=== PATIENT | female | born 1985 | race Caucasian/White ===

== ENCOUNTER 2019-10-09 10:09 | Outpatient (CLI) | payer OTHER, SELFPAY ==
--- NOTE | 2019-10-09 11:00 | NEURO_ITS ---
Patient Number: [id number] Impression: # Complains of feet pain; possible tarsal tunnel syndrome. # Normal and symmetrical terminal latencies bilaterally with no underlying neuropathy. # Normal needle/EMG exam. # Clinical correlation recommended. Nerve Conduction Studies Anti Sensory Summary Table Stim Site NR Peak (ms) P-T Amp (?V) Site1 Site2 Delta-P (ms) Dist (cm) Parish (m/s) Left Sup Fibular Anti Sensory (Ant Lat Mall) 14 cm 2.7 8.9 14 cm Ant Lat Mall 2.7 16.0 59 Right Sup Fibular Anti Sensory (Ant Lat Mall) 14 cm 3.3 9.8 14 cm Ant Lat Mall 3.3 16.0 48 Left Sural Anti Sensory (Lat Mall) Calf 3.8 5.1 Calf Lat Mall 3.8 16.0 42 Right Sural Anti Sensory (Lat Mall) Calf 3.4 9.6 Calf Lat Mall 3.4 16.0 47 Motor Summary Table Stim Site NR Onset (ms) O-P Amp (mV) Site1 Site2 Delta-0 (ms) Dist (cm) Parish (m/s) Left Peroneal Motor (Vastus Med) Ankle 3.9 4.1 Popit Ankle 6.6 36.0 55 Popit 10.5 3.8 Right Peroneal Motor (Vastus Med) Ankle 3.9 2.3 Popit Ankle 7.0 37.0 53 Popit 10.9 4.2 Left Tibial Motor (Abd Sanchez Brev) Ankle 3.8 4.7 Knee Ankle 7.9 41.0 52 Knee 11.7 1.8 Right Tibial Motor (Abd Sanchez Brev) Ankle 3.9 5.7 Knee Ankle 10.0 45.0 45 Knee 13.9 4.5 F Wave Studies NR F-Lat (ms) L-R F-Lat (ms) Left Peroneal (Mrkrs) (EDB) 45.83 1.01 Right Peroneal (Mrkrs) (EDB) 46.84 1.01 Left Tibial (Mrkrs) (Abd Hallucis) 48.84 0.99 Right Tibial (Mrkrs) (Abd Hallucis) 47.85 0.99 EMG Side Muscle Nerve Root Ins Act Fibs Amp Dur Recrt Comment Right AntTibialis Dp Br Fibular L4-5 Nml Nml Nml Nml Nml Right Gastroc Tibial S1-2 Nml Nml Nml Nml Nml Right Fibularis Long Sup Br Fibular L5-S1 Nml Nml Nml Nml Nml Right Flex Dig Long Tibial L5-S2 Nml Nml Nml Nml Nml Right Ext Dig Brev Dp Br Fibular L5, S1 Nml Nml Nml Nml Nml Left AntTibialis Dp Br Fibular L4-5 Nml Nml Nml Nml Nml Left Gastroc Tibial S1-2 Nml Nml Nml Nml Nml Left Fibularis Long Sup Br Fibular L5-S1 Nml Nml Nml Nml Nml Left Flex Dig Long Tibial L5-S2 Nml Nml Nml Nml Nml Left Ext Dig Brev Dp Br Fibular L5, S1 Nml Nml Nml Nml Nml MTDD
== END 2019-10-09 10:10 | disposition home or self-care (01) ==
LOC: ANHNEURO 10:13
PROVIDERS: PCP Nurse Practitioner Family; Visit Provider Podiatrist Foot & Ankle Surgery
DX: G57.52 Tarsal tunnel syndrome, left lower limb (principal)
CPT/HCPCS: 95886; 95910

== ENCOUNTER 2020-11-05 10:00 | Emergency (ER) | payer OTHER, SELFPAY ==
[2020-11-05 10:09] VITALS: BP 141/81; PULSE 85; RESP 16; TEMP 36.6; O2SAT 99
--- NOTE | 2020-11-05 10:58 | ED.SKABFB ---
HPI - Skin/Abscess/Foreign Bdy General Chief complaint: Skin/Abscess/Foreign Body Stated complaint: rash Time Seen by Provider: 11/05/20 10:58 Source: patient Mode of arrival: ambulatory Limitations: no limitations History of Present Illness HPI narrative: Linda Del Rosario is a 35 yo female with a PMH of atypical neuropathy and seizures who [facility] with a rash on her left buttock and upper thigh that started 4 to 5 days ago. the rash is painful 10 out of 10, and tender, only on the L side Related Data Home Medications Medication Instructions Recorded Confirmed budesonide-formoterol [Symbicort] INHALATION 11/05/20 divalproex PO 11/05/20 fluticasone propionate INTRANASAL 11/05/20 gabapentin 11/05/20 gabapentin 11/05/20 ipratropium-albuterol ml INHALATION 11/05/20 omeprazole 11/05/20 ondansetron 11/05/20 umeclidinium [Incruse Ellipta] INHALATION 11/05/20 Allergies Allergy/AdvReac Type Severity Reaction Status Date / Time amoxicillin Allergy Unknown Stopped Verified 09/08/15 11:19 Breathing ciprofloxacin Allergy Unknown rash Verified 09/08/15 11:19 clarithromycin Allergy Unknown jittery Verified 09/08/15 11:19 naproxen Allergy Unknown rash Verified 09/08/15 11:19 oxycodone Allergy Unknown Verified 05/02/18 15:33 Review of Systems Review of Systems: Narrative: CONSTITUTIONAL: Denies fever, chills, sweats. EYES: Denies visual changes, redness, discharge. ENT: Denies rhinorrhea, congestion, sore throat, otalgia. CARDIOVASCULAR: Denies chest pain, palpitations, edema. RESPIRATORY: Denies dyspnea, wheezing, cough GASTROINTESTINAL: Denies abdominal pain, nausea, vomiting, diarrhea. GENITOURINARY: Denies dysuria, hematuria, abnormal discharge SKIN: Rash on left buttock and left thigh that is painful and tender NEUROLOGIC: Denies numbness, or focal weakness. PSYCHIATRIC: Denies anxiety or depression. [facility] Past Medical History Medical History Neuropathy Seizure disorder Family History Family History Mother Depression Sibling Family history of heart disease in male family member before age 55 Family history of diabetes mellitus in first degree relative Father Family history of heart disease in male family member before age 55 Other Diabetes mellitus Social History Social History (Updated 11/05/20 @ 11:12 by Brittni Ayala CNP) Smoking packs per day: 0.5 Smoking cigarettes per day: 10.0 Smoking status: Current some day smoker Smoking end date: 07/09/14 Additional smoking assessment comments: Has cut down from 2 packs a day to half pack Comments At time of signature, I agree with nursing past medical, surgical, social and family history. There is no relevant family history pertinent to the presenting complaint. Exam Narrative: Exam Narrative: GENERAL: This is a well-nourished, well-developed patient, in mild distress. HEAD: normocephalic, atraumatic. EYES: Sclera clear/white. Vision is grossly intact. EARS: External ears normal, auditory canals clear and without drainage, TMs normal without perforation. Hearing grossly intact. NOSE: External nose normal without nasal discharge, nares without redness, no rhinorrhea. THROAT: Mucous membranes moist, posterior pharynx NECK: Neck supple, non-tender CARDIOVASCULAR: Regular rate and rhythm without murmurs, gallops, or rubs. RESPIRATORY: Clear to auscultation. Breath sounds equal bilaterally. No wheezes, rales, or rhonchi. GASTROINTESTINAL: Abdomen soft, non-tender, SKIN: warm, intact with rash on the left buttock and left upper thigh that is red tender and states the pain is 10 out of 10, is not vesicular or weeping NEURO: awake, alert, and oriented to person, place and time. There were no obvious focal neurologic abnormalities. Steady gait EXTREMITIES: Normal range of motion. BACK: Nontender without defor
== END 2020-11-05 11:30 | disposition home or self-care (01) ==
PROVIDERS: Emergency Provider Nurse Practitioner
DX: B02.9 Zoster without complications (principal); F17.200 Nicotine dependence, unspecified, uncomplicated; G40.909 Epilepsy, unspecified, not intractable, without status epilepticus; G62.9 Polyneuropathy, unspecified
CPT/HCPCS: 99213; G0463

== ENCOUNTER 2021-09-16 16:11 | Emergency (ER) | payer OTHER, SELFPAY ==
--- NOTE | ~2021-09-16 | XR_ITS ---
EXAMINATION: XR knee LT min 4V DATE: 09/16/2021 16:46 INDICATION: Left knee pain TECHNIQUE: Four views of the left knee were obtained. COMPARISON: None. FINDINGS: Alignment is normal. No fracture or osteochondral lesion. Joint spaces are normal with no e rosions. There is a small knee joint effusion. Soft tissues are unremarkable. IMPRESSION: 1. Small knee joint effusion without acute osseous abnormality. Reviewed, dictated and finalized at location B. ENTRY MANAGER
[2021-09-16 16:24] VITALS: BP 121/74; PULSE 94; RESP 18; TEMP 37.2; O2SAT 98
--- NOTE | 2021-09-16 16:36 | ED.LOWEXIN ---
HPI - Extremity Injury (Lower) General Chief Complaint: Extremity Injury, Lower Stated Complaint: Left Knee Pain Time Seen by Provider: 09/16/21 16:36 Source: patient Mode of arrival: ambulatory Limitations: no limitations History of Present Illness HPI Narrative: Linda Del Rosario is a 36 yo female with PMH of seizure disorder, COPD, seasonal allergies, mouth 3 days ago while in a house where she tripped over some boots and her left leg bent underneath her as she fell back against a dresser. She has a bruise on her right flank and pain on the medial side of her left knee Related Data Home Medications Medication Instructions Recorded Confirmed budesonide-formoterol [Symbicort] 160 inh INHALATION DIRECTED 11/05/20 09/16/21 divalproex 500 mg PO DIRECTED 11/05/20 09/16/21 fluticasone propionate 50 mcg INTRANASAL DIRECTED 11/05/20 09/16/21 ipratropium-albuterol 3 ml INHALATION DIRECTED 11/05/20 09/16/21 omeprazole 40 mg DIRECTED 11/05/20 09/16/21 ondansetron 8 mg DIRECTED 11/05/20 09/16/21 umeclidinium [Incruse Ellipta] 62.5 mcg INHALATION DIRECTED 11/05/20 09/16/21 montelukast 10 mg DIRECTED 09/16/21 09/16/21 Allergies Allergy/AdvReac Type Severity Reaction Status Date / Time amoxicillin Allergy Unknown Stopped Verified 09/08/15 11:19 Breathing ciprofloxacin Allergy Unknown rash Verified 09/08/15 11:19 clarithromycin Allergy Unknown jittery Verified 09/08/15 11:19 naproxen Allergy Unknown rash Verified 09/08/15 11:19 oxycodone Allergy Unknown Verified 05/02/18 15:33 Review of Systems Review of Systems: CONSTITUTIONAL: Denies fever, chills, sweats. EYES: Denies visual changes, redness, discharge. ENT: Denies rhinorrhea, congestion, sore throat, otalgia. CARDIOVASCULAR: Denies chest pain, palpitations, edema. RESPIRATORY: Denies dyspnea, wheezing, cough GASTROINTESTINAL: Denies abdominal pain, nausea, vomiting, diarrhea. GENITOURINARY: Denies dysuria, hematuria, abnormal discharge SKIN: Denies rash or itching. NEUROLOGIC: Denies numbness, or focal weakness. PSYCHIATRIC: Denies anxiety or depression. Left knee pain PMFSH Past Medical History Medical History Allergies GERD (gastroesophageal reflux disease) Neuropathy Seasonal allergies Seizure disorder Family History Family History Mother Depression Sibling Family history of heart disease in male family member before age 55 Family history of diabetes mellitus in first degree relative Father Family history of heart disease in male family member before age 55 Other Diabetes mellitus Social History Social History Smoking packs per day: 0.5 Smoking cigarettes per day: 10.0 Smoking status: Current some day smoker Smoking end date: 07/09/14 Additional smoking assessment comments: Has cut down from 2 packs a day to half pack Comments At time of signature, I agree with nursing past medical, surgical, social and family history. There is no relevant family history pertinent to the presenting complaint. Exam Narrative: GENERAL: This is a well-nourished, well-developed patient, in mild distress. HEAD: normocephalic, atraumatic. EYES: PERRL. Sclera clear/white. Vision is grossly intact. EARS: External ears normal, auditory canals clear and without drainage, TMs normal without perforation. Hearing grossly intact. NOSE: External nose normal without nasal discharge, nares without redness, no rhinorrhea. THROAT: Mucous membranes moist, posterior pharynx NECK: Neck supple, non-tender CARDIOVASCULAR: Regular rate and rhythm without murmurs, gallops, or rubs. RESPIRATORY: Clear to auscultation. Breath sounds equal bilaterally. No wheezes, rales, or rhonchi. GASTROINTESTINAL: Abdomen soft, non-tender, SKIN: warm, intact with no suspicious lesions or rash, good texture and
== END 2021-09-16 17:09 | disposition home or self-care (01) ==
PROVIDERS: Emergency Provider Nurse Practitioner; PCP Nurse Practitioner Family
DX: M25.562 Pain in left knee (principal); F17.210 Nicotine dependence, cigarettes, uncomplicated; K21.9 Gastro-esophageal reflux disease without esophagitis; G62.9 Polyneuropathy, unspecified
CPT/HCPCS: 73564; 99213; G0463; L1830

== ENCOUNTER 2023-05-13 15:35 | Emergency (ER) | payer OTHER, SELFPAY ==
[2023-05-13 15:45] VITALS: BP 127/90; PULSE 83; RESP 14; TEMP 37.2; O2SAT 98
--- NOTE | 2023-05-13 15:55 | ED.EAR ---
HPI - Ear Problem General Chief complaint: Ear Stated complaint: both ears ringing,buzzing Time Seen by Provider: 05/13/23 15:50 Source: patient Mode of arrival: ambulatory Limitations: no limitations History of Present Illness HPI Narrative: Linda is a 38-year-old female patient presenting to the clinic today with complaints of ringing in both of her ears. She reports this been going on for 1 week. Does report a lot of pressure behind her ears and some discomfort over the bilateral eustachian tubes. Denies any fever or chills. No dizziness, nausea or vomiting Related Data Home Medications Medication Instructions Recorded Confirmed budesonide-formoterol HFA 160 160 inh inhalation DIRECTED 11/05/20 05/13/23 mcg-4.5 mcg/actuation aerosol inhaler (Symbicort) divalproex 500 mg tablet,extended 500 mg PO DIRECTED 11/05/20 05/13/23 release 24 hr fluticasone propionate 50 50 mcg intranasal DIRECTED 11/05/20 05/13/23 mcg/actuation nasal spray,suspension ipratropium 0.5 mg-albuterol 3 mg 3 ml inhalation DIRECTED 11/05/20 05/13/23 (2.5 mg base)/3 mL nebulization soln omeprazole 40 mg capsule,delayed 40 mg DIRECTED 11/05/20 05/13/23 release ondansetron 8 mg disintegrating 8 mg DIRECTED 11/05/20 05/13/23 tablet umeclidinium 62.5 mcg/actuation 62.5 mcg inhalation DIRECTED 11/05/20 05/13/23 blister powder for inhalation (Incruse Ellipta) montelukast 10 mg tablet 10 mg DIRECTED 09/16/21 05/13/23 Allergies Allergy/AdvReac Type Severity Reaction Status Date / Time amoxicillin Allergy Unknown Stopped Verified 05/13/23 15:56 Breathing ciprofloxacin Allergy Unknown rash Verified 05/13/23 15:56 clarithromycin Allergy Unknown jittery Verified 05/13/23 15:56 naproxen Allergy Unknown rash Verified 05/13/23 15:56 oxycodone Allergy Unknown Unknown Verified 05/13/23 15:56 [facility] Past Medical History Medical History Allergies GERD (gastroesophageal reflux disease) Neuropathy Seasonal allergies Seizure disorder Family History Family History Mother Depression Sibling Family history of heart disease in male family member before age 55 Family history of diabetes mellitus in first degree relative Father Family history of heart disease in male family member before age 55 Other Diabetes mellitus Social History Social History Smoking packs per day: 0.5 Smoking cigarettes per day: 10.0 Smoking status: Current some day smoker Smoking end date: 07/09/14 Additional smoking assessment comments: Has cut down from 2 packs a day to half pack Comments At the time of my signature, I reviewed and agree with the nursing past medical, surgical, social, and family history. There is no relevant family history pertinent to the patient complaint. Exam Narrative: General: Well-developed, well nourished, in no apparent distress Head: Normocephalic, atraumatic Eyes: Pupils equally round and reactive to light bilaterally, EOM intact, sclera and conjunctive clear, no discharge, lids normal Ears: TMs intact and congested, with mild bulging bilaterally, fluid noted behind the TMs, ear canals clear, no drainage, grossly hearing normal. Nose: Nares patent, no discharge, no inflammation, no sinus tenderness. Mouth: Oropharynx without lesions or masses, good dentition, MMM. Neck: Supple, trachea midline, no enlargement of anterior or posterior cervical nodes, no thyroid masses or goiter palpable. Cardio: Regular rate and rhythm, s1 and s2 normal, no murmur appreciated. Resp: Clear to auscultation bilaterally anteriorly and posteriorly, no rhonchi, rales, wheezing or rubs Course Course Emergency Course: Portions of this record may have been created with voice recognition software. Level of Care: Expre
== END 2023-05-13 16:02 | disposition home or self-care (01) ==
PROVIDERS: Emergency Provider Nurse Practitioner Family; PCP Physician Assistant
DX: H69.93 Unspecified Eustachian tube disorder, bilateral (principal); H65.03 Acute serous otitis media, bilateral; K21.9 Gastro-esophageal reflux disease without esophagitis; G40.909 Epilepsy, unspecified, not intractable, without status epilepticus
CPT/HCPCS: 99213; G0463

== ENCOUNTER 2023-07-03 11:37 | Emergency (ER) | payer OTHER, SELFPAY ==
[2023-07-03 11:58] VITALS: BP 126/78; PULSE 73; RESP 16; TEMP 36.6; O2SAT 99
--- NOTE | 2023-07-03 12:26 | ED.EAR ---
HPI - Ear Problem General Chief complaint: Ear Stated complaint: both ears painful Time Seen by Provider: 07/03/23 12:26 Source: patient Mode of arrival: ambulatory Limitations: no limitations History of Present Illness HPI Narrative: 38-year-old female presents with complaint of bilateral ear pain for 3 days. Afebrile. No other symptoms. Reports history of similar and was told to take Claritin D which helped. Patient has been taking Flonase but currently does not have Claritin D. Wanted to make sure she did not need antibiotic. all systems reviewed and negative except as noted above. Related Data Home Medications Medication Instructions Recorded Confirmed budesonide-formoterol HFA 160 160 inh inhalation DIRECTED 11/05/20 07/03/23 mcg-4.5 mcg/actuation aerosol inhaler (Symbicort) divalproex 500 mg tablet,extended 500 mg PO DIRECTED 11/05/20 05/13/23 release 24 hr fluticasone propionate 50 50 mcg intranasal DIRECTED 11/05/20 05/13/23 mcg/actuation nasal spray,suspension ipratropium 0.5 mg-albuterol 3 mg 3 ml inhalation DIRECTED 11/05/20 05/13/23 (2.5 mg base)/3 mL nebulization soln omeprazole 40 mg capsule,delayed 40 mg DIRECTED 11/05/20 05/13/23 release ondansetron 8 mg disintegrating 8 mg DIRECTED 11/05/20 05/13/23 tablet umeclidinium 62.5 mcg/actuation 62.5 mcg inhalation DIRECTED 11/05/20 05/13/23 blister powder for inhalation (Incruse Ellipta) montelukast 10 mg tablet 10 mg DIRECTED 09/16/21 05/13/23 Allergies Allergy/AdvReac Type Severity Reaction Status Date / Time amoxicillin Allergy Unknown Stopped Verified 07/03/23 12:25 Breathing ciprofloxacin Allergy Unknown rash Verified 07/03/23 12:25 clarithromycin Allergy Unknown jittery Verified 07/03/23 12:25 naproxen Allergy Unknown rash Verified 07/03/23 12:25 oxycodone Allergy Unknown Unknown Verified 07/03/23 12:25 Penicillins AdvReac Anaphylaxis Verified 07/03/23 12:26 Review of Systems Review of Systems: CONSTITUTIONAL: Denies fever, chills, or sweats. EYES: Denies visual changes, redness, or discharge. ENT: Denies rhinorrhea, congestion, sore throat . Reports bilateral ear pain. CARDIOVASCULAR: Denies chest pain, palpitations, or edema. RESPIRATORY: Denies cough or dyspnea. GASTROINTESTINAL: Denies abdominal pain, nausea, vomiting, or diarrhea. GENITOURINARY: Denies dysuria or hematuria. SKIN: Denies rash or itching. MUSCULOSKELETAL: Denies back pain, joint pain, or myalgia. NEUROLOGIC: Denies headache, numbness, or weakness. PSYCHIATRIC: Denies anxiety or depression. All other systems reviewed are negative, except as documented in HPI. [facility] Past Medical History Medical History Allergies GERD (gastroesophageal reflux disease) Neuropathy Seasonal allergies Seizure disorder Family History Family History Mother Depression Sibling Family history of heart disease in male family member before age 55 Family history of diabetes mellitus in first degree relative Father Family history of heart disease in male family member before age 55 Other Diabetes mellitus Social History Social History Smoking packs per day: 0.5 Smoking cigarettes per day: 10.0 Smoking status: Current some day smoker Smoking end date: 07/09/14 Additional smoking assessment comments: Has cut down from 2 packs a day to half pack Comments At time of signature, agree with nursing past medical, surgical, social and family history. There is no relevant family history pertinent to the presenting complaint. Exam Narrative: GENERAL: This is a well-nourished, well-developed patient, in no apparent distress. HEAD: normocephalic, atraumatic. EYES: PERRL. Sclera clear/white. Vision is grossly intact. EARS: External ears normal
== END 2023-07-03 12:38 | disposition home or self-care (01) ==
PROVIDERS: Emergency Provider Nurse Practitioner Family; PCP Physician Assistant
DX: H65.03 Acute serous otitis media, bilateral (principal); G40.909 Epilepsy, unspecified, not intractable, without status epilepticus; F17.210 Nicotine dependence, cigarettes, uncomplicated
CPT/HCPCS: 99211; G0463

== ENCOUNTER 2023-11-04 12:33 | Emergency (ER) | payer OTHER, SELFPAY ==
[2023-11-04 12:56] VITALS: BP 130/89; PULSE 75; RESP 18; TEMP 36.6; O2SAT 100
--- NOTE | 2023-11-04 13:19 | ED.SKABFB ---
HPI - Skin/Abscess/Foreign Bdy General Chief complaint: Skin/Abscess/Foreign Body Stated complaint: Right Hand Middle Finger Pain Source: patient Mode of arrival: ambulatory Limitations: no limitations History of Present Illness HPI narrative: 38 y/o female presented for c/o right middle finger pain and swelling. Onset 5 days. 2 days after onset she was seen in the ER , given IV abx, and Rx cefadroxil but reports no improvement. Unable to bend the finger due to the swelling and pain. Ibuprofen not helping. Related Data Home Medications Medication Instructions Recorded Confirmed budesonide-formoterol HFA 160 160 inh inhalation DIRECTED 11/05/20 07/03/23 mcg-4.5 mcg/actuation aerosol inhaler (Symbicort) divalproex 500 mg tablet,extended 500 mg PO DIRECTED 11/05/20 05/13/23 release 24 hr fluticasone propionate 50 50 mcg intranasal DIRECTED 11/05/20 05/13/23 mcg/actuation nasal spray,suspension ipratropium 0.5 mg-albuterol 3 mg 3 ml inhalation DIRECTED 11/05/20 05/13/23 (2.5 mg base)/3 mL nebulization soln omeprazole 40 mg capsule,delayed 40 mg DIRECTED 11/05/20 05/13/23 release ondansetron 8 mg disintegrating 8 mg DIRECTED 11/05/20 05/13/23 tablet umeclidinium 62.5 mcg/actuation 62.5 mcg inhalation DIRECTED 11/05/20 05/13/23 blister powder for inhalation (Incruse Ellipta) montelukast 10 mg tablet 10 mg DIRECTED 09/16/21 05/13/23 albuterol sulfate 2.5 mg/3 mL mg 11/04/23 (0.083 %) solution for nebulization cefadroxil 500 mg capsule mg 11/04/23 famotidine 40 mg tablet mg 11/04/23 fluticasone fur. 200 mcg-umeclid inhalation 11/04/23 62.5 mcg-vilant 25 mcg inhalat.powder (Trelegy Ellipta) ipratropium 0.5 mg-albuterol 3 mg ml inhalation 11/04/23 (2.5 mg base)/3 mL nebulization soln mepolizumab 100 mg/mL subcutaneous mg subcut 11/04/23 auto-injector (Nucala) metoclopramide HCl 10 mg tablet mg 11/04/23 ropinirole 0.5 mg tablet mg 11/04/23 Allergies Allergy/AdvReac Type Severity Reaction Status Date / Time amoxicillin Allergy Unknown Stopped Verified 07/03/23 12:25 Breathing ciprofloxacin Allergy Unknown rash Verified 07/03/23 12:25 clarithromycin Allergy Unknown jittery Verified 07/03/23 12:25 naproxen Allergy Unknown rash Verified 07/03/23 12:25 oxycodone Allergy Unknown Unknown Verified 07/03/23 12:25 Penicillins AdvReac Anaphylaxis Verified 07/03/23 12:26 Review of Systems Review of Systems: CONSTITUTIONAL: Denies body aches, fever, chills EYES: Denies visual changes ENT: Denies rhinorrhea, congestion CARDIOVASCULAR: Denies chest pain, palpitations, or edema. RESPIRATORY: Denies cough or dyspnea. SKIN: reports right middle finger pain, swelling MUSCULOSKELETAL: Denies back pain, joint pain, or myalgia. NEUROLOGIC: Denies headache, numbness, tingling, or weakness. All systems reviewed & are unremarkable except as noted in HPI and below PMFSH Past Medical History Medical History Allergies GERD (gastroesophageal reflux disease) Neuropathy Seasonal allergies Seizure disorder Family History Family History Mother Depression Sibling Family history of heart disease in male family member before age 55 Family history of diabetes mellitus in first degree relative Father Family history of heart disease in male family member before age 55 Other Diabetes mellitus Social History Social History Smoking packs per day: 0.5 Smoking cigarettes per day: 10.0 Smoking status: Current some day smoker Smoking end date: 07/09/14 Additional smoking assessment comments: Has cut down from 2 packs a day to half pack Comments At time of signature, I have reviewed and agree with nursing past medical, surgical, social and family history unless otherwise noted. Please
[2023-11-04] MEDS: LIDOCAINE HCL 1% LOCAL INJ 2 ML AMPUL 4 ML INFILTRATE (13:33)
== END 2023-11-04 14:05 | disposition home or self-care (01) ==
PROVIDERS: Emergency Provider Nurse Practitioner Family; PCP Family Medicine
DX: L02.511 Cutaneous abscess of right hand (principal); Z87.891 Personal history of nicotine dependence; K21.9 Gastro-esophageal reflux disease without esophagitis; G62.9 Polyneuropathy, unspecified
CPT/HCPCS: 26010; 87070; 87075; 87205; 99213; G0463

== ENCOUNTER 2023-11-05 16:08 | Emergency (ER) | payer OTHER, SELFPAY ==
--- NOTE | ~2023-11-05 | XR_ITS ---
EXAM: XR finger 3rd RT min 2V DATE: 11/05/2023 17:25 HISTORY: swelling, redness, abscess X1 WEEK . COMPARISON: None available. FINDINGS: Normal mineralization. No fracture or dislocation. No lytic or blastic lesion. Joint space s are maintained. No erosion or periosteal change. Soft tissue swelling of the third digit. No radiop aque foreign body. No subcutaneous gas. IMPRESSION: No acute osseous finding in the right third digit. Reviewed, dictated and finalized at location K.
[2023-11-05 16:12] VITALS: BP 145/87; PULSE 85; RESP 20; TEMP 36.3; O2SAT 97
--- NOTE | 2023-11-05 17:11 | ED.EXTPRO ---
HPI - Extremity Problem General Chief complaint: Extremity Problem,Nontraumatic <REECE Matute Last Filed: 11/05/23 17:20> Stated complaint: swelling to right middle finger <REECE Matute Last Filed: 11/05/23 17:20> Time Seen by Provider: 11/05/23 17:11 <REECE Matute Last Filed: 11/05/23 17:20> Focused HPI: Patient is a 38 y/o female who presents to the ED with c/o finger infection. Patient reports she woke up 6 days ago with swelling and pain in her R 3rd digit from her PIP joint distally. She has since developed worsening pain, swelling, erythema, and an abscessed region over her DIP joint. States she has difficulty moving or bending finger. Denies fevers. Denies hx of DM. States she went to [facility] and was Rx'd cefadroxil. Denied improvement. GENERAL: Well-appearing, well-nourished, and in no acute distress. HEAD: Normocephalic, atraumatic. CHEST: Clear to auscultation. ?No respiratory distress. HEART: Regular rate and rhythm.?Radial pulses 2+ MSK: R 3rd digit diffusely swollen, erythematous, warmth. Significant TTP along flexor surface of digit. Area of fluctuance/abscess formation over DIP joint line on flexor surface. Sensation intact. Brisk capillary refill. NEURO: ?Alert and oriented x3. Patient screened in triage and initial orders placed.? ?Additional care and disposition to be based upon?diagnostic testing and treatment. <REECE Matute Last Filed: 11/05/23 17:20> Source: patient <REECE Matute Last Filed: 11/05/23 17:20> Mode of arrival: ambulatory <REECE Matute Last Filed: 11/05/23 17:20> Limitations: no limitations <REECE Matute Last Filed: 11/05/23 17:20> Related Data Home medications: Home Medications Medication Instructions Recorded Confirmed budesonide-formoterol HFA 160 160 inh inhalation DIRECTED 11/05/20 07/03/23 mcg-4.5 mcg/actuation aerosol inhaler (Symbicort) divalproex 500 mg tablet,extended 500 mg PO DIRECTED 11/05/20 05/13/23 release 24 hr fluticasone propionate 50 50 mcg intranasal DIRECTED 11/05/20 05/13/23 mcg/actuation nasal spray,suspension ipratropium 0.5 mg-albuterol 3 mg 3 ml inhalation DIRECTED 11/05/20 05/13/23 (2.5 mg base)/3 mL nebulization soln omeprazole 40 mg capsule,delayed 40 mg DIRECTED 11/05/20 05/13/23 release ondansetron 8 mg disintegrating 8 mg DIRECTED 11/05/20 05/13/23 tablet umeclidinium 62.5 mcg/actuation 62.5 mcg inhalation DIRECTED 11/05/20 05/13/23 blister powder for inhalation (Incruse Ellipta) montelukast 10 mg tablet 10 mg DIRECTED 09/16/21 05/13/23 albuterol sulfate 2.5 mg/3 mL mg 11/04/23 (0.083 %) solution for nebulization cefadroxil 500 mg capsule mg 11/04/23 famotidine 40 mg tablet mg 11/04/23 fluticasone fur. 200 mcg-umeclid inhalation 11/04/23 62.5 mcg-vilant 25 mcg inhalat.powder (Trelegy Ellipta) ipratropium 0.5 mg-albuterol 3 mg ml inhalation 11/04/23 (2.5 mg base)/3 mL nebulization soln mepolizumab 100 mg/mL subcutaneous mg subcut 11/04/23 auto-injector (Nucala) metoclopramide HCl 10 mg tablet mg 11/04/23 ropinirole 0.5 mg tablet mg 11/04/23 <Adeola Hallman PA-C - Last Filed: 11/05/23 17:20> Allergies/Adverse reactions: Allergies Allergy/AdvReac Type Severity Reaction Status Date / Time amoxicillin Allergy Unknown Stopped Verified 11/05/23 18:25 Breathing ciprofloxacin Allergy Unknown rash Verified 11/05/23 18:25 clarithromycin Allergy Unknown jittery Verified 11/05/23 18:25 naproxen Allergy Unknown rash Verified 11/05/23 18:25 oxycodone Allergy Unknown Unknown Verified 11/05/23 18:25 Penicillins AdvReac Anaphylaxis Verified 11/05/23 18:25 <Adeola Hallman PA-C - Last Filed: 11/05/23 17:20> Review of Systems Review of Systems: CONSTITUTIONAL: Denies fever
[2023-11-05 17:27] LABS: Basophils Percent Auto 0.4 % (0.2-1.2); Eosinophils Absolute Auto 0.1 K/mm3 (0-0.3); Eosinophils Percent Auto 1.3 % (0-4.4); Hematocrit 41.9 % (37.0-47.0); Immature Granulocyte Absolute 0.03 K/mm3 (0.00-0.031); Immature Granulocyte Percent A 0.3 % (0-0.5); Lymphocytes Absolute Auto 3.55 K/mm3 (0.9-3.2); Lymphocytes Percent Auto 37.9 % (18.3-44.2); Mean Corpuscular HGB Conc 33.4 g/dl (32-36); Mean Corpuscular Hemoglobin 32.1 pg (26-34); Mean Corpuscular Volume 96.1 fl (80-100); Monocytes Absolute Auto 0.7 K/mm3 (0.1-0.6); Neutrophils Percent Auto 53.1 % (45.5-73.1); Platelet Count Result 282 k/mm3 (150-375); Red Blood Count 4.36 M/mm3 (4.2-5.4); Red Cell Distribution Width 12.5 % (11.5-14.5); White Blood Count 9.4 K/mm3 (4.5-10.0)
[2023-11-05 17:40] LABS: Alanine Aminotransferase 16 U/L (6-35); Albumin Level 4.4 g/dL (3.5-5.1); Alkaline Phosphatase 79 U/L (38-126); Anion Gap 7 mmol/L (4-12); Aspartate Amino Transferase 20 U/L (14-36); Bilirubin,Total 0.4 mg/dL (0.2-1.3); Blood Urea Nitrogen 7 mg/dL (7-17); Calcium 9.2 mg/dL (8.4-10.2); Carbon Dioxide 21 mmol/L (22-30); Chloride 111 mmol/L (98-107); Estimated CRCL calculation 134 ml/min; Estimated Glomerular Filt Rate > 60; Glucose 97 mg/dL (65-110); Lactic Acid Reflex 0.9 mmol/L (0.7-2.0); Potassium 3.6 mmol/L (3.4-5.0); Sodium 139 mmol/L (137-145)
[2023-11-05 18:29] VITALS: BP 112/73; PULSE 71; RESP 14; O2SAT 94
[2023-11-05 18:41] LABS: Erythrocyte Sedimentation Rate 26 mm/hr (0-20)
[2023-11-05] MEDS: ACETAMINOPHEN 500 MG TABLET 1000 MG PO (18:58)
--- NOTE | 2023-11-05 19:12 | PC.NURSE ---
Report given to Jackelyn TOMAS, all questions answered
[2023-11-05] MEDS: DOXYCYCLINE HYCLATE 100 MG TABLET PO (19:42)
== END 2023-11-05 19:45 | disposition home or self-care (01) ==
PROVIDERS: Physician Assistant; Emergency Provider Physician Assistant; PCP Family Medicine
DX: L02.511 Cutaneous abscess of right hand (principal); G40.909 Epilepsy, unspecified, not intractable, without status epilepticus; G62.9 Polyneuropathy, unspecified; K21.9 Gastro-esophageal reflux disease without esophagitis; Z87.891 Personal history of nicotine dependence
CPT/HCPCS: 36415; 73140; 80053; 83605; 85025; 85652; 86140; 87070; 87205; 99283; A9270

== ENCOUNTER 2024-09-13 19:31 | Emergency (ER) | payer OTHER, SELFPAY ==
[2024-09-13] VITALS (8 sets, daily range): BP systolic 139–150; BP diastolic 82–91; PULSE 76–99; RESP 16–18; TEMP 36.4; O2SAT 94–99
--- NOTE | ~2024-09-13 | XR_ITS ---
XR chest 2V Ordering provider: Pk Alarcon MD History: 39 years Female with . chest pain . Comparison: None. FINDINGS: MEDIASTINUM: The cardiac silhouette is not enlarged. LUNGS: No infiltrates, effusions or pneumothorax. OTHER: No free air under the diaphragm. IMPRESSION: No acute cardiopulmonary pathology. Reviewed, dictated and finalized at location A. ST RESOURCES PROFESSOR
--- NOTE | ~2024-09-13 | CT_ITS ---
CTA chest PE protocol Ordering provider: Pk Alarcon MD History: 39 years Female with . Chest pain and shortness of breath . Comparison: None. Technique: CT angiogram chest was performed following timed intravenous injection of contrast. Thin s lice axial images and reformatted coronal images were obtained. Three dimensional reformatted images of the chest were also obtained using a [employer] workstation. . Automated exposure control and iterati ve reconstruction technique were employed. The dose-length product was 771.06 mGy-cm. 100 mL Omnipaqu e 350 was given IV. Findings: PULMONARY ARTERIES: Filling defects in the left lower lobe arteries is noted which may be pulmonary e mbolism. Suboptimal opacification of the pulmonary arteries is noted. VISUALIZED THORACIC INLET: Normal. MEDIASTINUM: Aorta/coronary arteries: Mild atheromatous disease. Heart/other: The heart is not enlarged. Lymph nodes: Right hilar adenopathy measuring 2 cm. LUNGS: 6 mm Nodule is seen in the right costophrenic angle No pulmonary masses. No effusions. No pneumothora x. Tree-in-bud appearance is seen in both upper and lower lobes suggestive of post infection changes. Focal pneumonia or atelectasis in the middle lobe. Focal groundglass appearing areas seen in the lef t lung base laterally measuring 1 cm. Nodule in the right apical area measuring 7 mm. 6 months follow -up advised. VISUALIZED UPPER ABDOMEN: Fat infiltration. Otherwise, the visualized upper abdomen is normal. MUSCULOSKELETAL: Soft tissues: The superficial soft tissues are normal. Bones: Age appropriate degenerative changes of the spine. IMPRESSION: 1. Possible subsegmental pulmonary embolism in the left lung base. pulmonary arteries opacification is suboptimal. 2. Multiple nodules bilaterally. 6 months follow-up advised. 3. Bilateral tree-in-bud appearance is more prominent in the lower lobes suggestive of pneumonitis. Clinical correlation advised. 4. Right hilar lymphadenopathy. Reviewed, dictated and finalized at location A. ROOM SUPERVISOR IMPRESSION: 1. Possible subsegmental pulmonary embolism in the left lung base. pulmonary a rteries opacification is suboptimal. 2. Multiple nodules bilaterally. 6 months follow-up advised. 3. Bilateral tree-in-bud appearance is more prominent in the lower lobes sugge stive of pneumonitis. Clinical correlation advised. 4. Right hilar lymphadenopathy.
--- NOTE | 2024-09-13 19:32 | ECG_ITS ---
Test Date: 2024-09-13 19:40:00 Measurements Intervals [place] Rate: 95 P: 61 ID: [id number] QRS: 74 QRSD: 101 T: -59 QT: 359 QTc: 452 Interpretive Statements SINUS RHYTHM NONSPECIFIC ST AND T-WAVE ABNORMALITY ABNORMAL ECG No previous ECG available for comparison Electronically Signed On 09-14-2024 07:56:14 CDT by Charli Hester M.D.
--- OUTSIDE RECORDS SUMMARY | 2024-09-13 19:33 | XMS_ITS | Encounter Summary ---
Author Organization [facility] Address [facility] [place] [address] Care Team Providers Care Can Sorter Name Role Phone Duane Tamez MD Unavailable [phone] Chapin Talavera DO Unavailable [phone] None, Provider Primary Care Provider Unavaila ble Cherelle Lacey MD Primary Care Provider [phone] None, Provider Primary Care Provider Unavaila ble Encounter Details Date Type Department Care Team (Late st Contact Info) Description 12/06/2022 Jobyal Message Enc [facility] Medical Group [address] [address] [facility] Provider appointment needed Social History Tobacco Use Types Packs/Day Years Used Date Smoking Tobacco: Former Cigarettes 0.3 25 1 - 2019 Smokeless Tobacco: Never Comments:provider address Alcohol Use Standard Drinks/Week Comments Yes 0 (1 standard drink = 0.6 oz pur e alcohol) rarely AUDIT-C Answer Date Recorded Frequency of Alcohol Consumption Never 09/13/2018 Average Number of Drinks Not on file 019 Frequency of Binge Drinking Not on file 02/2019 PHQ-2 Answer Date Recorded PHQ-2 Score - If the patient scores above 3, please move on to questions 3-9 2 12/06/2021 Comments No Sex and Gender Information Value Date Recorded Sex Assigned at Female 09/12/2024 6:33 AM CERTIFIED OPHTHALMIC TECHNICIAN Legal Sex Female 7:52 AM CERTIFIED OPHTHALMIC TECHNICIAN Gender Identity Not on file Sexual Orientation Not on file documented as of this encounter Plan of Treatment Upcoming Encounters Date Type Department Care Team (Late st Contact Info) Description 03/13/2025 9:00 AM CDT Office Visit [facility] Medical Group Multispecialty Care - [facility] [address] [place] [address] Armani Duarte MD [address] [place] [address] documented as of this encounter Visit Diagnoses Not on filedocumented in this encounter Care Teams Can Sorter Relationship Specialty Start Date End Date None, Provider, PCP - General UNKNOWN PHYSICIAN SPECIALTY 10/05/22 10/24/23 Cherelle Lacey MD [address] [place] [address] [place] [address] PCP - General FAMILY PRACTICE 10/25/23 09/11/24 None, Provider, PCP - General UNKNOWN PHYSICIAN SPECIALTY 09/12/24 Duane Tamez MD [facility] [address] [place] [address] NEUROLOGY 10/08/18 Chapin Talavera DO [facility] [address] [place] [address] [place] Member Services Representative CARDIOVASCULAR DISEASE 03/01/22 documented as of this encounter
--- OUTSIDE RECORDS SUMMARY | 2024-09-13 19:33 | XMS_ITS | Encounter Summary ---
Author Organization [facility] Address [address] [place] [address] Care Team Providers Care Loan Assistant Name Role Phone Jenn Menezes [facility] Primary Care Provider Duane Barker MD Unavailable [phone] Chapin Talavera DO Unavailable [phone] None, Provider Primary Care Provider Unavaila ble None, Provider Primary Care Provider Unavaila ble Cherelle Lacey MD Primary Care Provider [phone] None, Provider Primary Care Provider Unavaila ble Encounter Details Date Type Department Care Team (Late st Contact Info) Description 08/02/2021 MyChart Message Enc [facility] Medical Group Family Medicine [address] [address] Jenn Menezes [facility] incruse Social History Tobacco Use Types Packs/Day Years Used Date Smoking Tobacco: Every Day Cigarettes 0.3 25 Smokeless Tobacco: Never Alcohol Use Standard Drinks/Week Comments Yes 0 (1 standard drink = 0.6 oz pur e alcohol) rarely AUDIT-C Answer Date Recorded Frequency of Alcohol Consumption Never 09/13/2018 Average Number of Drinks Not on file 019 Frequency of Binge Drinking Not on file 02/2019 Comments No Sex and Gender Information Value Date Recorded Sex Assigned at Female 09/12/2024 6:33 AM MUSEUM SECURITY CHIEF Legal Sex Female 7:52 AM MUSEUM SECURITY CHIEF Gender Identity Not on file Sexual Orientation Not on file COVID-19 Exposure Response Date Recorded In the last month, have you been in contact with someone who was confirmed or suspected to have Coronavirus / COVID-19? No / Unsure 07/20/2021 7:40 AM MUSEUM SECURITY CHIEF documented as of this encounter Plan of Treatment Upcoming Encounters Date Type Department Care Team (Late st Contact Info) Description 03/13/2025 9:00 AM CDT Office Visit [facility] Medical Group Multispecialty Care - [facility] [address] [place] [address] Armani Duarte MD [address] [place] [address] documented as of this encounter Visit Diagnoses Not on filedocumented in this encounter Care Teams Loan Assistant Relationship Specialty Start Date End Date Jenn Menezes [facility] PCP - General NURSE PRACTITIONER 06/07/18 03/08/22 None, Provider, PCP - General UNKNOWN PHYSICIAN SPECIALTY 05/04/22 09/19/22 None, Provider, PCP - General UNKNOWN PHYSICIAN SPECIALTY 10/05/22 10/24/23 Chreelle Lacey MD [address] [place] [address] [place] [address] PCP - General FAMILY PRACTICE 10/25/23 09/11/24 None, ProviderMD PCP - General UNKNOWN PHYSICIAN SPECIALTY 09/12/24 Duane Tamez MD [address] [place] [address] NEUROLOGY 10/08/18 Chapin Talavera DO [address] [place] [address] [place] Asset Protection Lead CARDIOVASCULAR DISEASE 03/01/22 documented as of this encounter
--- OUTSIDE RECORDS SUMMARY | 2024-09-13 19:33 | XMS_ITS | Encounter Summary ---
Author Organization [facility] Address [address] [place] [address] Care Team Providers Care Gas Processing Plant Operator Name Role Phone Carilta Landa MD Primary Care Provider Unavailab Ti Levine MD Primary Care Provider + Jenn Menezes [facility] Primary Care Provider Unav Duane Finch MD Unavailable [phone] Chapin Talavera DO Unavailable [phone] None, Provider Primary Care Provider Unavaila ble None, Provider Primary Care Provider Unavaila ble Cherelle Lacey MD Primary Care Provider [phone] None, Provider Primary Care Provider Unavaila ble Encounter Details Date Type Department Care Team (Late st Contact Info) Description 03/11/[address] [facility] Conversion , Generic Conversion, Social History Tobacco Use Types Packs/Day Years Used Date Smoking Tobacco: Never Assessed Comments Unknown Sex and Gender Information Value Date Recorded Sex Assigned at Female 09/12/2024 6:33 AM IT ADMIN Legal Sex Female 7:52 AM IT ADMIN Gender Identity Not on file Sexual Orientation Not on file documented as of this encounter Plan of Treatment Upcoming Encounters Date Type Department Care Team (Late st Contact Info) Description 03/13/2025 9:00 AM CDT Office Visit [facility] Medical Group Multispecialty Care - [address] [place] [address] Armani Duarte MD [address] [place] [address] [address] [place] [address] documented as of this encounter Visit Diagnoses Not on filedocumented in this encounter Care Teams Gas Processing Plant Operator Relationship Specialty Start Date End Date Carlita Landa MD PCP - General INTERNAL MEDICINE 08/09/16 06/06/18 Ti Carrillo MD [address] [facility] [address] [place] [address] PCP - General 09/24/13 08/08/16 Jenn [facility] [address] [facility] [address] [place] [address] PCP - General NURSE PRACTITIONER 06/07/18 03/08/22 None, Provider, PCP - General UNKNOWN PHYSICIAN SPECIALTY 05/04/22 09/19/22 None, Provider, PCP - General UNKNOWN PHYSICIAN SPECIALTY 10/05/22 10/24/23 Cherelle Lacey MD [address] [place] [address] [place] [address] PCP - General FAMILY PRACTICE 10/25/23 09/11/24 None, ProviderMD PCP - General UNKNOWN PHYSICIAN SPECIALTY 09/12/24 Duane Tamez MD [facility] [employer] [address] [address] NEUROLOGY 10/08/18 Chapin Talavera DO [address] [place], [place] [address] [address] [address] [place] Flatware Maker CARDIOVASCULAR DISEASE 03/01/22 documented as of this encounter
--- OUTSIDE RECORDS SUMMARY | 2024-09-13 19:33 | XMS_ITS | Encounter Summary ---
Author Organization [facility] Address [facility] [place] [address] Care Team Providers Care Group President Name Role Phone Jenn Menezes [facility] Primary Care Provider Duane Barker MD Unavailable [phone] Chapin Talavera DO Unavailable [phone] None, Provider Primary Care Provider Unavaila ble None, Provider Primary Care Provider Unavaila ble Cherelle Lacey MD Primary Care Provider [phone] None, Provider Primary Care Provider Unavaila ble Encounter Details Date Type Department Care Team (Late Contact Info) Description 08/20/2021 MyChart Message Enc [facility] Medical Group Family Medicine [address] [address] [facility] Lung function test Social History Tobacco Use Types Packs/Day Years [...] Sex Assigned at Female 09/12/2024 6:33 AM TISSUE SPECIALIST Legal Sex Female 7:52 AM TISSUE SPECIALIST Gender Identity Not on file Sexual Orientation Not on file documented as of this encounter Plan of Treatment Upcoming Encounters Date Type Department Care Team (Late Contact Info) Description 03/13/2025 9:00 AM CDT Office Visit [facility] Medical Group Multispecialty Care - [facility] [address] [place] [address] Armani Duarte MD [address] [place] [address] documented as of this encounter Visit Diagnoses Not on filedocumented in this encounter Care Teams Group President Relationship Specialty Start Date End Date Jenn Menezes, [facility] PCP - General NURSE PRACTITIONER 06/07/18 03/08/22 None, Provider, PCP - General UNKNOWN PHYSICIAN SPECIALTY 05/04/22 09/19/22 None, Provider, PCP - General UNKNOWN PHYSICIAN SPECIALTY 10/05/22 10/24/23 Cherelle Lacey MD [address] [place] [address] [place] [address] PCP - General FAMILY PRACTICE 10/25/23 09/11/24 None, ProviderMD PCP - General UNKNOWN PHYSICIAN SPECIALTY 09/12/24 Duane aTmez MD [facility] [address] [address] NEUROLOGY 10/08/18 Chapin Talavera DO [facility] [address] [address] [place] Transformer Inspector CARDIOVASCULAR DISEASE 03/01/22 documented as of this encounter
--- OUTSIDE RECORDS SUMMARY | 2024-09-13 19:33 | XMS_ITS | Data Portability ---
Author Organization [place] [facility] [employer], Main Office Address [address] [place] [address] Assessment Encounter Date Assessment Date Assessment LastModified by Organization Details LastModified Time 04/06/2023 04/06/2023 CT and ultrasound performed-hia tyrone hernia [email or web address] Not available 04/06/2023 13:00:07 Plan of Treatment Reminders Order Date Submit Date Provider Last Modified By Organization Details Last Modified Time Details Appointments None recorded. Lab magnesium, serum or plasma [address] (Lab), [address] [place], [address], 4 10:17:32 vitamin B12, serum [address] (Lab), [address] [place], [address], 4 10:17:45 folate, serum [address] (Lab), [address] [place], [address], 4 10:17:59 ferritin, serum or plasma [address] (Lab), [address] [place], [address], 4 10:18:11 iron + total iron-bindin g capacity (TIBC), serum [address] (Lab), [address] [place], [address], 4 10:18:26 CBC w/ auto diff [address] (Lab), [address] [place], [address], 4 10:18:37 TSH, serum or plasma [address] (Lab), [address] [place], [address], 4 10:18:49 lipid panel, serum [email or web address] [place] [address] (Lab), [address] [place], [address], 3 09:18:20 CMP, serum or plasma [email or web address] (Lab), [address] [place], [address], 3 09:17:58 HbA1c (hemoglobin A1c), blood [email or web address] (Lab), [address] [place], [address], 3 09:18:09 Referral gastroenter ologist referral 2022 023 [email or web address] [place], [address] [address], [address], [place], [address], 4 09:55:55 gastroenter ologist referral 2022 023 [email or web address] 3 [place], [address] [address], [address], [place], [address], 3 07:33:57 neurologist referral 2022 023 [place] [address] Marcin Donaldson, [address] [place], [address], 3 18:53:44 Procedures None recorded. Surgeries None recorded. Imaging None recorded. Medication Orders ropinirole 0.[address] [id number], [address], [place], [address], 4 10:07:36 prednisone 20 mg tablet [address] [id number], [address], [place], [address], 4 10:07:36 Claritin 10 mg tablet [address] [id number], [address], [place], [address], 3 08:46:25 Reglan 10 mg tablet [address] [id number], [address], [place], [address], 3 15:17:44 famotidine 40 mg tablet [address] [id number], [address], [place], [address], 3 15:17:44 ondansetron 8 mg disintegrat ing tablet [address] [id number], [address], [place], [address], 3 08:42:59 gabapentin 600 mg tablet [address] [id number], [address], [place], [address], 3 09:01:10 Valtrex 1 gram tablet 2022 023 [email or web address] 1 [facility] #[id number], [address], [place], [address], 3 09:44:34 omeprazole 40 mg capsule,del ayed release [address] [id number], [address], [place], [address], 3 09:01:09 ondansetron 8 mg disintegrat ing tablet [address] [id number], [address], [place], [address], 3 09:01:09 divalproex ER 500 mg tablet,exte nded release [address] [id number], [address], [place], [address], 3 09:01:11 Patient TargetsNo targets recorded. Patient InstructionsNo instructions recorded. Reason for Referral Neurologist Referral for Epi lepsy Referring Physician: [facility], Encounter Date: 11/22/2022 Pediatric Psychiatrist Referral for Hiatal hernia Referring Physician: [facility], Encounter Date: 04/06/2023 Pediatric Psychiatrist Referral for Hiatal hernia Referring Physician: [facility], Encounter Date: 05/24/2023 Results Created Date Observation Date Name Description Value Unit Range Abnormal Flag Note LastModifiedBy Organization Detail LastModifiedTime 09/19/19 24 09/19/2023 CBC/C OMPLE TE BLD COUNT W/DIF F white blood cells 8.3 x10'3 /uL 4.2-10 .8 Not Available [facility] (Lab) [address] [facility] [place], [address], 09/19/2023 19:10:21 09/19/19 24 09/19/2023 CBC/C OMPLE TE BLD COUNT W/DIF F red blood cells 4.55 x10'6 /uL 3.80-5 .20 Not Available [facility] (Lab) [address] [place], [address], 09/19/2023 19:10:21 09/19/19 24 09/19/2023 CBC/C OMPLE TE BLD COUNT W/DIF F hemoglobin 14.9 g/dL 12.0-1 5.6 Not Available [facility] (Lab) [address] [place], [address], 09/19/2023 19:10:21 09/19/19 24 09/19/2023 CBC/C OMPLE TE BLD COUNT W/DIF F hematocrit 43.2 % 35.7-4 5.7 Not Available [facility] (Lab) [address] [place], [address], 09/19/2023 19:10:21 09/19/19 24 09/19/2023 CBC/C OMPLE TE BLD COUNT W/DIF F mean red cell volume 94.9 fL 82.0-9 9.0 Not Available [facility] (Lab) [address] [place], [address], 09/19/2023 19:10:21 09/19/19 24 09/19/2023 CBC/C OMPLE TE BLD COUNT W/DIF F mean red cell hemoglobin 32.7 pg 27.0-3 3.0 Not Available [facility] (Lab) [address] [place], [address], 09/19/2023 19:10:21 09/19/19 24 09/19/2023 CBC/C OMPLE TE BLD COUNT W/DIF F mean RBC HGB concentratio n 34.5 g/dL 31.0-3 6.0 Not Available [facility] (Lab) [address] [place], [address], 09/19/2023 19:10:21 09/19/19 24 09/19/2023 CBC/C OMPLE TE BLD COUNT W/DIF F red cell distribution width 12.1 % 11.8-1 5.5 Not Available [facility] (Lab) [address] [place], [address], 09/19/2023 19:10:21 09/19/19 24 09/19/2023 CBC/C OMPLE TE BLD COUNT W/DIF F platelets 296 x10'3 /uL 150-40 0 Not Available [facility] (Lab) [address] [place], [address], 09/19/2023 19:10:21 09/19/19 24 09/19/2023 CBC/C OMPLE TE BLD COUNT W/DIF F mean platelet volume 10.3 fL 9.0-12 .4 Not Available [facility] (Lab) [address] [place], [address], 09/19/2023 19:10:21 09/19/19 24 09/19/2023 CBC/C OMPLE TE BLD COUNT W/DIF F neutrophils 58.8 % 39.0-7 2.0 Not Available [facility] (Lab) [address] [place], [address], 09/19/2023 19:10:21 09/19/1909/19/2023 CBC/C OMPLE TE BLD COUNT W/DIF F lymphocytes 32.1 % 16.0-4 7.0 Not Available [facility] (Lab) [address] [place], [address], 09/19/2023 19:10:21 09/19/19 24 09/19/2023 CBC/C OMPLE TE BLD COUNT W/DIF F monocytes 7.1 % 5.0-12 .0 Not Available [facility] (Lab) [address] [place], [address], 09/19/2023 19:10:21 09/19/19 24 09/19/2023 CBC/C OMPLE TE BLD COUNT W/DIF F eosinophils 1.2 % 1.0-7. 0 Not Available [facility] (Lab) [address] [place], [address], 09/19/2023 19:10:21 09/19/1909/19/2023 CBC/C OMPLE TE BLD COUNT W/DIF F basophils 0.6 % 0.0-2. 0 Not Available [facility] (Lab) [address] [place], [address], 09/19/2023 19:10:21 09/19/1909/19/2023 CBC/C OMPLE TE BLD COUNT W/DIF F immature granulocytes 0.2 % 0.00-0 .50 Not Available [facility] (Lab) [address] [place], [address], 09/19/2023 19:10:21 09/19/19 24 09/19/2023 CBC/C OMPLE TE BLD COUNT W/DIF F neutrophils, absolute count 4.89 x10'3 /uL 1.5-8. 0 Not Available [facility] (Lab) [address] [place], [address], 09/19/2023 19:10:21 09/19/19 24 09/19/2023 CBC/C OMPLE TE BLD COUNT W/DIF F lymphocytes, absolute count 2.67 x10'3 /uL 1.07-3 .43 Not Available [facility] (Lab) [address] [place], [address], 09/19/2023 19:10:21 09/19/19 24 09/19/2023 CBC/C OMPLE TE BLD COUNT W/DIF F monocytes, absolute count 0.59 x10'3 /uL 0.29-0 .99 Not Available [facility] (Lab) [address] [place], [address], 09/19/2023 19:10:21 09/19/19 24 09/19/2023 CBC/C OMPLE TE BLD COUNT W/DIF F eosinophils, absolute count 0.10 x10'3 /uL 0.02-0 .53 Not Available [facility] (Lab) [address] [place], [address], 09/19/2023 19:10:21 09/19/19 24 09/19/2023 CBC/C OMPLE TE BLD COUNT W/DIF F basophils, absolute count 0.05 x10'3 /uL 0.01-0 .08 Not Available [facility] (Lab) [address] [place], [address], 09/19/2023 19:10:21 09/19/19 24 09/19/2023 CBC/C OMPLE TE BLD COUNT W/DIF F immature granulocytes ,absolute 0.02 x10'3 /uL 0.00-0 .05 Not Available [facility] (Lab) [address] [place], [address], 09/19/2023 19:10:21 09/19/19 24 09/19/2023 CBC/C OMPLE TE BLD COUNT W/DIF F nucleated red blood cells 0.0 % -0 Not Available [facility] (Lab) [address] [place], [address], 09/19/2023 19:10:21 09/19/19 24 09/19/2023 CBC/C OMPLE TE BLD COUNT W/DIF F NRBC# 0.00 x10'3 /uL Not Available [facility] (Lab) [address] [place], [address], 09/19/2023 19:10:21 09/19/19 24 09/19/2023 IRON/ TIBC PANEL total iron binding capacity 332 mcg/d L 265-47 5 Not Available [facility] (Lab) [address] [place], [address], 09/19/2023 19:34:46 09/19/19 24 09/19/2023 IRON/ TIBC PANEL % transferrin saturation 26 % 20-55 Not Available [facility] (Lab) [address] [place], [address], 09/19/2023 19:34:46 09/19/19 24 09/19/2023 IRON/ TIBC PANEL unsaturated iron bind capacity 247 mcg/d L 126-38 2 Not Available [facility] (Lab) [address] [place], [address], 09/19/2023 19:34:46 09/19/19 24 09/19/2023 IRON/ TIBC PANEL iron 85 mcg/d L 42-175 Not Available [facility] (Lab) [address] [place], [address], 09/19/2023 19:34:46 09/19/19 24 09/19/2023 MAGNE SIUM magnesium 1.7 mg/dL 1.6-2. 3 Not Available [facility] (Lab) [address] [place], [address], 09/19/2023 19:34:14 09/19/19 24 09/19/2023 TSH thyroid-stim ulating hormone 2.360 uIU/m L 0.465- 4.680 Not Available [facility] (Lab) [address] [place], [address], 09/19/2023 19:57:17 09/19/19 24 09/19/2023 ROSALIO TIN ferritin 11 NG/mL 6.24-1 37 Not Available [facility] (Lab) [address] [place], [address], 09/19/2023 19:58:37 09/19/19 24 09/19/2023 VITAM IN B12 (ANDRZEJ JENNIFER ) vb12 347 pg/mL 239-93 1 Not Available [facility] (Lab) [address] [place], [address], 09/19/2023 20:23:46 09/19/19 24 09/19/2023 FOLAT E, SERUM /PLAS MA folate 4.80 NG/mL 2.76-2 0.0 Not Available [facility] (Lab) [address] [place], [address], 09/19/2023 20:23:51 11/05/19 24 11/05/2023 XR, finge r(s) No observ ation record ed. [address], [place], [address], 11/24/2023 11:51:05 Result Notes None recorded. Problems Name Problem SNOMED Code Status Onset Date Resolution Date Notes Provider Name and Address Organization Details Recorded Time Chronic obstructiv e pulmonary disease 25194823 Active Not Available [facility] 3 16:30:22 Amenorrhea 61456976 Active Not Available [employer] 3 16:30:22 History of alcoholism 400229457 Active 2018 Not Available [facility] 3 16:30:22 Morbid obesity 658949714 Active Not Available [facility] 3 16:30:22 Hirsutism 544020228 Active Not Available [facility] 3 16:30:22 Intolerant of heat 29860984 Active Not Available [facility] 3 16:30:22 Irregular periods 59010880 Active Not Available [facility] 3 16:30:22 Palpitatio ns 68103990 Active Not Available [facility] 3 16:30:22 Epilepsy 09702266 Active Not Available [facility] 3 16:30:22 Tobacco dependence syndrome 77823425 Active Not Available [facility] 3 16:30:22 Gastroesop hageal reflux disease 594977241 Active 2022 THANH Mackenzie [address], [address], [place], [address] , [employer] 3 08:53:12 Chronic low back pain 061632883 Active 2022 THANH Mackenzie [address], [address], [place], [address] , [employer] 3 08:56:27 Herpes zoster 9908098 Active 2022 THANH Mackenzie [address], [address], [place], [address] , [employer] 3 09:23:11 Asthma 812777510 Active 2022 THANH Mackenzie [address], [address], [place], [address] , [employer] 3 09:46:08 Seasonal allergy 711646552 Active 2022 THANH Mackenzie [address], [address], [place], [address] , [employer] 3 09:59:25 Insomnia 124413968 Active 2022 THANH Mackenzie [address], [address], [place], [address] , [employer] 3 08:36:57 Impacted cerumen in left ear 6659728886739 101 Active 2022 THANH Mackenzie [address], [address], [place], [address] , [employer] 3 08:50:13 Hiatal hernia 43712232 Active 2022 RANJITH Tadeo [address], [address], [place], [address] , [employer] 3 12:39:26 Lateral epicondyli tis of left humerus 3010279027753 00 Active 2023 Cherelle Lacey MD [address] [facility] [place] [address], [place], [address] , [facility] [employer] [facility] 4 10:03:57 Restless legs 72181477 Active 2023 Cherelle Lacey MD [address], [place] [address], [place], [address] , [facility] [employer] 4 10:04:28 Problem Notes None recorded. Procedures Surgical History Date Name Laterality Status Provider Name and Address Organization Details Recorded Time 01/18/20 Ear Irrigation completed THANH Mackenzie [address], [place] [address], [place], [address], [facility] 01/17/2023 08:51:34 repair of tendon completed Nathalia Rodriguez RN [facility] [employer] 11/22/2022 08:36:29 Tubal Ligation completed Nathalia Rodriguez RN [facility] 11/22/2022 08:36:38 Cholecystectomy completed Nathalia Rodriguez RN [facility] Cream[employer] 11/22/2022 08:36:46 tonsilectomy/adenoi ds completed Nathalia Rodriguez RN [facility] [employer] 11/22/2022 08:36:54 Imaging Results Imaging Date Name Status LastModified by Organiz ation Details LastModified Time 11/05/2023 XR, finger(s) completed [address] [place] [address] [address], [place], [address], 11/24/2023 11:51:05 Procedure Notes None recorded. Medical Equipment None Reported. Allergies Allergen ID Allergen Name Allergen Category Reaction Reaction Severity Criticality Documentation Date Start Date Code Code System Note Provider Name and Address Organization Details Recorded Time 18748 Product containin g penicilli n (product) medicatio n anaphylax is severe Not available 09/06/2022 25451 8001 SNOMED Not Available [employer] 16:31:41 26630 naproxen medicatio n other Not available Not available 09/06/2022 7258 RxNorm Not Available [facility] 3 16:31:41 01941 Cipro medicatio n hives moderate Not available 09/06/202235262 3 RxNorm Not Available [facility] 3 16:31:41 30796 Biaxin medicatio n nausea moderate Not available 09/06/202214649 9 RxNorm Not Available [facility] 3 16:31:41 Medications Name Sig Start Date Stop Date Status Note LastModified by Organization Details LastModified Time buspirone 5 mg tablet TK 1 T PO BID active Not Available Not Available No t Available promethazin e-DM 6.25 mg-15 mg/5 mL oral syrup TAKE ONE TEASPOONF UL (5 ML) BY MOUTH EVERY FOUR HOURS NEEDED FOR COUGH 11/22 completed Not Available Not Available Not Available nystatin 100,000 unit/mL oral suspension TAKE 5 MLS (500,000 UNITS TOTAL) BY MOUTH 4 (FOUR) TIMES DAILY FOR 7 DAYS. 11/22 completed Not Available Not Available Not Available gabapentin 600 mg tablet TAKE 1 TABLET BY MOUTH TWICE A DAY active Not Available Not Available No t Available doxycycline hyclate 100 mg capsule TAKE 1 CAPSULE BY MOUTH TWICE A DAY FOR 10 DAYS 11/22 completed Not Available Not Available Not Available ipratropium 0.5 mg-albutero l 3 mg (2.5 mg base)/3 mL nebulizatio n soln INHALE THE CONTENTS OF 1 VIAL EVERY 6 HOURS NEEDED active Not Available Not Available No t Available albuterol sulfate 2.5 mg/3 mL (0.083 %) solution for nebulizatio n INHALE 3 MLS BY NEBULIZAT ION EVERY 6 (SIX) HOURS NEEDED FOR WHEEZING active Not Available Not Available No t Available azithromyci n 250 mg tablet TK 2 TS PO AT ONCE TODAY THEN TK 1 T PO ONCE D FOR 4 DAYS active Not Available Not Available No t Available valacyclovi r 1 gram tablet TAKE 1 TABLET BY MOUTH EVERY 8 HOURS FOR 7 DAYS active Not Available Not Available No t Available ranitidine 300 mg tablet TK 1 T PO QD active Not Available Not Available No t Available hydrocodone 5 mg-acetamin ophen 325 mg tablet TAKE 1 TABLET BY MOUTH EVERY 8 HOURS NEEDED FOR PAIN active Not Available Not Available No t Available ondansetron HCl 8 mg tablet Take 1 tablet every 8 hours by oral route for 2 days. 11/22 completed Not Available Not Available Not Available sucralfate 1 gram tablet active Not Available Not Available Not Available ondansetron HCl 4 mg tablet 11/22 completed Not Available Not Available Not Available famotidine 40 mg tablet TAKE 1 TABLET BY MOUTH TWICE A DAY NEEDED active Not Available Not Available No t Available prednisone 20 mg tablet TAKE 1 TABLET (20 MG TOTAL) BY MOUTH DAILY FOR 5 DAYS. active Not Available Not Available No t Available clindamycin HCl 150 mg capsule TK ONE C PO Q 6 H TAT active Not Available Not Available No t Available metronidazo le 500 mg tablet Take 4 tablet(s) Once by oral route. 11/22 completed Not Available Not Available Not Available sulfamethox azole 800 mg-trimetho prim 160 mg tablet TAKE 1 TABLET BY MOUTH EVERY 12 HOURS active Not Available Not Available No t Available hydrocodone 10 mg-acetamin ophen 325 mg tablet 11/22 completed Not Available Not Available Not Available omeprazole 40 mg capsule,del ayed release Take 1 capsule every day by oral route. active Not Available Not Available No t Available ondansetron 8 mg disintegrat ing tablet DISSOLVE 1 TABLET ON TOP OF TONGUE TWICE A DAY NEEDED 2024 active Not Available Not Available Not Avai lable pramipexole 0.5 mg tablet TAKE ONE T PO EVERY DAY AT BEDTIME active Not Available Not Available No t Available cefadroxil 500 mg capsule TAKE 2 CAPSULES ORAL ROUTE EVERY 12 HOURS FOR 10 DAYS active Not Available Not Available No t Available meclizine 25 mg tablet TAKE 1 TABLET BY MOUTH THREE TIMES A DAY NEEDED FOR VERTIGO active Not Available Not Available No t Available doxycycline monohydrate 100 mg capsule 11/22 completed Not Available Not Available Not Available hydrocodone 7.5 mg-acetamin ophen 325 mg tablet TK 1 T PO QID 11/22 completed Not Available Not Available Not Available ropinirole 0.5 mg tablet active Not Available Not Available Not Available divalproex ER 500 mg tablet,exte nded release 24 hr TAKE 1 TABLET BY MOUTH TWICE A DAY active Not Available Not Available No t Available promethazin e 25 mg tablet TK 1 T PO Q 4 H PRN FOR NAUSEA 11/22 completed Not Available Not Available Not Available diclofenac potassium 50 mg tablet active Not Available Not Available Not Available gabapentin 300 mg capsule PLEASE SEE ATTACHED DIRECTION S 11/22 completed Not Available Not Available Not Available montelukast 10 mg tablet TAKE 1 TABLET BY MOUTH EVERY DAY active Not Available Not Available No t Available mupirocin 2 % topical ointment active Not Available Not Available Not Available lorazepam 1 mg tablet active Not Available Not Available No t Available methylpredn isolone 4 mg tablets in a dose pack TAKE 6 TABLETS ON DAY 1 DIRECTED ON PACKAGE AND DECREASE BY 1 TAB EACH DAY FOR A TOTAL OF 6 DAYS 11/22 completed Not Available Not Available Not Available fluticasone propionate 50 mcg/actuati on nasal spray,suspe nsion INSTILL 1 SPRAY INTO THE NOSTRILS ONCE DAILY active Not Available Not Available No t Available doxycycline hyclate 100 mg tablet TAKE 1 TABLET BY MOUTH TWICE A DAY FOR 7 DAYS active Not Available Not Available No t Available loratadine 10 mg tablet TAKE 1 TABLET BY MOUTH EVERY DAY (PRESCRIB ER NOT ENROLLED) active Not Available Not Available No t Available diazepam 5 mg tablet TK 1 T PO BID PRN UTD active Not Available Not Available No t Available metoclopram helga 10 mg tablet TAKE 1 TABLET BY MOUTH THREE TIMES A DAY NEEDED active Not Available Not Available No t Available cholestyram ine (with sugar) 4 gram oral powder active Not Available Not Available Not Available Allergy Relief D12 5 mg-120 mg tablet,exte nded release TAKE 1 TABLET BY MOUTH EVERY 12 HOURS FOR 30 DAYS.NOT COVERED active Not Available Not Available No t Available meclizine 11/22 completed Not Available Not Available Not Available gabapentin 11/22 completed Not Available Not Available Not Available ProAir HFA 90 mcg/actuati on aerosol inhaler INHALE 2 PUFFS PO Q 4 H NEEDED active Not Available Not Available No t Available Symbicort 160 mcg-4.5 mcg/actuati on HFA aerosol inhaler INHALE 2 PUFFS INTO THE LUNGS TWICE A DAY 11/22 completed Not Available Not Available Not Available Symbicort 11/22 completed Not Available Not Available Not Available GaviLyte-N 420 gram oral solution active Not Available Not Available Not Available Lo Loestrin Fe 1 mg-10 mcg (24)/10 mcg (2) tablet Take 1 tablet every day by oral route. 11/22 completed Not Available Not Available Not Available Incruse Ellipta 62.5 mcg/actuati on powder for inhalation INHALE 1 PUFF BY MOUTH EVERY DAY active Not Available Not Available No t Available Nucala 100 mg/mL subcutaneou s auto-inject or active Not Available Not Available Not Available Breztri Aerosphere 160 mcg-9mcg-4. 8mcg/actuat ion HFA aerosol inhaler INHALE 2 PUFFS BY MOUTH TWICE A DAY RINSE MOUTH AND SPIT OUT AFTER USE active Not Available Not Available No t Available Trelegy Ellipta 200 mcg-62.5 mcg-25 mcg powder for inhalation INHALE 1 PUFF BY MOUTH ONCE DAILY *MD NOT ENROLLED IN [facility] PROGRAM* active Not Available Not Available No t Available Vitals Date Recorded Body weight Body temperature Oxygen saturation Oxygen saturation in Arterial blood by Pulse oximetry Heart rate Body mass index (BMI) Body height Systolic blood pressure Diastolic blood pressure Provider Name and Address Organization Details Last Updated DateTime 3 283523. 54 g 98.9 [degF] 95 % 95 % 83 /min 37.1 kg/m2 172.72 cm 128 mm[Hg] 74 mm[Hg] Nathalia Rodriguez RN [facility] [employer] 3 08:30:44 Date Recorded Body height Body mass index (BMI) Body weight Body temperature Oxygen saturation Oxygen saturation in Arterial blood by Pulse oximetry Heart rate Systolic blood pressure Diastolic blood pressure Provider Name and Address Organization Details Last Updated DateTime 3 172.72 cm 36 kg/m2 635644. 39 g 97.2 [degF] 98 % 98 % 96 /min 136 mm[Hg] 70 mm[Hg] Joanna Romano CMA [place] [employer] 3 08:31:52 Date Recorded Body height Body mass index (BMI) Body weight Body temperature Heart rate Oxygen saturation Oxygen saturation in Arterial blood by Pulse oximetry Systolic blood pressure Diastolic blood pressure Provider Name and Address Organization Details Last Updated DateTime 3 172.72 cm 35.3 kg/m2 286410. 43 g 99.2 [degF] 74 /min 98 % 98 % 142 mm[Hg] 82 mm[Hg] Shanique Arana RN [facility] [employer] [facility] 3 12:31:17 Date Recorded Body height Body mass index (BMI) Body weight Body temperature Heart rate Oxygen saturation Oxygen saturation in Arterial blood by Pulse oximetry Systolic blood pressure Diastolic blood pressure Provider Name and Address Organization Details Last Updated DateTime 3 172.72 cm 35.3 kg/m2 110682. 43 g 98 [degF] 87 /min 98 % 98 % 126 mm[Hg] 78 mm[Hg] Radha Mcmillan CNA [facility] [employer] [facility] 3 08:29:31 Date Recorded Body height Body mass index (BMI) Body weight Body temperature Heart rate Oxygen saturation Oxygen saturation in Arterial blood by Pulse oximetry Systolic blood pressure Diastolic blood pressure Provider Name and Address Organization Details Last Updated DateTime 4 172.72 cm 35.3 kg/m2 850096. 43 g 98.2 [degF] 82 /min 96 % 96 % 130 mm[Hg] 82 mm[Hg] Leonides Cruz RN [facility] [employer] [facility] 4 09:51:24 Social History Question Answer Notes LastModified by Organizat ion Details LastModified Time Tobacco Smoking Status Current Every Day Smoker Nathalia Rodriguez RN [facility], [facility] [employer] [facility] 11/22/2022 08:35:52 What Is Your Level Of Alcohol Consumption? Occasional Information not available 11/22/2022 What Is Your Level Of Caffeine Consumption? Heavy Information not available 11/22/2022 Which Illicit Or Recreational Drugs Have You Used? Marijuana Information not available 11/22/2022 How Much Tobacco Do You Smoke? 0.5 PPD Information not available 11/22/2022 Do You Feel Stressed (tense, Restless, Nervous, Or Anxious, Or Unable To Sleep At Night)? [id number] Information not available 11/22/2022 Do You Use Any Illicit Or Recreational Drugs? Yes Information not available 11/22/2022 Sex: Unknown Functional Status None recorded. Mental Status None recorded. Family History Relationship Description Onset Age of this Age Resolved Age Notes LastModified by Organization Details LastModified Time Sister Diabetes mellitus arlene Not available 11/06 08:34:42 Mother Diabetes mellitus [email or web address] Not available 11/06 08:34:56 Father Congestive heart failure [email or web address] Not available 11/06 08:35:17 Medical History No medical history recorded. Gynecological History Statement/Question Response Menses Monthly N Duration of Flow (days) 5 Date of LMP 11/13/2022 Breast Problems no Discharge no Obstetrics History GPAL:G 3 P 3 0 0 3 Type Value Full Term 3 Living 3 Total 3 Past Encounters Encounter ID Performer Location Encounter Start Date Encounter Closed Date Diagnosis/Indication Diagnosis SNOMED-CT Code Diagnosis ICD10 Code Diagnosis Note [id number] THANH Mackenzie [facility] Primary Care [address] [place] [address] 11/22/2022 08:23:21 11/22/2022 09:10:56 Gastroesophageal reflux disease 253469879 K21.9 Endoscopy/ Colonoscop y done approx. 1-2 years ago, states all normal.Dis cussed diet, specifical ly cutting back on excessive amount of soda that is most likely contributi ng to symptoms. Will continue PPI. Epilepsy 52161183 G40.90 9 States she gets epileptic seizures. Has been ongoing problem for years.Will get her establishe d with new neurologis t. 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 Herpes zoster 1301533 B0 2.9 Previous outbreak of shingles, spots are popping up in same area.Will start course of valtrex. Asthma 292913241 J45.90 9 Followed by pulmonolog y. [id number] THANH Mackenzie [facility] Primary Care [facility] [address] [place] [address] 01/17/2023 08:27:34 01/17/2023 11:22:04 Adult health examination 780990013 Z00.00 Will get routine labs today. Covid vaccines- declinesFl u vaccine- declinesTe tanus vaccine- 2021 Pap- 16-17 years ago; recommende d, declines todayColon oscopy- recommende d age 43Mammogra m- recommende d age 38 Recommende d routine eye exams and dental cleanings (no teeth). Insomnia 450184528 G47.0 9 Discussed good sleep hygiene. She has not tried any otc medication s for sleep. Advised she try natural remedies, work on establishi ng better sleep routine. If no improvemen t, then will consider pharmacolo gic alternativ es. Gastroesop hageal reflux disease 898377443 K21.9 Stable. Continue current medication s. 11/22/22: Endoscopy/ Colonoscop y done approx. 1-2 years ago, states all normal.Dis cussed diet, specifical ly cutting back on excessive amount of soda that is most likely contributi ng to symptoms. Will continue PPI. Diabetes m ellitus screening 873921713 Z13.1 Hyperlipid emia screening 617407450 Z13.220 Impacted c erumen in left ear 9047522564 262431 H61.22 Irrigation completed in office, pt. tolerated well. [id number] RANJITH Tadeo [facility] Primary Care [facility] [address] [place] [address] 04/06/2023 12:19:35 04/06/2023 15:43:18 Hiatal hernia 19063032 K44.9 diagnosed with severe GERD in the past(appro x 5 years ago)- was prescribed omeprazole Has noted vomiting spells starting 3 weeks ago-last for multiple hourssecon d episode woke her up out of her sleep-last ed again for multiple hoursF/u with [facility]-CT and ultrasound performed- hiatal herniaNote s taking zofran for the last year 1-2 times/dayt elijah has had 4 crackers, half a sandwich-a lready notes feeling full/nause ousencoura ged soup/full liquid diet for the next couple dayswill trial reglan and famotidine for symptoms, discourage d from using zofranWill give referral to gastro [id number] RANJITH Tadeo [facility] Primary Care [facility] [address] [place] [address] 05/24/2023 08:17:06 05/24/2023 11:14:16 Impacted cerumen in left ear 4230067101 877230 H61.22 -Pt recently went to the and-dx with cerumen impaction and Otitis-she was given claritin-D and prednisone , meds completed- pt notes full resolution of her symptoms-s cript for claritin given-disc ussed safe use of decongesta nts in the future Hiatal hernia 50595276 K 44.9 -Pt did not get call from referral-r eferral updated, informatio n provided [id number] Cherelle Lacey MD [facility] [place] [facility] [address] [place] [address] 09/19/2023 09:45:30 09/19/2023 11:50:36 Lateral epicondylitis of left humerus 3280885791 00939 M77.12 heat, gentle stretching prednisone 40 mg daily x 5 days with food, avoid other nsaidsorth o referral if no improvemen t in 1 week or sooner if needed Restless legs 32336430 G 25.81 has failed gabapentin trial of ropinirole 0.5 mg po qhscheck labswill make appt with neurology for f/uf/u in 6 weeks or sooner if needed Health Concerns Section Related Observation LastModified by Organization Detai ls LastModified Time None Recorded Concern Status LastModified by Organization Details LastModified Time None Recorded Advance Directives Directive None Recorded Payers Encounter Date Sequence Insurance Name Policy Number Policy Diaz Covered Member ID Diaz Member ID Guarantor Name 11/22/2022 1 [facility] (MEDICAID HMO) [id number] Linda Del Rosario [id number] Linda Del Rosario 01/17/2023 1 [facility] (MEDICAID HMO) [id number] Linda Del Rosario [id number] Linda Del Rosario 04/06/2023 1 [facility] (MEDICAID HMO) [id number] Linda Del Rosario [id number] Linda Del Rosario 05/24/2023 1 [facility] (MEDICAID HMO) [id number] Linda Del Rosario [id number] Linda Del Rosario 09/19/2023 1 [facility] (MEDICAID HMO) [id number] 0003 Linda Del Rosario [id number] Linda Del Rosario Notes Date Note Type Note Provider Name and Address Organization Details Recorded Time 11/22/2022 text/html Pt. here to establish care. Previously seeing Dr. Jenn Menezes.-She gets abdominal pain along the center of her stomach. She states her whole life she had bowel issues. She has been to GI and states they have done scopes (about 1-2 years ago) and have not been able to tell her what is wrong. She takes fiber pills daily so bowel movements have been overall normal. She has been diagnosed with GERD, so she takes omeprazole 20mg daily and uses zofran (8mg) when needed.-She states she had a PFT test and states she has been diagnosed with asthma. She is seeing motorman/woman (Dr. Armani Duarte). She is on Trelegy, albuterol/Duonebs, Singulair and flonase.-She struggles with drinking Pepsi, drinks about a 12 pack a day, states it has been a problem for years. Working on cutting back. THANH Mackenzie [address] [employer], [place], [address], [employer] 11/22/2022 09:47:17 01/17/2023 text/html Pt. here for annual physical.She states she has has trouble with sleeping. States she has trouble falling and staying asleep. Denies any changes in environment or stress. THANH Mackenzie [address] [employer], [place], [address], [employer] 01/17/2023 09:22:01 04/06/2023 text/html Pt was recently in the ERx2 for nausea/vomiting RANJITH Tadeo [address] [employer], [place], [address], [employer] 04/06/2023 15:18:35 05/24/2023 text/html Pt is here to f/ u for left ear cerumen impaction RANJITH Tadeo [address], [place], [address], [facility] [employer] [facility] 05/24/2023 08:47:12 09/19/2023 text/html here c/o numbnes s in her arms x 3-4 weeks b/l. She is having pain in the elbow and forearm on the left side when she tries extend her arm on left side. She also has excruciating pain left arm when she lets it hang down or tries to squeeze anything with her fist. Strength ok right side, but decreased left side. She is physically active at wor, but no injury. Over the past few weeks she has had 2 episodes of both legs jerking/moving when laying down at night, lasts for a few hours. Gabapentin has not helped. She has h/o seizures and has neurology in [place]. Cherelle Lacey MD [address] [facility] [facility] [address], [place], [address], [facility] [employer] [facility] [employer] [facility] 10/07/2023 07:32:34 OBGyn Episode No OBEpisode recorded.
--- OUTSIDE RECORDS SUMMARY | 2024-09-13 19:33 | XMS_ITS | Encounter Summary ---
Author Organization [facility] Address [address] [place] [address] Care Team Providers Care Shipping & Receiving Lead Name Role Phone MaknannetteJenn [facility] Primary Care Provider Duane Barker MD Unavailable [phone] Chapin Talavera DO Unavailable [phone] None, Provider Primary Care Provider Unavaila ble None, Provider Primary Care Provider Unavaila ble Cherelle Lacey MD Primary Care Provider [phone] None, Provider Primary Care Provider Unavaila ble Encounter Details Date Type Department Care Team (Late st Contact Info) Description 02/25/2021 MyChart Message Enc [facility] Medical [facility] Family Medicine [address] [address] Mychart, [facility] Provider NEED APPOINTMENT AND LABS Social History Tobacco Use Types Packs/Day Years Used Date Smoking Tobacco: Every Day Cigarettes Smokeless Tobacco: Never Alcohol Use Standard Drinks/Week Comments No 0 (1 standard drink = 0.6 oz pur e alcohol) AUDIT-C Answer Date Recorded Frequency of Alcohol Consumption Never 09/13/2018 Average Number of Drinks Not on file 019 Frequency of Binge Drinking Not on file 02/2019 Comments No Sex and Gender Information Value Date Recorded Sex Assigned at Female 09/12/2024 6:33 AM JOB DEVELOPMENT SPECIALIST Legal Sex Female 7:52 AM JOB DEVELOPMENT SPECIALIST Gender Identity Not on file Sexual Orientation Not on file documented as of this encounter Plan of Treatment Upcoming Encounters Date Type Department Care Team (Late st Contact Info) Description 03/13/2025 9:00 AM CDT Office Visit [facility] Medical Group Multispecialty Care - [facility] [address] [place] [address] Armani Duarte MD [address] [place] [address] documented as of this encounter Visit Diagnoses Not on filedocumented in this encounter Care Teams Shipping & Receiving Lead Relationship Specialty Start Date End Date Jenn Menezes [facility] PCP - General NURSE PRACTITIONER 06/07/18 03/08/22 None, Provider, PCP - General UNKNOWN PHYSICIAN SPECIALTY 05/04/22 09/19/22 None, Provider, PCP - General UNKNOWN PHYSICIAN SPECIALTY 10/05/22 10/24/23 Cherelle Lacey MD [address] [place] [address] [place] [address] PCP - General FAMILY PRACTICE 10/25/23 09/11/24 None, ProviderMD PCP - General UNKNOWN PHYSICIAN SPECIALTY 09/12/24 Duane Tamez MD [address] [place] [address] NEUROLOGY 10/08/18 Chapin Talavera DO [address] [place] [address] [place] Rattling Machine Tender CARDIOVASCULAR DISEASE 03/01/22 documented as of this encounter
--- OUTSIDE RECORDS SUMMARY | 2024-09-13 19:33 | XMS_ITS | Encounter Summary ---
Author Organization [facility] Address [facility] [place] [address] Care Team Providers Care Biometrics Instructor Name Role Phone Maknannette Jenn [facility] Primary Care Provider Duane Barker MD Unavailable [phone] Chapin Talavera DO Unavailable [phone] None, Provider Primary Care Provider Unavaila ble None, Provider Primary Care Provider Unavaila ble Cherelle Lacey MD Primary Care Provider [phone] None, Provider Primary Care Provider Unavaila ble Encounter Details Date Type Department Care Team (Late st Contact Info) Description 09/22/2021 ActiveTrak Message Enc [facility] Medical Group Family Medicine [address] [address] [employer], [facility] Provider Medication sent Social History Tobacco Use Types Packs/Day Years Used Date Smoking Tobacco: Every Day Cigarettes 0.3 25 Smokeless Tobacco: Never Comments:provider address Alcohol Use [...] Sex Assigned at Female 09/12/2024 6:33 AM HEALTHCARE ECONOMICS MANAGER Legal Sex Female 7:52 AM HEALTHCARE ECONOMICS MANAGER Gender Identity Not on file Sexual Orientation Not on file COVID-19 Exposure Response Date Recorded In the last 10 days, have yo u been in contact with someone who was confirmed or suspected to have Coronavirus/COVID-19? No / Unsure 09/07/2021 7:47 AM HEALTHCARE ECONOMICS MANAGER documented as of this encounter Plan of Treatment Upcoming Encounters Date Type Department Care Team (Late st Contact Info) Description 03/13/2025 9:00 AM CDT Office Visit [facility] Medical Group Multispecialty Care - [facility] [address] [place] [address] Armani Duarte MD [address] [place] [address] documented as of this encounter Visit Diagnoses Not on filedocumented in this encounter Care Teams Biometrics Instructor Relationship Specialty Start Date End Date Jenn Menezes [facility] PCP - General NURSE PRACTITIONER 06/07/18 03/08/22 None, Provider, PCP - General UNKNOWN PHYSICIAN SPECIALTY 05/04/22 09/19/22 None, Provider, PCP - General UNKNOWN PHYSICIAN SPECIALTY 10/05/22 10/24/23 Cherelle Lacey MD [address] [place] [address] [place] [address] PCP - General FAMILY PRACTICE 10/25/23 09/11/24 None, ProviderMD PCP - General UNKNOWN PHYSICIAN SPECIALTY 09/12/24 Duane Tamez MD [address] [place] [address] NEUROLOGY 10/08/18 Chapin Talavera DO [address] [place] [address] [place] Manager Of Quality CARDIOVASCULAR DISEASE 03/01/22 documented as of this encounter
--- OUTSIDE RECORDS SUMMARY | 2024-09-13 19:33 | XMS_ITS | CONTINUITY OF CARE DOCUMENT ---
Author Name carolmartyvivienne dumont Address Unknown Organization [facility] Address [address] [place] [address] Phone [phone] Care Team Providers Care Silk Printer Name Role Phone Omar JIMENEZ, Luis Unavailable THOMAS JIMENEZ, BRANNON Unavailable Unavailable INSURANCE PROVIDERS Payer name Policy type / Coverage type [place] red [place] MED[place] Medicaid [id number]
--- OUTSIDE RECORDS SUMMARY | 2024-09-13 19:33 | XMS_ITS | Encounter Summary ---
Author Organization [facility] Address [address] [place] [address] Care Team Providers Care Hall Director Name Role Phone Jenn Menezes [facility] Primary Care Provider Duane Barker MD Unavailable [phone] Chapin Talavera DO Unavailable [phone] None, Provider Primary Care Provider Unavaila ble None, Provider Primary Care Provider Unavaila ble Cherelle Lacey MD Primary Care Provider [phone] None, Provider Primary Care Provider Unavaila ble Encounter Details Date Type Department Care Team (Late st Contact Info) Description 09/16/2021 MyChart Message Enc [facility] Medical Group Family Medicine [address] [address] Jenn Menezes OPTICAL GOODS WORKER-BC Hurt knee falling Social History Tobacco Use Types Packs/Day Years [...] Sex Assigned at Female 09/12/2024 6:33 AM PHOTO LAB MANAGER Legal Sex Female 7:52 AM PHOTO LAB MANAGER Gender Identity Not on file Sexual Orientation Not on file COVID-19 Exposure Response Date Recorded In the last 10 days, have yo u been in contact with someone who was confirmed or suspected to have Coronavirus/COVID-19? No / Unsure 09/07/2021 7:47 AM PHOTO LAB MANAGER documented as of this encounter Plan of Treatment Upcoming Encounters Date Type Department Care Team (Late st Contact Info) Description 03/13/2025 9:00 AM CDT Office Visit [facility] Medical Group Multispecialty Care - [facility] [address] [place] [address] Armani Duarte MD [address] [place] [address] documented as of this encounter Visit Diagnoses Not on filedocumented in this encounter Care Teams Hall Director Relationship Specialty Start Date End Date [facility] PCP - General NURSE PRACTITIONER 06/07/18 03/08/22 None, Provider, PCP - General UNKNOWN PHYSICIAN SPECIALTY 05/04/22 09/19/22 None, ProviderMD PCP - General UNKNOWN PHYSICIAN SPECIALTY 10/05/22 10/24/23 Cherelle Lacey MD [address] [place] [address] [place] [address] PCP - General FAMILY PRACTICE 10/25/23 09/11/24 None, ProviderMD PCP - General UNKNOWN PHYSICIAN SPECIALTY 09/12/24 Duane Tamez MD [address] [place] [address] NEUROLOGY 10/08/18 Chapin Talavera DO [address] [place], [place] [address]Breaker [address] [address] [place] Bankruptcy Law Specialist CARDIOVASCULAR DISEASE 03/01/22 documented as of this encounter
--- OUTSIDE RECORDS SUMMARY | 2024-09-13 19:33 | XMS_ITS | Encounter Summary ---
Author Organization [facility] Address [address] [place] [address] Care Team Providers Care Tow Mate Name Role Phone Jenn Menezes [facility] Primary Care Provider Duane Barker MD Unavailable [phone] Chapin Talavera DO Unavailable [phone] None, Provider Primary Care Provider Unavaila ble None, Provider Primary Care Provider Unavaila ble Cherelle Lacey MD Primary Care Provider [phone] None, Provider Primary Care Provider Unavaila ble Encounter Details Date Type Department Care Team (Late st Contact Info) Description 09/16/2021 MyChart Message Enc [facility] Medical Group Family Medicine [address] [address] Jenn Menezes PATIENT FINANCIAL COORDINATOR-BC Hurt knee falling Social History Tobacco Use [...] Sex Assigned at Female 09/12/2024 6:33 AM PARATRANSIT DRIVER Legal Sex Female 7:52 AM PARATRANSIT DRIVER Gender Identity Not on file Sexual Orientation Not on file COVID-19 Exposure Response Date Recorded In the last 10 days, have yo u been in contact with someone who was confirmed or suspected to have Coronavirus/COVID-19? No / Unsure 09/07/2021 7:47 AM PARATRANSIT DRIVER documented as of this encounter Plan of Treatment Upcoming Encounters Date Type Department Care Team (Late st Contact Info) Description 03/13/2025 9:00 AM CDT Office Visit [facility] Medical Group Multispecialty Care - [facility] [address] [place] [address] Armani Duarte MD [address] [place] [address] documented as of this encounter Visit Diagnoses Not on filedocumented in this encounter Care Teams Tow Mate Relationship Specialty Start Date End Date Jenn [facility]enezes [facility] PCP - General NURSE PRACTITIONER 06/07/18 03/08/22 None, Provider, PCP - General UNKNOWN PHYSICIAN SPECIALTY 05/04/22 09/19/22 None, ProviderMD PCP - General UNKNOWN PHYSICIAN SPECIALTY 10/05/22 10/24/23 Cherelle Lacey MD [address] [place] [address] [place] [address] PCP - General FAMILY PRACTICE 10/25/23 09/11/24 None, ProviderMD PCP - General UNKNOWN PHYSICIAN SPECIALTY 09/12/24 Duane Tamez MD [address] [place] [address] NEUROLOGY 10/08/18 Chapin Talavera DO [address] [place], [place] [address] [address] [place] Seo Analyst CARDIOVASCULAR DISEASE 03/01/22 documented as of this encounter
--- OUTSIDE RECORDS SUMMARY | 2024-09-13 19:33 | XMS_ITS | Encounter Summary ---
Author Organization [facility] Address [facility] [place] [address] Care Team Providers Care Motors And Controls Tester Name Role Phone Duane Tamez MD Unavailable [phone] Chapin Talavera DO Unavailable [phone] None, Provider Primary Care Provider Unavaila ble None, Provider Primary Care Provider Unavaila ble Cherelle Lacey MD Primary Care Provider [phone] None, Provider Primary Care Provider Unavaila ble Encounter Details Date Type Department Care Team (Late st Contact Info) Description 07/24/2022 MyChart Message Enc [facility] Medical Group Multispecialty Care - [facility] [address] [place] [address] Armani Duarte MD [address] [place], [place] [id number] Refills Social History Tobacco Use Types Packs/Day Years [...] Sex Assigned at Female 09/12/2024 6:33 AM AUTO BODY REPAIR TECHNICIAN Legal Sex Female 7:52 AM AUTO BODY REPAIR TECHNICIAN Gender Identity Not on file Sexual Orientation Not on file documented as of this encounter Plan of Treatment Upcoming Encounters Date Type Department Care Team (Late st Contact Info) Description 03/13/2025 9:00 AM CDT Office Visit [facility] Medical Group Multispecialty Care - [facility] [address] [place] [address] Armani Duarte MD [address] [place] [address] documented as of this encounter Visit Diagnoses Not on filedocumented in this encounter Care Teams Motors And Controls Tester Relationship Specialty Start Date End Date None, Provider, PCP - General UNKNOWN PHYSICIAN SPECIALTY 05/04/22 09/19/22 None, ProviderMD PCP - General UNKNOWN PHYSICIAN SPECIALTY 10/05/22 10/24/23 Cherelle Lacey MD [address] [place] [address] PCP - General FAMILY PRACTICE 10/25/23 09/11/24 None, ProviderMD PCP - General UNKNOWN PHYSICIAN SPECIALTY 09/12/24 Duane Tamez MD [address] [place] [address] NEUROLOGY 10/08/18 Chapin Talavera DO [address] [place] [address] [place] Film Sound Engineer CARDIOVASCULAR DISEASE 03/01/22 documented as of this encounter
--- OUTSIDE RECORDS SUMMARY | 2024-09-13 19:33 | XMS_ITS | Encounter Summary ---
Author Organization [facility] Address [address] [place] [address] Care Team Providers Care Home Health Lpn Name Role Phone Duane Tamez MD Unavailable [phone] Chapin Talavera DO Unavailable [phone] Cherelle Lacey MD Primary Care Provider [phone] None, Provider Primary Care Provider Unavaila ble Encounter Details Date Type Department Care Team (Latest Contact Info) Description 09/04/2024 Scan HEALTH INFO SRVCS Scanned, Doc Med Group Social History Tobacco Use Types Packs/Day Years Used Date Smoking Tobacco: Former Cigarettes 0.3 25 1 2019 Smokeless Tobacco: Never Alcohol Use Standard Drinks/Week Comments Not Currently 0 (1 standard drink = 0.6 oz pur e alcohol) rarely AUDIT-C Answer Date Recorded Frequency of Alcohol Consumption Never 09/13/2018 Average Number of Drinks Not on file 019 Frequency of Binge Drinking Not on file 02/2019 PHQ-2 Answer Date Recorded Patient Health Questionnaire-2 Score 0 09/04/2024 Comments No Sex and Gender Information Value Date Recorded Sex Assigned at Female 09/12/2024 6:33 AM OIL FIELD RIG BUILDER Legal Sex Female 7:52 AM OIL FIELD RIG BUILDER Gender Identity Not on file Sexual Orientation Not on file documented as of this encounter Plan of Treatment Upcoming Encounters Date Type Department Care Team (Late st Contact Info) Description 03/13/2025 9:00 AM CDT Office Visit [facility] Medical Group Multispecialty Care - [address], [address] [place] [address] Armani Duarte MD [address] [place] [address] documented as of this encounter Visit Diagnoses Not on filedocumented in this encounter Care Teams Home Health Lpn Relationship Specialty Start Date End Date Cherelle Lacey MD [address] [place] [address] [place] [address] PCP - General FAMILY PRACTICE 10/25/23 09/11/24 None, Provider, PCP - General UNKNOWN PHYSICIAN SPECIALTY 09/12/24 Duane Tamez MD [facility] [employer] [address] [address] NEUROLOGY 10/08/18 Chapin Talavera DO [facility] [employer] [address] [place] [address] [place] Clinical Business Analyst CARDIOVASCULAR DISEASE 03/01/22 documented as of this encounter
--- OUTSIDE RECORDS SUMMARY | 2024-09-13 19:33 | XMS_ITS | Clinical Summary ---
Author Organization [facility] Address [address] [place] [address] Care Team Providers Care Grounds/Maintenance Specialist Name Role Phone Crow Maddie Dunaway DPVdia Unavailable [phone] Maryjane Hernandez Primary Care Provider [phone] Allergies Active Allergy Reactions Criticality Noted Date Comments Ciprofloxacin Hives,Rash,Unknown Medium 06/13/2010 Clarithromycin Hives,Nausea only,Rash,Unknown Medium 06/13/2010 Naproxen Diarrhea,Nausea And Vomiting,Other (See comments),Unknown Low 12/18/2012 Oxycodone Unknown 02/19/2013 Patient did not like the way it made her feel Penicillins Anaphylaxis,Hives,Ra sh,U nknown High 06/13/2010 Permethrin Hives Medium 08/02/2017 Medications albuterol HFA (ProAir HFA) 90 mcg/actuation inhaler ProAir HFA 90 mcg/actuation aerosol inhaler Active fluticasone propionate (FLONASE) 50 mcg/actuation nasal spray fluticasone propionate 50 mcg/actuation nasal spray,suspensio n 04/22/20 19 Active gabapentin (NEURONTIN) 600 mg tablet Take 1 tablet (600 mg total) by mouth as needed 03/10/20 20 Active divalproex ER (DEPAKOTE ER) 500 mg 24 hr tablet TK 1 T PO BID 04/07/20 20 Active ipratropium-albute roL (DUO-NEB) 0.5-2.5 mg/3 mL nebulizer solution INHALE THE CONTENTS OF 1 VIAL VIA NEBULIZER EVERY 6 HOURS NEEDED 12/22/19 23 Active UNABLE TO FIND 1 each daily Med Name: Immune Defense Active fluticasone-umecli din-vilanter (Trelegy Ellipta) 200-62.5-25 mcg inhaler Inhale 1 puff daily Active montelukast (SINGULAIR) 10 mg tablet Take 1 tablet (10 mg total) by mouth daily Active Nucala 100 mg/mL auto-injector 02/19/20 24 Active loratadine-pseudoe phedrine (CLARITIN-D 12-hour) 5-120 mg tablet extended release 12 hr TAKE 1 TABLET BY MOUTH EVERY 12 HOURS FOR 30 DAYS.NOT COVERED Active rOPINIRole (REQUIP) 0.5 mg tablet Take 1 tablet (0.5 mg total) by mouth nightly Active linaCLOtide (Linzess) 145 mcg capsuleIndications :chronic idiopathic constipation Take 1 capsule (145 mcg total) by mouth daily 30 capsule 11 03/24/20 24 Active ondansetron ODT (ZOFRAN-ODT) 8 mg disintegrating tablet Take 1 tablet (8 mg total) by mouth every 8 (eight) hours as needed for nausea or vomiting 30 tablet 11 03/24/20 24 Active metoclopramide (REGLAN) 10 mg tablet Take 1 tablet (10 mg total) by mouth 3 (three) times a day as needed (n/v) 30 tablet 3 03/24/20 24 Active omeprazole (PriLOSEC) 40 mg capsule Take 1 capsule (40 mg total) by mouth daily 90 capsule 1 03/24/20 24 Active Active Problems Problem Noted Date Diagnosed Date Gastroesophageal reflux disease 03/24/2024 Nausea and vomiting 03/24/2024 Irritable bowel syndrome with constipation 03/24 Verruca plantaris 12/28/2022 Dermatofibroma of left lower leg 12/28/2022 Climacteric arthritis involving ankle and foot, 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 Atypical chest pain 04/23/2020 Morbid obesity 04/23/2020 Family history of coronary artery disease 2019 Tobacco abuse 04/23/2020 Palpitations 04/23/2020 Surgical History Surgery Date Site/Laterality Comments CHOLECYSTECTOMY TUBAL LIGATION HAND SURGERY Right hand TONSILLECTOMY ADENOIDECTOMY Medical History Medical History Date Comments GERD (gastroesophageal reflux disease) Asthma Seizures (HCC) Epilepsy Depression Family History Medical History Relation Name Comments Heart disease Father Heart attack Sister Heart disease Sister Relation Name Status Comments Father Sister Social History Tobacco Use Types Packs/Day Years Used Date Smoking Tobacco: Every Day Cigarettes Smokeless Tobacco: Never AUDIT-C Answer Date Recorded Frequency of Alcohol Consumption Not on file 01/12/2023 Q2: How many drinks containi ng alcohol do you have on a typical day when you are drinking? Patient does not drink Frequency of Binge Drinking Not on file 01/2023 Personal Safety Answer Date Recorded Have you ever been in or are you currently in a harmful physical or emotional relationship or is someone making you feel afraid or unsafe? 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 Gender Identity Not on file Sexual Orientation Not on file Obstetrics History Last Filed Vital Signs Vital Sign Reading Time Taken Comments Blood Pressure 132/98 03/24/2024 11:34 AM CDT Pulse 68 03/24/2024 11:34 AM CDT Temperature 36.4 C (97.6 F) 01/12/2023 2:30 PM CDT Respiratory Rate 16 01/12/2023 2:30 PM CDT Oxygen Saturation 98% 03/24/2024 11: 34 AM CDT Inhaled Oxygen Concentration - - Weight 108.8 kg (239 lb 12.8 oz) 2023 11:34 AM CDT Height 172.7 cm (5' 8 ) 03/24/2024 11:3 4 AM CDT Body Mass Index 36.46 03/24/2024 11:34 AM CDT Plan of Treatment Health Maintenance Due Date Last Done Comments Breast Cancer Screening-Mammogram 1983 Cervical Cancer Screening 1983 Depression Screening 1983 Hepatitis C Screening 1983 Varicella Vaccines (1 of 2 - 13+ 2-dose series) 1996 Hepatitis B Screening 2001 Regular Well Visit/Exam 18-64 2001 DTaP/Tdap/Td Vaccine (1 - Tdap) 04/27/2011 04/26/2011, 11/20/2007 Pneumococcal vaccine <65 (2 of 2 - PCV) 12/20/2022 12/20/2021, 06/07/2018 Influenza Vaccine (#1) 2024 HPV Vaccines Aged Out No longer eligi ble based on patient's age to complete this topic Insurance [facility] Care Teams Grounds/Maintenance Specialist Relationship Specialty Start Date End Date Maryjane Hernandez PA [address] [place] [address] PCP - General 03/26/24 Maddie Maria DPM [address] [place] [address] Consulting Physician Foot and Ankle Surg 01/12/23
--- OUTSIDE RECORDS SUMMARY | 2024-09-13 19:33 | XMS_ITS | Referral Summary ---
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
--- OUTSIDE RECORDS SUMMARY | 2024-09-13 19:33 | XMS_ITS | Encounter Summary ---
Author Organization [facility] Address [address] [place] [address] Care Team Providers Care Visiting Teacher Name Role Phone Carlita Landa MD Primary Care Provider Unavailab Ti Levine MD Primary Care Provider + Jenn Menezes [facility] Primary Care Provider Unav Duane Finch MD Unavailable [phone] hCapin Talavera DO Unavailable [phone] None, Provider Primary Care Provider Unavaila ble None, Provider Primary Care Provider Unavaila ble Cherelle Lacey MD Primary Care Provider [phone] None, Provider Primary Care Provider Unavaila ble Encounter Details Date Type Department Care Team (Late st Contact Info) Description 02/25/2014 Abstract [facility] Conversion , Generic Conversion, Social History Tobacco Use Types Packs/Day Years Used Date Smoking Tobacco: Never Assessed Comments Unknown Sex and Gender Information Value Date Recorded Sex Assigned at Female 09/12/2024 6:33 AM VOCATIONAL EDUCATION PROFESSIONAL Legal Sex Female 7:52 AM VOCATIONAL EDUCATION PROFESSIONAL Gender Identity Not on file Sexual Orientation Not on file documented as of this encounter Plan of Treatment Upcoming Encounters Date Type Department Care Team (Late st Contact Info) Description 03/13/2025 9:00 AM CDT Office Visit [facility] Medical Group Multispecialty Care - [address] [place] [address] Armani Duarte MD [address] [place] [address] [address] [place] [address] documented as of this encounter Visit Diagnoses Not on filedocumented in this encounter Care Teams Visiting Teacher Relationship Specialty Start Date End Date Carlita Landa MD PCP - General INTERNAL MEDICINE 08/09/16 06/06/18 Ti Carrillo MD [address] [facility] [address] [place] [address] PCP - General 09/24/13 08/08/16 [facility] [facility] [address] [place] [address] PCP - General NURSE PRACTITIONER 06/07/18 03/08/22 None, Provider, PCP - General UNKNOWN PHYSICIAN SPECIALTY 05/04/22 09/19/22 None, Provider, PCP - General UNKNOWN PHYSICIAN SPECIALTY 10/05/22 10/24/23 Cherelle Lacey MD [address] [place] [address] [place] [address] PCP - General FAMILY PRACTICE 10/25/23 09/11/24 None, ProviderMD PCP - General UNKNOWN PHYSICIAN SPECIALTY 09/12/24 Duane Tamez MD [facility] [employer] [address] [address] NEUROLOGY 10/08/18 Chapin Talavera DO [address] [place], [place] [address] [address] [address] [place] Manager Of Allied Health Services CARDIOVASCULAR DISEASE 03/01/22 documented as of this encounter
--- OUTSIDE RECORDS SUMMARY | 2024-09-13 19:33 | XMS_ITS | Encounter Summary ---
Author Organization [facility] Address [address] [place] [address] Care Team Providers Care Medical Aides Teacher Name Role Phone Jenn Menezes [facility] Primary Care Provider Duane Barker MD Unavailable [phone] Chapin Talavera DO Unavailable [phone] None, Provider Primary Care Provider Unavaila ble None, Provider Primary Care Provider Unavaila ble Cherelle Lacey MD Primary Care Provider [phone] None, Provider Primary Care Provider Unavaila ble Encounter Details Date Type Department Care Team (Late st Contact Info) Description 08/01/2021 MyChart Message Enc [facility] Medical Group Family Medicine [address] [address] Jenn Menezes [facility] [employer] Social History Tobacco Use Types Packs/Day Years [...] Sex Assigned at Female 09/12/2024 6:33 AM CONSTRUCTION IRONWORKER Legal Sex Female 7:52 AM CONSTRUCTION IRONWORKER Gender Identity Not on file Sexual Orientation Not on file COVID-19 Exposure Response Date Recorded In the last month, have you been in contact with someone who was confirmed or suspected to have Coronavirus / COVID-19? No / Unsure 07/20/2021 7:40 AM CONSTRUCTION IRONWORKER documented as of this encounter Plan of Treatment Upcoming Encounters Date Type Department Care Team (Late st Contact Info) Description 03/13/2025 9:00 AM CDT Office Visit [facility] Medical Group Multispecialty Care - [facility] [address] [place] [address] Armani Duarte MD [address] [place] [address] documented as of this encounter Visit Diagnoses Not on filedocumented in this encounter Care Teams Medical Aides Teacher Relationship Specialty Start Date End Date [facility] PCP - General NURSE PRACTITIONER 06/07/18 03/08/22 None, Provider, PCP - General UNKNOWN PHYSICIAN SPECIALTY 05/04/22 09/19/22 None, Provider, PCP - General UNKNOWN PHYSICIAN SPECIALTY 10/05/22 10/24/23 Cherelle Lacey MD [address] [place] [address] [place] [address] PCP - General FAMILY PRACTICE 10/25/23 09/11/24 None, ProviderMD PCP - General UNKNOWN PHYSICIAN SPECIALTY 09/12/24 Duane Tamez MD [address] [place] [address] NEUROLOGY 10/08/18 Chapin Talavera DO [address] [place] [address] [place] Third Loader CARDIOVASCULAR DISEASE 03/01/22 documented as of this encounter
--- OUTSIDE RECORDS SUMMARY | 2024-09-13 19:33 | XMS_ITS | Encounter Summary ---
Author Organization [facility] Address [facility] [place] [address] Care Team Providers Care Certified Low Vision Therapist Name Role Phone Jenn Menezes [facility] Primary Care Provider Duane Barker MD Unavailable [phone] Chapin Talavera DO Unavailable [phone] None, Provider Primary Care Provider Unavaila ble None, Provider Primary Care Provider Unavaila ble Cherelle Lacey MD Primary Care Provider [phone] None, Provider Primary Care Provider Unavaila ble Encounter Details Date Type Department Care Team (Late st Contact Info) Description 02/28/2022 FiNCt Message Enc [facility] Medical Group Family Medicine [address] [address] Jenn Menezes [facility] Social History Tobacco Use Types Packs/Day Years Used Date Smoking Tobacco: Former Cigarettes 0.3 25 1 2019 Smokeless Tobacco: Never Comments:provider address Alcohol [...] Sex Assigned at Female 09/12/2024 6:33 AM ORGANIZATIONAL DEVELOPMENT MANAGER Legal Sex Female 7:52 AM ORGANIZATIONAL DEVELOPMENT MANAGER Gender Identity Not on file Sexual Orientation Not on file COVID-19 Exposure Response Date Recorded In the last 10 days, have yo u been in contact with someone who was confirmed or suspected to have Coronavirus/COVID-19? No / Unsure 03/03/2022 9:13 AM CDT documented as of this encounter Plan of Treatment Upcoming Encounters Date Type Department Care Team (Late st Contact Info) Description 03/13/2025 9:00 AM CDT Office Visit [facility] Medical Group Multispecialty Care - [facility] [address] [facility] [address] [place] [address] Armani Duarte MD [address] [facility] JOSE ALFREDO [address] [place] [address] documented as of this encounter Visit Diagnoses Not on filedocumented in this encounter Care Teams Certified Low Vision Therapist Relationship Specialty Start Date End Date Jenn [facility] PCP - General NURSE PRACTITIONER 06/07/18 03/08/22 None, ProviderMD PCP - General UNKNOWN PHYSICIAN SPECIALTY 05/04/22 09/19/22 None, ProviderMD PCP - General UNKNOWN PHYSICIAN SPECIALTY 10/05/22 10/24/23 Cherelle Lacey MD [address] [place] [address] PCP - General FAMILY PRACTICE 10/25/23 09/11/24 None, ProviderMD PCP - General UNKNOWN PHYSICIAN SPECIALTY 09/12/24 [facility] [address] [place] [address] NEUROLOGY 10/08/18 Chapin [facility]a [facility] [address] [place] [address] [place] Boring Machine Operator Vertical CARDIOVASCULAR DISEASE 03/01/22 documented as of this encounter
--- OUTSIDE RECORDS SUMMARY | 2024-09-13 19:33 | XMS_ITS | Encounter Summary ---
Author Organization [facility] Address [address] [place] [id number] Care Team Providers Care Supervisor [employer] Name Role Phone Duane Tamez MD Unavailable [phone] Chapin Talavera DO Unavailable [phone] None, Provider Primary Care Provider Unavaila ble Reason for Visit * Reason Comments Chest Pain Shortness Of Breath Encounter Details Date Type Department Care Team (Late st Contact Info) Description 09/12/2024 6:00 AM PATTERN GENERATOR OPERATOR - 09/12/2024 9:30 AM PATTERN GENERATOR OPERATOR Emergency [facility] Emergency Room [place], [place] [id number] Iris Mejía MD [address] [place], [place] [address] Chest Pain; Shortness Of Breath Discharge Disposition: Left Against Medical Advice Social History Tobacco Use Types Packs/Day Years Used Date Smoking Tobacco: Former Cigarettes 0.3 25 2019 Smokeless Tobacco: Never Alcohol Use Standard [...] Sex Assigned at Female 09/12/2024 6:33 AM PATTERN GENERATOR OPERATOR Legal Sex Female 7:52 AM PATTERN GENERATOR OPERATOR Gender Identity Not on file Sexual Orientation Not on file documented as of this encounter Last Filed Vital Signs Vital Sign Reading Time Taken Comments Blood Pressure 121/92 09/12/2024 6:05 AM PATTERN GENERATOR OPERATOR Pulse 94 09/12/2024 6:05 AM PATTERN GENERATOR OPERATOR Temperature 37.2 C (99 F) 09/12/2024 6:05 AM PATTERN GENERATOR OPERATOR Respiratory Rate 18 09/12/2024 6:05 AM PATTERN GENERATOR OPERATOR Oxygen Saturation 97% 09/12/2024 6:05 AM PATTERN GENERATOR OPERATOR Inhaled Oxygen Concentration - - Weight 111.1 kg (245 lb) 09/12/2024 6:05 AM PATTERN GENERATOR OPERATOR Height 170.2 cm (5' 7 ) 09/12/2024 6:05 AM PATTERN GENERATOR OPERATOR Body Mass Index 38.37 09/12/2024 6:05 AM PATTERN GENERATOR OPERATOR documented in this encounter Medications at Time of Discharge albuterol sulfate HFA 108 (90 Base) MCG/ACT inhaler DIVALPROEX ER 500 MG 24 hr tabletIndications:N onintractable epilepsy without status epilepticus, unspecified epilepsy type ([facility]) TAKE 1 TABLET BY MOUTH TWICE A DAY 60 tablet 6 2 dupilumab (DUPIXENT) 300 MG/2ML injection (PEN)Indications:Se argelia persistent asthma ([facility]/HCC) Inject 4 mLs (600 mg total) into the skin on day 1 for loading dose. Then inject 2 mLs (300 mg) every 14 days, starting on day 15 4 mL 12 5 FLUTICASONE PROPIONATE 50 MCG/ACT nasal sprayIndications:Ac pankaj recurrent maxillary sinusitis 1 SPRAY BY EACH NOSTRIL ROUTE 2 (TWO) TIMES DAILY 16 mL 6 2 Fluticasone-Umeclid in-Vilant (TRELEGY ELLIPTA) 200-62.5-25 MCG/ACT AEROSOL POWDER, BREATH ACTIVATEDIndication s:Moderate persistent asthma without complication ([facility]) Inhale 1 puff into the lungs daily. 180 each 5 GABAPENTIN 600 MG tabletIndications:D YONAS (degenerative joint disease) TAKE 2 TABLETS BY MOUTH THREE TIMES DAILY 180 tablet 1 ipratropium-albuter ol (DUONEB) 0.5-2.5 (3) MG/3ML SolutionIndications :Moderate persistent asthma without complication ([facility]/HCC) Take 3 mLs by nebulization every 6 (six) hours as needed. 360 mL 3 5 meclizine (ANTIVERT) 25 MG tabletIndications:V ertigo TAKE 1 TABLET BY MOUTH THREE TIMES A DAY NEEDED FOR VERTIGO 60 tablet 2 metoclopramide (REGLAN) 10 MG tablet TAKE 1 TABLET BY MOUTH THREE TIMES A DAY NEEDED * NOT ENROLLED IN STATE MEDICAID* 3 montelukast 10 MG tablet Take 1 tablet (10 mg total) by mouth daily. 2 NEBULIZER DME SUPPLYIndications:C hronic obstructive pulmonary disease, unspecified COPD type ([facility]) Nebulizer tubing, mask and needed supply, change every month 1 kit 6 9 Nebulizer System All-In-One MiscIndications:Chr onic obstructive pulmonary disease, unspecified COPD type ([facility]) 1 kit by Does not apply route every 6 (six) hours as needed. 1 each 0 OMEPRAZOLE 40 MG capsuleIndications: Gastroesophageal reflux disease with esophagitis TAKE ONE CAPSULE TWICE DAILY 60 capsule 5 1 ondansetron (ZOFRAN-ODT) 8 MG disintegrating tabletIndications:N ausea DISSOLVE 1 TABLET ON THE TONGUE EVERY 8 HOURS NEEDED FOR NAUSEA 20 tablet 3 Sharps Container MiscIndications:Mod erate persistent asthma without complication ([facility]) Please supply pt with a 3.8 L sharps container 1 each 5 sucralfate 1 G tabletIndications:G astroesophageal reflux disease with esophagitis Take 1 tablet (1 g total) by mouth 4 (four) times daily. 120 tablet 6 0 documented as of this encounter ED Notes * Danielle Grijalva RN - 09/12/2024 9:00 AM CST Pt called in WR, no response. ERN GENERATOR OPERATOR * Iris Mejía MD - 09/12/2024 7:57 AM CST Chief Complaint Chief Complaint Patient presents with Chest Pain Shortness Of Breath History of Present Illness Chest Pain Associated symptoms: cough and shortness of breath Shortness Of Breath Associated symptoms include chest pain. Patient presenting with URI symptoms, chest pain, shortness of breath, cough, congestion and not feeling well. Patient reports she went to [place] a couple of days ago and she was diagnosed with the flu. She reports she is not feeling better. She reports decreased appetite. Myalgias. No other complaints. Medical History ALLERGIES: Review of patient's allergies indicates: Allergen Reactions Penicillins Unknown, Anaphylaxis and Rash Other reaction(s): Hives Ciprofloxacin Hives, Rash and Unknown Other reaction(s): Hives Clarithromycin Hives, Rash, Unknown and Nausea Only Other reaction(s): Hives Permethrin Hives Other reaction(s): Hives Oxycodone Unknown Percocet [Oxycodone-Acetaminophen] Diarrhea and Nausea and Vomiting Amoxil [Amoxicillin] Hives and Rash Naproxen Diarrhea, Nausea and Vomiting, Unknown and Other (see comment) MEDICATIONS: Prior to Admission medications Medication Sig Start Date End Date Taking? Authorizing Provider albuterol sulfate HFA 108 (90 Base) MCG/ACT inhaler Doc [facility] DIVALPROEX ER 500 MG 24 hr tablet TAKE 1 TABLET BY MOUTH TWICE A DAY 10/18/21 ROSE Wright dupilumab (DUPIXENT) 300 MG/2ML injection (PEN) Inject 4 mLs (600 mg total) into the skin on day 1 for loading dose. Then inject 2 mLs (300 mg) every 14 days, starting on day 15 09/05/24 Armani Duarte MD FLUTICASONE PROPIONATE 50 MCG/ACT nasal spray 1 SPRAY BY EACH NOSTRIL ROUTE 2 (TWO) TIMES DAILY 10/18/21 ROSE Wright Bxodnjfvxqr-Ryfzvdcmn-Xtuvja (TRELEGY ELLIPTA) 200-62.5-25 MCG/ACT AEROSOL POWDER, BREATH ACTIVATEDInhale 1 puff into the lungs daily. 07/30/24 Armani Duarte MD GABAPENTIN 600 MG tablet TAKE 2 TABLETS BY MOUTH THREE TIMES DAILY 09/27/20 ROSE Wright ipratropium-albuterol (DUONEB) 0.5-2.5 (3) MG/3ML Solution Take 3 mLs by nebulization every 6 (six)hours as needed. 09/04/24 Armani Duarte MD meclizine (ANTIVERT) 25 MG tablet TAKE 1 TABLET BY MOUTH THREE TIMES A DAY NEEDED FOR VERTIGO 02/09/22 ROSE Wright metoclopramide (REGLAN) 10 MG tablet TAKE 1 TABLET BY MOUTH THREE TIMES A DAY NEEDED * NOT ENROLLED IN [facility] MEDICAID* 04/06/23 Default History Genericprovider montelukast 10 MG tablet Take 1 tablet (10 mg total) by mouth daily. 11/23/21 Doc [facility] Abstract NEBULIZER DME SUPPLY Nebulizer tubing, mask and needed supply, change every month 02/04/19 ROSE Wright Nebulizer System All-In-One Misc 1 kit by Does not apply route every 6 (six) hours as needed. 04/28/20 ROSE Wright OMEPRAZOLE 40 MG capsule TAKE ONE CAPSULE TWICE DAILY 09/24/20 ROSE Wright ondansetron (ZOFRAN-ODT) 8 MG disintegrating tablet DISSOLVE 1 TABLET ON THE TONGUE EVERY 8 HOURS NEEDED FOR NAUSEA 09/12/22 Maryjane Mims MD Sharps Container Misc Please supply pt with a 3.8 L sharps container 08/21/24 Armani Duarte MD sucralfate 1 G tablet Take 1 tablet (1 g total) by mouth 4 (four) times daily. 07/18/19 ROSE Wright PAST MEDICAL HISTORY: Past Medical History: Diagnosis Date Allergic rhinitis Allergic state Anxiety Arthritis Asthma ([facility]) COPD (chronic obstructive pulmonary disease) ([facility]) Depression Epilepsy, unspecified, not intractable, with status epilepticus ([facility]) GERD (gastroesophageal reflux disease) Neuromuscular disorder ([facility]) Peptic ulceration PAST SURGICAL HISTORY: Past Surgical History: Procedure Laterality Date ADENOIDECTOMY APPENDECTOMY CHOLECYSTECTOMY COSMETIC SURGERY FRACTURE SURGERY HAND SURGERY Right TONSILLECTOMY TUBAL LIGATION FAMILY HISTORY: Family History Problem Relation Name Age of Onset Diabetes Mother Incubator Heart Disease Mother Incubator COPD Father Maicol Heart Disease Father Maicol Diabetes Sister x2 Factor V Leiden deficiency Sister x2 No Known Problems Brother x2 SOCIAL HISTORY: Social History Tobacco Use Smoking status: Former Current packs/day: 0.00 Average packs/day: 0.3 packs/day for 25.0 years (6.3 ttl pk-yrs) Types: Cigarettes Start date: 1994 Quit date: 2020 Years since quittin.1 Smokeless tobacco: Never Vaping Use Vaping status: Never Used Substance Use Topics Alcohol use: Not Currently Comment: rarely Drug use: Yes Frequency: 7.0 times per week Types: Marijuana Comment: smoking daily Review of Systems Review of Systems Respiratory: Positive for cough and shortness of breath. Cardiovascular: Positive for chest pain. Musculoskeletal: Positive for myalgias. Physical Exam Filed Vitals: 09/12/24 0605 BP: (!) 121/92 Pulse: 94 Resp: 18 Temp: 99 ??F (37.2 ??C) TempSrc: Oral SpO2: 97% Weight: 111.1 kg (245 lb) Height: 1.702 m (5' 7 ) Physical Exam Neck: Comments: No meningismus Cardiovascular: Rate and Rhythm: Normal rate. Pulmonary: Comments: Mild wheezing Abdominal: Tenderness: There is no abdominal tenderness. Musculoskeletal: General: Normal range of motion. Neurological: Mental Status: She is alert and oriented to person, place, and time. Mental status is at baseline. Diagnostic Studies / Procedures ELECTROCARDIOGRAMS: Results for orders placed or performed during the hospital encounter of 09/12/24 ECG 12 lead Narrative [place] Test Date: 2024-09-12 Pat Name: DARRELL LEE Department: 41 Room: Gender: Female Grid Molder: : 1985 Requested By: LILIYA SEVERINO Order Number: [id number] Reading MD: Measurements Intervals Waldo Rate: 99 P: 148 DE: 143 QRS: 116 QRSD: 94 T: -31 QT: 338 QTc: 435 Interpretive Statements SINUS RHYTHM WITH OCCASIONAL VENTRICULAR PREMATURE COMPLEXES ARM LEADS REVERSED [INVERTED P AND QRS IN I] Compared to ECG 03/03/2022 09:34:53 Ventricular premature complex(es) now present T-wave abnormality no longer present LABORATORY STUDIES: Results for orders placed or performed during the hospital encounter of 09/12/24 CBC W/DIFF AUTOMATED Result Value Ref Range WBC 10.33 4.5 - 11.0 x10'3/uL RBC 5.13 4.20 - 5.40 x10'6/uL HGB 16.1 (H) 12.0 - 16.0 G/DL HCT 46.3 38.0 - 48.0 % MCV 90.3 81.0 - 99.0 FL MCH 31.4 (H) 27.0 - 31.0 PG MCHC 34.8 32.0 - 36.0 G/DL RDW 12.5 11.5 - 14.5 % PLT 240 130 - 400 x10'3/uL MPV 9.7 9.3 - 12.2 FL DIFFERENTIAL TYPE AUTOMATED DIFFERENTIAL NEUTROPHILS % 65.8 % LYMPHOCYTES % 25.8 % MONOCYTES % 7.7 % EOSINOPHILS 0.1 % BASOPHILS 0.3 % IMMATURE GRANS % 0.3 % ABS. NEUTROPHILS 6.80 1.80 - 7.70 x10'3/uL ABS. LYMPHOCYTES 2.66 1.00 - 4.80 x10'3/uL ABS. MONOCYTES 0.80 0.24 - 0.86 x10'3/uL ABS. EOSINOPHILS 0.01 (L) 0.04 - 0.36 x10'3/uL ABS. BASOPHILS 0.03 0.01 - 0.08 x10'3/uL ABS. IMMATURE GRANULOCYTES 0.03 0.00 - 0.49 x10'3/uL COMPREHENSIVE METABOLIC PANEL Result Value Ref Range GLUCOSE 101 (H) 70 - 99 MG/DL BUN 6 (L) 7 - 18 MG/DL CREATININE S/P/B 0.57 0.55 - 1.02 MG/DL SODIUM S/P/B 138 136 - 145 MMOL/L POTASSIUM S/P/B 2.8 (LL) 3.5 - 5.1 MMOL/L CHLORIDE S/P/B 103 97 - 115 MMOL/L CO2 27.3 21 - 32 MMOL/L CALCIUM S/P/B 9.1 8.5 - 10.1 MG/DL BILIRUBIN TOTAL S/P/B 1.0 0.2 - 1.2 MG/DL TOTAL PROTEIN S/P/B 7.7 6.4 - 8.2 G/DL ALBUMIN S/P/B 3.7 3.4 - 5.0 G/DL AST 43 (H) 15 - 37 U/L ALT 57 (H) 14 - 55 U/L ALKALINE PHOSPHATASE S/P/B 65 50 - 136 U/L ANION GAP 7.7 2 - 10 MMOL/L BUN CREATININE RATIO 10.5 6 - 26 A/G RATIO 0.9 (L) 1.0 - 2.0 RATIO GFR ESTIMATE >90 >90 ML/MIN/1.73 M2 TROPONIN, QUANT Result Value Ref Range TROPONIN I HIGH SENSITIVITY 4 <54 ng/L MAGNESIUM Result Value Ref Range MAGNESIUM 1.8 1.8 - 2.4 MG/DL IMAGING STUDIES XR CHEST PORTABLE Final Result by User, [id number] (09/12 644) [address] [address] EXAMINATION: XR CHEST PORTABLE, 09/12/2024 6:43 AM TECHNIQUE: Upright AP portable radiograph of the chest HISTORY: Chest pain COMPARISON: Chest radiograph 12/06/2021 FINDINGS: Heart size is normal. Pulmonary vascular pattern appears unremarkable. No focal pulmonary consolidation. Linear opacity at the left lung basically seen with atelectasis. No pleural effusion. No pneumothorax. IMPRESSION: No radiographic evidence of an acute cardiopulmonary abnormality. Referred By: Interpreted By: Jean Carlos Escobedo MD, 09/12/2024 6:43 AM ED Course / Medical Decision Making Medical Decision Making Patient presenting with URI symptoms and not feeling well. Will get basic blood work, EKG, chest x-ray, troponin. Patient was recently diagnosed with flu. Will reassess Chest x-ray negative Troponin negative K 2.8, will check magnesium level. Will replace potassium. Mg 1.8 Patient absconded prior to the potassium replacement and the fluids. Amount and/or Complexity of Data Reviewed External Data Reviewed: notes. Details: Old chart reviewed Labs: ordered. Decision-making details documented in ED Course. Radiology: ordered and independent interpretation performed. Decision-making details documented in ED Course. ECG/medicine tests: ordered and independent interpretation performed. Decision- making details documented in ED Course. Risk Prescription drug management. Decision regarding hospitalization. Clinical Impression URI (upper respiratory infection) (Primary) Hypokalemia Disposition: Eloped Iris Mejía MD 09/12/24 0859 ERN GENERATOR OPERATOR * Jeremi Orantes RN - 09/12/2024 6:06 AM CST Pt to ed with c/o chest pain and sob. States chest pain started 3 days ago, describes it as a pressure and radiates across chest. Sob has been ongoing for past 4 days, reports a hx of copd. States has had a cough and congestion for past couple of day, productive cough with yellowish discharge. Pt a&ox4. ERN GENERATOR OPERATOR documented in this encounter Plan of Treatment Upcoming Encounters Date Type Department Care Team (Late st Contact Info) Description 03/13/2025 9:00 AM CDT Office Visit [facility] - [address] [place] [phone] Armani Duarte MD 3 [facility] JOSE ALFREDO [address] [place] [id number] documented as of this encounter Procedures Procedure Name Priority Date/Time Associated Diagnosis Comments XR CHEST PORTABLE STAT 09/12/2024 6:4 2 AM PATTERN GENERATOR OPERATOR COMPREHENSIVE METABOLIC PANEL STAT 09/12/2024 6:10 AM PATTERN GENERATOR OPERATOR CBC W/DIFF AUTOMATED STAT 09/12/2024 6:10 AM PATTERN GENERATOR OPERATOR TROPONIN, QUANT STAT 09/12/2024 6:10 AM PATTERN GENERATOR OPERATOR MAGNESIUM Routine 09/12/2024 6:10 AM PATTERN GENERATOR OPERATOR ECG 12-LEAD Routine 09/12/2024 6:02 AM PATTERN GENERATOR OPERATOR documented in this encounter Results * XR CHEST PORTABLE (09/12/2024 6:42 AM PATTERN GENERATOR OPERATOR) Anatomical Region Laterality Modality Chest Radiographic Astrid ging 09/12/2024 6:43 AM PATTERN GENERATOR OPERATOR Impressions 09/12/2024 6:44 AM PATTERN GENERATOR OPERATOR IMPRESSION: No radiographic evidence of an acute cardiopulmonary abnormality. Referred By: Interpreted By: Jean Carlos Escobedo MD, 09/12/2024 6:43 AM Narrative 09/12/2024 6:44 AM PATTERN GENERATOR OPERATOR [place] [id number] EXAMINATION: XR CHEST PORTABLE, 09/12/2024 6:43 AM TECHNIQUE: Upright AP portable radiograph of the chest HISTORY: Chest pain COMPARISON: Chest radiograph 12/06/2021 FINDINGS: Heart size is normal. Pulmonary vascular pattern appears unremarkable. No focal pulmonary consolidation. Linear opacity at the left lung basically seen with atelectasis. No pleural effusion. No pneumothorax. Procedure Note Jean Carlos Escobedo MD - 09/12/2024 [place] [id number] EXAMINATION: XR CHEST PORTABLE, 09/12/2024 6:43 AM TECHNIQUE: Upright AP portable radiograph of the chest HISTORY: Chest pain COMPARISON: Chest radiograph 12/06/2021 FINDINGS: Heart size is normal. Pulmonary vascular pattern appearsunremarkable. No focal pulmonary consolidation. Linear opacity at theleft lung basically seen with atelectasis. No pleural effusion. Nopneumothorax. IMPRESSION: No radiographic evidence of an acute cardiopulmonary abnormality. Referred By: Interpreted By: Jean Carlos Escobedo MD, 09/12/2024 6:43 AM Iris Mejía MD GENERAL IMAGING Final Result * MAGNESIUM (09/12/2024 6:10 AM PATTERN GENERATOR OPERATOR) MAGNESIUM 1.8 1.8 - 2.4 MG/DL 09/12/2024 8:28 AM PATTERN GENERATOR OPERATOR [facility] 09/12/2024 6:10 AM PATTERN GENERATOR OPERATOR [facility] Final Result Performing Organization Address City/[facility]/ZIP Co de Phone Number [facility] [address] [place] [id number], [place] [phone] * TROPONIN, QUANT (09/12/2024 6:10 AM PATTERN GENERATOR OPERATOR) [facility] TROPONIN I HIGH SENSITIVITY 4 <54 ng/L 09/12/2024 6:54 AM PATTERN GENERATOR OPERATOR [facility] Comment: HIGH DOSES OF BIOTIN, TROPONIN-SPECIFIC AUTOANTIBODIES, AND ANTIBODY THERAPY CONTAINING HAMA MAY INTERFERE WITH THIS TEST RESULT. CORRELATION TO CLINICAL HISTORY AND PRESENTATION RECOMMENDED. 09/12/2024 6:10 AM PATTERN GENERATOR OPERATOR [facility] LAB[facility]ATORY Final Result Performing Organization Address [facility] Co de Phone Number [facility] [address] [place] [address], [place] [phone] * (ABNORMAL) COMPREHENSIVE METABOLIC PANEL (09/12/2024 6:10 AM PATTERN GENERATOR OPERATOR) [facility] GLUCOSE 101(H) 70 - 99 MG/DL 09/12/2024 6:54 AM PATTERN GENERATOR OPERATOR [facility] BUN 6(L) 7 - 18 MG/DL 09/12/2024 6:54 AM [facility] CREATININE S/P/B 0.57 0.55 - 1.02 MG/DL 09/12/2024 6:54 AM [facility] SODIUM S/P/B 138 136 - 145 MMOL/L 09/12/2024 6:54 AM [facility] POTASSIUM S/P/B 2.8(LL) 3.5 - 5.1 MMOL/L 09/12/2024 6:54 AM [facility] Comment: Critical Result(s) Called at: 06:52:44 on 09/12/2024 by: CLEMENTINA CANDELARIA to and read back by:MATTHEW MORRIS CHLORIDE S/P/B 103 97 - 115 MMOL/L 09/12/2024 6:54 AM [facility] CO2 27.3 21 - 32 MMOL/L 09/12/2024 6:54 AM [facility] CALCIUM S/P/B 9.1 8.5 - 10.1 MG/DL 09/12/2024 6:54 AM [facility] BILIRUBIN TOTAL S/P/B 1.0 0.2 - 1.2 MG/DL 09/12/2024 6:54 AM [facility] Comment: THIS ASSAY IS NOT RECOMMENDED FOR PATIENTS UNDERGOING TREATMENT WITH ELTROMBOPAG DUE TO THE POTENTIAL FOR FALSELY ELEVATED RESULTS. TOTAL PROTEIN S/P/B 7.7 6.4 - 8.2 G/DL 09/12/2024 6:54 AM [facility] ALBUMIN S/P/B 3.7 3.4 - 5.0 G/DL 09/12/2024 6:54 AM [facility] AST 43(H) 15 - 37 U/L 09/12/2024 6:54 AM [facility] ALT 57(H) 14 - 55 U/L 09/12/2024 6:54 AM [facility] ALKALINE PHOSPHATASE S/P/B 65 50 - 136 U/L 09/12/2024 6:54 AM [facility] ANION GAP 7.7 2 - 10 MMOL/L 09/12/2024 6:54 AM [facility] BUN CREATININE RATIO 10.5 6 - 26 09/12/2024 6:54 AM [facility] A/G RATIO 0.9(L) 1.0 - 2.0 RATIO 09/12/2024 6:54 AM [facility] GFR ESTIMATE >90 >90 ML/MIN/1.7 3 M2 09/12/2024 6:54 AM [facility] Comment: NOTE: eGFR is not calculated for patients <18 years of age or gender unknown. This is an estimated GFR calculation using the new CKD EPI creatinine equation without race and so does not require a correction factor for race. This estimated GFR should not be used for calculating drug doses. 09/12/2024 6:10 AM PATTERN GENERATOR OPERATOR Pancho Kym JIMENEZ LABORATORY Final Result [facility] [address] [place] [address], [place] [phone] * (ABNORMAL) CBC W/DIFF AUTOMATED (09/12/2024 6:10 AM [facility]) WBC 10.33 4.5 - 11.0 x10'3/uL 09/12/2024 6:23 AM [facility] RBC 5.13 4.20 - 5.40 x10'6/uL 09/12/2024 6:23 AM [facility] HGB 16.1(H) 12.0 - 16.0 G/DL 09/12/2024 6:23 AM [facility] HCT 46.3 38.0 - 48.0 % 09/12/2024 6:23 AM [facility] MCV 90.3 81.0 - 99.0 FL 09/12/2024 6:23 AM [facility] MCH 31.4(H) 27.0 - 31.0 PG 09/12/2024 6:23 AM [facility] MCHC 34.8 32.0 - 36.0 G/DL 09/12/2024 6:23 AM [facility] RDW 12.5 11.5 - 14.5 % 09/12/2024 6:23 AM [facility] PLT 240 130 - 400 x10'3/uL 09/12/2024 6:23 AM [facility] MPV 9.7 9.3 - 12.2 FL 09/12/2024 6:23 AM [facility] DIFFERENTIAL TYPE AUTOMATED DIFFERENTIAL 09/12/2024 6:23 AM [facility] NEUTROPHILS % 65.8 % 09/12/2024 6:23 AM [facility] LYMPHOCYTES % 25.8 % 09/12/2024 6:23 AM [facility] MONOCYTES % 7.7 % 09/12/2024 6:23 AM [facility] EOSINOPHILS 0.1 % 09/12/2024 6:23 AM [facility] BASOPHILS 0.3 % 09/12/2024 6:23 AM [facility] IMMATURE GRANS % 0.3 % 09/13/19 6:23 AM [facility] ABS. NEUTROPHILS 6.80 1.80 - 7.70 x10'3/uL 09/12/2024 6:23 AM [facility] ABS. LYMPHOCYTES 2.66 1.00 - 4.80 x10'3/uL 09/12/2024 6:23 AM [facility] ABS. MONOCYTES 0.80 0.24 - 0.86 x10'3/uL 09/12/2024 6:23 AM [facility] ABS. EOSINOPHILS 0.01(L) 0.04 - 0.36 x10'3/uL 09/12/2024 6:23 AM PATTERN GENERATOR OPERATOR [facility] ABS. BASOPHILS 0.03 0.01 - 0.08 x10'3/uL 09/12/2024 6:23 AM PATTERN GENERATOR OPERATOR [facility] ABS. IMMATURE GRANULOCYTES 0.03 0.00 - 0.49 x10'3/uL 09/12/2024 6:23 AM PATTERN GENERATOR OPERATOR [facility] 09/12/2024 6:10 AM PATTERN GENERATOR OPERATOR Iris Mejía MD LABORATORY Final Result [facility] [address] [place] [address], * ECG 12 lead (09/12/2024 6:02 AM PATTERN GENERATOR OPERATOR) 09/12/2024 6:02 AM PATTERN GENERATOR OPERATOR Narrative [facility] ([facility]) RAD - 09/13/2024 8:10 AM PATTERN GENERATOR OPERATOR [address] Test Date: 2024-09-12 Pat Name: DARRELL LEE Department: 41 Room: JAMIE Gender: Female Grid Molder: : 1985 Requested By: LILIYA SEVERINO Order Number: [id number] Reading MD: Nathanael Muhammad Measurements Intervals Waldo Rate: 99 P: 148 DE: 143 QRS: 116 QRSD: 94 T: -31 QT: 338 QTc: 435 Interpretive Statements SINUS RHYTHM WITH OCCASIONAL VENTRICULAR PREMATURE COMPLEXES ARM LEADS REVERSED [INVERTED P AND QRS IN I] Compared to ECG 03/03/2022 09:34:53 Ventricular premature complex(es) now present T-wave abnormality no longer present ERN GENERATOR OPERATOR Procedure Note Nathanael Muhammad MD - 09/13/[address]24 [facility] [address] Test Date: 2024-09-12 Pat Name: DARRELL LEE Department: 41 Room: [facility] Gender: Female Grid Molder: : 1985 Requested By: LILIYA SEVERINO Order Number: [id number] Reading MD: Nathanael Muhammad Measurements Intervals [place]do Rate: 99 P: 148 DE: 143 QRS: 116 QRSD: 94 T: -31 QT: 338 QTc: 435 Interpretive Statements SINUS RHYTHM WITH OCCASIONAL VENTRICULAR PREMATURE COMPLEXES ARM LEADS REVERSED [INVERTED P AND QRS IN I] Compared to ECG 03/03/2022 09:34:53 Ventricular premature complex(es) now present T-wave abnormality no longer present ERN GENERATOR OPERATOR Iris Mejía MD ECG ORDERABLES Final Result [facility] ([facility]) [facility] documented in this encounter Visit Diagnoses Diagnosis URI (upper respiratory infection)- Primary Acute upper respiratory infections of unspecified site Hypokalemia Hypopotassemia documented in this encounter Active and Recently Administered Medications Times are shown in PATTERN GENERATOR OPERATOR. Scheduled Medication Order 09/10/2024 09/11/2024 09/12/2024 ipratropium-albuterol (DUONEB) 0.5-2.5 (3) MG/3ML nebulizer solution 3 mL 3 mL, Nebulization, Once, 1 dose, On Sun09/12/24 at 0800 0800 (Canceled Entry - Provider: Automatic Discharge Provider - Comment: Automatically canceled at discontinue of medication order) potassium chloride 10 mEq in sodium chloride 0.9 % 100 mL IV infusion 10 mEq, Intravenous, Administer over 60 Minutes, Once, 1 dose, On Sun09/12/24 at 0830, MAX rate in peripheral line of 10 mEq per hour. 0830 (Canceled Entry - Provider: Automatic Discharge Provider - Comment: Automatically canceled at discontinue of medication order) potassium chloride CR (K-TAB) tablet 40 mEq 40 mEq, Oral, Once, 1 dose, On Sun09/12/24 at 0745, Do not break, chew, or crush. 0745 (Canceled Entry - Provider: Automatic Discharge Provider - Comment: Automatically canceled at discontinue of medication order) sodium chloride 0.9% bolus infusion 1,000 mL 1,000 mL, Intravenous, Administer over 60 Minutes, Once, 1 dose, On Sun09/12/24 at 0745 0745 (Canceled Entry - Provider: Automatic Discharge Provider - Comment: Automatically canceled at discontinue of medication order) documented in this encounter Care Teams Supervisor [employer] Relationship Specialty Start Date End Date None, Provider, PCP - General UNKNOWN PHYSICIAN SPECIALTY 09/12/24 Duane Tamez MD [address] [place] [address] NEUROLOGY 10/08/18 Chapin Talavera DO [address] [place] [address] [place] Gravity Prospecting Supervisor CARDIOVASCULAR DISEASE 03/01/22 documented as of this encounter
--- OUTSIDE RECORDS SUMMARY | 2024-09-13 19:33 | XMS_ITS | Encounter Summary ---
Author Organization [facility] Address [facility] [place] [address] Care Team Providers Care Dean Of Chapel Name Role Phone Duane Tamez MD Unavailable [phone] Chapin Talavera DO Unavailable [phone] Cherelle Lacey MD Primary Care Provider [phone] None, Provider Primary Care Provider Unavaila ble Encounter Details Date Type Department Care Team (Latest Contact Info) Description 11/22/2023 MyChart Message Enc [facility] Medical Group Multispecialty Care - [facility] [address] [place] [address] Armani Duarte MD [address] [place] [address] Trelogy and duoneb please Social History Tobacco Use Types Packs/Day Years Used Date Smoking Tobacco: Former Cigarettes 0.3 25 1 - 2019 Smokeless Tobacco: Never Alcohol Use Standard Drinks/Week Comments Not Currently 0 (1 standard drink = 0.6 oz pur e alcohol) rarely AUDIT-C Answer Date Recorded Frequency of Alcohol Consumption Never 09/13/2018 Average Number of Drinks Not on file 019 Frequency of Binge Drinking Not on file 02/2019 PHQ-2 Answer Date Recorded Patient Health Questionnaire-2 Score 2 04/30/2023 Comments No Sex and Gender Information Value Date Recorded Sex Assigned at Female 09/12/2024 6:33 AM IT RISK ANALYST Legal Sex Female 7:52 AM IT RISK ANALYST Gender Identity Not on file Sexual Orientation Not on file documented as of this encounter Plan of Treatment Upcoming Encounters Date Type Department Care Team (Late st Contact Info) Description 03/13/2025 9:00 AM CDT Office Visit [facility] Medical [facility] Multispecialty Care - [facility] [address] [place] [address] Armani Duarte MD [address] [place] [address] documented as of this encounter Visit Diagnoses Not on filedocumented in this encounter Care Teams Dean Of Chapel Relationship Specialty Start Date End Date Cherelle Lacey MD [address] [place] [address] [place] [address] PCP - General FAMILY PRACTICE 10/25/23 09/11/24 None, Provider, PCP - General UNKNOWN PHYSICIAN SPECIALTY 09/12/24 Duane Tamez MD [facility] [employer] [address] [address] NEUROLOGY 10/08/18 Cahpin Talavera DO [facility] [employer] [address] [address] [place] Waistband Setter CARDIOVASCULAR DISEASE 03/01/22 documented as of this encounter
--- OUTSIDE RECORDS SUMMARY | 2024-09-13 19:33 | XMS_ITS | Encounter Summary ---
Author Organization [facility] Address [address] [place] [address] Care Team Providers Care Android Framework Developer Name Role Phone Duane Tamez MD Unavailable [phone] Chapin Talavera DO Unavailable [phone] None, Provider Primary Care Provider Unavaila ble Cherelle Lacey MD Primary Care Provider [phone] None, Provider Primary Care Provider Unavaila ble Encounter Details Date Type Department Care Team (Late st Contact Info) Description 01/03/2023 MyChart Message Enc [facility] Medical Group - [facility] [address] [place], [place] [address] [employer], [facility] Provider Air Quality Message Social History Tobacco Use Types Packs/Day Years Used Date Smoking Tobacco: Former Cigarettes 0.3 25 2019 Smokeless Tobacco: Never Comments:provider address Alcohol [...] Sex Assigned at Female 09/12/2024 6:33 AM FREIGHT COORDINATOR Legal Sex Female 7:52 AM FREIGHT COORDINATOR Gender Identity Not on file Sexual Orientation Not on file documented as of this encounter Plan of Treatment Upcoming Encounters Date Type Department Care Team (Late st Contact Info) Description 03/13/2025 9:00 AM CDT Office Visit [facility] Medical Group Multispecialty Care - [facility] [address] [place] [address] Armani Duarte MD [address] [place] [address] documented as of this encounter Visit Diagnoses Not on filedocumented in this encounter Care Teams Android Framework Developer Relationship Specialty Start Date End Date None, Provider, PCP - General UNKNOWN PHYSICIAN SPECIALTY 10/05/22 10/24/23 Cherelle Lacey MD [address] [place] [address] [place] [address] PCP - General FAMILY PRACTICE 10/25/23 09/11/24 None, ProviderMD PCP - General UNKNOWN PHYSICIAN SPECIALTY 09/12/24 Duane Tamez MD [facility] [place] [address] NEUROLOGY 10/08/18 Chapin Talavera DO [facility] [place] [address] [place] Redye Hand CARDIOVASCULAR DISEASE 03/01/22 documented as of this encounter
--- OUTSIDE RECORDS SUMMARY | 2024-09-13 19:33 | XMS_ITS | Encounter Summary ---
Author Organization [facility] Address [facility] hospital[address] [place] [address] Care Team Providers Care Lead Quality Control Technician Name Role Phone Jenn Menezes MEDICAL LAB SCIENTIST- Primary Care Provider Duane Barker MD Unavailable [phone] Chapin Talavera DO Unavailable [phone] None, Provider Primary Care Provider Unavaila ble None, Provider Primary Care Provider Unavaila ble Cherelle Lacey MD Primary Care Provider [phone] None, Provider Primary Care Provider Unavaila ble Encounter Details Date Type Department Care Team (Late Contact Info) Description 08/29/2021 MyChart Message Enc [facility] Medical Group Family Medicine [address] [address] Jenn Menezes MEDICAL LAB SCIENTIST-BC Left Index Finger laceration Social History Tobacco Use Types Packs/Day Years [...] Sex Assigned at Female 09/12/2024 6:33 AM ELEVATOR OPERATOR SERVICE Legal Sex Female 7:52 AM ELEVATOR OPERATOR SERVICE Gender Identity Not on file Sexual Orientation Not on file documented as of this encounter Plan of Treatment Upcoming Encounters Date Type Department Care Team (Late Contact Info) Description 03/13/2025 9:00 AM CDT Office Visit [facility] Medical Group Multispecialty Care - [facility] [address] [place] [address] Armani Duarte MD [address] [place] [address] documented as of this encounter Visit Diagnoses Not on filedocumented in this encounter Care Teams Lead Quality Control Technician Relationship Specialty Start Date End Date Jenn Menezes [facility] PCP - General NURSE PRACTITIONER 06/07/18 03/08/22 None, Provider, PCP - General UNKNOWN PHYSICIAN SPECIALTY 05/04/22 09/19/22 None, Provider, PCP - General UNKNOWN PHYSICIAN SPECIALTY 10/05/22 10/24/23 Cherelle Lacey MD [address] [place] [address] [place] [address] PCP - General FAMILY PRACTICE 10/25/23 09/11/24 None, ProviderMD PCP - General UNKNOWN PHYSICIAN SPECIALTY 09/12/24 Duane Tamez MD [facility] [employer] [address] [address] NEUROLOGY 10/08/18 Chapin Talavera DO [facility] [employer] [address] [place] [address] [place] Car Restorer CARDIOVASCULAR DISEASE 03/01/22 documented as of this encounter
--- OUTSIDE RECORDS SUMMARY | 2024-09-13 19:33 | XMS_ITS | Encounter Summary ---
Author Organization [facility] Address [facility] [place] [address] Care Team Providers Care Scrap Bunch Maker Name Role Phone Jenn Menezes [facility] Primary Care Provider Duane Barker MD Unavailable [phone] Chapin Talavera DO Unavailable [phone] None, Provider Primary Care Provider Unavaila ble None, Provider Primary Care Provider Unavaila ble Cherelle Lacey MD Primary Care Provider [phone] None, Provider Primary Care Provider Unavaila ble Encounter Details Date Type Department Care Team (Late st Contact Info) Description 12/20/2021 MyCExactert Message Enc [facility] Medical Group Family Medicine [address] [address] Jenn Menezes DISASTER RECOVERY COORDINATOR- Vaccine Social History Tobacco Use Types Packs/Day Years [...] Sex Assigned at Female 09/12/2024 6:33 AM DIE ASSEMBLER Legal Sex Female 7:52 AM DIE ASSEMBLER Gender Identity Not on file Sexual Orientation Not on file COVID-19 Exposure Response Date Recorded In the last 10 days, have yo u been in contact with someone who was confirmed or suspected to have Coronavirus/COVID-19? No / Unsure 12/21/2021 10:15 AM CDT documented as of this encounter Plan of Treatment Upcoming Encounters Date Type Department Care Team (Late st Contact Info) Description 03/13/2025 9:00 AM CDT Office Visit [facility] Medical Group Multispecialty Care - [facility] [address] [facility] [address] [place] [address] Armani Duarte MD [address] [facility] [address] [place] [address] documented as of this encounter Visit Diagnoses Not on filedocumented in this encounter Care Teams Scrap Bunch Maker Relationship Specialty Start Date End Date Jenn [facility] PCP - General NURSE PRACTITIONER 06/07/18 03/08/22 None, ProviderMD PCP - General UNKNOWN PHYSICIAN SPECIALTY 05/04/22 09/19/22 None, ProviderMD PCP - General UNKNOWN PHYSICIAN SPECIALTY 10/05/22 10/24/23 Cherelle Lacey MD [address] [place] [address] PCP - General FAMILY PRACTICE 10/25/23 09/11/24 None, ProviderMD PCP - General UNKNOWN PHYSICIAN SPECIALTY 09/12/24 [facility] [address] [place] [address] NEUROLOGY 10/08/18 Chapin [facility]alavera DO [facility] [address] [place] [address] [place] Associate Pastor CARDIOVASCULAR DISEASE 03/01/22 documented as of this encounter
--- OUTSIDE RECORDS SUMMARY | 2024-09-13 19:33 | XMS_ITS | Encounter Summary ---
Author Organization [facility] Address [facility] [place] [address] Care Team Providers Care Paper Mill Supervisor Name Role Phone Maknannette Jenn [facility] Primary Care Provider Duane Barker MD Unavailable [phone] Chapin Talavera DO Unavailable [phone] None, Provider Primary Care Provider Unavaila ble None, Provider Primary Care Provider Unavaila ble Cherelle Lacey MD Primary Care Provider [phone] None, Provider Primary Care Provider Unavaila ble Encounter Details Date Type Department Care Team (Late st Contact Info) Description 03/08/2022 [employer] Message Enc [facility] Medical Group Family Medicine [address] [address] [employer], [facility] Provider Appointment Cancellation Social History Tobacco Use Types Packs/Day Years [...] Sex Assigned at Female 09/12/2024 6:33 AM SENIOR SOFTWARE ANALYST Legal Sex Female 7:52 AM SENIOR SOFTWARE ANALYST Gender Identity Not on file Sexual Orientation Not on file COVID-19 Exposure Response Date Recorded In the last 10 days, have yo u been in contact with someone who was confirmed or suspected to have Coronavirus/COVID-19? No / Unsure 03/07/2022 11:40 AM CDT documented as of this encounter Plan of Treatment Upcoming Encounters Date Type Department Care Team (Late st Contact Info) Description 03/13/2025 9:00 AM CDT Office Visit [facility] Medical Group Multispecialty Care - [facility] [address] [facility] [place] [address] Armani Duarte MD [address] [facility] [address] [place] [address] documented as of this encounter Visit Diagnoses Not on filedocumented in this encounter Care Teams Paper Mill Supervisor Relationship Specialty Start Date End Date Jenn [facility]ene[facility] PCP - General NURSE PRACTITIONER 06/07/18 03/08/22 None, ProviderMD PCP - General UNKNOWN PHYSICIAN SPECIALTY 05/04/22 09/19/22 None, ProviderMD PCP - General UNKNOWN PHYSICIAN SPECIALTY 10/05/22 10/24/23 Cherelle Lacey MD [address] [place] [address] [place] [address] PCP - General FAMILY PRACTICE 10/25/23 09/11/24 None, ProviderMD PCP - General UNKNOWN PHYSICIAN SPECIALTY 09/12/24 Duane Tamez MD [facility] [address] [place] [address] NEUROLOGY 10/08/18 Chapin Talavera DO [facility] [address] [place] [address] [place] Loin Trimmer CARDIOVASCULAR DISEASE 03/01/22 documented as of this encounter
--- OUTSIDE RECORDS SUMMARY | 2024-09-13 19:33 | XMS_ITS | Encounter Summary ---
Author Organization [facility] Address [facility] [place] [address] Care Team Providers Care Retail Cashier Associate Name Role Phone Duane Tamez MD Unavailable [phone] Chapin Talavera DO Unavailable [phone] None, Provider Primary Care Provider Unavaila ble Cherelle Lacey MD Primary Care Provider [phone] None, Provider Primary Care Provider Unavaila ble Encounter Details Date Type Department Care Team (Late st Contact Info) Description 11/22/2022 [employer] Message Enc [facility] Medical Group [address] [address] [facility], [facility] Provider appoinment needed Social History Tobacco Use Types Packs/Day [...] Sex Assigned at Female 09/12/2024 6:33 AM FIRE TOWER KEEPER Legal Sex Female 7:52 AM FIRE TOWER KEEPER Gender Identity Not on file Sexual Orientation Not on file documented as of this encounter Plan of Treatment Upcoming Encounters Date Type Department Care Team (Late Contact Info) Description 03/13/2025 9:00 AM CDT Office Visit [facility] Medical Group Multispecialty Care - [facility] [address] [place] [address] Armani Duarte MD [facility] [address] [place] [address] documented as of this encounter Visit Diagnoses Not on filedocumented in this encounter Care Teams Retail Cashier Associate Relationship Specialty Start Date End Date None, Provider, PCP - General UNKNOWN PHYSICIAN SPECIALTY 10/05/22 10/24/23 Cherelle Lacey MD [address] [place] [address] [place] [address] PCP - General FAMILY PRACTICE 10/25/23 09/11/24 None, Provider, PCP - General UNKNOWN PHYSICIAN SPECIALTY 09/12/24 Duane Tamez MD [facility] [place] [address] NEUROLOGY 10/08/18 Chapin Talavera DO [facility] [address] [place] [address] [place] Chief Physical Therapist CARDIOVASCULAR DISEASE 03/01/22 documented as of this encounter
--- OUTSIDE RECORDS SUMMARY | 2024-09-13 19:33 | XMS_ITS | Encounter Summary ---
Author Organization [facility] Address [facility] [place] [address] Care Team Providers Care Instrumentation Controls Engineer Name Role Phone Jenn Menezes [facility] Primary Care Provider Duane Barker MD Unavailable [phone] Chapin Talavera DO Unavailable [phone] None, Provider Primary Care Provider Unavaila ble None, Provider Primary Care Provider Unavaila ble Cherelle Lacey MD Primary Care Provider [phone] None, Provider Primary Care Provider Unavaila ble Encounter Details Date Type Department Care Team (Late Contact Info) Description 08/21/2021 MyChart Message Enc [facility] Medical Group [facility] Medicine [address] [address] Jenn Menezes [facility] symbicort Social History Tobacco Use Types Packs/Day Years [...] Sex Assigned at Female 09/12/2024 6:33 AM CUSTOMER CARE MANAGER Legal Sex Female 7:52 AM CUSTOMER CARE MANAGER Gender Identity Not on file Sexual Orientation Not on file documented as of this encounter Plan of Treatment Upcoming Encounters Date Type Department Care Team (Late Contact Info) Description 03/13/2025 9:00 AM CDT Office Visit [facility] Medical Group Multispecialty Care - [facility] [address] [facility] [facility] [facility] [address] [place] [address] Armani Duarte MD [address] [place] [address] documented as of this encounter Visit Diagnoses Not on filedocumented in this encounter Care Teams Instrumentation Controls Engineer Relationship Specialty Start Date End Date Jenn Menezes, [facility] PCP - General NURSE PRACTITIONER 06/07/18 03/08/22 None, Provider, PCP - General UNKNOWN PHYSICIAN SPECIALTY 05/04/22 09/19/22 None, Provider, PCP - General UNKNOWN PHYSICIAN SPECIALTY 10/05/22 10/24/23 Cherelle Lacey MD [address] [place] [address] [place] [address] PCP - General FAMILY PRACTICE 10/25/23 09/11/24 None, ProviderMD PCP - General UNKNOWN PHYSICIAN SPECIALTY 09/12/24 Duane Tamez MD [facility] [employer] [address] [address] NEUROLOGY 10/08/18 Chapin Talavera DO [facility] [employer] [address] [address] [place] Structural Steel Engineer CARDIOVASCULAR DISEASE 03/01/22 documented as of this encounter
--- OUTSIDE RECORDS SUMMARY | 2024-09-13 19:33 | XMS_ITS | Encounter Summary ---
Author Organization [facility] Address [facility] [place] [address] Care Team Providers Care Deputy Director Of Public Works Name Role Phone Duane Tamez MD Unavailable [phone] Chapin Talavera DO Unavailable [phone] Cherelle Lacey MD Primary Care Provider [phone] None, Provider Primary Care Provider Unavaila ble Encounter Details Date Type Department Care Team (Late st Contact Info) Description 11/08/2023 MyChart Message Enc [facility] Medical Group Multispecialty Care - [facility] [address] [place] [address] Armani Duarte MD [facility] [address] [place], [place] [address] [facility] med Social History Tobacco Use Types Packs/Day Years [...] Sex Assigned at Female 09/12/2024 6:33 AM EXECUTIVE STEWARD Legal Sex Female 7:52 AM EXECUTIVE STEWARD Gender Identity Not on file Sexual Orientation Not on file documented as of this encounter Plan of Treatment Upcoming Encounters Date Type Department Care Team (Late st Contact Info) Description 03/13/2025 9:00 AM CDT Office Visit [facility] Medical Group Multispecialty Care - [facility] [address] [place] [address] Armani Duarte MD [facility] [address] [place] [address] documented as of this encounter Visit Diagnoses Not on filedocumented in this encounter Care Teams Deputy Director Of Public Works Relationship Specialty Start Date End Date Cherelle Lacey MD [address] [place] [address] [place] [address] PCP - General FAMILY PRACTICE 10/25/23 09/11/24 None, Provider, PCP - General UNKNOWN PHYSICIAN SPECIALTY 09/12/24 Duane Tamez MD [facility] [employer] [address] [address] NEUROLOGY 10/08/18 Chapin Talavera DO [facility] [employer] [address] [address] [place] Cycle Repairer CARDIOVASCULAR DISEASE 03/01/22 documented as of this encounter
--- OUTSIDE RECORDS SUMMARY | 2024-09-13 19:33 | XMS_ITS | Encounter Summary ---
Author Organization [facility] Address [facility] [place] [address] Care Team Providers Care Director Of Research Center Name Role Phone Jenn Menezes [facility] Primary Care Provider Duane Barker MD Unavailable [phone] Chapin Talavera DO Unavailable [phone] None, Provider Primary Care Provider Unavaila ble None, Provider Primary Care Provider Unavaila ble Cherelle Lacey MD Primary Care Provider [phone] None, Provider Primary Care Provider Unavaila ble Encounter Details Date Type Department Care Team (Late st Contact Info) Description 02/21/2022 ePrivateHiret Message Enc [facility] Medical Group Family Medicine [address] [address] Jenn Menezes [facility] cardiology referrral Social History Tobacco Use Types Packs/Day Years [...] Sex Assigned at Female 09/12/2024 6:33 AM REHABILITATION COORDINATOR Legal Sex Female 7:52 AM REHABILITATION COORDINATOR Gender Identity Not on file Sexual Orientation Not on file documented as of this encounter Plan of Treatment Upcoming Encounters Date Type Department Care Team (Late st Contact Info) Description 03/13/2025 9:00 AM CDT Office Visit [facility] Medical Group Multispecialty Care - [facility] [address] [facility] [place] [address] Armani Duarte MD [facility] [address] [place] [address] documented as of this encounter Visit Diagnoses Not on filedocumented in this encounter Care Teams Director Of Research Center Relationship Specialty Start Date End Date Jenn Menezes [facility] PCP - General NURSE PRACTITIONER 06/07/18 03/08/22 None, Provider, PCP - General UNKNOWN PHYSICIAN SPECIALTY 05/04/22 09/19/22 None, Provider, PCP - General UNKNOWN PHYSICIAN SPECIALTY 10/05/22 10/24/23 Cherelle Lacey MD [address] [place] [address] [place] [address] PCP - General FAMILY PRACTICE 10/25/23 09/11/24 None, ProviderMD PCP - General UNKNOWN PHYSICIAN SPECIALTY 09/12/24 Duane Tamez MD [facility] [employer] [address] [address] NEUROLOGY 10/08/18 Chapin Talavera DO [address] [place], [place] [address] [address] [address] [place] Cash Grain Farmer CARDIOVASCULAR DISEASE 03/01/22 documented as of this encounter
--- OUTSIDE RECORDS SUMMARY | 2024-09-13 19:33 | XMS_ITS | Encounter Summary ---
Author Organization [facility] Address [facility] [place] [address] Care Team Providers Care Hematology Supervisor Name Role Phone Jenn Menezes [facility] Primary Care Provider Duane Barker MD Unavailable [phone] Chapin Talavera DO Unavailable [phone] None, Provider Primary Care Provider Unavaila ble None, Provider Primary Care Provider Unavaila ble Cherelle Lacey MD Primary Care Provider [phone] None, Provider Primary Care Provider Unavaila ble Encounter Details Date Type Department Care Team (Late st Contact Info) Description 03/04/2022 TRIBAXt Message Enc [facility] Family Medicine [address] [address] Jenn Menezes [facility] Hey Social History Tobacco Use Types Packs/Day Years [...] Sex Assigned at Female 09/12/2024 6:33 AM WORKCELL OPERATOR Legal Sex Female 7:52 AM WORKCELL OPERATOR Gender Identity Not on file Sexual [...] [facility] [address] [facility] [place] [address] Armani Duarte MD [address] [facility] [address] [place] [address] documented as of this encounter Visit Diagnoses Not on filedocumented in this encounter Care Teams Hematology Supervisor Relationship Specialty Start Date End Date Jenn Menezes [facility] PCP - General NURSE PRACTITIONER 06/07/18 03/08/22 None, ProviderMD PCP - General UNKNOWN PHYSICIAN SPECIALTY 05/04/22 09/19/22 None, ProviderMD PCP - General UNKNOWN PHYSICIAN SPECIALTY 10/05/22 10/24/23 Cherelle Lacey MD [address] [place] [address] PCP - General FAMILY PRACTICE 10/25/23 09/11/24 None, ProviderMD PCP - General UNKNOWN PHYSICIAN SPECIALTY 09/12/24 Duane Tamez MD [facility] [employer] [address] [place] [address] NEUROLOGY 10/08/18 Chapin Talavera DO [facility] [employer] [address] [place] [address] Nadir Equipment Service Lead CARDIOVASCULAR DISEASE 03/01/22 documented as of this encounter
--- OUTSIDE RECORDS SUMMARY | 2024-09-13 19:33 | XMS_ITS | Encounter Summary ---
Author Organization [facility] Address [address] [place] [address] Care Team Providers Care Architectural Renderer Name Role Phone Duane Tamez MD Unavailable [phone] Chapin Talavera DO Unavailable None, Provider Primary Care Provider Unavaila ble None, Provider Primary Care Provider Unavaila ble Cherelle Lacey MD Primary Care Provider [phone] None, Provider Primary Care Provider Unavaila ble Encounter Details Date Type Department Care Team (Late st Contact Info) Description 03/17/2022 KDS Message Enc [facility] [address] [place] [address] Chapin Talavera, DO [address] [place] [address] schedule testing Social History Tobacco Use Types Packs/Day Years [...] Sex Assigned at Female 09/12/2024 6:33 AM JAVA DEVELOPER CONSULTANT Legal Sex Female 7:52 AM JAVA DEVELOPER CONSULTANT Gender Identity Not on file Sexual Orientation [...] Description 03/13/2025 9:00 AM CDT Office Visit [facility] Medical Group Multispecialty Care - [facility] [address] [facility] [place] [address] Armani Duarte MD [address] [place] [address] documented as of this encounter Visit Diagnoses Not on filedocumented in this encounter Care Teams Architectural Renderer Relationship Specialty Start Date End Date None, ProviderMD PCP - General UNKNOWN PHYSICIAN SPECIALTY 05/04/22 09/19/22 None, ProviderMD PCP - General UNKNOWN PHYSICIAN SPECIALTY 10/05/22 10/24/23 Cherelle Lacey MD [address] [place] [address] PCP - General FAMILY PRACTICE 10/25/23 09/11/24 None, MD Yony PCP - General UNKNOWN PHYSICIAN SPECIALTY 09/12/24 Duane Tamez MD [facility] [employer] [address] [address] NEUROLOGY 10/08/18 Chapin Talavera DO [facility] [employer] [address] [address] [place] Roof Slater CARDIOVASCULAR DISEASE 03/01/22 documented as of this encounter
--- OUTSIDE RECORDS SUMMARY | 2024-09-13 19:34 | XMS_ITS | Encounter Summary ---
Author Organization [facility] Address [facility] [place] [address] Care Team Providers Care Correspondence Representative Name Role Phone Jenn Menezes [facility] Primary Care Provider Duane Barker MD Unavailable [phone] Chapin Talavera DO Unavailable [phone] None, Provider Primary Care Provider Unavaila ble None, Provider Primary Care Provider Unavaila ble Cherelle Lacey MD Primary Care Provider [phone] None, Provider Primary Care Provider Unavaila ble Encounter Details Date Type Department Care Team (Late Contact Info) Description 05/30/2019 Kinoptohart Message Enc [address] [address] Jenn Menezes FNP-BC RE: Medication Questions Social History Tobacco Use Types Packs/Day Years Used Date Smoking Tobacco: Every Day Smokeless Tobacco: Never Alcohol Use Standard Drinks/Week Comments No 0 (1 standard drink = 0.6 oz pur e alcohol) AUDIT-C Answer Date Recorded Frequency of Alcohol Consumption Never 09/13/2018 Average Number of Drinks Not on file 019 Frequency of Binge Drinking Not on file 02/2019 Comments Unknown Sex and Gender Information Value Date Recorded Sex Assigned at Female 09/12/2024 6:33 AM SINGLE END SEWER Legal Sex Female 7:52 AM SINGLE END SEWER Gender Identity Not on file Sexual Orientation Not on file documented as of this encounter Plan of Treatment Upcoming Encounters Date Type Department Care Team (Late Contact Info) Description 03/13/2025 9:00 AM CDT Office Visit [facility] Medical Group Multispecialty Care - [facility] [address] [place] [address] Armani Duarte MD [address] [place] [address] documented as of this encounter Visit Diagnoses Not on filedocumented in this encounter Care Teams Correspondence Representative Relationship Specialty Start Date End Date [facility] PCP - General NURSE PRACTITIONER 06/07/18 03/08/22 None, Provider, PCP - General UNKNOWN PHYSICIAN SPECIALTY 05/04/22 09/19/22 None, Provider, PCP - General UNKNOWN PHYSICIAN SPECIALTY 10/05/22 10/24/23 Cherelle Lacey MD [address] [place] [address] [place] [address] PCP - General FAMILY PRACTICE 10/25/23 09/11/24 None, ProviderMD PCP - General UNKNOWN PHYSICIAN SPECIALTY 09/12/24 Duane Tamez MD [facility] [employer] [address] [address] NEUROLOGY 10/08/18 Chapin Talavera DO [facility] [employer] [address] [address] [place] Cyber Reverse Engineer CARDIOVASCULAR DISEASE 03/01/22 documented as of this encounter
--- OUTSIDE RECORDS SUMMARY | 2024-09-13 19:34 | XMS_ITS | Referral Summary ---
Author Organization [facility] Address [address] [facility] [place] [address] Care Team Providers Care Glue Machine Operator Name Role Phone MakJenn brunson GREG-REFRIGERATION SPECIALIST Primary Care Provider [phone] Constantino Solis MD Unavailable [phone] Source Comments [facility],non-owned Affiliates and Associated Physician Practices is amultiple site organization consisting of ambulatory clinics and hospital sitesin [place], [place], [place] and [place]. This disclosure is being madepursuant to the Care Everywhere program and may not contain all information available regarding this patient. Last updated 18.[facility] Allergies Active Allergy Reactions Criticality Noted Date Comments Amoxicillin 07/18/2017 Clarithromycin 07/18/2017 Ciprofloxacin 07/18/2017 Medications * Be aware that medications may not be up to date on this document. Alwaysverify current medications with the patient. Medication Sig Dispensed Refills Start Date End Date Status Divalproex Sodium (DEPAKOTE PO) Active Ondansetron HCl (ZOFRAN PO) Active GABAPENTIN, ONCE-DAILY, PO Active OMEPRAZOLE PO Active albuterol (5 MG/ML) 0.5% 2.5 mg in sodium chloride 0.9 % 3 mL Inhale 2.5 mg by mouth Active fluticasone propionate (FLONASE) 50 MCG/ACT nasal spray [place] 1 spray into the nose 04/22/2019 Active umeclidinium (INCRUSE ELLIPTA) 62.5 MCG/INH inhaler Inhale 1 puff by mouth 04/23/2019 Active fluticasone-salmetero l (ADVAIR/WIXELA) 250-50 MCG/DOSE inhaler Inhale 1 puff by mouth 2 times daily 3 Inhaler 4 06/12/2019 Active Social History Tobacco Use Types Packs/Day Years Used Date Smoking Tobacco: Former Cigarettes Q uit: 2016 Smokeless Tobacco: Never Alcohol Use Standard Drinks/Week Comments Never 0 (1 standard drink = 0.6 oz pur e alcohol) AUDIT-C Answer Date Recorded Frequency of Alcohol Consumption Never 05/30/2019 Average Number of Drinks Not on file 019 Frequency of Binge Drinking Not on file 05/10 Sex and Gender Information Value Date Recorded Sex Assigned at Not on file Gender Identity Not on file Sexual Orientation Not on file Last Filed Vital Signs Vital Sign Reading Time Taken Comments Blood Pressure 98/78 05/30/2019 11:26 AM QUARTER SEAMER Pulse 91 05/30/2019 11:26 AM QUARTER SEAMER Temperature 36.7 C (98 F) 05/30/2019 11:26 AM QUARTER SEAMER Respiratory Rate 16 09/21/2017 3:54 PM CDT Oxygen Saturation 96% 05/30/2019 11:26 AM QUARTER SEAMER Inhaled Oxygen Concentration - - Weight 134.3 kg (296 lb) 05/30/2019 11:26 AM QUARTER SEAMER Height 169 cm (5' 6.54 ) 05/30/2019 11:26 AM QUARTER SEAMER Body Mass Index 47.01 05/30/2019 11:26 AM QUARTER SEAMER Plan of Treatment Not on file Care Teams Glue Machine Operator Relationship Specialty Start Date End Date Jenn Menezes APRN-CHANDRAKANT PCP - General 10/23/18 Constantino Solis MD Family Medicine 07/17/18
--- OUTSIDE RECORDS SUMMARY | 2024-09-13 19:34 | XMS_ITS | Patient Health Summary ---
Author Organization [facility] Address [address] [facility] [place] [address] Care Team Providers Care Shop Teacher Name Role Phone Jenn Menezes APRN-SKID WRAPPER Primary Care Provider [phone] Constantino Solis MD Unavailable [phone] Note from [facility],non-owned Affiliates and Associated Physician Practices is amultiple site organization consisting of ambulatory clinics and hospital sitesin [place], [place], [place] and [place]. This disclosure is being madepursuant to the Care Everywhere program and may not contain all information available regarding this patient. Last updated 18.[facility] Allergies * Amoxicillin * Clarithromycin * Ciprofloxacin Medications * Be aware that medications may not be up to date on this document. Alwaysverify current medications with the patient. * Divalproex Sodium (DEPAKOTE PO) * Ondansetron HCl (ZOFRAN PO) * GABAPENTIN, ONCE-DAILY, PO * OMEPRAZOLE PO * albuterol (5 MG/ML) 0.5% 2.5 mg in sodium chloride 0.9 % 3 mL Inhale 2.5 mg by mouth * fluticasone propionate (FLONASE) 50 MCG/ACT nasal spray(Started 04/22/2019) [place] 1 spray into the nose * umeclidinium (INCRUSE ELLIPTA) 62.5 MCG/INH inhaler(Started 04/23/2019) Inhale 1 puff by mouth * fluticasone-salmeterol (ADVAIR/WIXELA) 250-50 MCG/DOSE inhaler(Started 06/12/2019) Inh[place] 1 puff by mouth 2 times daily 4 refills by 06/11/2020 Social History Tobacco Use Types Packs/Day Years [...] Comments Blood Pressure 98/78 05/30/2019 11:26 AM ONLINE MERCHANDISING COORDINATOR Pulse 91 05/30/2019 11:26 AM ONLINE MERCHANDISING COORDINATOR Temperature 36.7 C (98 F) 05/30/2019 11:26 AM ONLINE MERCHANDISING COORDINATOR Respiratory Rate 16 09/21/2017 3:54 PM CDT Oxygen Saturation 96% 05/30/2019 11:26 AM ONLINE MERCHANDISING COORDINATOR Inhaled Oxygen Concentration - - Weight 134.3 kg (296 lb) 05/30/2019 11:26 AM ONLINE MERCHANDISING COORDINATOR Height 169 cm (5' 6.54 ) 05/30/2019 11:26 AM ONLINE MERCHANDISING COORDINATOR Body Mass Index 47.01 05/30/2019 11:26 AM ONLINE MERCHANDISING COORDINATOR Care Teams Shop Teacher Relationship Specialty Start Date End Date Jenn Menezes APRN-SKID WRAPPER PCP - General 10/23/18 Constantino Solis MD Family Medicine 07/17/18
--- OUTSIDE RECORDS SUMMARY | 2024-09-13 19:34 | XMS_ITS | Encounter Summary ---
Author Organization [facility] Address [facility] [place] [address] Care Team Providers Care Design Sales Consultant Name Role Phone Jenn Menezes [facility] Primary Care Provider Duane Barker MD Unavailable [phone] Chapin Talavera DO Unavailable [phone] None, Provider Primary Care Provider Unavaila ble None, Provider Primary Care Provider Unavaila ble Cherelle Lacey MD Primary Care Provider [phone] None, Provider Primary Care Provider Unavaila ble Encounter Details Date Type Department Care Team (Late Contact Info) Description 12/02/2019 MyChart Message Enc [address] [address] Jenn Menezes JOURNEYMAN PATTERNMAKERADRIA RE: Medication Questions Social History Tobacco Use [...] Sex Assigned at Female 09/12/2024 6:33 AM MANAGER TRANSPLANT Legal Sex Female 7:52 AM MANAGER TRANSPLANT Gender Identity Not on file Sexual Orientation Not on file documented as of this encounter Plan of Treatment Upcoming Encounters Date Type Department Care Team (Late Contact Info) Description 03/13/2025 9:00 AM CDT Office Visit [facility] Medical Group Multispecialty Care - [facility] [address] [place] [address] Armani Duarte MD [address] [place] [address] documented as of this encounter Visit Diagnoses Not on filedocumented in this encounter Care Teams Design Sales Consultant Relationship Specialty Start Date End Date Jenn [facility] PCP - General NURSE PRACTITIONER 06/07/18 03/08/22 None, Provider, PCP - General UNKNOWN PHYSICIAN SPECIALTY 05/04/22 09/19/22 None, Provider, PCP - General UNKNOWN PHYSICIAN SPECIALTY 10/05/22 10/24/23 Cherelle Lacey MD [address] [place] [address] [place] [address] PCP - General FAMILY PRACTICE 10/25/23 09/11/24 None, ProviderMD PCP - General UNKNOWN PHYSICIAN SPECIALTY 09/12/24 Duane Tamez MD [facility] [employer] [address] [address] NEUROLOGY 10/08/18 Chapin Talavera DO [facility] [employer] [address] [address] [place] Medical Billing Manager CARDIOVASCULAR DISEASE 03/01/22 documented as of this encounter
--- OUTSIDE RECORDS SUMMARY | 2024-09-13 19:34 | XMS_ITS | Encounter Summary ---
Author Organization [facility] Address [address] [place] [address] Care Team Providers Care Brand Coordinator Name Role Phone Jenn Menezes [facility] Primary Care Provider Duane Barker MD Unavailable [phone] Chapin Talavera DO Unavailable [phone] None, Provider Primary Care Provider Unavaila ble None, Provider Primary Care Provider Unavaila ble Cherelle Lacey MD Primary Care Provider [phone] None, Provider Primary Care Provider Unavaila ble Encounter Details Date Type Department Care Team (Late st Contact Info) Description 04/22/2019 AMSCt Message Enc [address] [address] Jenn Menezes ART OBJECTS SALESPERSON- RE: Referral Request Social History Tobacco Use Types Packs/Day Years [...] Sex Assigned at Female 09/12/2024 6:33 AM INVOICING MACHINE OPERATOR Legal Sex Female 7:52 AM INVOICING MACHINE OPERATOR Gender Identity Not on file Sexual Orientation Not on file documented as of this encounter Plan of Treatment Upcoming Encounters Date Type Department Care Team (Late Contact Info) Description 03/13/2025 9:00 AM CDT Office Visit [facility] Medical Group Multispecialty Care - [facility] [address] [place] [address] Armani Duarte MD [address] [place] [address] documented as of this encounter Visit Diagnoses Not on filedocumented in this encounter Care Teams Brand Coordinator Relationship Specialty Start Date End Date [facility] PCP - General NURSE PRACTITIONER 06/07/18 03/08/22 None, Provider, PCP - General UNKNOWN PHYSICIAN SPECIALTY 05/04/22 09/19/22 None, Provider, PCP - General UNKNOWN PHYSICIAN SPECIALTY 10/05/22 10/24/23 Cherelle Lacey MD [address] [place] [address] [place] [address] PCP - General FAMILY PRACTICE 10/25/23 09/11/24 None, ProviderMD PCP - General UNKNOWN PHYSICIAN SPECIALTY 09/12/24 Duane Tamez MD [facility] [employer] [address] [address] NEUROLOGY 10/08/18 Chapin Talavera DO [facility] [employer] [address] [address] [place] O[employer]er CARDIOVASCULAR DISEASE 03/01/22 documented as of this encounter
--- OUTSIDE RECORDS SUMMARY | 2024-09-13 19:34 | XMS_ITS | Encounter Summary ---
Author Organization [facility] Address [facility] [place] [address] Care Team Providers Care Cane Weigher Name Role Phone Duane Tamez MD Unavailable [phone] Chapin Talavera DO Unavailable [phone] None, Provider Primary Care Provider Unavaila ble Encounter Details Date Type Department Care Team (Latest Contact Info) Description 09/12/2024 Travel Social History Tobacco Use Types Packs/Day Years [...] Sex Assigned at Female 09/12/2024 6:33 AM BAG BLEACHER Legal Sex Female 7:52 AM BAG BLEACHER Gender Identity Not on file Sexual Orientation Not on file documented as of this encounter Plan of Treatment Upcoming Encounters Date Type Department Care Team (Late st Contact Info) Description 03/13/2025 9:00 AM CDT Office Visit [facility] Medical Group Multispecialty Care - [address] [place] [address] Armani Duarte MD [address] [facility] [address] [place] [address] documented as of this encounter Visit Diagnoses Not on filedocumented in this encounter Care Teams Cane Weigher Relationship Specialty Start Date End Date None, Provider, PCP - General UNKNOWN PHYSICIAN SPECIALTY 09/12/24 Duane Tamez MD [address] [place] [address] NEUROLOGY 10/08/18 Chapin Talavera DO [address] [place], [place] [address] [address] [address] [place] Derrick Car Operator CARDIOVASCULAR DISEASE 03/01/22 documented as of this encounter
--- OUTSIDE RECORDS SUMMARY | 2024-09-13 19:34 | XMS_ITS | Clinical Summary ---
Author Organization [facility] Address [address] [place] [address] Care Team Providers Care Motor Overhauler Name Role Phone Duane Tamez MD Unavailable [phone] Chapin Talavera DO Unavailable [phone] None, Provider MD Primary Care Provider Unavaila ble Allergies Active Allergy Reactions Criticality Noted Date Comments Amoxicillin Hives,Rash Low 06/13/2010 Ciprofloxacin Hives,Rash,Unknown Medium 06/13/2010 Other reaction(s): Hives Clarithromycin Hives,Rash,Unknown,N ausea Only Medium 06/13/2010 Other reaction(s): Hives Naproxen Diarrhea,Nausea and Vomiting,Unknown,Oth er (see comment) Low 12/18/2012 Oxycodone Unknown 02/19/2013 Penicillins Unknown,Anaphylaxis, Rash High 06/13/2010 Other reaction(s): Hives Oxycodone-Acetaminophen Diarrhea,Nausea and Vomiting 12/18/2012 Permethrin Hives Medium 08/02/2017 Other reaction(s): Hives Medications NEBULIZER DME SUPPLYIndications :Chronic obstructive pulmonary disease, unspecified COPD type ([facility]) Nebulizer tubing, mask and needed supply, change every month 1 kit 6 019 Active sucralfate 1 G tabletIndications :Gastroesophageal reflux disease with esophagitis Take 1 tablet (1 g total) by mouth 4 (four) times daily. 120 tablet 6 020 Active Nebulizer System All-In-One MiscIndications:C hronic obstructive pulmonary disease, unspecified COPD type ([facility]) 1 kit by Does not apply route every 6 (six) hours as needed. 1 each 020 Active OMEPRAZOLE 40 MG capsuleIndication s:Gastroesophagea l reflux disease with esophagitis TAKE ONE CAPSULE TWICE DAILY 60 capsule 5 021 Active GABAPENTIN 600 MG tabletIndications :DJD (degenerative joint disease) TAKE 2 TABLETS BY MOUTH THREE TIMES DAILY 180 tablet 021 Active albuterol sulfate HFA 108 (90 Base) MCG/ACT inhaler Acti ve DIVALPROEX ER 500 MG 24 hr tabletIndications :Nonintractable epilepsy without status epilepticus, unspecified epilepsy type ([facility]/HCC HHS/HCC) TAKE 1 TABLET BY MOUTH TWICE A DAY 60 tablet 6 022 Active FLUTICASONE PROPIONATE 50 MCG/ACT nasal sprayIndications: Acute recurrent maxillary sinusitis 1 SPRAY BY EACH NOSTRIL ROUTE 2 (TWO) TIMES DAILY 16 mL 6 022 Active montelukast 10 MG tablet Take 1 tablet (10 mg total) by mouth daily. 022 Active meclizine (ANTIVERT) 25 MG tabletIndications :Vertigo TAKE 1 TABLET BY MOUTH THREE TIMES A DAY NEEDED FOR VERTIGO 60 tablet 022 Active ondansetron (ZOFRAN-ODT) 8 MG disintegrating tabletIndications :Nausea DISSOLVE 1 TABLET ON THE TONGUE EVERY 8 HOURS NEEDED FOR NAUSEA 20 tablet 023 Active metoclopramide (REGLAN) 10 MG tablet TAKE 1 TABLET BY MOUTH THREE TIMES A DAY NEEDED *MD NOT ENROLLED IN STATE MEDICAID* 023 Active Fluticasone-Umecl idin-Vilant (TRELEGY ELLIPTA) 200-62.5-25 MCG/ACT AEROSOL POWDER, BREATH ACTIVATEDIndicati ons:Moderate persistent asthma without complication (HHS/HCC) Inhale 1 puff into the lungs daily. 180 each 025 Active Sharps Container MiscIndications:M oderate persistent asthma without complication (HHS/HCC) Please supply pt with a 3.8 L sharps container 1 each 025 Active ipratropium-albut fifi (DUONEB) 0.5-2.5 (3) MG/3ML SolutionIndicatio ns:Moderate persistent asthma without complication (HHS/HCC) Take 3 mLs by nebulization every 6 (six) hours as needed. 360 mL 3 025 Active dupilumab (DUPIXENT) 300 MG/2ML injection (PEN)Indications: Severe persistent asthma ([facility]) Inject 4 mLs (600 mg total) into the skin on day 1 for loading dose. Then inject 2 mLs (300 mg) every 14 days, starting on day 15 4 mL 12 025 Active albuterol (PROVENTIL) (2.5 MG/3ML) 0.083% nebulizer solutionIndicatio ns:Chronic obstructive pulmonary disease, unspecified COPD type ([facility] HHS/[facility]) Take 3 mLs (2.5 mg total) by nebulization every 6 (six) hours as needed for Wheezing. 360 mL 1 023 2024 Discontinued(R eorder) albuterol (PROVENTIL) (2.5 MG/3ML) 0.083% nebulizer solutionIndicatio ns:Moderate persistent asthma without complication ([facility]) Take 3 mLs (2.5 mg total) by nebulization every 6 (six) hours as needed for Wheezing. 360 mL 3 024 2024 Discontinued mepolizumab (NUCALA) 100 MG/ML injectionIndicati ons:Moderate persistent asthma without complication ([facility]/HCC) INJECT 1 PEN UNDER THE SKIN EVERY 28 DAYS 1 mL 11 024 2024 Discontinued(D uplicate Med) ipratropium-albut fifi (DUONEB) 0.5-2.5 (3) MG/3ML SolutionIndicatio ns:Moderate persistent asthma without complication ([facility]) INHALE THE CONTENTS OF 1 VIAL EVERY 6 HOURS NEEDED 360 mL 1 024 2024 Discontinued(D uplicate Med) Sharps Container MiscIndications:M oderate persistent asthma without complication ([facility]/HCC) Please supply pt with a 3.8 L sharps container 1 each 025 2024 Discontinued(R eorder) albuterol (PROVENTIL) (2.5 MG/3ML) 0.083% nebulizer solutionIndicatio ns:Chronic obstructive pulmonary disease, unspecified COPD type ([facility]) Take 3 mLs (2.5 mg total) by nebulization every 6 (six) hours as needed for Wheezing. 360 mL 1 025 2024 Discontinued Active Problems Problem Noted Date Diagnosed Date Abnormal ECG 03/02/2022 Polycystic ovaries 07/20/2021 Hirsutism 07/20/2021 Intolerant of heat 07/20/2021 Tobacco dependence syndrome 07/20/2021 Hidradenitis suppurativa 07/20/2021 Chest pressure 04/23/2020 Assessment & Plan (03/03/2022 12:29 PM CDT): Despite patient's young age, because of her family history of siblings and father with premature atherosclerotic disease, her metabolic syndrome, I plan to further investigate her chest pressure with Cardiolite treadmill stress testing and calcium scoring. For any score other than 0 we will practice and aggressive stance with her metabolic parameters and secondary risk. I will see her in follow-up for any abnormal test results. Family history of coronary artery disease 2019 Morbid obesity 04/23/2020 Palpitations 04/23/2020 Assessment & Plan (03/03/2022 12:31 PM CDT): With normal exam and normal ECG, I will obtain echocardiography. If this also suggested normal cardiac structure and performance I doubt any additional cardiac work-up will be necessary for her palpitations as we will consider conservative management. Smoker 04/23/2020 Assessment & Plan (03/03/2022 12:30 PM CDT): The patient was advised to quit smoking and informed of the negative impact smoking has on health and how quitting can have a positive impact on morbidity and mortality. It was my assessment the patient had some interest in smoking cessation and so we discussed different methods and skills for cessation. We discussed how having a desire to be successful is the first step along with setting a stop date. The patient was given additional literature, and this will be discussed again at follow-up. The patient appears mildly motivated for success. Greater than 10 minutes of discussion, specifically with smoking cessation was provided to the patient. Abscess 02/27/2020 History of alcoholism ([facility]) 03/16/20 Epidermal cyst of neck 03/29/2018 Atopic dermatitis 08/02/2017 Abnormal liver function 05/02/2016 Chronic obstructive lung disease ([facility]/ [facility]) 04/26/2016 DJD (degenerative joint disease) 04/26/2016 Epilepsy ([facility]) 04/26/2016 GERD (gastroesophageal reflux disease) 6 Major depression 04/26/2016 Obesity with body mass index 30 or greater 04/26 Primary snoring 04/26/2016 Lumbar herniated disc 02/19/2013 Other and unspecified disc disorder of lumbar re gion 12/19/2012 Resolved Problems Problem Noted Date Diagnosed Date Resolved Date Amenorrhea 07/20/2021 07/20/2021 Irregular periods 07/20/2021 07/20/2021 Wound drainage 02/27/2020 07/20/2021 Cyst, jaw 04/12/2018 01/01/2019 Acute exacerbation of chronic low back pain 03/29/2018 07/20/2021 Pain of right hand 03/29/2018 2 Muscle strain 05/15/2016 07/20/2021 Abnormal blood chemistry 05/02/2016 Encounters Date Type Department Care Team Description 09/13/2024 MyChart Message [facility] [address] [place] [phone] Armani Duarte MD Bronchitis 09/12/2024 6:00 AM YEAST WASHER - 09/12/2024 9:30 AM YEAST WASHER Emergency [facility] [place] [address] Iris Mejía MD Chest Pain; Shortness Of Breath Discharge Disposition: Left Against Medical Advice 09/12/2024 Travel 09/04/2024 9:40 AM YEAST WASHER [facility] [address] [place] [phone] Armani Duarte MD Shortness Of Breath 09/04/2024 Scan [facility] Scanned, [facility] 09/04/2024 [facility] - [address] [place] [address] Armani Duarte MD Medication 09/04/2024 Travel 07/26/2024 MyChart Message [facility] - [facility] [address] [place] [address] Armani Duarte MD Trelogy from Last 3 Months Immunizations Name Administration Dates Next Due Pneumococcal (Pneumovax 23) 12/20/2021, 8 Td 11/20/2007 Td (TDVAX) 11/20/2007 Td (Tenivac) preservative free 04/26/2011 Family History Medical History Relation Comments No Known Problems Brother COPD Father Heart Disease Father Diabetes Mother Heart Disease Mother Diabetes Sister Factor V Leiden deficiency Sister Relation Status Comments Brother Alive Daughter Alive Father Mother Alive Sister Alive Son Alive Social History Tobacco Use Types Packs/Day Years Used Date Smoking Tobacco: Former Cigarettes 0.3 25 1 2019 Smokeless Tobacco: Never Tobacco Cessation:Counseling Given: Yes Alcohol Use Standard Drinks/Week Comments Not Currently [...] Sex Assigned at Female 09/12/2024 6:33 AM YEAST WASHER Legal Sex Female 7:52 AM YEAST WASHER Gender Identity Not on file Sexual Orientation Not on file Last Filed Vital Signs Vital Sign Reading Time Taken Comments Blood Pressure 121/92 09/12/2024 6:05 AM YEAST WASHER Pulse 94 09/12/2024 6:05 AM YEAST WASHER Temperature 37.2 C (99 F) 09/12/2024 6:05 AM YEAST WASHER Respiratory Rate 18 09/12/2024 6:05 AM YEAST WASHER Oxygen Saturation 97% 09/12/2024 6:05 AM YEAST WASHER Inhaled Oxygen Concentration - - Weight 111.1 kg (245 lb) 09/12/2024 6:05 AM YEAST WASHER Height 170.2 cm (5' 7 ) 09/12/2024 6:05 AM YEAST WASHER Body Mass Index 38.37 09/12/2024 6:05 AM YEAST WASHER Plan of Treatment Upcoming Encounters Date Type Department Care Team (Late st Contact Info) Description 03/13/2025 9:00 AM CDT Office Visit [facility] Multispecialty Care - [facility] [address] [place] [address] Armani Duarte MD [address] [place] [address] Health Maintenance Due Date Last Done Comments Cervical Cancer Screening Pa p Smear (Age 30 to 64) Every 3 Years 1983 Hepatitis B Vaccines (1 of 3 - 19+ 3-dose series) 2002 DTaP, Tdap and Td Vaccines ( 1 - Tdap) 04/27/2011 04/26/2011, 11/20/2007, 11/20/2007 Cervical Cancer Screening Pa p with HPV Testing (Age 30 to 64) Every 5 Years 2013 Cervical Cancer Screening wi th HPV 2013 Annual Physical 07/20/2022 07/20/2021 Pneumococcal Vaccine: Pediatrics (0 to 5 Years) and At-Risk Patients (6 to 64 Years) (2 of 2 - PCV) 12/20/2022 12/20/2021, 06/07/2018 Mammogram Screening 2023 COVID-19 Vaccine (1 - 2023-2 5 season) 2024 Influenza Adult (#1) 2024 Hepatitis C Completed 07/20/2021 PHQ-2 (Physician [place]) Completed 09/04/2024 HPV Vaccines Aged Out No longer eligi ble based on patient's age to complete this topic Meningococcal B Vaccine Aged Out No l onger eligible based on patient's age to complete this topic Meningococcal Vaccine Aged Out No betzy flakita eligible based on patient's age to complete this topic RSV Immunizations Under 20 Months Aged Out No longer eligible b ased on patient's age to complete this topic Procedures Procedure Name Priority Date/Time Associated Diagnosis Comments XR CHEST PORTABLE STAT 09/12/2024 6:4 2 AM YEAST WASHER MAGNESIUM Routine 09/12/2024 6:10 AM YEAST WASHER TROPONIN, QUANT STAT 09/12/2024 6:10 AM YEAST WASHER COMPREHENSIVE METABOLIC PANEL STAT 09/12/2024 6:10 AM YEAST WASHER CBC W/DIFF AUTOMATED STAT 09/12/2024 6:10 AM YEAST WASHER ECG 12-LEAD Routine 09/12/2024 6:02 AM YEAST WASHER HEPATITIS C ANTIBODY Routine 07/20/2021 8:54 AM YEAST WASHER Need for hepatitis C screening test from Last 3 Months or Most Recently Relevant to Health Maintenance Results * XR CHEST PORTABLE (09/12/2024 6:42 AM YEAST WASHER) Anatomical Region Laterality Modality Chest Radiographic Astrid ging 09/12/2024 6:43 AM YEAST WASHER Impressions 09/12/2024 6:44 AM YEAST WASHER IMPRESSION: No radiographic evidence of an acute cardiopulmonary abnormality. Referred By: Interpreted By: Jean Carlos Escobedo MD, 09/12/2024 6:43 AM Narrative 09/12/2024 6:44 AM YEAST WASHER [address] [address] EXAMINATION: XR CHEST PORTABLE, 09/12/2024 6:43 AM TECHNIQUE: Upright AP portable radiograph of the chest HISTORY: Chest pain COMPARISON: Chest radiograph 12/06/2021 FINDINGS: Heart size is normal. Pulmonary vascular pattern appears unremarkable. No focal pulmonary consolidation. Linear opacity at the left lung basically seen with atelectasis. No pleural effusion. No pneumothorax. Procedure Note Jean Carlos Escobedo MD - 09/12/[address] [address] EXAMINATION: XR CHEST PORTABLE, 09/12/2024 6:43 AM [...] Mejía MD GENERAL IMAGING Final Result * (ABNORMAL) COMPREHENSIVE METABOLIC PANEL (09/12/2024 6:10 AM YEAST WASHER) GLUCOSE 101(H) 70 - 99 MG/DL 09/12/2024 6:54 AM [facility] BUN 6(L) 7 - 18 MG/DL 09/12/2024 6:54 AM [facility] CREATININE S/P/B 0.57 0.55 - 1.02 MG/DL 09/12/2024 6:54 AM [facility] SODIUM S/P/B 138 136 - 145 MMOL/L 09/12/2024 6:54 AM [facility] POTASSIUM S/P/B 2.8(LL) 3.5 - 5.1 MMOL/L 09/12/2024 6:54 AM [facility] Comment: Critical Result(s) Called at: 06:52:44 on 09/12/2024 by: CLEMENTINA CANDELARIA to and read back by:MATTHEW MORRIS CHLORIDE S/P/B 103 97 - 115 MMOL/L 09/12/2024 6:54 AM [facility] CO2 27.3 21 - 32 MMOL/L 09/12/2024 6:54 AM [facility] CALCIUM S/P/B 9.1 8.5 - 10.1 MG/DL 09/12/2024 6:54 AM [facility] BILIRUBIN TOTAL S/P/B 1.0 0.2 - 1.2 MG/DL 09/12/2024 6:54 AM [facility] Comment: THIS ASSAY IS NOT RECOMMENDED FOR PATIENTS UNDERGOING TREATMENT WITH ELTROMBOPAG DUE TO THE POTENTIAL FOR FALSELY ELEVATED RESULTS. TOTAL PROTEIN S/P/B 7.7 6.4 - 8.2 G/DL 09/12/2024 6:54 AM [facility] ALBUMIN S/P/B 3.7 3.4 - 5.0 G/DL 09/12/2024 6:54 AM [facility] AST 43(H) 15 - 37 U/L 09/12/2024 6:54 AM [facility] ALT 57(H) 14 - 55 U/L 09/12/2024 6:54 AM [facility] ALKALINE PHOSPHATASE S/P/B 65 50 - 136 U/L 09/12/2024 6:54 AM [facility] ANION GAP 7.7 2 - 10 MMOL/L 09/12/2024 6:54 AM [facility] BUN CREATININE RATIO 10.5 6 - 26 09/12/2024 6:54 AM [facility] A/G RATIO 0.9(L) 1.0 - 2.0 RATIO 09/12/2024 6:54 AM [facility] GFR ESTIMATE >90 >90 ML/MIN/1.7 3 M2 09/12/2024 6:54 AM [facility] Comment: NOTE: eGFR is not calculated for patients <18 years of age or gender unknown. This is an estimated GFR calculation using the new CKD EPI creatinine equation without race and so does not require a correction factor for race. This estimated GFR should not be used for calculating drug doses. 09/12/2024 6:10 AM YEAST WASHER us Iris Mejía MD LABORATORY Final Result [facility] [address] [place] [address], [place] [phone] * (ABNORMAL) CBC W/DIFF AUTOMATED (09/12/2024 6:10 AM YEAST WASHER) WBC 10.33 4.5 - 11.0 x10'3/uL 09/12/2024 6:23 AM [facility] RBC 5.13 4.20 - 5.40 x10'6/uL 09/12/2024 6:23 AM [facility] HGB 16.1(H) 12.0 - 16.0 G/DL 09/12/2024 6:23 AM [facility] HCT 46.3 38.0 - 48.0 % 09/12/2024 6:23 AM [facility] MCV 90.3 81.0 - 99.0 FL 09/12/2024 6:23 AM [facility] MCH 31.4(H) 27.0 - 31.0 PG 09/12/2024 6:23 AM [facility] MCHC 34.8 32.0 - 36.0 G/DL 09/12/2024 6:23 AM [facility] RDW 12.5 11.5 - 14.5 % 09/12/2024 6:23 AM [facility] PLT 240 130 - 400 x10'3/uL 09/12/2024 6:23 AM [facility] MPV 9.7 9.3 - 12.2 FL 09/12/2024 6:23 AM [facility] DIFFERENTIAL TYPE AUTOMATED DIFFERENTIAL 09/12/2024 6:23 AM [facility] NEUTROPHILS % 65.8 % 09/12/2024 6:23 AM [facility] LYMPHOCYTES % 25.8 % 09/12/2024 6:23 AM [facility] MONOCYTES % 7.7 % 09/12/2024 6:23 AM [facility] EOSINOPHILS 0.1 % 09/12/2024 6:23 AM [facility] BASOPHILS 0.3 % 09/12/2024 6:23 AM [facility] IMMATURE GRANS % 0.3 % 09/13/19 6:23 AM [facility] ABS. NEUTROPHILS 6.80 1.80 - 7.70 x10'3/uL 09/12/2024 6:23 AM [facility] ABS. LYMPHOCYTES 2.66 1.00 - 4.80 x10'3/uL 09/12/2024 6:23 AM [facility] ABS. MONOCYTES 0.80 0.24 - 0.86 x10'3/uL 09/12/2024 6:23 AM [facility] ABS. EOSINOPHILS 0.01(L) 0.04 - 0.36 x10'3/uL 09/12/2024 6:23 AM [facility] ABS. BASOPHILS 0.03 0.01 - 0.08 x10'3/uL 09/12/2024 6:[address] [facility] ABS. IMMATURE GRANULOCYTES 0.03 0.00 - 0.49 x10'3/uL 09/12/2024 6:[address] [facility] 09/12/2024 6:10 AM YEAST WASHER us Iris Mejía MD LABORATORY Final Result Performing Organization Address City/[facility] Co de Phone Number [facility] [address] [place] [address], [place] [phone] * TROPONIN, QUANT (09/12/2024 6:10 AM YEAST WASHER) TROPONIN I HIGH SENSITIVITY 4 <54 ng/L 09/12/2024 6:[address] [facility] Comment: HIGH DOSES OF BIOTIN, TROPONIN-SPECIFIC AUTOANTIBODIES, AND ANTIBODY THERAPY CONTAINING HAMA MAY INTERFERE WITH THIS TEST RESULT. CORRELATION TO CLINICAL HISTORY AND PRESENTATION RECOMMENDED. 09/12/2024 6:10 AM YEAST WASHER Iris Mejía MD LABORATORY Final Result Performing Organization Address [facility] Co de Phone Number [facility] [address] [place] [address], [place] [phone] * MAGNESIUM (09/12/2024 6:10 AM YEAST WASHER) MAGNESIUM 1.8 1.8 - 2.4 MG/DL 09/12/2024 8:[address] [facility] 09/12/2024 6:10 AM YEAST WASHER Iris Mejía MD LABORATORY Final Result Performing Organization Address City/[facility]/ZIP Co de Phone Number [facility] [address] [place] [address], * ECG 12 lead (09/12/2024 6:02 AM YEAST WASHER) 09/12/2024 6:02 AM YEAST WASHER Narrative [facility] - 09/13/2024 8:[address] [facility] [address] Test Date: 2024-09-12 Pat Name: DARRELL LEE Department: 41 Room: JAMIE Gender: Female Cutting Torch Operator: : 1985 Requested By: LILIYA SEVERINO Order Number: [id number] Reading MD: Nathanael Muhammad Measurements Intervals [place] Rate: 99 P: 148 MT: 143 QRS: 116 QRSD: 94 T: -31 QT: 338 QTc: 435 Interpretive Statements SINUS RHYTHM WITH OCCASIONAL VENTRICULAR PREMATURE COMPLEXES ARM LEADS REVERSED [INVERTED P AND QRS IN I] Compared to ECG 03/03/2022 09:34:53 Ventricular premature complex(es) now present T-wave abnormality no longer present T WASHER Procedure Note Nathanael Muhammad MD - 09/13/2024 [facility] [address] Test Date: 2024-09-12 Pat Name: DARRELL LEE Department: 41 Room: JAMIE Gender: Female Cutting Torch Operator: : 1985 Requested By: LILIYA SEVERINO Order Number: [id number] Reading MD: Nathanael Muhammad Measurements Intervals [place] Rate: 99 P: 148 MT: 143 QRS: 116 QRSD: 94 T: -31 QT: 338 QTc: 435 Interpretive Statements SINUS RHYTHM WITH OCCASIONAL VENTRICULAR PREMATURE COMPLEXES ARM LEADS REVERSED [INVERTED P AND QRS IN I] Compared to ECG 03/03/2022 09:34:53 Ventricular premature complex(es) now present T-wave abnormality no longer present T WASHER Iris Mejía MD ECG ORDERABLES Final Result [facility] ([facility] * HEPATITIS C ANTIBODY (07/20/2021 8:54 AM YEAST WASHER) HEPATITIS C AB NON-REACTI VE NON-REACT [place] 07/20/2021 7:13 PM YEAST WASHER [facility] Comment: ANTIBODIES TO HCV NOT DETECTED. DOES NOT EXCLUDE THE POSSIBILITY OF EXPOSURE TO HCV. 07/20/2021 8:54 AM YEAST WASHER Jenn Menezes [facility] Final Resul t [facility] [address] [place] [address], [id number] from Last 3 Months or Most Recently Relevant to Health Maintenance Insurance Care Teams Motor Overhauler Relationship Specialty Start Date End Date None, Provider, PCP - General UNKNOWN PHYSICIAN SPECIALTY 09/12/24 Duane Tamez MD [facility] [address] [address] NEUROLOGY 10/08/18 Chapin Talavera DO [address] [address] [place] Career Technical Counselor CARDIOVASCULAR DISEASE 03/01/22
--- OUTSIDE RECORDS SUMMARY | 2024-09-13 19:34 | XMS_ITS | Encounter Summary ---
Author Organization [facility] Address [address] [place] [address] Care Team Providers Care High School History Teacher Name Role Phone Jenn Menezes [facility] Primary Care Provider Duane [place] MD Unavailable [phone] Chapin Talavera DO Unavailable [phone] None, Provider Primary Care Provider Unavaila ble None, Provider Primary Care Provider Unavaila ble Cherelle Lacey MD Primary Care Provider [phone] None, Provider Primary Care Provider Unavaila ble Encounter Details Date Type Department Care Team (Late st Contact Info) Description 04/13/2020 [employer] Message Enc [facility] Medical Group [address] [address] Jenn Menezes MARKETING LIAISONADRIA RE: Question Social History Tobacco Use Types Packs/Day Years [...] Sex Assigned at Female 09/12/2024 6:33 AM C D REACTOR OPERATOR Legal Sex Female 7:52 AM C D REACTOR OPERATOR Gender Identity Not on file Sexual Orientation Not on file COVID-19 Exposure Response Date Recorded In the last month, have you been in contact with someone who was confirmed or suspected to have Coronavirus / COVID-19? No / Unsure 04/13/2020 12:30 PM CDT documented as of this encounter Plan of Treatment Upcoming Encounters Date Type Department Care Team (Late st Contact Info) Description 03/13/2025 9:00 AM CDT Office Visit [facility] Medical Group Multispecialty Care - [facility] [address] [place] [address] Armani Duarte MD [address] JOSE [address]FRED[address] [place] [address] documented as of this encounter Visit Diagnoses Not on filedocumented in this encounter Care Teams High School History Teacher Relationship Specialty Start Date End Date Jenn Menezes [facility] PCP - General NURSE PRACTITIONER 06/07/18 03/08/22 None, Provider, PCP - General UNKNOWN PHYSICIAN SPECIALTY 05/04/22 09/19/22 None, Provider, PCP - General UNKNOWN PHYSICIAN SPECIALTY 10/05/22 10/24/23 Cherelle Lacey MD [address] [place] [address] [place] [address] PCP - General FAMILY PRACTICE 10/25/23 09/11/24 None, Provider, PCP - General UNKNOWN PHYSICIAN SPECIALTY 09/12/24 Duane Tamez MD [facility] [employer] [address] [address] NEUROLOGY 10/08/18 Chapin Talavera DO [address] [place], [place] [address] [address] [address] [place] Cutter CARDIOVASCULAR DISEASE 03/01/22 documented as of this encounter
--- OUTSIDE RECORDS SUMMARY | 2024-09-13 19:34 | XMS_ITS | Encounter Summary ---
Author Organization [facility] - [facility] Address [facility] [place] [address] Care Team Providers Care Crust Sorter Name Role Phone Suryashannon Jenn [facility] Primary Care Provider Duane [place] MD Unavailable [phone] Chapin Talavera DO Unavailable [phone] None, Provider Primary Care Provider Unavaila ble None, Provider Primary Care Provider Unavaila ble Cherelle Lacey MD Primary Care Provider [phone] None, Provider Primary Care Provider Unavaila ble Encounter Details Date Type Department Care Team (Late st Contact Info) Description 01/10/2022 MyChart Message Enc [facility] Medical Group Multispecialty Care - [address], [address] [place] [phone] Armani Duarte MD [address] [place] [address] JOSE [address] [place], [place] [id number] Hi Social History Tobacco Use Types Packs/Day [...] Sex Assigned at Female 09/12/2024 6:33 AM HORTICULTURALIST Legal Sex Female 7:52 AM HORTICULTURALIST Gender Identity Not on file Sexual Orientation Not on file COVID-19 Exposure Response Date Recorded In the last 10 days, have yo u been in contact with someone who was confirmed or suspected to have Coronavirus/COVID-19? No / Unsure 01/04/2022 11:11 AM CDT documented as of this encounter Plan of Treatment Upcoming Encounters Date Type Department Care Team (Late st Contact Info) Description 03/13/2025 9:00 AM CDT Office Visit [facility] Medical Group Multispecialty Care - [address] [place] [address] Armani Duarte MD [address] [place] [address] JOSE ALFREDO [address] [place] [address] documented as of this encounter Visit Diagnoses Not on filedocumented in this encounter Care Teams Crust Sorter Relationship Specialty Start Date End Date Jenn [facility] PCP - General NURSE PRACTITIONER 06/07/18 03/08/22 None, ProviderMD PCP - General UNKNOWN PHYSICIAN SPECIALTY 05/04/22 09/19/22 None, MD Yony PCP - General UNKNOWN PHYSICIAN SPECIALTY 10/05/22 10/24/23 Cherelle Lacey MD [address] [place] [address] [place] [address] PCP - General FAMILY PRACTICE 10/25/23 09/11/24 None, MD Yony PCP - General UNKNOWN PHYSICIAN SPECIALTY 09/12/24 Duane Tamez MD [address] [place] [address] NEUROLOGY 10/08/18 Chapin Talavera DO [address] [place] [address] [place] Fisheries Biologist CARDIOVASCULAR DISEASE 03/01/22 documented as of this encounter
--- OUTSIDE RECORDS SUMMARY | 2024-09-13 19:34 | XMS_ITS | Encounter Summary ---
Author Organization [facility] Address [address] [place] [address] Care Team Providers Care Stud Driver Name Role Phone Jenn Menezes [facility] Primary Care Provider Duane [place] MD Unavailable [phone] Chapin Talavera DO Unavailable [phone] None, Provider Primary Care Provider Unavaila ble None, Provider Primary Care Provider Unavaila ble Cherelle Lacey MD Primary Care Provider [phone] None, Provider Primary Care Provider Unavaila ble Encounter Details Date Type Department Care Team (Late st Contact Info) Description 10/14/2020 Newlanst Message Enc [facility] Family Medicine [address] [address] Mychart, [facility] Provider your appointment today Social History Tobacco Use Types Packs/Day Years [...] Sex Assigned at Female 09/12/2024 6:33 AM GOURMET COFFEE ATTENDANT Legal Sex Female 7:52 AM GOURMET COFFEE ATTENDANT Gender Identity Not on file Sexual Orientation Not on file documented as of this encounter Plan of Treatment Upcoming Encounters Date Type Department Care Team (Late Contact Info) Description 03/13/2025 9:00 AM CDT Office Visit [facility] Multispecialty Care - [facility] [address] [place] [address] Armani Duarte MD [address] JOSE [address] [place] [address] documented as of this encounter Visit Diagnoses Not on filedocumented in this encounter Care Teams Stud Driver Relationship Specialty Start Date End Date Jenn [facility] PCP - General NURSE PRACTITIONER 06/07/18 03/08/22 None, Provider, PCP - General UNKNOWN PHYSICIAN SPECIALTY 05/04/22 09/19/22 None, Provider, PCP - General UNKNOWN PHYSICIAN SPECIALTY 10/05/22 10/24/23 Cherelle Lacey MD [address] [place] [address] [place] [address] PCP - General FAMILY PRACTICE 10/25/23 09/11/24 None, ProviderMD PCP - General UNKNOWN PHYSICIAN SPECIALTY 09/12/24 Duane Tamez MD [facility] [email or web address] [address] [address] NEUROLOGY 10/08/18 Chapin Talavera DO [facility] [email or web address] [address] [address] [employer] Cable Installer CARDIOVASCULAR DISEASE 03/01/22 documented as of this encounter
--- OUTSIDE RECORDS SUMMARY | 2024-09-13 19:34 | XMS_ITS | Encounter Summary ---
Author Organization [facility] Address [facility] [place] [address] Care Team Providers Care Size Maker Name Role Phone Jenn Menezes [facility] Primary Care Provider Duane [place] MD Unavailable [phone] Chapin Talavera DO Unavailable [phone] None, Provider Primary Care Provider Unavaila ble None, Provider Primary Care Provider Unavaila ble Cherelle Lacey MD Primary Care Provider [phone] None, Provider Primary Care Provider Unavaila ble Encounter Details Date Type Department Care Team (Late st Contact Info) Description 12/22/2021 ReversingLabst Message Enc [facility] Medical Group Family Medicine [address] [address] Jenn Menezes [facility] Hi Social History Tobacco Use Types Packs/Day [...] Sex Assigned at Female 09/12/2024 6:33 AM RADIO STATION AUDIO ENGINEER Legal Sex Female 7:52 AM RADIO STATION AUDIO ENGINEER Gender Identity Not on file Sexual Orientation [...] Description 03/13/2025 9:00 AM CDT Office Visit [facility] Medical Group Multispecialty Care - [facility] [address] [place] [address] Armani Duarte MD [address] [facility] [address] JOSE ALFREDO [address] [place] [address] documented as of this encounter Visit Diagnoses Not on filedocumented in this encounter Care Teams Size Maker Relationship Specialty Start Date End Date Jenn Mene[facility] PCP - General NURSE PRACTITIONER 06/07/18 03/08/22 None, ProviderMD PCP - General UNKNOWN PHYSICIAN SPECIALTY 05/04/22 09/19/22 None, ProviderMD PCP - General UNKNOWN PHYSICIAN SPECIALTY 10/05/22 10/24/23 Cherelle Lacey MD [address] [place] [address] PCP - General FAMILY PRACTICE 10/25/23 09/11/24 None, ProviderMD PCP - General UNKNOWN PHYSICIAN SPECIALTY 09/12/24 Duane Tamez [facility] [address] [place] [address] NEUROLOGY 10/08/18 Chapin Talavera DO [facility] [address] [place] [address] [place] Moisture Meter Operator CARDIOVASCULAR DISEASE 03/01/22 documented as of this encounter
--- OUTSIDE RECORDS SUMMARY | 2024-09-13 19:34 | XMS_ITS | Encounter Summary ---
Author Organization [facility] Address [facility] [place] [address] Care Team Providers Care Sand System Operator Name Role Phone Jenn Menezes [facility] Primary Care Provider Duane [place] MD Unavailable [phone] Chapin Talavera DO Unavailable [phone] None, Provider Primary Care Provider Unavaila ble None, Provider Primary Care Provider Unavaila ble Cherelle Lacey MD Primary Care Provider [phone] None, Provider Primary Care Provider Unavaila ble Encounter Details Date Type Department Care Team (Late Contact Info) Description 01/02/2020 MyChart Message Enc [facility] Medical Group [address] [address] Jenn Menezes [facility] RE: RE: Question Social History Tobacco Use Types [...] Sex Assigned at Female 09/12/2024 6:33 AM MEDICAL TECHNOLOGIST PRN Legal Sex Female 7:52 AM MEDICAL TECHNOLOGIST PRN Gender Identity Not on file Sexual Orientation Not on file documented as of this encounter Plan of Treatment Upcoming Encounters Date Type Department Care Team (Late Contact Info) Description 03/13/2025 9:00 AM CDT Office Visit [facility] Medical Group Multispecialty Care - [facility] [address] [place] [address] Armani Duarte MD [address] JOSE [address] [place] [address] documented as of this encounter Visit Diagnoses Not on filedocumented in this encounter Care Teams Sand System Operator Relationship Specialty Start Date End Date Jenn Menezes [facility] PCP - General NURSE PRACTITIONER 06/07/18 03/08/22 None, Provider, PCP - General UNKNOWN PHYSICIAN SPECIALTY 05/04/22 09/19/22 None, Provider, PCP - General UNKNOWN PHYSICIAN SPECIALTY 10/05/22 10/24/23 Cherelle Lacey MD [address] [place] [address] [place] [address] PCP - General FAMILY PRACTICE 10/25/23 09/11/24 None, ProviderMD PCP - General UNKNOWN PHYSICIAN SPECIALTY 09/12/24 Duane Tamez MD [facility] [employer] [address] [address] NEUROLOGY 10/08/18 Chapin Talavera DO [facility] [employer] [address] [address] [place] Social Media Assistant CARDIOVASCULAR DISEASE 03/01/22 documented as of this encounter
--- OUTSIDE RECORDS SUMMARY | 2024-09-13 19:34 | XMS_ITS | Encounter Summary ---
Author Organization [facility] Address [facility] [place] [address] Care Team Providers Care Facility Maintenance Manager Name Role Phone Suryashannon Jenn [facility] Primary Care Provider Duane [place] MD Unavailable [phone] Chapin Talavera DO Unavailable [phone] None, Provider Primary Care Provider Unavaila ble None, Provider Primary Care Provider Unavaila ble Cherelle Lacey MD Primary Care Provider [phone] None, Provider Primary Care Provider Unavaila ble Encounter Details Date Type Department Care Team (Late st Contact Info) Description 01/05/[address] [facility] Medical Group Multispecialty Care - [address] [place] [phone] Armani Duarte MD [address] [place] [address] [address] [place] [address] Test results. Social History Tobacco Use Types Packs/Day Years [...] Sex Assigned at Female 09/12/2024 6:33 AM TREE TOPPER Legal Sex Female 7:52 AM TREE TOPPER Gender Identity Not on file Sexual Orientation [...] 9:00 AM CDT Office Visit [facility] Medical Group Multispecialty Care - [address] [place] [address] Armani Duarte MD [address] [place] [address] [address] AL[address]EDO [address] [place] [address] documented as of this encounter Visit Diagnoses Not on filedocumented in this encounter Care Teams Facility Maintenance Manager Relationship Specialty Start Date End Date Jenn [facility] PCP - General NURSE PRACTITIONER 06/07/18 03/08/22 None, ProviderMD PCP - General UNKNOWN PHYSICIAN SPECIALTY 05/04/22 09/19/22 None, MD Yony PCP - General UNKNOWN PHYSICIAN SPECIALTY 10/05/22 10/24/23 Cherelle Lacey MD [address] [place] [address] [place] [address] PCP - General FAMILY PRACTICE 10/25/23 09/11/24 None, MD Yony PCP - General UNKNOWN PHYSICIAN SPECIALTY 09/12/24 Duane Tamez MD [address] [place] [address] NEUROLOGY 10/08/18 Chapin Talavera DO [address] [place] [address] [place] Community Resource Consultant CARDIOVASCULAR DISEASE 03/01/22 documented as of this encounter
--- OUTSIDE RECORDS SUMMARY | 2024-09-13 19:34 | XMS_ITS | Clinical Summary ---
Author Organization [facility] Address [address] [facility] [place] [address] Care Team Providers Care Call Center Operations Manager Name Role Phone MakJenn brunson [employer] SOCIAL WORKER Primary Care Provider [phone] Constantino Solis MD Unavailable [phone] Source Comments [facility],non-owned Affiliates and Associated Physician Practices is amultiple site organization consisting of ambulatory clinics and hospital sitesin [place], [place], [place] and [place]. This disclosure is being madepursuant to the Care Everywhere program and may not contain all information available regarding this patient. Last updated 18.[facility] Allergies Active Allergy Reactions Criticality Noted Date [...] fluticasone propionate (FLONASE) 50 MCG/ACT nasal spray Post 1 spray into the nose 04/22/2019 Active [...] Comments Blood Pressure 98/78 05/30/2019 11:26 AM ELECTRICAL SYSTEMS ENGINEER Pulse 91 05/30/2019 11:26 AM ELECTRICAL SYSTEMS ENGINEER Temperature 36.7 C (98 F) 05/30/2019 11:26 AM ELECTRICAL SYSTEMS ENGINEER Respiratory Rate 16 09/21/2017 3:54 PM CDT Oxygen Saturation 96% 05/30/2019 11:26 AM ELECTRICAL SYSTEMS ENGINEER Inhaled Oxygen Concentration - - Weight 134.3 kg (296 lb) 05/30/2019 11:26 AM ELECTRICAL SYSTEMS ENGINEER Height 169 cm (5' 6.54 ) 05/30/2019 11:26 AM ELECTRICAL SYSTEMS ENGINEER Body Mass Index 47.01 05/30/2019 11:26 AM ELECTRICAL SYSTEMS ENGINEER Plan of Treatment Health Maintenance Due Date Last Done Comments LIPID TESTING 1983 MAMMOGRAM 1983 PAP SMEAR 1983 HIV SCREENING 1998 HEPATITIS C SCREENING 03/31/2001 DTAP/TDAP/TD VACCINES (1 - Tdap) 2002 HEPATITIS B VACCINE (1 of 3 - 19+ 3-dose series) 2002 COVID-19 VACCINE (2023-2 5 season) 2024 INFLUENZA VACCINE (#1) 2024 DEPRESSION SCREENING 07/09/2024 ZOSTER VACCINE (1 of 2) 2033 HIB VACCINE Aged Out No longer eligi ble based on patient's age to complete this topic HPV VACCINE Aged Out No longer eligi ble based on patient's age to complete this topic MENINGOCOCCAL (Group B) VACCINE Aged Out No longer eligible based on patient's age to complete this topic MENINGOCOCCAL VACCINE Aged Out No betzy flakita eligible based on patient's age to complete this topic PNEUMOCOCCAL VACCINE Aged Out No long er eligible based on patient's age to complete this topic Care Teams Call Center Operations Manager Relationship Specialty Start Date End Date Jenn Menezes APRN-SCHOOL SOCIAL WORKER PCP - General 10/23/18 Constantino Solis MD Family Medicine 07/17/18
--- OUTSIDE RECORDS SUMMARY | 2024-09-13 19:34 | XMS_ITS | Encounter Summary ---
Author Organization [facility] Address [address] [place] [address] Care Team Providers Care Splicing Technician Name Role Phone Jenn Menezes [facility] Primary Care Provider Duane [place] MD Unavailable [phone] Chapin Talavera DO Unavailable [phone] None, Provider Primary Care Provider Unavaila ble None, Provider Primary Care Provider Unavaila ble Cherelle [place]acey MD Primary Care Provider [phone] None, Provider Primary Care Provider Unavaila ble Encounter Details Date Type Department Care Team (Late st Contact Info) Description 03/01/2020 Pinpointet Message Enc [facility] Medical Group [facility] Medicine [address] [address] Jenn Menezes FNP-BC RE: Medication [...] Assigned at Female 09/12/2024 6:33 AM MANAGER VAN Legal Sex Female 7:52 AM MANAGER VAN Gender Identity Not on file Sexual Orientation Not on file COVID-19 Exposure Response Date Recorded In the last month, have you been in contact with someone who was confirmed or suspected to have Coronavirus / COVID-19? No / Unsure 02/27/2020 10:08 AM CDT documented as of this encounter Plan of Treatment Upcoming Encounters Date Type Department Care Team (Late st Contact Info) Description 03/13/2025 9:00 AM CDT Office Visit [facility] Medical Group Multispecialty Care - [facility] [address] [place] [address] Armani Duarte MD [address] JOSE [address] [place] [address] documented as of this encounter Visit Diagnoses Not on filedocumented in this encounter Care Teams Splicing Technician Relationship Specialty Start Date End Date Jenn Menezes [facility] PCP - General NURSE PRACTITIONER 06/07/18 03/08/22 None, Provider, PCP - General UNKNOWN PHYSICIAN SPECIALTY 05/04/22 09/19/22 None, Provider, PCP - General UNKNOWN PHYSICIAN SPECIALTY 10/05/22 10/24/23 Cherelle Lacey MD [address] [place] [address] [place] [address] PCP - General FAMILY PRACTICE 10/25/23 09/11/24 None, Provider, PCP - General UNKNOWN PHYSICIAN SPECIALTY 09/12/24 Duane Tamez MD [facility] [employer] [address] [address] NEUROLOGY 10/08/18 Chapin Talavera DO [address] [place], [place] [address] [address] [address] [place] Furniture Upholsterer CARDIOVASCULAR DISEASE 03/01/22 documented as of this encounter
--- OUTSIDE RECORDS SUMMARY | 2024-09-13 19:34 | XMS_ITS | Encounter Summary ---
Author Organization [facility] Address [address] [place] [address] Care Team Providers Care Technology Professional Name Role Phone Jenn Menezes [facility] Primary Care Provider Duane [place] MD Unavailable [phone] Chapin Talavera DO Unavailable [phone] None, Provider Primary Care Provider Unavaila ble None, Provider Primary Care Provider Unavaila ble Cherelle Lacey MD Primary Care Provider [phone] None, Provider Primary Care Provider Unavaila ble Encounter Details Date Type Department Care Team (Late st Contact Info) Description 02/25/2020 MyChart Message Enc [facility] Medical Group [address] [address] Jenn Menezes SEED CORE OPERATOR- RE: FW: Medication Questions Social History Tobacco Use Types [...] Sex Assigned at Female 09/12/2024 6:33 AM DESIGN TECHNOLOGY TEACHER Legal Sex Female 7:52 AM DESIGN TECHNOLOGY TEACHER Gender Identity Not on file Sexual Orientation [...] Description 03/13/2025 9:00 AM CDT Office Visit [facility] Medical Group Multispecialty Care - [facility] [address] [place] [address] Armani Duarte MD [address] [facility] [address] JOSE [address] [place] [address] documented as of this encounter Visit Diagnoses Not on filedocumented in this encounter Care Teams Technology Professional Relationship Specialty Start Date End Date [facility] PCP - General NURSE PRACTITIONER 06/07/18 03/08/22 None, Provider, PCP - General UNKNOWN PHYSICIAN SPECIALTY 05/04/22 09/19/22 None, Provider, PCP - General UNKNOWN PHYSICIAN SPECIALTY 10/05/22 10/24/23 Cherelle [place] MD [address] [place] [address] [place] [address] PCP - General FAMILY PRACTICE 10/25/23 09/11/24 None, ProviderMD PCP - General UNKNOWN PHYSICIAN SPECIALTY 09/12/24 Duane Tamez MD [facility] [employer] [address] [address] NEUROLOGY 10/08/18 Chapin Talavera DO [address] [place], [place] [address] [address] [address] [place] Photolith Operator CARDIOVASCULAR DISEASE 03/01/22 documented as of this encounter
--- OUTSIDE RECORDS SUMMARY | 2024-09-13 19:34 | XMS_ITS | Encounter Summary ---
Author Organization [facility] - [facility] Address [facility] [place] [address] Care Team Providers Care Brushing Operator Name Role Phone Duane Tamez MD Unavailable [phone] Chapin Talavera DO Unavailable [phone] None, Provider Primary Care Provider Unavaila ble Encounter Details Date Type Department Care Team (Late st Contact Info) Description 09/13/2024 MyChart Message Enc [facility] Medical Group Multispecialty Care - [facility] [address] [facility] [place] [address] Armani Duarte MD [address] [facility] [address] [place] [address] Bronchitis Social History Tobacco Use Types Packs/Day Years [...] Sex Assigned at Female 09/12/2024 6:33 AM DURALUMIN METALWORKER Legal Sex Female 7:52 AM DURALUMIN METALWORKER Gender Identity Not on file Sexual Orientation Not on file documented as of this encounter Plan of Treatment Upcoming Encounters Date Type Department Care Team (Late st Contact Info) Description 03/13/2025 9:00 AM CDT Office Visit [facility] Medical Group Multispecialty Care - [facility] [address] [place] [address] Armani Duarte MD [address] [facility] [address] [place] [address] documented as of this encounter Visit Diagnoses Not on filedocumented in this encounter Care Teams Brushing Operator Relationship Specialty Start Date End Date None, Provider, PCP - General UNKNOWN PHYSICIAN SPECIALTY 09/12/24 Duane Tamez MD [facility] [employer] [facility] [address] [place] [address] NEUROLOGY 10/08/18 Chapin Talavera DO [address] [employer] [address] [facility] [address] [place] [address] [place] Churn Driller Helper CARDIOVASCULAR DISEASE 03/01/22 documented as of this encounter
--- OUTSIDE RECORDS SUMMARY | 2024-09-13 19:34 | XMS_ITS | Encounter Summary ---
Author Organization [facility] Address [facility] [place] [address] Care Team Providers Care Slip Presser Name Role Phone Jenn Menezes [facility] Primary Care Provider Duane Barker MD Unavailable [phone] Chapin Talavera DO Unavailable [phone] None, Provider Primary Care Provider Unavaila ble None, Provider Primary Care Provider Unavaila ble Cherelle Lacey MD Primary Care Provider [phone] None, Provider Primary Care Provider Unavaila ble Encounter Details Date Type Department Care Team (Late Contact Info) Description 09/16/2019 MyChart Message Enc [facility] Medical Group [address] [address] Jenn Menezes COMMUNITY SERVICE SPECIALISTADRIA RE: Follow Up/Update Social History Tobacco Use Types Packs/Day Years [...] Sex Assigned at Female 09/12/2024 6:33 AM CRYSTAL MOUNTER Legal Sex Female 7:52 AM CRYSTAL MOUNTER Gender Identity Not on file Sexual Orientation Not on file documented as of this encounter Plan of Treatment Upcoming Encounters Date Type Department Care Team (Late Contact Info) Description 03/13/2025 9:00 AM CDT Office Visit [facility] Medical Group Multispecialty Care - [facility] [address] [place] [address] Armani Duarte MD [address] [place] [address] documented as of this encounter Visit Diagnoses Not on filedocumented in this encounter Care Teams Slip Presser Relationship Specialty Start Date End Date Jenn Menezes [facility] PCP - General NURSE PRACTITIONER 06/07/18 03/08/22 None, Provider, PCP - General UNKNOWN PHYSICIAN SPECIALTY 05/04/22 09/19/22 None, Provider, PCP - General UNKNOWN PHYSICIAN SPECIALTY 10/05/22 10/24/23 Cherelle Lacey MD [address] [place] [address] [place] [address] PCP - General FAMILY PRACTICE 10/25/23 09/11/24 None, ProviderMD PCP - General UNKNOWN PHYSICIAN SPECIALTY 09/12/24 Duane Tamez MD [facility] [employer] [address] [address] NEUROLOGY 10/08/18 Chapin Talavera DO [facility] [employer] [address] [address] [place] Respiratory Director CARDIOVASCULAR DISEASE 03/01/22 documented as of this encounter
--- OUTSIDE RECORDS SUMMARY | 2024-09-13 19:34 | XMS_ITS | Encounter Summary ---
Author Organization [facility] Address [address] [place] [address] Care Team Providers Care Ham Curer Name Role Phone Jenn Menezes [facility] Primary Care Provider Duane Barker MD Unavailable [phone] Chapin Talavera DO Unavailable [phone] None, Provider Primary Care Provider Unavaila ble None, Provider Primary Care Provider Unavaila ble Cherelle Lacey MD Primary Care Provider [phone] None, Provider Primary Care Provider Unavaila ble Encounter Details Date Type Department Care Team (Late st Contact Info) Description 06/02/2019 Zylie the Bearhart Message Enc [address] [address] Jenn Menzees PRECISE WINDERADRIA RE: Question Social History Tobacco Use Types [...] Sex Assigned at Female 09/12/2024 6:33 AM DIAMOND MERCHANT Legal Sex Female 7:52 AM DIAMOND MERCHANT Gender Identity Not on file Sexual Orientation Not on file documented as of this encounter Plan of Treatment Upcoming Encounters Date Type Department Care Team (Late Contact Info) Description 03/13/2025 9:00 AM CDT Office Visit [facility] Multispecialty Care - [facility] [address] [place] [address] Armani Duarte MD [address] [place] [address] documented as of this encounter Visit Diagnoses Not on filedocumented in this encounter Care Teams Ham Curer Relationship Specialty Start Date End Date [facility] PCP - General NURSE PRACTITIONER 06/07/18 03/08/22 None, Provider, PCP - General UNKNOWN PHYSICIAN SPECIALTY 05/04/22 09/19/22 None, Provider, PCP - General UNKNOWN PHYSICIAN SPECIALTY 10/05/22 10/24/23 Cherelle Lacey MD [address] [place] [address] [place] [address] PCP - General FAMILY PRACTICE 10/25/23 09/11/24 None, ProviderMD PCP - General UNKNOWN PHYSICIAN SPECIALTY 09/12/24 Duane Tamez MD [facility] [address] [address] NEUROLOGY 10/08/18 Chapin Talavera DO [facility] my[employer]gr [address] [address] [place] Scales Inspector CARDIOVASCULAR DISEASE 03/01/22 documented as of this encounter
--- OUTSIDE RECORDS SUMMARY | 2024-09-13 19:34 | XMS_ITS | Encounter Summary ---
Author Organization [facility] Address [facility] [place] [address] Care Team Providers Care Ratchet Setter Name Role Phone Jenn Menezes [facility] Primary Care Provider Duane Barker MD Unavailable [phone] Chapin Talavera DO Unavailable [phone] None, Provider Primary Care Provider Unavaila ble None, Provider Primary Care Provider Unavaila ble Cherelle Lacey MD Primary Care Provider [phone] None, Provider Primary Care Provider Unavaila ble Encounter Details Date Type Department Care Team (Late st Contact Info) Description 05/02/2019 Community Informaticst Message Enc [facility] Medical Group [facility] Medicine [address] [address] Jenn Menezes [facility] RE: RE: Question Social History Tobacco [...] Sex Assigned at Female 09/12/2024 6:33 AM MORNING SHOW NEWSCAST PRODUCER Legal Sex Female 7:52 AM MORNING SHOW NEWSCAST PRODUCER Gender Identity Not on file Sexual Orientation Not on file documented as of this encounter Progress Notes * Cece Humphreys - 05/02/2019 2:05 PM CDT Per nidia. Needs to wait one more month. Needs to a year apart documented in this encounter Plan of Treatment Upcoming Encounters Date Type Department Care Team (Late st Contact Info) Description 03/13/2025 9:00 AM CDT Office Visit [facility] Medical Group Multispecialty Care - [facility] [address] [place] [address] Armani Duarte MD [address] [place] [address] documented as of this encounter Visit Diagnoses Not on filedocumented in this encounter Care Teams Ratchet Setter Relationship Specialty Start Date End Date Jenn [facility]ene[facility] PCP - General NURSE PRACTITIONER 06/07/18 03/08/22 None, ProviderMD PCP - General UNKNOWN PHYSICIAN SPECIALTY 05/04/22 09/19/22 None, ProviderMD PCP - General UNKNOWN PHYSICIAN SPECIALTY 10/05/22 10/24/23 Cherelle Lacey MD [address] [place] [address] [place] [address] PCP - General FAMILY PRACTICE 10/25/23 09/11/24 None, MD Yony PCP - General UNKNOWN PHYSICIAN SPECIALTY 09/12/24 Duane Tamez MD [address] [place] [address] NEUROLOGY 10/08/18 Chapin Talavera DO [address] [place] [address] [place] Community Service Officer Coordinator CARDIOVASCULAR DISEASE 03/01/22 documented as of this encounter
--- OUTSIDE RECORDS SUMMARY | 2024-09-13 19:34 | XMS_ITS | Encounter Summary ---
Author Organization [facility] Address [address] [place] [address] Care Team Providers Care Senior Advisor Name Role Phone Jenn Menezes [facility] Primary Care Provider Duane Barker MD Unavailable [phone] Chapin Talavera DO Unavailable [phone] None, Provider Primary Care Provider Unavaila ble None, Provider Primary Care Provider Unavaila ble Cherelle Lacey MD Primary Care Provider [phone] None, Provider Primary Care Provider Unavaila ble Encounter Details Date Type Department Care Team (Late st Contact Info) Description 04/30/2020 [employer] Message Enc [facility] Medical Group [facility] Medicine [address] [address] Jenn Menezes FNP-BC RE: Medication [...] Sex Assigned at Female 09/12/2024 6:33 AM COLOR PASTE MIXER Legal Sex Female 7:52 AM COLOR PASTE MIXER Gender Identity Not on file Sexual Orientation [...] Description 03/13/2025 9:00 AM CDT Office Visit [facility] Medical Group Multispecialty Care - [facility] [address] [place] [address] Armani Duarte MD [address] [place] [address] documented as of this encounter Visit Diagnoses Not on filedocumented in this encounter Care Teams Senior Advisor Relationship Specialty Start Date End Date Jenn Mene[facility] PCP - General NURSE PRACTITIONER 06/07/18 03/08/22 None, Provider, PCP - General UNKNOWN PHYSICIAN SPECIALTY 05/04/22 09/19/22 None, Provider, PCP - General UNKNOWN PHYSICIAN SPECIALTY 10/05/22 10/24/23 Cherelle Lacey MD [address] [place] [address] [place] [address] PCP - General FAMILY PRACTICE 10/25/23 09/11/24 None, Provider, PCP - General UNKNOWN PHYSICIAN SPECIALTY 09/12/24 Duane Tamez MD [address] [place] [address] NEUROLOGY 10/08/18 Chapin Talavera DO [address] [place] [address] [place] Graphic Coordinator CARDIOVASCULAR DISEASE 03/01/22 documented as of this encounter
--- OUTSIDE RECORDS SUMMARY | 2024-09-13 19:34 | XMS_ITS | Encounter Summary ---
Author Organization [facility] Address [address] [place] [address] Care Team Providers Care Boxing Inspector Name Role Phone Jenn Menezes [facility] Primary Care Provider Duane Barker MD Unavailable [phone] Chapin Talavera DO Unavailable [phone] None, Provider Primary Care Provider Unavaila ble None, Provider Primary Care Provider Unavaila ble Cherelle Lacey MD Primary Care Provider [phone] None, Provider Primary Care Provider Unavaila ble Encounter Details Date Type Department Care Team (Late st Contact Info) Description 04/28/2020 Buzznit Message Enc [facility] Medical Group [address] [address] Jenn Menezes EXTRUSION LINE OPERATORADRIA RE: Question Social History Tobacco Use Types [...] Sex Assigned at Female 09/12/2024 6:33 AM GOLF COURSE RANGER Legal Sex Female 7:52 AM GOLF COURSE RANGER Gender Identity Not on file Sexual Orientation [...] SPECIALTY HOSP[facility] Medical Group Multispecialty Care - [facility] [address] [place] [address] Armani Duarte MD [address] [place] [address] documented as of this encounter Visit Diagnoses Not on filedocumented in this encounter Care Teams Boxing Inspector Relationship Specialty Start Date End Date Jenn Menezes [facility] PCP - General NURSE PRACTITIONER 06/07/18 03/08/22 None, Provider, PCP - General UNKNOWN PHYSICIAN SPECIALTY 05/04/22 09/19/22 None, Provider, PCP - General UNKNOWN PHYSICIAN SPECIALTY 10/05/22 10/24/23 Cherelle Lacey MD [address] [place] [address] [place] [address] PCP - General FAMILY PRACTICE 10/25/23 09/11/24 None, Provider, PCP - General UNKNOWN PHYSICIAN SPECIALTY 09/12/24 Duane Tamez MD [facility] [employer] [address] [address] NEUROLOGY 10/08/18 Chapin Talavera DO [address] [place], [place] [address]JOOR [address] [address] [place] Snapper On CARDIOVASCULAR DISEASE 03/01/22 documented as of this encounter
--- NOTE | 2024-09-13 19:54 | ED_ITS ---
HPI - Chest Pain General Chief Complaint: Chest Pain Stated Complaint: Chest pain, shortness of breath Time Seen by Provider: 09/13/24 19:32 Source: patient Mode of arrival: ambulatory Limitations: no limitations History of Present Illness HPI narrative: This is a 39-year-old female, with history of COPD who presents to the emergency department complaining of chest pain and shortness with a past 3-4 days. She describes the pain as pressure-like, rated moderate with tingling spreading to the bilateral arms. She states she was diagnosed with flu 4 days ago but was negative for COVID and RSV. She she also complains of nonbloody diarrhea also for the past 4 days but denies abdominal pain or vomiting. She has no other complaints at this time. Related Data Home Medications ?Medication ?Instructions ?Recorded ?Confirmed ?Last Taken ?Type budesonide-formoterol HFA 160 160 inh inhalation DIRECTED 11/05/20 07/03/23 Unknown History mcg-4.5 mcg/actuation aerosol inhaler (Symbicort) divalproex 500 mg tablet,extended 500 mg PO DIRECTED 11/05/20 05/13/23 Unknown History release 24 hr fluticasone propionate 50 50 mcg intranasal DIRECTED 11/05/20 05/13/23 Unknown History mcg/actuation nasal spray,suspension ipratropium 0.5 mg-albuterol 3 mg 3 ml inhalation DIRECTED 11/05/20 05/13/23 Unknown History (2.5 mg base)/3 mL nebulization soln omeprazole 40 mg capsule,delayed 40 mg DIRECTED 11/05/20 05/13/23 Unknown History release ondansetron 8 mg disintegrating 8 mg DIRECTED 11/05/20 05/13/23 Unknown History tablet umeclidinium 62.5 mcg/actuation 62.5 mcg inhalation DIRECTED 11/05/20 05/13/23 Unknown History blister powder for inhalation (Incruse Ellipta) montelukast 10 mg tablet 10 mg DIRECTED 09/16/21 05/13/23 Unknown History albuterol sulfate 2.5 mg/3 mL mg 11/04/23 Unknown History (0.083 %) solution for nebulization cefadroxil 500 mg capsule mg 11/04/23 Unknown History famotidine 40 mg tablet mg 11/04/23 Unknown History fluticasone fur. 200 mcg-umeclid inhalation 11/04/23 Unknown History 62.5 mcg-vilant 25 mcg inhalat.powder (Trelegy Ellipta) ipratropium 0.5 mg-albuterol 3 mg ml inhalation 11/04/23 Unknown History (2.5 mg base)/3 mL nebulization soln mepolizumab 100 mg/mL subcutaneous mg subcut 11/04/23 Unknown History auto-injector (Nucala) metoclopramide HCl 10 mg tablet mg 11/04/23 Unknown History ropinirole 0.5 mg tablet mg 11/04/23 Unknown History Allergies Allergy/AdvReac Type Severity Reaction Status Date / Time amoxicillin Allergy Unknown Stopped Verified 09/13/24 19:32 Breathing ciprofloxacin Allergy Unknown rash Verified 09/13/24 19:32 clarithromycin Allergy Unknown jittery Verified 09/13/24 19:32 naproxen Allergy Unknown rash Verified 09/13/24 19:32 oxycodone Allergy Unknown Unknown Verified 09/13/24 19:32 Penicillins AdvReac Anaphylaxis Verified 09/13/24 19:32 Review of Systems 2 Review of Systems: All systems reviewed & are unremarkable except as noted in HPI and below PMFSH Past Medical History Medical History Seasonal allergies Allergies GERD (gastroesophageal reflux disease) Neuropathy Seizure disorder Family History Family History (Updated 09/13/24 @ 21:19 by Pk Alarcon MD) Mother Depression Sibling Family history of heart disease in male family member before age 55 Family history of diabetes mellitus in first degree relative Factor 5 Leiden mutation, heterozygous Father Family history of heart disease in male family member before age 55 Other Diabetes mellitus Social History Social History Smoking packs per day: 0.5 Smoking cigarettes per day: 10.0 Smoking status: Current some day smoker Smoking end date: 07/09/14 Additional smoking assessment comments: Has cut down from 2 packs a day to half pack Exam 2 Narrative: GENERAL: Well-developed, well-nourished, and in no acute distress. HEAD: Normocephalic, atraumatic. EYES: PERRLA and EOMI. NECK: Supple. No JVD CHEST: Clear to auscultation. No respiratory distress. No wheezes rales or rhonchi HEART: Regular rate and rhythm. No murmur heard. Normal peripheral pulses. ABDOMEN: Soft, nontender, nondistended, normal active bowel sounds. EXTREMITIES: Normal range of motion. No edema. SKIN: Warm, dry, no rash. NEURO: Alert and oriented x3. No focal deficit. Moving all 4 limbs spontaneously PSYCH: Normal mood and affect. Course Course Emergency Course: 21:35 - CBC demonstrates elevated white blood cell count of 13.9 with hemoglobin of 15 but is otherwise unremarkable. Chemistries demonstrate hypokalemia with potassium of 2.8 in mildly elevated AST/ALT of 37/51 respectively. Initial troponin negative. The patient tested negative for COVID, influenza RSV. CT chest suboptimal for PE study though appears concerning for left lower lobe subsegmental PE. Considering the patient's family history of factor 5 Leiden mutation, have increased suspicion for PE. On re-evaluation, the patient states she feels improved after nebs. Will repeat her troponin. 23:18 - Repeat troponin negative. I suspect the patient's symptoms are related to PE. On re-evaluation after 2nd albuterol treatment the patient states she feels improved and is comfortable with discharge. Will treat with Eliquis and Azithromycin. I discussed the findings and recommendations with the patient. Discussed return and emergency precautions including signs/symptoms of ACS and respiratory distress. The patient voiced understanding and agreement with the plan. All questions answered to her satisfaction. Vital Signs Vital signs: Vital Signs Temperature 97.6 F 09/13/24 19:33 Pulse Rate 99 09/13/24 19:33 Respiratory Rate 18 09/13/24 19:33 Blood Pressure 150/91 H 09/13/24 19:33 Pulse Oximetry 94 09/13/24 19:33 Oxygen Delivery Room Air 09/13/24 19:33 Temperature 97.6 F 09/13/24 19:33 Pulse Rate 86 09/14/24 01:48 Respiratory Rate 19 09/14/24 01:48 Blood Pressure 141/83 H 09/14/24 01:48 Pulse Oximetry 99 09/14/24 01:48 Oxygen Delivery Room Air 09/13/24 19:58 MDM - Chest Pain MDM Narrative Medical decision making narrative: Plan: Labs, nebs, IV steroids, imaging, EKG, troponin, reassess Differential Diagnosis Differential diagnosis: Likely pneumothorax and other (ACS, COPD exacerbation, pneumonia, influenza, metabolic abnormality, other) Lab Data 09/13/24 19:54 09/13/24 19:54 Labs: Lab Results 09/13/24 09/13/24 09/13/24 Range/Units 19:54 20:47 22:45 WBC 13.9 H (4.5-10.0) K/mm3 RBC 4.83 (4.2-5.4) M/mm3 Hgb 15.3 H (12.0-15.0) g/dL Hct 42.1 (37.0-47.0) % MCV 87.2 (80-100) fl MCH 31.7 (26-34) pg MCHC 36.3 H (32-36) g/dl RDW 12.2 (11.5-14.5) % Plt Count 310 (150-375) k/mm3 MPV 9.2 (7.4-10.4) fl Immature Gran % (Auto) 0.4 (0-0.5) % Neut % (Auto) 74.3 H (45.5-73.1) % Lymph % (Auto) 18.3 (18.3-44.2) % [facility] % (Auto) 6.8 (2.6-8.5) % Eos % (Auto) 0.1 (0-4.4) % Baso % (Auto) 0.1 L (0.2-1.2) % Lymph # (Auto) 2.55 (0.9-3.2) K/mm3 [facility] # (Auto) 1.0 H (0.1-0.6) K/mm3 Eos # (Auto) 0.0 (0-0.3) K/mm3 Baso # (Auto) 0.0 (0.0-0.1) K/mm3 Abs Immat Gran (auto) 0.05 H (0.00-0.031) K/mm3 Absolute Neuts (auto) 10.4 H (1.3-6.7) K/mm3 Absolute Nucleated RBC 0.000 (0.0-0.012) K/mm3 Nucleated RBC % 0.0 (0.0-0.2) % PT 13.7 (11.1-14.7) Seconds INR 1.0 APTT 32.3 (22.3-36.8) Seconds Sodium 138 (137-145) mmol/L Potassium 2.8 L* (3.4-5.0) mmol/L Chloride 98 (98-107) mmol/L Carbon Dioxide 28 (22-30) mmol/L Anion Gap 12 (4-12) mmol/L BUN 6 L (7-17) mg/dL Creatinine 0.47 L (0.7-1.0) mg/dL Estim Creat Clear Calc 163 ml/min Estimated GFR > 60 (59 - ) Glucose 115 H (65-110) mg/dL Calcium 9.2 (8.4-10.2) mg/dL Total Bilirubin 1.0 (0.2-1.3) mg/dL AST 37 H (14-36) U/L ALT 51 H (6-35) U/L Alkaline Phosphatase 75 (38-126) U/L Troponin I < 0.012 < 0.012 (0.000-0.034) ng/mL Total Protein 8.0 (6.3-8.2) g/dL Albumin 4.7 (3.5-5.1) g/dL Lipase 49 (23-300) U/L Influenza A (RT-PCR) Negative (Negative) Influenza B (RT-PCR) Negative (Negative) RSV (RT-PCR) Negative (Negative) SARS-CoV-2 RNA (RT-PCR) Negative (Negative) Discharge Plan Discharge Clinical Impression: Acute exacerbation of chronic obstructive pulmonary disease Pulmonary embolism Qualifiers: Pulmonary embolism type: single subsegmental (without acute cor pulmonale) Q ualified Code(s): I26.93 - Single subsegmental thrombotic pulmonary embolism without acute cor pulmonale Dyspnea Qualifiers: Dyspnea type: unspecified Qualified Code(s): R06.00 - Dyspnea, unspecified Patient Disposition: Home, Self-Care Condition: Stable Instructions: Antibiotic Form, Pulmonary Embolism (ED), COPD (Chronic Obstructive Pulmonary Disease) (ED) Additional Instructions: You were seen in the emergency department. A CT scan of the chest showed changes concerning for a subsegmental pulmonary embolism; there are changes consistent with a influenza infection. Other lung nodules are noted with recommendation for follow-up in 6 months. I recommend a blood thinner and a course of azithromycin. If you develop new or worsening chest pain, shortness of breath, loss of consciousness, or if you have other emergent concerns for life, limb, or eyesight, return to the emergency department. Patient Language: Upper Sorbian Prescriptions: New azithromycin 250 mg tablet 250 mg PO DAILY 4 Days Qty: 4 0RF Rx Instructions: start on day 2 of therapy apixaban 5 mg tablet 5 mg PO BID Qty: 74 0RF Rx Instructions: Take 2 tablets by mouth twice a day for one week. Then 1 tablet by mouth twice a day. No Action ipratropium-albuterol 0.5 mg-3 mg(2.5 mg base)/3 mL solution for nebulization 3 ml INHALATION DIRECTED omeprazole 40 mg capsule,delayed release(DR/EC) 40 mg DIRECTED divalproex 500 mg tablet extended release 24 hr 500 mg PO DIRECTED fluticasone propionate 50 mcg/actuation spray,suspension 50 mcg INTRANASAL DIRECTED budesonide-formoterol [Symbicort] 160-4.5 mcg/actuation HFA aerosol inhaler 160 inh INHALATION DIRECTED Incruse Ellipta 62.5 mcg/actuation blister with device 62.5 mcg INHALATION DIRECTED ondansetron 8 mg tablet,disintegrating 8 mg DIRECTED montelukast 10 mg tablet 10 mg DIRECTED albuterol sulfate 2.5 mg /3 mL (0.083 %) solution for nebulization cefadroxil 500 mg capsule metoclopramide HCl 10 mg tablet ipratropium-albuterol 0.5 mg-3 mg(2.5 mg base)/3 mL solution for nebulization INHALATION famotidine 40 mg tablet ropinirole 0.5 mg tablet Nucala 100 mg/mL auto-injector SUBCUT Trelegy Ellipta 200-62.5-25 mcg blister with device INHALATION doxycycline hyclate 100 mg tablet 100 mg PO BID 7 Days Qty: 14 0RF sulfamethoxazole-trimethoprim [Bactrim DS] 800-160 mg tablet 1 tablet PO Q12H Qty: 7 0RF hydrocodone-acetaminophen 5-325 mg tablet 1 tablet PO Q8H PRN (Reason: pain) Qty: 10 0RF Follow-up/Referrals: Felicia,MD Armani [Non-Staff] - (Follow up as scheduled) UNKNOWN,DOCTOR [Primary Care Provider] - 3 Days Time of Disposition: 23:23
--- OUTSIDE RECORDS SUMMARY | 2024-09-13 19:54 | XMS_ITS | CONTINUITY OF CARE DOCUMENT ---
Author Name carolmartyvivienne dumont Address Unknown Organization [facility] Address [address] [place] [address] Phone [phone] Care Team Providers Care Meteorology Faculty Member Name Role Phone Omar JIMENEZ, Luis Unavailable [phone] THOMAS JIMENEZ, BRANNON Unavailable Unavailable INSURANCE PROVIDERS Payer name Policy type / Coverage type Peerless red constitution party ID [place] MED[place]ID Medicaid [id number]
--- OUTSIDE RECORDS SUMMARY | 2024-09-13 19:54 | XMS_ITS | Encounter Summary ---
Author Organization [facility] Address [address] [place] [address] Care Team Providers Care Track Liner Operator Name Role Phone Duane Tamez MD Unavailable [phone] Chapin Talavera DO Unavailable None, Provider Primary Care Provider Unavaila ble None, Provider Primary Care Provider Unavaila ble Cherelle Lacey MD Primary Care Provider [phone] None, Provider Primary Care Provider Unavaila ble Encounter Details Date Type Department Care Team (Late st Contact Info) Description 03/17/2022 Rep Message Enc [facility] [address] [place] [address] Chapin Talavera, DO [address] [place] [address] schedule testing Social History Tobacco Use Types [...] Sex Assigned at Female 09/12/2024 6:33 AM CLERICAL WAREHOUSE WORKER Legal Sex Female 7:52 AM CLERICAL WAREHOUSE WORKER Gender Identity Not on file Sexual Orientation [...] [facility] Medical Group Multispecialty Care - [facility] [address] [place] [address] Armani Duarte MD [address] [place] [address] documented as of this encounter Visit Diagnoses Not on filedocumented in this encounter Care Teams Track Liner Operator Relationship Specialty Start Date End Date None, ProviderMD PCP - General UNKNOWN PHYSICIAN SPECIALTY 05/04/22 09/19/22 None, ProviderMD PCP - General UNKNOWN PHYSICIAN SPECIALTY 10/05/22 10/24/23 Cherelle Lacey MD [address] [place] [address] PCP - General FAMILY PRACTICE 10/25/23 09/11/24 None, MD Yony PCP - General UNKNOWN PHYSICIAN SPECIALTY 09/12/24 Duane Tamez MD [facility] [place] [address] [address] NEUROLOGY 10/08/18 Chapin Talavera DO [facility] [place] [address] [address] [place] Offset Printing Operator CARDIOVASCULAR DISEASE 03/01/22 documented as of this encounter
--- OUTSIDE RECORDS SUMMARY | 2024-09-13 19:54 | XMS_ITS | Encounter Summary ---
Author Organization [facility] Address [facility] [place] [address] Care Team Providers Care Conveyor Line Battery Charger Name Role Phone Duane Tamez MD Unavailable [phone] Chapin Talavera DO Unavailable [phone] None, Provider Primary Care Provider Unavaila ble Cherelle Lacey MD Primary Care Provider [phone] None, Provider Primary Care Provider Unavaila ble Encounter Details Date Type Department Care Team (Late st Contact Info) Description 11/22/2022 Welcome Real-time Message Enc [facility] Medical Group [address] [address] [facility] Provider appoinment needed Social History Tobacco Use [...] Sex Assigned at Female 09/12/2024 6:33 AM STEEL SPAR OPERATOR Legal Sex Female 7:52 AM STEEL SPAR OPERATOR Gender Identity Not on file Sexual Orientation Not on file documented as of this encounter Plan of Treatment Upcoming Encounters Date Type Department Care Team (Late Contact Info) Description 03/13/2025 9:00 AM CDT Office Visit [facility] Medical Group Multispecialty Care - [facility] [address] [place] [address] Armani Duarte MD [facility] [address] [place] [address] documented as of this encounter Visit Diagnoses Not on filedocumented in this encounter Care Teams Conveyor Line Battery Charger Relationship Specialty Start Date End Date None, Provider, PCP - General UNKNOWN PHYSICIAN SPECIALTY 10/05/22 10/24/23 Cherelle Lacey MD [address] [place] [address] [place] [address] PCP - General FAMILY PRACTICE 10/25/23 09/11/24 None, Provider, PCP - General UNKNOWN PHYSICIAN SPECIALTY 09/12/24 Duane Tamez MD [facility] [employer] [address] [place] [address] NEUROLOGY 10/08/18 Chapin Talavera DO [facility] [employer] [address] [place] [address] [place] Buddhist Monk CARDIOVASCULAR DISEASE 03/01/22 documented as of this encounter
--- OUTSIDE RECORDS SUMMARY | 2024-09-13 19:54 | XMS_ITS | Encounter Summary ---
Author Organization [facility] Address [facility] [place] [address] Care Team Providers Care Voice Network Engineer Name Role Phone Jenn Menezes [facility] Primary Care Provider Duane Barker MD Unavailable [phone] Chapin Talavera DO Unavailable [phone] None, Provider Primary Care Provider Unavaila ble None, Provider Primary Care Provider Unavaila ble Cherelle Lacey MD Primary Care Provider [phone] None, Provider Primary Care Provider Unavaila ble Encounter Details Date Type Department Care Team (Late st Contact Info) Description 02/21/2022 ChannelMetert Message Enc [facility] Medical Group Family Medicine [address] [address] Jenn Menezes [facility] cardiology referrral Social History Tobacco [...] Sex Assigned at Female 09/12/2024 6:33 AM CURLING MACHINE OPERATOR Legal Sex Female 7:52 AM CURLING MACHINE OPERATOR Gender Identity Not on file Sexual Orientation Not on file documented as of this encounter Plan of Treatment Upcoming Encounters Date Type Department Care Team (Late st Contact Info) Description 03/13/2025 9:00 AM CDT Office Visit [facility] Medical Group Multispecialty Care - [facility] [address] [facility] [facility] [place] [address] Armani Duarte MD [address] [facility] [address] [place] [address] documented as of this encounter Visit Diagnoses Not on filedocumented in this encounter Care Teams Voice Network Engineer Relationship Specialty Start Date End Date Jenn Menezes [facility] PCP - General NURSE PRACTITIONER 06/07/18 03/08/22 None, Provider, PCP - General UNKNOWN PHYSICIAN SPECIALTY 05/04/22 09/19/22 None, Provider, PCP - General UNKNOWN PHYSICIAN SPECIALTY 10/05/22 10/24/23 Cherelle Lacey MD [address] [place] [address] [place] [address] PCP - General FAMILY PRACTICE 10/25/23 09/11/24 None, ProviderMD PCP - General UNKNOWN PHYSICIAN SPECIALTY 09/12/24 Duane Tamez MD [facility] [employer] [address] [address] NEUROLOGY 10/08/18 Chapin Talavera DO [address] [place], [place] [address] [address] [place] Bacteriologist Dairy CARDIOVASCULAR DISEASE 03/01/22 documented as of this encounter
--- OUTSIDE RECORDS SUMMARY | 2024-09-13 19:54 | XMS_ITS | Encounter Summary ---
Author Organization [facility] Address [facility] [place] [address] Care Team Providers Care Division Sergeant Name Role Phone Duane Tamez MD Unavailable [phone] Chapin Talavera DO Unavailable [phone] None, Provider Primary Care Provider Unavaila ble None, Provider Primary Care Provider Unavaila ble Cherelle Lacey MD Primary Care Provider [phone] None, Provider Primary Care Provider Unavaila ble Encounter Details Date Type Department Care Team (Late st Contact Info) Description 07/24/2022 MyChart Message Enc [facility] Medical Group Multispecialty Care - [facility] [address] [facility] [place] [address] Armani Duarte MD [address] [facility] [address] [place], [place] [id number] Refills Social History Tobacco Use Types Packs/Day [...] Sex Assigned at Female 09/12/2024 6:33 AM PRODUCTION QUALITY ANALYST Legal Sex Female 7:52 AM PRODUCTION QUALITY ANALYST Gender Identity Not on file Sexual Orientation Not on file documented as of this encounter Plan of Treatment Upcoming Encounters Date Type Department Care Team (Late st Contact Info) Description 03/13/2025 9:00 AM CDT Office Visit [facility] Medical Group Multispecialty Care - [facility] [address] [place] [address] Armani Duarte MD [address] [place] [address] documented as of this encounter Visit Diagnoses Not on filedocumented in this encounter Care Teams Division Sergeant Relationship Specialty Start Date End Date None, Provider, PCP - General UNKNOWN PHYSICIAN SPECIALTY 05/04/22 09/19/22 None, ProviderMD PCP - General UNKNOWN PHYSICIAN SPECIALTY 10/05/22 10/24/23 Cherelle Lacey MD [address] [place] [address] PCP - General FAMILY PRACTICE 10/25/23 09/11/24 None, ProviderMD PCP - General UNKNOWN PHYSICIAN SPECIALTY 09/12/24 Duane Tamez MD [address] [place] [address] NEUROLOGY 10/08/18 Chapin Talavera DO [address] [place] [address] [place] Cracker Sprayer CARDIOVASCULAR DISEASE 03/01/22 documented as of this encounter
--- OUTSIDE RECORDS SUMMARY | 2024-09-13 19:54 | XMS_ITS | Referral Summary ---
Author Organization [facility] Office Center Address [address] [place] [address] Care Team Providers Care Customer Service Driver Name Role Phone Crow Maddie Dunaway DPVida Unavailable [phone] Maryjane Hernandez Primary Care Provider [phone] Allergies Active Allergy Reactions Criticality Noted Date [...] on file Legal Sex Female 1:01 AM ACCOUNT MANAGER B2B Gender Identity Not on file Sexual Orientation [...] Treatment Not on file Insurance Care Teams Customer Service Driver Relationship Specialty Start Date End Date Maryjane Hernandez PA [address] [place] [address] PCP - General 03/26/24 Maddie Maria DPM [address] [place] [address] Consulting Physician Foot and Ankle Surg 01/12/23
--- OUTSIDE RECORDS SUMMARY | 2024-09-13 19:54 | XMS_ITS | Encounter Summary ---
Author Organization [facility] Address [address] [place] [address] Care Team Providers Care Silk Screen Printer Name Role Phone Jenn Menezes [facility] Primary Care Provider Duane Bakrer MD Unavailable [phone] Chapin Talavera DO Unavailable [phone] None, Provider Primary Care Provider Unavaila ble None, Provider Primary Care Provider Unavaila ble Cherelle Lacey MD Primary Care Provider [phone] None, Provider Primary Care Provider Unavaila ble Encounter Details Date Type Department Care Team (Late st Contact Info) Description 08/01/2021 MyChart Message Enc [facility] Medical Group Family Medicine [address] [address] Jenn Menezes [facility] Incruz Social History Tobacco Use Types [...] Sex Assigned at Female 09/12/2024 6:33 AM FOOD QUALITY TECHNICIAN Legal Sex Female 7:52 AM FOOD QUALITY TECHNICIAN Gender Identity Not on file Sexual Orientation Not on file COVID-19 Exposure Response Date Recorded In the last month, have you been in contact with someone who was confirmed or suspected to have Coronavirus / COVID-19? No / Unsure 07/20/2021 7:40 AM FOOD QUALITY TECHNICIAN documented as of this encounter Plan of Treatment Upcoming Encounters Date Type Department Care Team (Late st Contact Info) Description 03/13/2025 9:00 AM CDT Office Visit [facility] Medical Group Multispecialty Care - [facility] [address] [place] [address] Armani Duarte MD [address] [place] [address] documented as of this encounter Visit Diagnoses Not on filedocumented in this encounter Care Teams Silk Screen Printer Relationship Specialty Start Date End Date Jenn [facility] PCP - General NURSE PRACTITIONER 06/07/18 03/08/22 None, Provider, PCP - General UNKNOWN PHYSICIAN SPECIALTY 05/04/22 09/19/22 None, Provider, PCP - General UNKNOWN PHYSICIAN SPECIALTY 10/05/22 10/24/23 Cherelle Lacey MD [address] [place] [address] [place] [address] PCP - General FAMILY PRACTICE 10/25/23 09/11/24 None, ProviderMD PCP - General UNKNOWN PHYSICIAN SPECIALTY 09/12/24 Duane Tamez MD [address] [place] [address] NEUROLOGY 10/08/18 Chapin Talavera DO [address] [place] [address] [place] Boot And Saddle Repair Person CARDIOVASCULAR DISEASE 03/01/22 documented as of this encounter
--- OUTSIDE RECORDS SUMMARY | 2024-09-13 19:54 | XMS_ITS | Encounter Summary ---
Author Organization [facility] Address [address] [place] [address] Care Team Providers Care Building Insulation Supervisor Name Role Phone Jnen Menezes [facility] Primary Care Provider Duane Barker MD Unavailable [phone] Chapin Talavera DO Unavailable [phone] None, Provider Primary Care Provider Unavaila ble None, Provider Primary Care Provider Unavaila ble Cherelle Lacey MD Primary Care Provider [phone] None, Provider Primary Care Provider Unavaila ble Encounter Details Date Type Department Care Team (Late st Contact Info) Description 09/16/2021 MyChart Message Enc [facility] Medical Group Family Medicine [address] [address] Jenn Menezes ACCOUNTING ASSISTANT-BC Hurt knee falling Social History Tobacco Use [...] Sex Assigned at Female 09/12/2024 6:33 AM TRUCKING CONTRACTOR Legal Sex Female 7:52 AM TRUCKING CONTRACTOR Gender Identity Not on file Sexual Orientation Not on file COVID-19 Exposure Response Date Recorded In the last 10 days, have yo u been in contact with someone who was confirmed or suspected to have Coronavirus/COVID-19? No / Unsure 09/07/2021 7:47 AM TRUCKING CONTRACTOR documented as of this encounter Plan of Treatment Upcoming Encounters Date Type Department Care Team (Late st Contact Info) Description 03/13/2025 9:00 AM CDT Office Visit [facility] Medical Group Mult[facility]pecialty Care - [facility] [address] [place] [address] Armani Duarte MD [address] [place] [address] documented as of this encounter Visit Diagnoses Not on filedocumented in this encounter Care Teams Building Insulation Supervisor Relationship Specialty Start Date End Date Jenn [facility] PCP - General NURSE PRACTITIONER 06/07/18 03/08/22 None, Provider, PCP - General UNKNOWN PHYSICIAN SPECIALTY 05/04/22 09/19/22 None, ProviderMD PCP - General UNKNOWN PHYSICIAN SPECIALTY 10/05/22 10/24/23 Cherelle Lacey MD [address] [place] [address] [place] [address] PCP - General FAMILY PRACTICE 10/25/23 09/11/24 None, ProviderMD PCP - General UNKNOWN PHYSICIAN SPECIALTY 09/12/24 Duane Tamez MD [address] [place] [address] NEUROLOGY 10/08/18 Chapin Talavera DO [address] [place], [place] [address]AMEC [address] [address] [place] Sql Server Consultant CARDIOVASCULAR DISEASE 03/01/22 documented as of this encounter
--- OUTSIDE RECORDS SUMMARY | 2024-09-13 19:54 | XMS_ITS | Encounter Summary ---
Author Organization [facility] Address [address] [place] [address] Care Team Providers Care Bottling Machine Operator Name Role Phone Jenn Menezes [facility] Primary Care Provider Duane Barker MD Unavailable [phone] Chapin Talavera DO Unavailable [phone] None, Provider Primary Care Provider Unavaila ble None, Provider Primary Care Provider Unavaila ble Cherelle Lacey MD Primary Care Provider [phone] None, Provider Primary Care Provider Unavaila ble Encounter Details Date Type Department Care Team (Late st Contact Info) Description 09/16/2021 MyChart Message Enc [facility] Medical Group Family Medicine [address] [address] Jenn Menezes PROPOSAL LEAD WRITER-BC Hurt knee falling Social History Tobacco Use [...] Sex Assigned at Female 09/12/2024 6:33 AM BATCH MIXER Legal Sex Female 7:52 AM BATCH MIXER Gender Identity Not on file Sexual Orientation Not on file COVID-19 Exposure Response Date Recorded In the last 10 days, have yo u been in contact with someone who was confirmed or suspected to have Coronavirus/COVID-19? No / Unsure 09/07/2021 7:47 AM BATCH MIXER documented as of this encounter Plan of Treatment Upcoming Encounters Date Type Department Care Team (Late st Contact Info) Description 03/13/2025 9:00 AM CDT Office Visit [facility] Medical Group Multispecialty Care - [facility] [address] [place] [address] Armani Duarte MD [address] [place] [address] documented as of this encounter Visit Diagnoses Not on filedocumented in this encounter Care Teams Bottling Machine Operator Relationship Specialty Start Date End Date Jenn [facility] PCP - General NURSE PRACTITIONER 06/07/18 03/08/22 None, Provider, PCP - General UNKNOWN PHYSICIAN SPECIALTY 05/04/22 09/19/22 None, ProviderMD PCP - General UNKNOWN PHYSICIAN SPECIALTY 10/05/22 10/24/23 Cherelle Lacey MD [address] [place] [address] [place] [address] PCP - General FAMILY PRACTICE 10/25/23 09/11/24 None, ProviderMD PCP - General UNKNOWN PHYSICIAN SPECIALTY 09/12/24 Duane Tamez MD [address] [place] [address] NEUROLOGY 10/08/18 Chapin Talavera DO [address] [place], [place] [address] [address] [address] [place] Risk Control Product Liability Director CARDIOVASCULAR DISEASE 03/01/22 documented as of this encounter
--- OUTSIDE RECORDS SUMMARY | 2024-09-13 19:54 | XMS_ITS | Encounter Summary ---
Author Organization [facility] Address [facility] [place] [address] Care Team Providers Care Fig Washer Name Role Phone aMknannette Jenn IRA [facility] Primary Care Provider Duane Barker MD Unavailable [phone] Chapin Talavera DO Unavailable [phone] None, Provider Primary Care Provider Unavaila ble None, Provider Primary Care Provider Unavaila ble Cherelle Lacey MD Primary Care Provider [phone] None, Provider Primary Care Provider Unavaila ble Encounter Details Date Type Department Care Team (Late st Contact Info) Description 09/22/2021 AudioBoo Message Enc [facility] Medical Group Family Medicine [address] [address] eshtery, [facility] Provider Medication sent Social History [...] Sex Assigned at Female 09/12/2024 6:33 AM STAFFING SPECIALIST Legal Sex Female 7:52 AM STAFFING SPECIALIST Gender Identity Not on file Sexual Orientation Not on file COVID-19 Exposure Response Date Recorded In the last 10 days, have yo u been in contact with someone who was confirmed or suspected to have Coronavirus/COVID-19? No / Unsure 09/07/2021 7:47 AM STAFFING SPECIALIST documented as of this encounter Plan of Treatment Upcoming Encounters Date Type Department Care Team (Late st Contact Info) Description 03/13/2025 9:00 AM CDT Office Visit [facility] Medical Group Multispecialty Care - [facility] [address] [place] [address] Armani Duarte MD [address] [place] [address] documented as of this encounter Visit Diagnoses Not on filedocumented in this encounter Care Teams Fig Washer Relationship Specialty Start Date End Date Jenn Menezes [facility] PCP - General NURSE PRACTITIONER 06/07/18 03/08/22 None, Provider, PCP - General UNKNOWN PHYSICIAN SPECIALTY 05/04/22 09/19/22 None, Provider, PCP - General UNKNOWN PHYSICIAN SPECIALTY 10/05/22 10/24/23 Cherelle Lacey MD [address] [place] [address] [place] [address] PCP - General FAMILY PRACTICE 10/25/23 09/11/24 None, ProviderMD PCP - General UNKNOWN PHYSICIAN SPECIALTY 09/12/24 Duane Tamez MD [address] [place] [address] NEUROLOGY 10/08/18 Chapin Talavera DO [address] [place] [address] [place] Ironworker Machine Operator CARDIOVASCULAR DISEASE 03/01/22 documented as of this encounter
--- OUTSIDE RECORDS SUMMARY | 2024-09-13 19:54 | XMS_ITS | Encounter Summary ---
Author Organization [facility] Address [address] [place] [address] Care Team Providers Care Probate Paralegal Name Role Phone MaknannetteJenn [facility] Primary Care Provider Duane Barker MD Unavailable [phone] Chapin Talavera DO Unavailable [phone] None, Provider Primary Care Provider Unavaila ble None, Provider Primary Care Provider Unavaila ble Cherelle Lacey MD Primary Care Provider [phone] None, Provider Primary Care Provider Unavaila ble Encounter Details Date Type Department Care Team (Late st Contact Info) Description 02/25/2021 MyChart Message Enc [facility] Medical [facility] Family Medicine [address] [address] Mychart, [facility] Provider NEED APPOINTMENT AND LABS Social History [...] Sex Assigned at Female 09/12/2024 6:33 AM GAGE DESIGNER Legal Sex Female 7:52 AM GAGE DESIGNER Gender Identity Not on file Sexual Orientation Not on file documented as of this encounter Plan of Treatment Upcoming Encounters Date Type Department Care Team (Late st Contact Info) Description 03/13/2025 9:00 AM CDT Office Visit [facility] Medical Group Multispecialty Care - [facility] [address] [place] [address] Armani Duarte MD [address] [place] [address] documented as of this encounter Visit Diagnoses Not on filedocumented in this encounter Care Teams Probate Paralegal Relationship Specialty Start Date End Date Jenn Menezes [facility] PCP - General NURSE PRACTITIONER 06/07/18 03/08/22 None, Provider, PCP - General UNKNOWN PHYSICIAN SPECIALTY 05/04/22 09/19/22 None, Provider, PCP - General UNKNOWN PHYSICIAN SPECIALTY 10/05/22 10/24/23 Cherelle Lacey MD [address] [place] [address] [place] [address] PCP - General FAMILY PRACTICE 10/25/23 09/11/24 None, ProviderMD PCP - General UNKNOWN PHYSICIAN SPECIALTY 09/12/24 Duane Tamez MD [address] [place] [address] NEUROLOGY 10/08/18 Chapin Talavera DO [address] [place] [address] [employer] Mechanic CARDIOVASCULAR DISEASE 03/01/22 documented as of this encounter
--- OUTSIDE RECORDS SUMMARY | 2024-09-13 19:54 | XMS_ITS | Encounter Summary ---
Author Organization [facility] Address [address] [place] [address] Care Team Providers Care Mesh Cutter Name Role Phone Duane Tamez MD Unavailable [phone] Chapin Talavera DO Unavailable [phone] Cherelle Lacey MD Primary Care Provider [phone] None, Provider Primary Care Provider Unavaila ble [...] Sex Assigned at Female 09/12/2024 6:33 AM CIGAR BANDER HAND Legal Sex Female 7:52 AM CIGAR BANDER HAND Gender Identity Not on file Sexual Orientation Not on file documented as of this encounter Plan of Treatment Upcoming Encounters Date Type Department Care Team (Late st Contact Info) Description 03/13/2025 9:00 AM CDT Office Visit [facility] Medical Group Multispecialty Care - [address] [place] [address] Armani Duarte MD [address] [place] [address] documented as of this encounter Visit Diagnoses Not on filedocumented in this encounter Care Teams Mesh Cutter Relationship Specialty Start Date End Date Cherelle Lacey MD [address] [place] [address] [place] [address] PCP - General FAMILY PRACTICE 10/25/23 09/11/24 None, Provider, PCP - General UNKNOWN PHYSICIAN SPECIALTY 09/12/24 Duane Tamez MD [facility] [address] [address] NEUROLOGY 10/08/18 Chapin Talavera DO [facility] [address] [place] [address] [place] Stone [employer]ular Sawyer CARDIOVASCULAR DISEASE 03/01/22 documented as of this encounter
--- OUTSIDE RECORDS SUMMARY | 2024-09-13 19:54 | XMS_ITS | Encounter Summary ---
Author Organization [facility] Address [facility] [place] [address] Care Team Providers Care Financial Internship Name Role Phone Suryashannon Jenn [facility] Primary Care Provider Duane Barker MD Unavailable [phone] Chapin Talavera DO Unavailable [phone] None, Provider Primary Care Provider Unavaila ble None, Provider Primary Care Provider Unavaila ble Cherelle Lacey MD Primary Care Provider [phone] None, Provider Primary Care Provider Unavaila ble Encounter Details Date Type Department Care Team (Late st Contact Info) Description 01/05/2022 MyChart Message Enc [facility] Medical Group Multispecialty Care - [address] [place] [id number] Armani Duarte MD [address] [place] [address] [address] [place] [address] Test results. Social History Tobacco [...] Sex Assigned at Female 09/12/2024 6:33 AM CHRONIC CARE NURSE Legal Sex Female 7:52 AM CHRONIC CARE NURSE Gender Identity Not on file Sexual Orientation [...] Description 03/13/2025 9:00 AM CDT Office Visit [facility] Medical Group Multispecialty Care - [address] [place] [address] Armani Duarte MD [address] [place] [address] [address] [place] [address] documented as of this encounter Visit Diagnoses Not on filedocumented in this encounter Care Teams Financial Internship Relationship Specialty Start Date End Date Jenn [facility] PCP - General NURSE PRACTITIONER 06/07/18 03/08/22 None, ProviderMD PCP - General UNKNOWN PHYSICIAN SPECIALTY 05/04/22 09/19/22 None, MD Yony PCP - General UNKNOWN PHYSICIAN SPECIALTY 10/05/22 10/24/23 Cherelle Lacey MD [address] [place] [address] [place] [address] PCP - General FAMILY PRACTICE 10/25/23 09/11/24 None, MD Yony PCP - General UNKNOWN PHYSICIAN SPECIALTY 09/12/24 Duane Tamez MD [address] [place] [address] NEUROLOGY 10/08/18 Chapin Talavera DO [address] [place] [address] [employer] Assistant CARDIOVASCULAR DISEASE 03/01/22 documented as of this encounter
--- OUTSIDE RECORDS SUMMARY | 2024-09-13 19:54 | XMS_ITS | Encounter Summary ---
Author Organization [facility] Address [facility] [place] [address] Care Team Providers Care Er Tech Name Role Phone Maknannette Jenn [facility] Primary Care Provider Duane Barker MD Unavailable [phone] Chapin Talavera DO Unavailable [phone] None, Provider Primary Care Provider Unavaila ble None, Provider Primary Care Provider Unavaila ble Cherelle Lacey MD Primary Care Provider [phone] None, Provider Primary Care Provider Unavaila ble Encounter Details Date Type Department Care Team (Late st Contact Info) Description 03/08/2022 Print[employer]co Message Enc [facility] Medical Group Family Medicine [address] [address] [employer], [facility] Provider Appointment Cancellation Social History Tobacco Use [...] Sex Assigned at Female 09/12/2024 6:33 AM OPERATIONS MANAGER Legal Sex Female 7:52 AM OPERATIONS MANAGER Gender Identity Not on file Sexual [...] Description 03/13/2025 9:00 AM CDT Office Visit [facility] Medical Group Multispecialty Care - [facility] [address] [place] [address] Armani Duarte MD [address] [place] [address] documented as of this encounter Visit Diagnoses Not on filedocumented in this encounter Care Teams Er Tech Relationship Specialty Start Date End Date [facility] PCP - General NURSE PRACTITIONER 06/07/18 03/08/22 None, ProviderMD PCP - General UNKNOWN PHYSICIAN SPECIALTY 05/04/22 09/19/22 None, ProviderMD PCP - General UNKNOWN PHYSICIAN SPECIALTY 10/05/22 10/24/23 Cherelle Lacey MD [address] [place] [address] [place] [address] PCP - General FAMILY PRACTICE 10/25/23 09/11/24 None, ProviderMD PCP - General UNKNOWN PHYSICIAN SPECIALTY 09/12/24 [facility] [address] [place] [address] NEUROLOGY 10/08/18 Chapin Talavera DO [facility] [address] [place] [address] [place] [employer] Technician CARDIOVASCULAR DISEASE 03/01/22 documented as of this encounter
--- OUTSIDE RECORDS SUMMARY | 2024-09-13 19:54 | XMS_ITS | Encounter Summary ---
Author Organization [facility] Address [facility] [place] [address] Care Team Providers Care Mold Stripper Name Role Phone Jenn Menezes NEWSPAPER DISTRIBUTOR SUPERVISOR- Primary Care Provider Duane Barker MD Unavailable [phone] Chapin Talavera DO Unavailable [phone] None, Provider Primary Care Provider Unavaila ble None, Provider Primary Care Provider Unavaila ble Cherelle Lacey MD Primary Care Provider [phone] None, Provider Primary Care Provider Unavaila ble Encounter Details Date Type Department Care Team (Late Contact Info) Description 08/29/2021 MyChart Message Enc [facility] Medical Group Family Medicine [address] [address] Jenn Menezes NEWSPAPER DISTRIBUTOR SUPERVISOR-BC Left Index Finger laceration Social History Tobacco [...] Assigned at Female 09/12/2024 6:33 AM BATCH RECORDS CLERK Legal Sex Female 7:52 AM BATCH RECORDS CLERK Gender Identity Not on file Sexual Orientation Not on file documented as of this encounter Plan of Treatment Upcoming Encounters Date Type Department Care Team (Late Contact Info) Description 03/13/2025 9:00 AM CDT Office Visit [facility] Medical Group Multispecialty Care - [facility] [address] [place] [address] Armani Duarte MD [address] [place] [address] documented as of this encounter Visit Diagnoses Not on filedocumented in this encounter Care Teams Mold Stripper Relationship Specialty Start Date End Date Jenn Menezes [facility] PCP - General NURSE PRACTITIONER 06/07/18 03/08/22 None, Provider, PCP - General UNKNOWN PHYSICIAN SPECIALTY 05/04/22 09/19/22 None, Provider, PCP - General UNKNOWN PHYSICIAN SPECIALTY 10/05/22 10/24/23 Cherelle Lacey MD [address] [place] [address] [place] [address] PCP - General FAMILY PRACTICE 10/25/23 09/11/24 None, ProviderMD PCP - General UNKNOWN PHYSICIAN SPECIALTY 09/12/24 Duane Tamez MD [facility] [employer] [address] [address] NEUROLOGY 10/08/18 Chapin Talavera DO [facility] [employer] [address] [place] [address] [place] Making Machine Catcher CARDIOVASCULAR DISEASE 03/01/22 documented as of this encounter
--- OUTSIDE RECORDS SUMMARY | 2024-09-13 19:54 | XMS_ITS | Encounter Summary ---
Author Organization [facility] Address [facility] [place] [address] Care Team Providers Care Minister Of Religion Name Role Phone Duane Tamez MD Unavailable [phone] Chapin Talavera DO Unavailable [phone] None, Provider Primary Care Provider Unavaila ble Cherelle Lacey MD Primary Care Provider [phone] None, Provider Primary Care Provider Unavaila ble Encounter Details Date Type Department Care Team (Late st Contact Info) Description 12/06/2022 ideacts innovations Message Enc [facility] Medical Group [address] [address] [facility] Provider appointment needed Social History Tobacco Use [...] Sex Assigned at Female 09/12/2024 6:33 AM SURVEYOR MINE Legal Sex Female 7:52 AM SURVEYOR MINE Gender Identity Not on file Sexual Orientation Not on file documented as of this encounter Plan of Treatment Upcoming Encounters Date Type Department Care Team (Late st Contact Info) Description 03/13/2025 9:00 AM CDT Office Visit [facility] Medical Group Multispecialty Care - [facility] [address] [place] [address] Armani Duarte MD [address] [place] [address] documented as of this encounter Visit Diagnoses Not on filedocumented in this encounter Care Teams Minister Of Religion Relationship Specialty Start Date End Date None, Provider, PCP - General UNKNOWN PHYSICIAN SPECIALTY 10/05/22 10/24/23 Cherelle Lacey MD [address] [place] [address] [place] [address] PCP - General FAMILY PRACTICE 10/25/23 09/11/24 None, Provider, PCP - General UNKNOWN PHYSICIAN SPECIALTY 09/12/24 Duane Tamez MD [facility] [employer] [address] [place] [address] NEUROLOGY 10/08/18 Chapin Talavera DO [facility] [employer] [address] [place] [address] [place] Client Representative CARDIOVASCULAR DISEASE 03/01/22 documented as of this encounter
--- OUTSIDE RECORDS SUMMARY | 2024-09-13 19:54 | XMS_ITS | Encounter Summary ---
Author Organization [facility] Address [address] [place] [address] Care Team Providers Care Repairer Name Role Phone Duane Tamez MD Unavailable [phone] Chapin Talavera DO Unavailable [phone] None, Provider Primary Care Provider Unavaila ble Reason for Visit * Reason Comments Chest Pain Shortness Of Breath Encounter Details Date Type Department Care Team (Late st Contact Info) Description 09/12/2024 6:00 AM PUPPY WALKER - 09/12/2024 9:30 AM PUPPY WALKER Emergency [facility] Emergency Room [place], [place] [id number] Iris Mejía MD [address] [place], [place] [address] Chest Pain; Shortness Of Breath Discharge Disposition: [...] Sex Assigned at Female 09/12/2024 6:33 AM PUPPY WALKER Legal Sex Female 7:52 AM PUPPY WALKER Gender Identity Not on file Sexual Orientation Not on file documented as of this encounter Last Filed Vital Signs Vital Sign Reading Time Taken Comments Blood Pressure 121/92 09/12/2024 6:05 AM PUPPY WALKER Pulse 94 09/12/2024 6:05 AM PUPPY WALKER Temperature 37.2 C (99 F) 09/12/2024 6:05 AM PUPPY WALKER Respiratory Rate 18 09/12/2024 6:05 AM PUPPY WALKER Oxygen Saturation 97% 09/12/2024 6:05 AM PUPPY WALKER Inhaled Oxygen Concentration - - Weight 111.1 kg (245 lb) 09/12/2024 6:05 AM PUPPY WALKER Height 170.2 cm (5' 7 ) 09/12/2024 6:05 AM PUPPY WALKER Body Mass Index 38.37 09/12/2024 6:05 AM PUPPY WALKER documented in this encounter Medications at Time of Discharge albuterol sulfate HFA 108 (90 Base) MCG/ACT inhaler DIVALPROEX ER 500 MG 24 hr tabletIndications:N onintractable epilepsy without status epilepticus, unspecified epilepsy type ([facility]) TAKE 1 TABLET BY MOUTH TWICE A DAY 60 tablet 6 2 dupilumab (DUPIXENT) 300 MG/2ML injection (PEN)Indications:Se argelia persistent asthma ([facility] HHS/HCC) Inject 4 mLs (600 mg total) [...] BREATH ACTIVATEDIndication s:Moderate persistent asthma without complication ([facility]) Inhale 1 puff into the lungs daily. 180 each 5 GABAPENTIN 600 MG tabletIndications:D YONAS (degenerative joint disease) TAKE 2 TABLETS BY MOUTH THREE TIMES DAILY 180 tablet 1 ipratropium-albuter ol (DUONEB) 0.5-2.5 (3) MG/3ML SolutionIndications :Moderate persistent asthma without complication ([facility]/HCC) Take 3 mLs by nebulization every 6 [...] hronic obstructive pulmonary disease, unspecified COPD type ([facility]) Nebulizer tubing, mask and needed supply, change every month 1 kit 6 9 Nebulizer System All-In-One MiscIndications:Chr onic obstructive pulmonary disease, unspecified COPD type ([facility]) 1 kit by Does not apply route [...] Container MiscIndications:Mod erate persistent asthma without complication ([facility]) Please supply pt with a 3.8 L sharps container 1 each 5 sucralfate 1 G tabletIndications:G astroesophageal reflux disease with esophagitis Take 1 tablet (1 g total) by mouth 4 (four) times daily. 120 tablet 6 0 documented as of this encounter ED Notes * Danielle Grijalva RN - 09/12/2024 9:00 AM CST Pt called in WR, no response. Y WALKER * Iris Mejía MD - 09/12/2024 7:57 AM CST Chief Complaint Chief Complaint Patient presents with Chest Pain Shortness Of Breath History of Present Illness Chest Pain Associated symptoms: cough and shortness of breath Shortness Of Breath Associated symptoms include chest pain. Patient presenting with URI symptoms, chest pain, shortness of breath, cough, congestion and not feeling well. Patient reports she went to [place] a couple of days ago and she [...] 2 (TWO) TIMES DAILY 10/18/21 ROSE Wright Jeknislclrs-Fbhbcgosd-Hdzdjl (TRELEGY ELLIPTA) 200-62.5-25 MCG/ACT AEROSOL POWDER, BREATH [...] A DAY NEEDED * NOT ENROLLED IN [facility] MEDICAID* 04/06/23 Default History Genericprovider montelukast 10 [...] Allergic rhinitis Allergic state Anxiety Arthritis Asthma ([facility]) COPD (chronic obstructive pulmonary disease) ([facility]) Depression Epilepsy, unspecified, not intractable, with status epilepticus ([facility]) GERD (gastroesophageal reflux disease) Neuromuscular disorder ([facility]) Peptic ulceration PAST SURGICAL HISTORY: Past Surgical [...] encounter of 09/12/24 ECG 12 lead Narrative [address] Test Date: 2024-09-12 Pat Name: DARRELL LEE Department: 41 Room: Gender: Female Ordering Box Operator: : 1985 Requested By: LILIYA SEVERINO Order Number: [id number] Reading MD: Measurements Intervals [place] Rate: 99 P: 148 NM: 143 QRS: 116 QRSD: 94 T: -31 [...] XR CHEST PORTABLE Final Result by User, [id number] (09/12 644) [address] [address] EXAMINATION: XR CHEST PORTABLE, 09/12/2024 6:43 AM [...] Disposition: Eloped Iris Mejía MD 09/12/24 0859 Y WALKER * Jeremi Orantes RN - 09/12/2024 6:06 [...] productive cough with yellowish discharge. Pt a&ox4. Y WALKER documented in this encounter Plan of Treatment Upcoming Encounters Date Type Department Care Team (Late st Contact Info) Description 03/13/2025 9:00 AM CDT Office Visit [facility] Medical Group Multispecialty Care - [address] [place] [address] Armani Duarte MD 3 [facility] JOSE ALFREDO [address] [place] [address] documented as of this encounter Procedures Procedure Name Priority Date/Time Associated Diagnosis Comments XR CHEST PORTABLE STAT 09/12/2024 6:4 2 AM PUPPY WALKER COMPREHENSIVE METABOLIC PANEL STAT 09/12/2024 6:10 AM PUPPY WALKER CBC W/DIFF AUTOMATED STAT 09/12/2024 6:10 AM PUPPY WALKER TROPONIN, QUANT STAT 09/12/2024 6:10 AM PUPPY WALKER MAGNESIUM Routine 09/12/2024 6:10 AM PUPPY WALKER ECG 12-LEAD Routine 09/12/2024 6:02 AM PUPPY WALKER documented in this encounter Results * XR CHEST PORTABLE (09/12/2024 6:42 AM PUPPY WALKER) Anatomical Region Laterality Modality Chest Radiographic Astrid ging 09/12/2024 6:43 AM PUPPY WALKER Impressions 09/12/2024 6:44 AM PUPPY WALKER IMPRESSION: No radiographic evidence of an acute cardiopulmonary abnormality. Referred By: Interpreted By: Jean Carlos Escobedo MD, 09/12/2024 6:43 AM Narrative 09/12/2024 6:44 AM PUPPY WALKER [place] [address] EXAMINATION: XR CHEST PORTABLE, 09/12/2024 6:43 AM TECHNIQUE: Upright AP portable radiograph of the chest HISTORY: Chest pain COMPARISON: Chest radiograph 12/06/2021 FINDINGS: Heart size is normal. Pulmonary vascular pattern appears unremarkable. No focal pulmonary consolidation. Linear opacity at the left lung basically seen with atelectasis. No pleural effusion. No pneumothorax. Procedure Note Jean Carlos Escobedo MD - 09/12/2024 [place] [address] EXAMINATION: XR CHEST PORTABLE, 09/12/2024 6:43 AM [...] Final Result * MAGNESIUM (09/12/2024 6:10 AM PUPPY WALKER) MAGNESIUM 1.8 1.8 - 2.4 MG/DL 09/12/2024 8:28 AM PUPPY WALKER [facility] 09/12/2024 6:10 AM PUPPY WALKER [facility] Mej[facility] MD LABORATORY Final Result Performing Organization Address City/[facility]/ZIP Co de Phone Number [facility] [address] [place] [address], [place] [phone] * TROPONIN, QUANT (09/12/2024 6:10 AM PUPPY WALKER) [facility] TROPONIN I HIGH SENSITIVITY 4 <54 ng/L 09/12/2024 6:54 AM PUPPY WALKER [facility] Comment: HIGH DOSES OF BIOTIN, TROPONIN-SPECIFIC AUTOANTIBODIES, AND ANTIBODY THERAPY CONTAINING HAMA MAY INTERFERE WITH THIS TEST RESULT. CORRELATION TO CLINICAL HISTORY AND PRESENTATION RECOMMENDED. 09/12/2024 6:10 AM PUPPY WALKER [facility] Mejía MD LABORATORY Final Result Performing Organization Address [facility] Co de Phone Number [facility] [address] [place] [address], [place] [phone] * (ABNORMAL) COMPREHENSIVE METABOLIC PANEL (09/12/2024 6:10 AM PUPPY WALKER) [facility] GLUCOSE 101(H) 70 - 99 MG/DL 09/12/2024 6:54 AM PUPPY WALKER [facility] BUN 6(L) 7 - 18 MG/DL 09/12/2024 6:54 AM [facility] CREATININE S/P/B 0.57 0.55 - 1.02 MG/DL 09/12/2024 6:54 AM [facility] SODIUM S/P/B 138 136 - 145 MMOL/L 09/12/2024 6:54 AM [facility] POTASSIUM S/P/B 2.8(LL) 3.5 - 5.1 MMOL/L 09/12/2024 6:54 AM [facility] Comment: Critical Result(s) Called at: 06:52:44 on 09/12/2024 by: CLEMENTINA CANDELARIA to and read back by:MATTHEW MORRIS CHLORIDE S/P/B 103 97 - 115 MMOL/L 09/12/2024 6:54 AM [facility] CO2 27.3 21 - 32 MMOL/L 09/12/2024 6:54 AM [facility] CALCIUM S/P/B 9.1 8.5 - 10.1 MG/DL 09/12/2024 6:54 AM [facility] BILIRUBIN TOTAL S/P/B 1.0 0.2 - 1.2 MG/DL 09/12/2024 6:54 AM [facility] Comment: THIS ASSAY IS NOT RECOMMENDED FOR PATIENTS UNDERGOING TREATMENT WITH ELTROMBOPAG DUE TO THE POTENTIAL FOR FALSELY ELEVATED RESULTS. TOTAL PROTEIN S/P/B 7.7 6.4 - 8.2 G/DL 09/12/2024 6:54 AM [facility] ALBUMIN S/P/B 3.7 3.4 - 5.0 G/DL 09/12/2024 6:54 AM [facility] AST 43(H) 15 - 37 U/L 09/12/2024 6:54 AM [facility] ALT 57(H) 14 - 55 U/L 09/12/2024 6:54 AM [facility] ALKALINE PHOSPHATASE S/P/B 65 50 - 136 U/L 09/12/2024 6:54 AM [facility] ANION GAP 7.7 2 - 10 MMOL/L 09/12/2024 6:54 AM [facility] BUN CREATININE RATIO 10.5 6 - 26 09/12/2024 6:54 AM [facility] A/G RATIO 0.9(L) 1.0 - 2.0 RATIO 09/12/2024 6:54 AM [facility] GFR ESTIMATE >90 >90 ML/MIN/1.7 3 M2 09/12/2024 6:54 AM [facility] Comment: NOTE: eGFR is not calculated for patients <18 years of age or gender unknown. This is an estimated GFR calculation using the new CKD EPI creatinine equation without race and so does not require a correction factor for race. This estimated GFR should not be used for calculating drug doses. 09/12/2024 6:10 AM PUPPY WALKER [facility] JIMENE[facility] LABORATORY Final Result [facility] [address] [place] [address], [place] [phone] * (ABNORMAL) CBC W/DIFF AUTOMATED (09/12/2024 6:10 AM [facility]) WBC 10.33 4.5 - 11.0 x10'3/uL 09/12/2024 6:23 AM [facility] RBC 5.13 4.20 - 5.40 x10'6/uL 09/12/2024 6:23 AM [facility] HGB 16.1(H) 12.0 - 16.0 G/DL 09/12/2024 6:23 AM [facility] HCT 46.3 38.0 - 48.0 % 09/12/2024 6:23 AM [facility] MCV 90.3 81.0 - 99.0 FL 09/12/2024 6:23 AM [facility] MCH 31.4(H) 27.0 - 31.0 PG 09/12/2024 6:23 AM [facility] MCHC 34.8 32.0 - 36.0 G/DL 09/12/2024 6:23 AM [facility] RDW 12.5 11.5 - 14.5 % 09/12/2024 6:23 AM [facility] PLT 240 130 - 400 x10'3/uL 09/12/2024 6:23 AM [facility] MPV 9.7 9.3 - 12.2 FL 09/12/2024 6:23 AM [facility] DIFFERENTIAL TYPE AUTOMATED DIFFERENTIAL 09/12/2024 6:23 AM [facility] NEUTROPHILS % 65.8 % 09/12/2024 6:23 AM [facility] LYMPHOCYTES % 25.8 % 09/12/2024 6:23 AM [facility] MONOCYTES % 7.7 % 09/12/2024 6:23 AM [facility] EOSINOPHILS 0.1 % 09/12/2024 6:23 AM [facility] BASOPHILS 0.3 % 09/12/2024 6:23 AM [facility] IMMATURE GRANS % 0.3 % 09/13/19 6:23 AM [facility] ABS. NEUTROPHILS 6.80 1.80 - 7.70 x10'3/uL 09/12/2024 6:23 AM [facility] ABS. LYMPHOCYTES 2.66 1.00 - 4.80 x10'3/uL 09/12/2024 6:23 AM [facility] ABS. MONOCYTES 0.80 0.24 - 0.86 x10'3/uL 09/12/2024 6:23 AM [facility] ABS. EOSINOPHILS 0.01(L) 0.04 - 0.36 x10'3/uL 09/12/2024 6:23 [address] PUPPY WALKER [facility] ABS. BASOPHILS 0.03 0.01 - 0.08 x10'3/uL 09/12/2024 6:23 AM PUPPY WALKER [facility] ABS. IMMATURE GRANULOCYTES 0.03 0.00 - 0.49 x10'3/uL 09/12/2024 6:23 AM PUPPY WALKER [facility] 09/12/2024 6:10 AM PUPPY WALKER Iris Mejía MD LABORATORY Final Result [facility] [address] [place] [address], * ECG 12 lead (09/12/2024 6:02 AM PUPPY WALKER) 09/12/2024 6:02 AM PUPPY WALKER Narrative [facility] ([facility]) RAD - 09/13/2024 8:10 AM PUPPY WALKER [address] Test Date: 2024-09-12 Pat Name: DARRELL LEE Department: 41 Room: JAMIE Gender: Female Ordering Box Operator: : 1985 Requested By: LILIYA SEVERINO Order Number: [id number] Reading MD: Nathanael Muhammad Measurements Intervals [place] Rate: 99 P: 148 NM: 143 QRS: 116 QRSD: 94 T: -31 QT: 338 QTc: 435 Interpretive Statements SINUS RHYTHM WITH OCCASIONAL VENTRICULAR PREMATURE COMPLEXES ARM LEADS REVERSED [INVERTED P AND QRS IN I] Compared to ECG 03/03/2022 09:34:53 Ventricular premature complex(es) now present T-wave abnormality no longer present Y WALKER Procedure Note Nathanael Muhammad MD - 09/13/2024 [facility] [address] Test Date: 2024-09-12 Pat Name: DARRELL LEE Department: 41 Room: [facility] Gender: Female Ordering Box Operator: : 1985 Requested By: LILIYA SEVERINO Order Number: [id number] Reading MD: Nathanael Muhammad Measurements Intervals [place] Rate: 99 P: 148 NM: 143 QRS: 116 QRSD: 94 T: -31 QT: 338 QTc: 435 Interpretive Statements SINUS RHYTHM WITH OCCASIONAL VENTRICULAR PREMATURE COMPLEXES ARM LEADS REVERSED [INVERTED P AND QRS IN I] Compared to ECG 03/03/2022 09:34:53 Ventricular premature complex(es) now present T-wave abnormality no longer present Y WALKER Iris Mjeía MD ECG ORDERABLES Final Result [facility] documented in this encounter Visit Diagnoses Diagnosis URI (upper respiratory infection)- Primary Acute upper respiratory infections of unspecified site Hypokalemia Hypopotassemia documented in this encounter Active and Recently Administered Medications Times are shown in PUPPY WALKER. Scheduled Medication Order 09/10/2024 09/11/2024 09/12/2024 ipratropium-albuterol [...] order) documented in this encounter Care Teams Repairer Relationship Specialty Start Date End Date None, Provider, PCP - General UNKNOWN PHYSICIAN SPECIALTY 09/12/24 Duane Tamez MD [address] [place] [address] NEUROLOGY 10/08/18 Chapin Talavera DO [address] [place] [address] [place] Pain[employer] Bottom CARDIOVASCULAR DISEASE 03/01/22 documented as of this encounter
--- OUTSIDE RECORDS SUMMARY | 2024-09-13 19:54 | XMS_ITS | Encounter Summary ---
Author Organization [facility] Address [facility] [place] [address] Care Team Providers Care Research Consultant Name Role Phone Jenn Menezes [facility] Primary Care Provider Duane Barker MD Unavailable [phone] Chapin Talavera DO Unavailable [phone] None, Provider Primary Care Provider Unavaila ble None, Provider Primary Care Provider Unavaila ble Cherelle Lacey MD Primary Care Provider [phone] None, Provider Primary Care Provider Unavaila ble Encounter Details Date Type Department Care Team (Late st Contact Info) Description 12/22/2021 [employer] Message Enc [facility] Family Medicine [address] [address] Jenn Menezes [facility] Hi Social History Tobacco Use Types [...] Sex Assigned at Female 09/12/2024 6:33 AM CONTRACTING MANAGER Legal Sex Female 7:52 AM CONTRACTING MANAGER Gender Identity Not on file Sexual [...] Description 03/13/2025 9:00 AM CDT Office Visit [facility] Medical Group Multispecialty Care - [facility] [address] [facility] [place] [address] Armani Duarte MD 3 [facility] JOSE ALFREDO [address] [place] [address] documented as of this encounter Visit Diagnoses Not on filedocumented in this encounter Care Teams Research Consultant Relationship Specialty Start Date End Date Jenn [facility] PCP - General NURSE PRACTITIONER 06/07/18 03/08/22 None, ProviderMD PCP - General UNKNOWN PHYSICIAN SPECIALTY 05/04/22 09/19/22 None, ProviderMD PCP - General UNKNOWN PHYSICIAN SPECIALTY 10/05/22 10/24/23 Cherelle Lacey MD [address] [place] [address] PCP - General FAMILY PRACTICE 10/25/23 09/11/24 None, ProviderMD PCP - General UNKNOWN PHYSICIAN SPECIALTY 09/12/24 [facility] [address] [place] [address] NEUROLOGY 10/08/18 Chapin Talavera DO [facility] [address] [place] [address] [place] Business Banker CARDIOVASCULAR DISEASE 03/01/22 documented as of this encounter
--- OUTSIDE RECORDS SUMMARY | 2024-09-13 19:54 | XMS_ITS | Encounter Summary ---
Author Organization [facility] Address [address] [place] [address] Care Team Providers Care Front Desk Administrator Name Role Phone Carlita Landa MD Primary Care Provider Unavailab Ti Levine MD Primary Care Provider + Jenn [facility] Primary Care Provider Unav Duane Finch MD Unavailable [phone] Chapin Talavera DO Unavailable [phone] None, Provider Primary Care Provider Unavaila ble None, Provider Primary Care Provider Unavaila ble Cherelle Lacey MD Primary Care Provider [phone] None, Provider Primary Care Provider Unavaila ble Encounter Details Date Type Department Care Team (Late st Contact Info) Description 02/25/2014 Abstract [facility] Conversion , Generic Conversion, Social History Tobacco Use Types Packs/Day Years Used Date Smoking Tobacco: Never Assessed Comments Unknown Sex and Gender Information Value Date Recorded Sex Assigned at Female 09/12/2024 6:33 AM MOSHGIACH Legal Sex Female 7:52 AM MOSHGIACH Gender Identity Not on file Sexual Orientation Not on file documented as of this encounter Plan of Treatment Upcoming Encounters Date Type Department Care Team (Late st Contact Info) Description 03/13/2025 9:00 AM CDT Office Visit [facility] Medical Group Multispecialty Care - [address] [place] [address] Armani Duarte MD [address] [place] [address] JO[address] [place] [address] documented as of this encounter Visit Diagnoses Not on filedocumented in this encounter Care Teams Front Desk Administrator Relationship Specialty Start Date End Date Carlita Landa MD PCP - General INTERNAL MEDICINE 08/09/16 06/06/18 Ti Carrillo MD [facility] [facility] [address] [place] [address] PCP - General 09/24/13 08/08/16 Jenn Menezes [facility] [address] [place] [address] PCP - General NURSE PRACTITIONER 06/07/18 03/08/22 None, Provider, PCP - General UNKNOWN PHYSICIAN SPECIALTY 05/04/22 09/19/22 None, Provider, PCP - General UNKNOWN PHYSICIAN SPECIALTY 10/05/22 10/24/23 Cherelle Lacey MD [address] [place] [address] [place] [address] PCP - General FAMILY PRACTICE 10/25/23 09/11/24 None, ProviderMD PCP - General UNKNOWN PHYSICIAN SPECIALTY 09/12/24 Duane Tamez MD [facility] [employer] [address] [address] NEUROLOGY 10/08/18 Chapin Talavera DO [address] [place], [place] [address] [address] [address] [place] Shot Grinder Operator CARDIOVASCULAR DISEASE 03/01/22 documented as of this encounter
--- OUTSIDE RECORDS SUMMARY | 2024-09-13 19:54 | XMS_ITS | Encounter Summary ---
Author Organization [facility] Address [facility] [place] [address] Care Team Providers Care Satellite Tv Technician Installer Name Role Phone Jenn Menezes [facility] Primary Care Provider Duane Barker MD Unavailable [phone] Chapin Talavera DO Unavailable [phone] None, Provider Primary Care Provider Unavaila ble None, Provider Primary Care Provider Unavaila ble Cherelle Lacey MD Primary Care Provider [phone] None, Provider Primary Care Provider Unavaila ble Encounter Details Date Type Department Care Team (Late st Contact Info) Description 02/28/2022 [employer] Message Enc [facility] Medical Group Family Medicine [address] [address] Jenn Menezes [facility] Hi Social History Tobacco Use Types [...] Sex Assigned at Female 09/12/2024 6:33 AM UTILIZATION REVIEW NURSE Legal Sex Female 7:52 AM UTILIZATION REVIEW NURSE Gender Identity Not on file Sexual [...] Description 03/13/2025 9:00 AM CDT Office Visit [facility] Medical Group Multispecialty Care - [facility] [address] [facility] [place] [address] Armani Duarte MD 3 [facility] JOSE ALFREDO [address] [place] [address] documented as of this encounter Visit Diagnoses Not on filedocumented in this encounter Care Teams Satellite Tv Technician Installer Relationship Specialty Start Date End Date Jenn [facility] PCP - General NURSE PRACTITIONER 06/07/18 03/08/22 None, ProviderMD PCP - General UNKNOWN PHYSICIAN SPECIALTY 05/04/22 09/19/22 None, ProviderMD PCP - General UNKNOWN PHYSICIAN SPECIALTY 10/05/22 10/24/23 Cherelle Lacey MD [address] [place] [address] PCP - General FAMILY PRACTICE 10/25/23 09/11/24 None, ProviderMD PCP - General UNKNOWN PHYSICIAN SPECIALTY 09/12/24 Duane Tamez MD [facility] [address] [place] [address] NEUROLOGY 10/08/18 Chapin Talavera DO [facility] [address] [place] [address] [place] Wheel Braider CARDIOVASCULAR DISEASE 03/01/22 documented as of this encounter
--- OUTSIDE RECORDS SUMMARY | 2024-09-13 19:54 | XMS_ITS | Encounter Summary ---
Author Organization [facility] Address [facility] [place] [address] Care Team Providers Care Sewing Machine Operator Paper Bags Name Role Phone Jenn Menezes [facility] Primary Care Provider Duane Barker MD Unavailable [phone] Chapin Talavera DO Unavailable [phone] None, Provider Primary Care Provider Unavaila ble None, Provider Primary Care Provider Unavaila ble Cherelle Lacey MD Primary Care Provider [phone] None, Provider Primary Care Provider Unavaila ble Encounter Details Date Type Department Care Team (Late st Contact Info) Description 12/20/2021 [employer] Message Enc [facility] Medical Group Family Medicine [address] [address] Jenn Menezes STRAIGHT CUTTER MACHINE- Vaccine Social History Tobacco Use Types Packs/Day [...] Sex Assigned at Female 09/12/2024 6:33 AM AUTOMOTIVE GLAZIER Legal Sex Female 7:52 AM AUTOMOTIVE GLAZIER Gender Identity Not on file Sexual Orientation [...] Description 03/13/2025 9:00 AM CDT Office Visit [facility] Medical Group Multispecialty Care - [facility] [address] [facility] [place] [address] Armani Duarte MD [address] [facility] JOSE ALFREDO [address] [place] [address] documented as of this encounter Visit Diagnoses Not on filedocumented in this encounter Care Teams Sewing Machine Operator Paper Bags Relationship Specialty Start Date End Date Jenn Mene[facility] PCP - General NURSE PRACTITIONER 06/07/18 03/08/22 None, ProviderMD PCP - General UNKNOWN PHYSICIAN SPECIALTY 05/04/22 09/19/22 None, ProviderMD PCP - General UNKNOWN PHYSICIAN SPECIALTY 10/05/22 10/24/23 Cherelle Lacey MD [address] [place] [address] PCP - General FAMILY PRACTICE 10/25/23 09/11/24 None, ProviderMD PCP - General UNKNOWN PHYSICIAN SPECIALTY 09/12/24 Duane Tamez [facility] [address] [place] [address] NEUROLOGY 10/08/18 Chapin Talavera DO [facility] [address] [place] [address] [place] Jute Bag Cutting Machine Operator CARDIOVASCULAR DISEASE 03/01/22 documented as of this encounter
--- OUTSIDE RECORDS SUMMARY | 2024-09-13 19:54 | XMS_ITS | Encounter Summary ---
Author Organization [facility] Address [facility] [place] [address] Care Team Providers Care Head Refrigerating Engineer Name Role Phone Duane Tamez MD Unavailable [phone] Chapin Talavera DO Unavailable [phone] Cherelle Lacey MD Primary Care Provider [phone] None, Provider Primary Care Provider Unavaila ble Encounter Details Date Type Department Care Team (Latest Contact Info) Description 11/22/2023 MyChart Message Enc [facility] Medical Group Multispecialty Care - [facility] [address] [facility] [place] [address] Armani Duarte MD [address] [place] [address] Trelogy and duoneb please Social [...] Sex Assigned at Female 09/12/2024 6:33 AM OCEANIC SCIENCES PROFESSOR Legal Sex Female 7:52 AM OCEANIC SCIENCES PROFESSOR Gender Identity Not on file Sexual Orientation Not on file documented as of this encounter Plan of Treatment Upcoming Encounters Date Type Department Care Team (Late st Contact Info) Description 03/13/2025 9:00 AM CDT Office Visit [facility] Medical Group Multispecialty Care - [facility] [address] [facility] [place] [address] Armani Duarte MD [address] [place] [address] documented as of this encounter Visit Diagnoses Not on filedocumented in this encounter Care Teams Head Refrigerating Engineer Relationship Specialty Start Date End Date Cherelle Lacey MD [address] [place] [address] [place] [address] PCP - General FAMILY PRACTICE 10/25/23 09/11/24 None, Provider, PCP - General UNKNOWN PHYSICIAN SPECIALTY 09/12/24 Duane Tamez MD [facility] [employer] [address] [address] NEUROLOGY 10/08/18 Chapin Talavera DO [facility] [employer] [address] [address] [place] [employer] [place] Wastewater Systems Technician CARDIOVASCULAR DISEASE 03/01/22 documented as of this encounter
--- OUTSIDE RECORDS SUMMARY | 2024-09-13 19:54 | XMS_ITS | Encounter Summary ---
Author Organization [facility] Address [facility] [place] [address] Care Team Providers Care Web Consultant Name Role Phone Jenn Menezes [facility] Primary Care Provider Duane Barker MD Unavailable [phone] Chapin Talavera DO Unavailable [phone] None, Provider Primary Care Provider Unavaila ble None, Provider Primary Care Provider Unavaila ble Cherelle Lacey MD Primary Care Provider [phone] None, Provider Primary Care Provider Unavaila ble Encounter Details Date Type Department Care Team (Late Contact Info) Description 08/21/2021 MyChart Message Enc [facility] Medical Group [facility] Medicine [address] [address] Jenn Menezes [facility] symbicort Social History Tobacco Use [...] Assigned at Female 09/12/2024 6:33 AM FREIGHT ENGINEER Legal Sex Female 7:52 AM FREIGHT ENGINEER Gender Identity Not on file Sexual Orientation Not on file documented as of this encounter Plan of Treatment Upcoming Encounters Date Type Department Care Team (Late Contact Info) Description 03/13/2025 9:00 AM CDT Office Visit [facility] Medical Group Multispecialty Care - [facility] [address] [facility] [address] [place] [address] Armani Duarte MD [address] [facility] [address] [place] [address] documented as of this encounter Visit Diagnoses Not on filedocumented in this encounter Care Teams Web Consultant Relationship Specialty Start Date End Date Jenn Menezes, [facility] PCP - General NURSE PRACTITIONER 06/07/18 03/08/22 None, Provider, PCP - General UNKNOWN PHYSICIAN SPECIALTY 05/04/22 09/19/22 None, Provider, PCP - General UNKNOWN PHYSICIAN SPECIALTY 10/05/22 10/24/23 Cherelle Lacey MD [address] [place] [address] [place] [address] PCP - General FAMILY PRACTICE 10/25/23 09/11/24 None, ProviderMD PCP - General UNKNOWN PHYSICIAN SPECIALTY 09/12/24 Duane Tamez MD [facility] [employer] [address] [address] NEUROLOGY 10/08/18 Chapin Talavera DO [facility] [employer] [address] [address] [place] [employer] Power Plant Engineer CARDIOVASCULAR DISEASE 03/01/22 documented as of this encounter
--- OUTSIDE RECORDS SUMMARY | 2024-09-13 19:54 | XMS_ITS | Clinical Summary ---
Author Organization [facility] Office Center Address [address] [place] [address] Care Team Providers Care Cloth Worker Name Role Phone Crow Maddie Dunaway DPVida Unavailable [phone] Maryjane Hernandez Primary Care Provider [phone] Allergies Active Allergy Reactions Criticality Noted Date [...] on file Legal Sex Female 1:01 AM CENTERLESS GRINDER Gender Identity Not on file Sexual Orientation [...] patient's age to complete this topic Insurance [facility] Care Teams Cloth Worker Relationship Specialty Start Date End Date Maryjane Hernandez PA [address] [place] [address] PCP - General 03/26/24 Maddie Maria DPM [address] [place] [address] Consulting Physician Foot and Ankle Surg 01/12/23
--- OUTSIDE RECORDS SUMMARY | 2024-09-13 19:54 | XMS_ITS | Encounter Summary ---
Author Organization [facility] Address [facility] [place] [address] Care Team Providers Care Child Care Centre Director Name Role Phone Duane Tamez MD Unavailable [phone] Chapin Talavera DO Unavailable [phone] Cherelle Lacey MD Primary Care Provider [phone] None, Provider Primary Care Provider Unavaila ble Encounter Details Date Type Department Care Team (Late st Contact Info) Description 11/08/2023 MyChart Message Enc [facility] Medical Group Multispecialty Care - [facility] [address] [facility] [place] [address] Armani Duarte MD [address] [facility] [place], [place] [id number] [facility] med Social History Tobacco Use Types Packs/Day [...] Sex Assigned at Female 09/12/2024 6:33 AM GRAPPLE OPERATOR Legal Sex Female 7:52 AM GRAPPLE OPERATOR Gender Identity Not on file Sexual Orientation Not on file documented as of this encounter Plan of Treatment Upcoming Encounters Date Type Department Care Team (Late st Contact Info) Description 03/13/2025 9:00 AM CDT Office Visit [facility] Medical Group Multispecialty Care - [facility] [address] [facility] [place] [address] Armani Duarte MD [address] [facility] [place] [address] documented as of this encounter Visit Diagnoses Not on filedocumented in this encounter Care Teams Child Care Centre Director Relationship Specialty Start Date End Date Cherelle Lacey MD [address] [place] [address] [place] [address] PCP - General FAMILY PRACTICE 10/25/23 09/11/24 None, Provider, PCP - General UNKNOWN PHYSICIAN SPECIALTY 09/12/24 Duane Tamez MD [facility] [employer] [address] [address] NEUROLOGY 10/08/18 Chapin Talavera DO [facility] [employer] [address] [address] [place] Physician Surgeon CARDIOVASCULAR DISEASE 03/01/22 documented as of this encounter
--- OUTSIDE RECORDS SUMMARY | 2024-09-13 19:54 | XMS_ITS | Encounter Summary ---
Author Organization [facility] Address [address] [place] [address] Care Team Providers Care Forming Acid Dumper Name Role Phone Carlita Landa MD Primary Care Provider Unavailab Ti Levine MD Primary Care Provider + Jenn Menezes [facility] Primary Care Provider Unav Duane Finch MD Unavailable [phone] Chapin Talavera DO Unavailable [phone] None, Provider Primary Care Provider Unavaila ble None, Provider Primary Care Provider Unavaila ble Cherelle Lacey MD Primary Care Provider [phone] None, Provider Primary Care Provider Unavaila ble Encounter Details Date Type Department Care Team (Late st Contact Info) Description 03/11/2014 Abstract [facility] Conversion , Generic Conversion, Social History Tobacco Use Types Packs/Day Years Used Date Smoking Tobacco: Never Assessed Comments Unknown Sex and Gender Information Value Date Recorded Sex Assigned at Female 09/12/2024 6:33 AM TAKE OUT WAITER/WAITRESS Legal Sex Female 7:52 AM TAKE OUT WAITER/WAITRESS Gender Identity Not on file Sexual Orientation Not on file documented as of this encounter Plan of Treatment Upcoming Encounters Date Type Department Care Team (Late st Contact Info) Description 03/13/2025 9:00 AM CDT Office Visit [facility] Medical Group Multispecialty Care - [address] [place] [address] Armani Duarte MD [address] [place] [address] JOSE [address] [place] [address] documented as of this encounter Visit Diagnoses Not on filedocumented in this encounter Care Teams Forming Acid Dumper Relationship Specialty Start Date End Date Cralita Landa MD PCP - General INTERNAL MEDICINE 08/09/16 06/06/18 Ti Carrillo MD [address] [place] [address] PCP - General 09/24/13 08/08/16 [facility] [address] [place] [address] PCP - General NURSE PRACTITIONER 06/07/18 03/08/22 None, Provider, PCP - General UNKNOWN PHYSICIAN SPECIALTY 05/04/22 09/19/22 None, Provider, PCP - General UNKNOWN PHYSICIAN SPECIALTY 10/05/22 10/24/23 Cherelle Lacey MD [address] [place] [address] [place] [address] PCP - General FAMILY PRACTICE 10/25/23 09/11/24 None, ProviderMD PCP - General UNKNOWN PHYSICIAN SPECIALTY 09/12/24 Duane Tamez MD [facility] [employer] [address] [address] NEUROLOGY 10/08/18 Chapin Talavera DO [address] [place], [place] [address] [address] [address] [place] Terminal Agent CARDIOVASCULAR DISEASE 03/01/22 documented as of this encounter
--- OUTSIDE RECORDS SUMMARY | 2024-09-13 19:54 | XMS_ITS | Encounter Summary ---
Author Organization [facility] Address [address] [place] [address] Care Team Providers Care Assistant Department Manager Name Role Phone Duane Tamez MD Unavailable [phone] Chapin Talavera DO Unavailable [phone] None, Provider Primary Care Provider Unavaila ble Cherelle Lacey MD Primary Care Provider [phone] None, Provider Primary Care Provider Unavaila ble Encounter Details Date Type Department Care Team (Late st Contact Info) Description 01/03/[address] [facility] Medical [facility] - [facility] [address] [place], [place] [address] Patient Feedt, [facility] Provider Air Quality Message Social History Tobacco [...] Sex Assigned at Female 09/12/2024 6:33 AM HYDROELECTRIC COMPONENT MACHINIST Legal Sex Female 7:52 AM HYDROELECTRIC COMPONENT MACHINIST Gender Identity Not on file Sexual Orientation Not on file documented as of this encounter Plan of Treatment Upcoming Encounters Date Type Department Care Team (Late st Contact Info) Description 03/13/2025 9:00 AM CDT Office Visit [facility] Medical Group Multispecialty Care - [facility] [address] [place] [address] Armani Duarte MD [address] [place] [address] documented as of this encounter Visit Diagnoses Not on filedocumented in this encounter Care Teams Assistant Department Manager Relationship Specialty Start Date End Date None, Provider, PCP - General UNKNOWN PHYSICIAN SPECIALTY 10/05/22 10/24/23 Cherelle Lacey MD [address] [place] [address] [place] [address] PCP - General FAMILY PRACTICE 10/25/23 09/11/24 None, ProviderMD PCP - General UNKNOWN PHYSICIAN SPECIALTY 09/12/24 Duane Tamez MD [facility] [employer] [address] [place] [address] NEUROLOGY 10/08/18 Chapin Talavera DO [facility] [employer] [address] [place] [address] [place] Modern Dancer CARDIOVASCULAR DISEASE 03/01/22 documented as of this encounter
--- OUTSIDE RECORDS SUMMARY | 2024-09-13 19:54 | XMS_ITS | Encounter Summary ---
Author Organization [facility] Address [address] [place] [address] Care Team Providers Care Bean Sprout Grower Name Role Phone Jenn Menezes [facility] Primary Care Provider Duane Barker MD Unavailable [phone] Chapin Talavera DO Unavailable [phone] None, Provider Primary Care Provider Unavaila ble None, Provider Primary Care Provider Unavaila ble Cherelle Lacey MD Primary Care Provider [phone] None, Provider Primary Care Provider Unavaila ble Encounter Details Date Type Department Care Team (Late st Contact Info) Description 08/02/2021 MyChart Message Enc [facility] Medical Group Family Medicine [address] [address] Jenn Menezes [facility] [employer]use Social History Tobacco Use Types Packs/Day [...] Sex Assigned at Female 09/12/2024 6:33 AM SHOEBLACK Legal Sex Female 7:52 AM SHOEBLACK Gender Identity Not on file Sexual Orientation Not on file COVID-19 Exposure Response Date Recorded In the last month, have you been in contact with someone who was confirmed or suspected to have Coronavirus / COVID-19? No / Unsure 07/20/2021 7:40 AM SHOEBLACK documented as of this encounter Plan of Treatment Upcoming Encounters Date Type Department Care Team (Late st Contact Info) Description 03/13/2025 9:00 AM CDT Office Visit [facility] Medical Group Multispecialty Care - [facility] [address] [place] [address] Armani Duarte MD [address] [place] [address] documented as of this encounter Visit Diagnoses Not on filedocumented in this encounter Care Teams Bean Sprout Grower Relationship Specialty Start Date End Date Jenn [facility] PCP - General NURSE PRACTITIONER 06/07/18 03/08/22 None, Provider, PCP - General UNKNOWN PHYSICIAN SPECIALTY 05/04/22 09/19/22 None, Provider, PCP - General UNKNOWN PHYSICIAN SPECIALTY 10/05/22 10/24/23 Cherelle Lacey MD [address] [place] [address] [place] [address] PCP - General FAMILY PRACTICE 10/25/23 09/11/24 None, ProviderMD PCP - General UNKNOWN PHYSICIAN SPECIALTY 09/12/24 Duane Tamez MD [address] [place] [address] NEUROLOGY 10/08/18 Chapin Talavera DO [address] [place] [address] [place] [employer] CARDIOVASCULAR DISEASE 03/01/22 documented as of this encounter
--- OUTSIDE RECORDS SUMMARY | 2024-09-13 19:54 | XMS_ITS | Encounter Summary ---
Author Organization [facility] Address [facility] [place] [address] Care Team Providers Care Biller Name Role Phone Jenn Menezes [facility] Primary Care Provider Duane Barker MD Unavailable [phone] Chapin Talavera DO Unavailable [phone] None, Provider Primary Care Provider Unavaila ble None, Provider Primary Care Provider Unavaila ble Cherelle Lacey MD Primary Care Provider [phone] None, Provider Primary Care Provider Unavaila ble Encounter Details Date Type Department Care Team (Late st Contact Info) Description 03/04/2022 [facility] Medicalt Message Enc [facility] Medical Group Family Medicine [address] [address] Jenn Menezes [facility] Hey Social History Tobacco Use Types [...] Sex Assigned at Female 09/12/2024 6:33 AM MATERIAL WORKER Legal Sex Female 7:52 AM MATERIAL WORKER Gender Identity Not on file Sexual [...] 03/13/2025 9:00 AM CDT Office Visit [facility] Medical Group Multispecialty Care - [facility] [address] [facility] [place] [address] Armani Duarte MD [address] [facility] [address] [place] [address] documented as of this encounter Visit Diagnoses Not on filedocumented in this encounter Care Teams Biller Relationship Specialty Start Date End Date Jenn [facility] PCP - General NURSE PRACTITIONER 06/07/18 03/08/22 None, ProviderMD PCP - General UNKNOWN PHYSICIAN SPECIALTY 05/04/22 09/19/22 None, ProviderMD PCP - General UNKNOWN PHYSICIAN SPECIALTY 10/05/22 10/24/23 Cherelle Lacey MD [address] [place] [address] PCP - General FAMILY PRACTICE 10/25/23 09/11/24 None, ProviderMD PCP - General UNKNOWN PHYSICIAN SPECIALTY 09/12/24 Duane Tamez MD [facility] [employer] [address] [place] [address] NEUROLOGY 10/08/18 Chapin Talavera DO [facility] [employer] [address] [place] [address] [employer] Integration Engineer CARDIOVASCULAR DISEASE 03/01/22 documented as of this encounter
--- OUTSIDE RECORDS SUMMARY | 2024-09-13 19:54 | XMS_ITS | Encounter Summary ---
Author Organization [facility] Address [facility] [place] [address] Care Team Providers Care Engine Lathe Operator Name Role Phone Suryashannon Jenn [facility] Primary Care Provider Duane Barker MD Unavailable [phone] Chapin Talavera DO Unavailable [phone] None, Provider Primary Care Provider Unavaila ble None, Provider Primary Care Provider Unavaila ble Cherelle Lacey MD Primary Care Provider [phone] None, Provider Primary Care Provider Unavaila ble Encounter Details Date Type Department Care Team (Late st Contact Info) Description 01/10/2022 MyChart Message Enc [facility] Medical Group Multispecialty Care - [address] [place] [address] Armani Duarte MD [address] [place] [address] [address] [place], [place] [id number] Hi Social History Tobacco Use Types Packs/Day [...] Sex Assigned at Female 09/12/2024 6:33 AM WAXER TENDER Legal Sex Female 7:52 AM WAXER TENDER Gender Identity Not on file Sexual Orientation [...] 9:00 AM CDT Office Visit [facility] Medical Group Multispecialty Care - [address] [place] [address] Armani Duarte MD [address] [place] [address] [address] [place] [address] documented as of this encounter Visit Diagnoses Not on filedocumented in this encounter Care Teams Engine Lathe Operator Relationship Specialty Start Date End Date Jenn [facility] PCP - General NURSE PRACTITIONER 06/07/18 03/08/22 None, ProviderMD PCP - General UNKNOWN PHYSICIAN SPECIALTY 05/04/22 09/19/22 None, MD Yony PCP - General UNKNOWN PHYSICIAN SPECIALTY 10/05/22 10/24/23 Cherelle Lacey MD [address] [place] [address] [place] [address] PCP - General FAMILY PRACTICE 10/25/23 09/11/24 None, MD Yony PCP - General UNKNOWN PHYSICIAN SPECIALTY 09/12/24 Duane Tamez MD [address] [place] [address] NEUROLOGY 10/08/18 Chapin Talavera DO [address] [place] [address] [place] Jute Bag Sewer CARDIOVASCULAR DISEASE 03/01/22 documented as of this encounter
--- OUTSIDE RECORDS SUMMARY | 2024-09-13 19:54 | XMS_ITS | Encounter Summary ---
Author Organization [facility] Address [facility] [place] [address] Care Team Providers Care Station Examiner Name Role Phone Jenn Menezes [facility] Primary Care Provider Duane Barker MD Unavailable [phone] Chapin Talavera DO Unavailable [phone] None, Provider Primary Care Provider Unavaila ble None, Provider Primary Care Provider Unavaila ble Cherelle Lacey MD Primary Care Provider [phone] None, Provider Primary Care Provider Unavaila ble Encounter Details Date Type Department Care Team (Late Contact Info) Description 08/20/2021 MyChart Message Enc [facility] Family Medicine [address] [address] Jenn Menezes [facility] Lung function test Social History Tobacco Use [...] Sex Assigned at Female 09/12/2024 6:33 AM BULK LOADER Legal Sex Female 7:52 AM BULK LOADER Gender Identity Not on file Sexual Orientation Not on file documented as of this encounter Plan of Treatment Upcoming Encounters Date Type Department Care Team (Late Contact Info) Description 03/13/2025 9:00 AM CDT Office Visit [facility] Multispecialty Care - [facility] [address] [place] [address] Armani Duarte MD [address] [place] [address] documented as of this encounter Visit Diagnoses Not on filedocumented in this encounter Care Teams Station Examiner Relationship Specialty Start Date End Date Jenn Menezes, [facility] PCP - General NURSE PRACTITIONER 06/07/18 03/08/22 None, Provider, PCP - General UNKNOWN PHYSICIAN SPECIALTY 05/04/22 09/19/22 None, Provider, PCP - General UNKNOWN PHYSICIAN SPECIALTY 10/05/22 10/24/23 Cherelle Lacey MD [address] [place] [address] [place] [address] PCP - General FAMILY PRACTICE 10/25/23 09/11/24 None, ProviderMD PCP - General UNKNOWN PHYSICIAN SPECIALTY 09/12/24 Duane Tamez MD [facility] [address] [address] NEUROLOGY 10/08/18 Chapin Talavera DO [facility] [address] [address] [place] Enrollment Management Director CARDIOVASCULAR DISEASE 03/01/22 documented as of this encounter
--- OUTSIDE RECORDS SUMMARY | 2024-09-13 19:55 | XMS_ITS | Clinical Summary ---
Author Organization [facility] Address [address] [facility] [place] [address] Care Team Providers Care Satellite Television Installer Name Role Phone MakJenn brunson GREG-PRESCHOOL ASSISTANT DIRECTOR Primary Care Provider [phone] Constantino Solis MD Unavailable [phone] Source Comments [facility],non-owned Affiliates and Associated Physician Practices is amultiple site organization consisting of ambulatory clinics and hospital sitesin [place], [place], [place] and [place]. This disclosure is being madepursuant to the Care Everywhere program and may not contain all information available regarding this patient. Last updated 18.[facility] Allergies Active Allergy Reactions Criticality Noted Date [...] fluticasone propionate (FLONASE) 50 MCG/ACT nasal spray [place] 1 spray into the nose 04/22/2019 Active [...] Comments Blood Pressure 98/78 05/30/2019 11:26 AM FIRMWARE ARCHITECT Pulse 91 05/30/2019 11:26 AM FIRMWARE ARCHITECT Temperature 36.7 C (98 F) 05/30/2019 11:26 AM FIRMWARE ARCHITECT Respiratory Rate 16 09/21/2017 3:54 PM CDT Oxygen Saturation 96% 05/30/2019 11:26 AM FIRMWARE ARCHITECT Inhaled Oxygen Concentration - - Weight 134.3 kg (296 lb) 05/30/2019 11:26 AM FIRMWARE ARCHITECT Height 169 cm (5' 6.54 ) 05/30/2019 11:26 AM FIRMWARE ARCHITECT Body Mass Index 47.01 05/30/2019 11:26 AM FIRMWARE ARCHITECT Plan of Treatment Health Maintenance Due Date [...] age to complete this topic Care Teams Satellite Television Installer Relationship Specialty Start Date End Date Jenn Menezes APRN-PRESCHOOL ASSISTANT DIRECTOR PCP - General 10/23/18 Constantino Solis MD Family Medicine 07/17/18
--- OUTSIDE RECORDS SUMMARY | 2024-09-13 19:55 | XMS_ITS | Patient Health Summary ---
Author Organization [facility] Address [address] [facility] [place] [address] Care Team Providers Care Panel Installer Name Role Phone Jenn Menezes APRN-PATIENT SERVICES COORDINATOR Primary Care Provider [phone] Constantino Solis MD Unavailable [phone] Note from [facility][note 2],non-owned Affiliates and Associated Physician Practices is amultiple site organization consisting of ambulatory clinics and hospital sitesin [place], [place], [place] and [place]. This disclosure is being madepursuant to the Care Everywhere program and may not contain all information available regarding this patient. Last updated 18.[facility] Allergies * Amoxicillin * Clarithromycin * Ciprofloxacin [...] propionate (FLONASE) 50 MCG/ACT nasal spray(Started 04/22/2019) [place] 1 spray into the nose * umeclidinium [...] Comments Blood Pressure 98/78 05/30/2019 11:26 AM TEMPLATE WORKER Pulse 91 05/30/2019 11:26 AM TEMPLATE WORKER Temperature 36.7 C (98 F) 05/30/2019 11:26 AM TEMPLATE WORKER Respiratory Rate 16 09/21/2017 3:54 PM CDT Oxygen Saturation 96% 05/30/2019 11:26 AM TEMPLATE WORKER Inhaled Oxygen Concentration - - Weight 134.3 kg (296 lb) 05/30/2019 11:26 AM TEMPLATE WORKER Height 169 cm (5' 6.54 ) 05/30/2019 11:26 AM TEMPLATE WORKER Body Mass Index 47.01 05/30/2019 11:26 AM TEMPLATE WORKER Care Teams Panel Installer Relationship Specialty Start Date End Date Jenn Menezes APRN-PATIENT SERVICES COORDINATOR PCP - General 10/23/18 Constantino Solis MD Family Medicine 07/17/18
--- OUTSIDE RECORDS SUMMARY | 2024-09-13 19:55 | XMS_ITS | Encounter Summary ---
Author Organization [facility] Address [facility] [place] [address] Care Team Providers Care Conduit Installer Name Role Phone Jenn Menezes [facility] Primary Care Provider Duane Barker MD Unavailable [phone] Chapin Talavera DO Unavailable [phone] None, Provider Primary Care Provider Unavaila ble None, Provider Primary Care Provider Unavaila ble Cherelle Lacey MD Primary Care Provider [phone] None, Provider Primary Care Provider Unavaila ble Encounter Details Date Type Department Care Team (Late Contact Info) Description 01/02/2020 MyChart Message Enc [facility] Medical Group [address] [address] Jenn Menezes [facility] RE: RE: Question Social History Tobacco [...] Sex Assigned at Female 09/12/2024 6:33 AM NOC ANALYST Legal Sex Female 7:52 AM NOC ANALYST Gender Identity Not on file Sexual Orientation Not on file documented as of this encounter Plan of Treatment Upcoming Encounters Date Type Department Care Team (Late Contact Info) Description 03/13/2025 9:00 AM CDT Office Visit [facility] Multispecialty Care - [facility] [address] [place] [address] Armani Duarte MD [address] [place] [address] documented as of this encounter Visit Diagnoses Not on filedocumented in this encounter Care Teams Conduit Installer Relationship Specialty Start Date End Date Jenn Menezes [facility] PCP - General NURSE PRACTITIONER 06/07/18 03/08/22 None, Provider, PCP - General UNKNOWN PHYSICIAN SPECIALTY 05/04/22 09/19/22 None, Provider, PCP - General UNKNOWN PHYSICIAN SPECIALTY 10/05/22 10/24/23 Cherelle Lacey MD [address] [place] [address] [place] [address] PCP - General FAMILY PRACTICE 10/25/23 09/11/24 None, ProviderMD PCP - General UNKNOWN PHYSICIAN SPECIALTY 09/12/24 Duane Tamez MD [facility] [address] [address] NEUROLOGY 10/08/18 Chapin Talavera DO [facility] [address] [address] [place] Conservator Artifacts CARDIOVASCULAR DISEASE 03/01/22 documented as of this encounter
--- OUTSIDE RECORDS SUMMARY | 2024-09-13 19:55 | XMS_ITS | Encounter Summary ---
Author Organization [facility] Address [address] [place] [address] Care Team Providers Care Renal Medicine Physician Name Role Phone Jenn Menezes [facility] Primary Care Provider Duane Barker MD Unavailable [phone] Chapin Talavera DO Unavailable [phone] None, Provider Primary Care Provider Unavaila ble None, Provider Primary Care Provider Unavaila ble Cherelle Lacey MD Primary Care Provider [phone] None, Provider Primary Care Provider Unavaila ble Encounter Details Date Type Department Care Team (Late st Contact Info) Description 10/14/2020 SocialEarst Message Enc [facility] Family Medicine [address] [address] Mychart, [facility] Provider your appointment today Social History Tobacco [...] Sex Assigned at Female 09/12/2024 6:33 AM REROLLING MACHINE OPERATOR Legal Sex Female 7:52 AM REROLLING MACHINE OPERATOR Gender Identity Not on file Sexual Orientation Not on file documented as of this encounter Plan of Treatment Upcoming Encounters Date Type Department Care Team (Late Contact Info) Description 03/13/2025 9:00 AM CDT Office Visit [facility] Multispecialty Care - [facility] [address] [place] [address] Armani Duarte MD [address] [place] [address] documented as of this encounter Visit Diagnoses Not on filedocumented in this encounter Care Teams Renal Medicine Physician Relationship Specialty Start Date End Date Jenn [facility] PCP - General NURSE PRACTITIONER 06/07/18 03/08/22 None, Provider, PCP - General UNKNOWN PHYSICIAN SPECIALTY 05/04/22 09/19/22 None, Provider, PCP - General UNKNOWN PHYSICIAN SPECIALTY 10/05/22 10/24/23 Cherelle Lacey MD [address] [place] [address] [place] [address] PCP - General FAMILY PRACTICE 10/25/23 09/11/24 None, ProviderMD PCP - General UNKNOWN PHYSICIAN SPECIALTY 09/12/24 Duane Tamez MD [facility] [address] [address] NEUROLOGY 10/08/18 Chapin Talavera DO [facility] [address] [address] [place] Weight Clerk CARDIOVASCULAR DISEASE 03/01/22 documented as of this encounter
--- OUTSIDE RECORDS SUMMARY | 2024-09-13 19:55 | XMS_ITS | Encounter Summary ---
Author Organization [facility] Address [address] [place] [address] Care Team Providers Care Blanchard Grinder Operator Name Role Phone Jenn Menezes [facility] Primary Care Provider Duane Barker MD Unavailable [phone] Chapin Talavera DO Unavailable [phone] None, Provider Primary Care Provider Unavaila ble None, Provider Primary Care Provider Unavaila ble Cherelle Lacey MD Primary Care Provider [phone] None, Provider Primary Care Provider Unavaila ble Encounter Details Date Type Department Care Team (Late st Contact Info) Description 04/22/2019 Dustcloudt Message Enc [address] [address] Jenn Menezes SUPERVISOR BRINE- RE: Referral Request Social History Tobacco Use [...] Sex Assigned at Female 09/12/2024 6:33 AM CHURNER Legal Sex Female 7:52 AM CHURNER Gender Identity Not on file Sexual Orientation Not on file documented as of this encounter Plan of Treatment Upcoming Encounters Date Type Department Care Team (Late Contact Info) Description 03/13/2025 9:00 AM CDT Office Visit [facility] Multispecialty Care - [facility] [address] [place] [address] Armani Duarte MD [address] [place] [address] documented as of this encounter Visit Diagnoses Not on filedocumented in this encounter Care Teams Blanchard Grinder Operator Relationship Specialty Start Date End Date Jenn Menezes [facility] PCP - General NURSE PRACTITIONER 06/07/18 03/08/22 None, Provider, PCP - General UNKNOWN PHYSICIAN SPECIALTY 05/04/22 09/19/22 None, Provider, PCP - General UNKNOWN PHYSICIAN SPECIALTY 10/05/22 10/24/23 Cherelle Lacey MD [address] [place] [address] [place] [address] PCP - General FAMILY PRACTICE 10/25/23 09/11/24 None, ProviderMD PCP - General UNKNOWN PHYSICIAN SPECIALTY 09/12/24 Duane Tamez MD [facility] [address] [address] NEUROLOGY 10/08/18 Chapin Talavera DO [facility] [address] [address] [place] Site Specialist CARDIOVASCULAR DISEASE 03/01/22 documented as of this encounter
--- OUTSIDE RECORDS SUMMARY | 2024-09-13 19:55 | XMS_ITS | Encounter Summary ---
Author Organization [facility] Address [address] [place] [address] Care Team Providers Care Tassel Clipper Name Role Phone Jenn Menezes [facility] Primary Care Provider Duane Barker MD Unavailable [phone] Chapin Talavera DO Unavailable [phone] None, Provider Primary Care Provider Unavaila ble None, Provider Primary Care Provider Unavaila ble Cherelle Lacey MD Primary Care Provider [phone] None, Provider Primary Care Provider Unavaila ble Encounter Details Date Type Department Care Team (Late st Contact Info) Description 04/28/2020 Nanotether Discovery Servicest Message Enc [facility] [address] [address] Jenn Menezes STORE SPECIALISTADRIA RE: Question Social History Tobacco Use Types [...] Sex Assigned at Female 09/12/2024 6:33 AM STOVE MECHANIC Legal Sex Female 7:52 AM STOVE MECHANIC Gender Identity Not on file Sexual Orientation [...] [facility] Mult[facility]pecialty Care - [facility] [address] [place] [address] Armani Duarte MD [address] [place] [address] documented as of this encounter Visit Diagnoses Not on filedocumented in this encounter Care Teams Tassel Clipper Relationship Specialty Start Date End Date Jenn [facility] PCP - General NURSE PRACTITIONER 06/07/18 03/08/22 None, Provider, PCP - General UNKNOWN PHYSICIAN SPECIALTY 05/04/22 09/19/22 None, Provider, PCP - General UNKNOWN PHYSICIAN SPECIALTY 10/05/22 10/24/23 Cherelle Lacey MD [address] [place] [address] [place] [address] PCP - General FAMILY PRACTICE 10/25/23 09/11/24 None, Provider, PCP - General UNKNOWN PHYSICIAN SPECIALTY 09/12/24 Duane Tamez MD [facility] [address] [address] NEUROLOGY 10/08/18 Chapin Talavera DO [address] [place], [place] [address] [address] [address] [place] Child Caregiver CARDIOVASCULAR DISEASE 03/01/22 documented as of this encounter
--- OUTSIDE RECORDS SUMMARY | 2024-09-13 19:55 | XMS_ITS | Encounter Summary ---
Author Organization [facility] Address [address] [place] [address] Care Team Providers Care Estimator Paperboard Boxes Name Role Phone Jenn Menezes [facility] Primary Care Provider Duane Barker MD Unavailable [phone] Chapin Talavera DO Unavailable [phone] None, Provider Primary Care Provider Unavaila ble None, Provider Primary Care Provider Unavaila ble Cherelle Lacey MD Primary Care Provider [phone] None, Provider Primary Care Provider Unavaila ble Encounter Details Date Type Department Care Team (Late st Contact Info) Description 02/25/2020 MyChart Message Enc [facility] [address] [address] Jenn Menezes IMMUNOPATHOLOGIST- RE: FW: Medication Questions Social History Tobacco [...] Sex Assigned at Female 09/12/2024 6:33 AM RN NEONATAL ICU Legal Sex Female 7:52 AM RN NEONATAL ICU Gender Identity Not on file Sexual Orientation [...] [facility] Multispecialty Care - [facility] [address] [place] [address] Armani Duarte MD [address] [place] [address] documented as of this encounter Visit Diagnoses Not on filedocumented in this encounter Care Teams Estimator Paperboard Boxes Relationship Specialty Start Date End Date Riri [facility] PCP - General NURSE PRACTITIONER 06/07/18 03/08/22 None, Provider, PCP - General UNKNOWN PHYSICIAN SPECIALTY 05/04/22 09/19/22 None, Provider, PCP - General UNKNOWN PHYSICIAN SPECIALTY 10/05/22 10/24/23 Cherelle Lacey MD [address] [place] [address] [place] [address] PCP - General FAMILY PRACTICE 10/25/23 09/11/24 None, ProviderMD PCP - General UNKNOWN PHYSICIAN SPECIALTY 09/12/24 Duane Tamez MD [facility] [employer] [address] [address] NEUROLOGY 10/08/18 Chapin Talavera DO [address] [place], [place] [address] [address] [address] [place] Slip Maker CARDIOVASCULAR DISEASE 03/01/22 documented as of this encounter
--- OUTSIDE RECORDS SUMMARY | 2024-09-13 19:55 | XMS_ITS | Encounter Summary ---
Author Organization [facility] Address [address] [place] [address] Care Team Providers Care Human Services Assistant Name Role Phone Jenn Menezes [facility] Primary Care Provider Duane Barker MD Unavailable [phone] Chapin Talavera DO Unavailable [phone] None, Provider Primary Care Provider Unavaila ble None, Provider Primary Care Provider Unavaila ble Cherelle Lacey MD Primary Care Provider [phone] None, Provider Primary Care Provider Unavaila ble Encounter Details Date Type Department Care Team (Late st Contact Info) Description 06/02/2019 Chutehart Message Enc [address] [address] Jenn Menezes COUNTER SUPERVISORADRIA RE: Question Social History Tobacco Use Types [...] Sex Assigned at Female 09/12/2024 6:33 AM DIRECTOR OF INSTITUTIONAL GIVING Legal Sex Female 7:52 AM DIRECTOR OF INSTITUTIONAL GIVING Gender Identity Not on file Sexual Orientation Not on file documented as of this encounter Plan of Treatment Upcoming Encounters Date Type Department Care Team (Late Contact Info) Description 03/13/2025 9:00 AM CDT Office Visit [facility] Mult[facility]pecialty Care - [facility] [address] [place] [address] Armani Duarte MD [address] [place] [address] documented as of this encounter Visit Diagnoses Not on filedocumented in this encounter Care Teams Human Services Assistant Relationship Specialty Start Date End Date [facility] PCP - General NURSE PRACTITIONER 06/07/18 03/08/22 None, Provider, PCP - General UNKNOWN PHYSICIAN SPECIALTY 05/04/22 09/19/22 None, Provider, PCP - General UNKNOWN PHYSICIAN SPECIALTY 10/05/22 10/24/23 Cherelle Lacey MD [address] [place] [address] [place] [address] PCP - General FAMILY PRACTICE 10/25/23 09/11/24 None, ProviderMD PCP - General UNKNOWN PHYSICIAN SPECIALTY 09/12/24 Duane Tamez MD [facility] [address] NEUROLOGY 10/08/18 Chapin Talavera DO [facility] [employer] [address] [address] [place] Jailer/Training Officer CARDIOVASCULAR DISEASE 03/01/22 documented as of this encounter
--- OUTSIDE RECORDS SUMMARY | 2024-09-13 19:55 | XMS_ITS | Clinical Summary ---
Author Organization [facility] Address [address] [place] [address] Care Team Providers Care Security Agent Name Role Phone Duane Tamez MD Unavailable [phone] Chapin Talavera DO Unavailable [phone] None, Provider MD Primary Care Provider Unavaila [...] :Chronic obstructive pulmonary disease, unspecified COPD type ([facility]) Nebulizer tubing, mask and needed supply, change every month 1 kit 6 019 Active sucralfate 1 G tabletIndications :Gastroesophageal reflux disease with esophagitis Take 1 tablet (1 g total) by mouth 4 (four) times daily. 120 tablet 6 020 Active Nebulizer System All-In-One MiscIndications:C hronic obstructive pulmonary disease, unspecified COPD type ([facility]) 1 kit by Does [...] epilepsy without status epilepticus, unspecified epilepsy type ([facility]/HCC HHS/HCC) TAKE 1 TABLET BY MOUTH [...] 300 MG/2ML injection (PEN)Indications: Severe persistent asthma ([facility]) Inject 4 mLs (600 mg total) into the skin on day 1 for loading dose. Then inject 2 mLs (300 mg) every 14 days, starting on day 15 4 mL 12 025 Active albuterol (PROVENTIL) (2.5 MG/3ML) 0.083% nebulizer solutionIndicatio ns:Chronic obstructive pulmonary disease, unspecified COPD type ([facility] HHS/[facility]) Take 3 mLs (2.5 mg total) by nebulization every 6 (six) hours as needed for Wheezing. 360 mL 1 023 2024 Discontinued(R eorder) albuterol (PROVENTIL) (2.5 MG/3ML) 0.083% nebulizer solutionIndicatio ns:Moderate persistent asthma without complication ([facility]) Take 3 mLs (2.5 mg total) by nebulization every 6 (six) hours as needed for Wheezing. 360 mL 3 024 2024 Discontinued mepolizumab (NUCALA) 100 MG/ML injectionIndicati ons:Moderate persistent asthma without complication ([facility]/HCC) INJECT 1 PEN UNDER THE SKIN EVERY 28 DAYS 1 mL 11 024 2024 Discontinued(D uplicate Med) ipratropium-albut fifi (DUONEB) 0.5-2.5 (3) MG/3ML SolutionIndicatio ns:Moderate persistent asthma without complication ([facility]) INHALE THE CONTENTS OF 1 VIAL EVERY 6 HOURS NEEDED 360 mL 1 024 2024 Discontinued(D uplicate Med) Sharps Container MiscIndications:M oderate persistent asthma without complication ([facility]/HCC) Please supply pt with a 3.8 L sharps container 1 each 025 2024 Discontinued(R eorder) albuterol (PROVENTIL) (2.5 MG/3ML) 0.083% nebulizer solutionIndicatio ns:Chronic obstructive pulmonary disease, unspecified COPD type ([facility]) Take 3 mLs (2.5 [...] the patient. Abscess 02/27/2020 History of alcoholism ([facility]) 03/16/20 Epidermal cyst of neck 03/29/2018 Atopic dermatitis 08/02/2017 Abnormal liver function 05/02/2016 Chronic obstructive lung disease ([facility]/ C) 04/26/2016 DJD (degenerative joint disease) 04/26/2016 Epilepsy ([facility]) 04/26/2016 GERD (gastroesophageal [...] Care Team Description 09/13/2024 MyChart Message [facility] [address] [place] [phone] Armani Duarte MD Bronchitis 09/12/2024 6:00 AM FRENCH BINDING FOLDER - 09/12/2024 9:30 AM FRENCH BINDING FOLDER Emergency [facility] [place] [address] Iris Mejía MD Chest Pain; Shortness Of Breath Discharge Disposition: Left Against Medical Advice 09/12/2024 Travel 09/04/2024 9:40 AM FRENCH BINDING FOLDER [facility] [address] [place] [phone] Armani Duarte MD Shortness Of Breath 09/04/2024 Scan [employer] INFO SRVCS Scanned, [facility] 09/04/2024 Telephone [facility] - [address] [place] [address] Armani Duarte MD Medication 09/04/2024 Travel 07/26/2024 MyChart Message Enc [facility] [address] [place] [address] Armani Duarte MD Trelogy from Last [...] Sex Assigned at Female 09/12/2024 6:33 AM FRENCH BINDING FOLDER Legal Sex Female 7:52 AM FRENCH BINDING FOLDER Gender Identity Not on file Sexual Orientation Not on file Last Filed Vital Signs Vital Sign Reading Time Taken Comments Blood Pressure 121/92 09/12/2024 6:05 AM FRENCH BINDING FOLDER Pulse 94 09/12/2024 6:05 AM FRENCH BINDING FOLDER Temperature 37.2 C (99 F) 09/12/2024 6:05 AM FRENCH BINDING FOLDER Respiratory Rate 18 09/12/2024 6:05 AM FRENCH BINDING FOLDER Oxygen Saturation 97% 09/12/2024 6:05 AM FRENCH BINDING FOLDER Inhaled Oxygen Concentration - - Weight 111.1 kg (245 lb) 09/12/2024 6:05 AM FRENCH BINDING FOLDER Height 170.2 cm (5' 7 ) 09/12/2024 6:05 AM FRENCH BINDING FOLDER Body Mass Index 38.37 09/12/2024 6:05 AM FRENCH BINDING FOLDER Plan of Treatment Upcoming Encounters Date Type Department Care Team (Late st Contact Info) Description 03/13/2025 9:00 AM CDT Office Visit [facility] Multispecialty Care - [facility] [address] [place] [address] Armani Duarte MD [address] [place] [address] Health Maintenance Due Date Last Done Comments [...] 2024 Hepatitis C Completed 07/20/2021 PHQ-2 (Physician Oxly) Completed 09/04/2024 HPV Vaccines Aged Out No [...] CHEST PORTABLE STAT 09/12/2024 6:4 2 AM FRENCH BINDING FOLDER MAGNESIUM Routine 09/12/2024 6:10 AM FRENCH BINDING FOLDER TROPONIN, QUANT STAT 09/12/2024 6:10 AM FRENCH BINDING FOLDER COMPREHENSIVE METABOLIC PANEL STAT 09/12/2024 6:10 AM FRENCH BINDING FOLDER CBC W/DIFF AUTOMATED STAT 09/12/2024 6:10 AM FRENCH BINDING FOLDER ECG 12-LEAD Routine 09/12/2024 6:02 AM FRENCH BINDING FOLDER HEPATITIS C ANTIBODY Routine 07/20/2021 8:54 AM FRENCH BINDING FOLDER Need for hepatitis C screening test from Last 3 Months or Most Recently Relevant to Health Maintenance Results * XR CHEST PORTABLE (09/12/2024 6:42 AM FRENCH BINDING FOLDER) Anatomical Region Laterality Modality Chest Radiographic Astrid ging 09/12/2024 6:43 AM FRENCH BINDING FOLDER Impressions 09/12/2024 6:44 AM FRENCH BINDING FOLDER IMPRESSION: No radiographic evidence of an acute cardiopulmonary abnormality. Referred By: Interpreted By: Jean Carlos Escobedo MD, 09/12/2024 6:43 AM Narrative 09/12/2024 6:44 AM FRENCH BINDING FOLDER [address] [address] EXAMINATION: XR CHEST PORTABLE, 09/12/2024 6:43 AM TECHNIQUE: Upright AP portable radiograph of the chest HISTORY: Chest pain COMPARISON: Chest radiograph 12/06/2021 FINDINGS: Heart size is normal. Pulmonary vascular pattern appears unremarkable. No focal pulmonary consolidation. Linear opacity at the left lung basically seen with atelectasis. No pleural effusion. No pneumothorax. Procedure Note Jean Carlos Escobedo MD - 09/12/[address] [address] EXAMINATION: XR CHEST PORTABLE, 09/12/2024 6:43 AM [...] (ABNORMAL) COMPREHENSIVE METABOLIC PANEL (09/12/2024 6:10 AM FRENCH BINDING FOLDER) GLUCOSE 101(H) 70 - 99 MG/DL 09/12/2024 6:54 AM [facility] BUN 6(L) 7 - 18 MG/DL 09/12/2024 6:54 AM [facility] CREATININE S/P/B 0.57 0.55 - 1.02 MG/DL 09/12/2024 6:54 AM [facility] SODIUM S/P/B 138 136 - 145 MMOL/L 09/12/2024 6:54 AM [facility] POTASSIUM S/P/B 2.8(LL) 3.5 - 5.1 MMOL/L 09/12/2024 6:54 AM [facility] Comment: Critical Result(s) Called at: 06:52:44 on 09/12/2024 by: CLEMENTINA CANDELARIA to and read back by:MATTHEW MORRIS CHLORIDE S/P/B 103 97 - 115 MMOL/L 09/12/2024 6:54 AM [facility] CO2 27.3 21 - 32 MMOL/L 09/12/2024 6:54 AM [facility] CALCIUM S/P/B 9.1 8.5 - 10.1 MG/DL 09/12/2024 6:54 AM [facility] BILIRUBIN TOTAL S/P/B 1.0 0.2 - 1.2 MG/DL 09/12/2024 6:54 AM [facility] Comment: THIS ASSAY IS NOT RECOMMENDED FOR PATIENTS UNDERGOING TREATMENT WITH ELTROMBOPAG DUE TO THE POTENTIAL FOR FALSELY ELEVATED RESULTS. TOTAL PROTEIN S/P/B 7.7 6.4 - 8.2 G/DL 09/12/2024 6:54 AM [facility] ALBUMIN S/P/B 3.7 3.4 - 5.0 G/DL 09/12/2024 6:54 AM [facility] AST 43(H) 15 - 37 U/L 09/12/2024 6:54 AM [facility] ALT 57(H) 14 - 55 U/L 09/12/2024 6:54 AM [facility] ALKALINE PHOSPHATASE S/P/B 65 50 - 136 U/L 09/12/2024 6:54 AM [facility] ANION GAP 7.7 2 - 10 MMOL/L 09/12/2024 6:54 AM [facility] BUN CREATININE RATIO 10.5 6 - 26 09/12/2024 6:54 AM [facility] A/G RATIO 0.9(L) 1.0 - 2.0 RATIO 09/12/2024 6:54 AM [facility] GFR ESTIMATE >90 >90 ML/MIN/1.7 3 M2 09/12/2024 6:54 AM [facility] Comment: NOTE: eGFR is not calculated for patients <18 years of age or gender unknown. This is an estimated GFR calculation using the new CKD EPI creatinine equation without race and so does not require a correction factor for race. This estimated GFR should not be used for calculating drug doses. 09/12/2024 6:10 AM FRENCH BINDING FOLDER us Iris Mejía MD LABORATORY Final Result [facility] [address] [place] [address], [place] [phone] * (ABNORMAL) CBC W/DIFF AUTOMATED (09/12/2024 6:10 AM FRENCH BINDING FOLDER) WBC 10.33 4.5 - 11.0 x10'3/uL 09/12/2024 6:23 AM [facility] RBC 5.13 4.20 - 5.40 x10'6/uL 09/12/2024 6:23 AM [facility] HGB 16.1(H) 12.0 - 16.0 G/DL 09/12/2024 6:23 AM [facility] HCT 46.3 38.0 - 48.0 % 09/12/2024 6:23 AM [facility] MCV 90.3 81.0 - 99.0 FL 09/12/2024 6:23 AM [facility] MCH 31.4(H) 27.0 - 31.0 PG 09/12/2024 6:23 AM [facility] MCHC 34.8 32.0 - 36.0 G/DL 09/12/2024 6:23 AM [facility] RDW 12.5 11.5 - 14.5 % 09/12/2024 6:23 AM [facility] PLT 240 130 - 400 x10'3/uL 09/12/2024 6:23 AM [facility] MPV 9.7 9.3 - 12.2 FL 09/12/2024 6:23 AM [facility] DIFFERENTIAL TYPE AUTOMATED DIFFERENTIAL 09/12/2024 6:23 AM [facility] NEUTROPHILS % 65.8 % 09/12/2024 6:23 AM [facility] LYMPHOCYTES % 25.8 % 09/12/2024 6:23 AM [facility] MONOCYTES % 7.7 % 09/12/2024 6:23 AM [facility] EOSINOPHILS 0.1 % 09/12/2024 6:23 AM [facility] BASOPHILS 0.3 % 09/12/2024 6:23 AM [facility] IMMATURE GRANS % 0.3 % 09/13/19 6:23 AM [facility] ABS. NEUTROPHILS 6.80 1.80 - 7.70 x10'3/uL 09/12/2024 6:23 AM [facility] ABS. LYMPHOCYTES 2.66 1.00 - 4.80 x10'3/uL 09/12/2024 6:23 AM [facility] ABS. MONOCYTES 0.80 0.24 - 0.86 x10'3/uL 09/12/2024 6:23 AM [facility] ABS. EOSINOPHILS 0.01(L) 0.04 - 0.36 x10'3/uL 09/12/2024 6:23 AM [facility] ABS. BASOPHILS 0.03 0.01 - 0.08 x10'3/uL 09/12/2024 6:23 AM FRENCH BINDING FOLDER [facility] ABS. IMMATURE GRANULOCYTES 0.03 0.00 - 0.49 x10'3/uL 09/12/2024 6:23 AM FRENCH BINDING FOLDER [facility] 09/12/2024 6:10 AM FRENCH BINDING FOLDER us Iris Mejía MD LABORATORY Final Result Performing Organization Address City/[facility] Co de Phone Number [facility] [address] [place] [address], [place] [phone] * TROPONIN, QUANT (09/12/2024 6:10 AM FRENCH BINDING FOLDER) TROPONIN I HIGH SENSITIVITY 4 <54 ng/L 09/12/2024 6:54 AM FRENCH BINDING FOLDER [facility] Comment: HIGH DOSES OF BIOTIN, TROPONIN-SPECIFIC AUTOANTIBODIES, AND ANTIBODY THERAPY CONTAINING HAMA MAY INTERFERE WITH THIS TEST RESULT. CORRELATION TO CLINICAL HISTORY AND PRESENTATION RECOMMENDED. 09/12/2024 6:10 AM FRENCH BINDING FOLDER Iris Mejía MD LABORATORY Final Result Performing Organization Address [facility] Co de Phone Number [facility] [address] [place] [address], [place] [phone] * MAGNESIUM (09/12/2024 6:10 AM FRENCH BINDING FOLDER) MAGNESIUM 1.8 1.8 - 2.4 MG/DL 09/12/2024 8:28 AM FRENCH BINDING FOLDER [facility] 09/12/2024 6:10 AM FRENCH BINDING FOLDER Iris Mejía MD LABORATORY Final Result Performing Organization Address City/[facility]/ZIP Co de Phone Number [facility] [address] [place] [address], * ECG 12 lead (09/12/2024 6:02 AM FRENCH BINDING FOLDER) 09/12/2024 6:02 AM FRENCH BINDING FOLDER Narrative [facility] - 09/13/2024 8:[address] [facility] [address] Test Date: 2024-09-12 Pat Name: DARRELL LEE Department: 41 Room: JAMIE Gender: Female Care Manager Cna: : [id number] Requested By: LILIYA SEVERINO Order Number: [id number] Reading MD: Nathanael Muhammad Measurements Intervals [place] Rate: 99 P: 148 NC: 143 QRS: 116 QRSD: 94 T: -31 QT: 338 QTc: 435 Interpretive Statements SINUS RHYTHM WITH OCCASIONAL VENTRICULAR PREMATURE COMPLEXES ARM LEADS REVERSED [INVERTED P AND QRS IN I] Compared to ECG 03/03/2022 09:34:53 Ventricular premature complex(es) now present T-wave abnormality no longer present CH BINDING FOLDER Procedure Note Nathanael Muhammad MD - 09/13/2024 [facility] [address] Test Date: 2024-09-12 Pat Name: DARRELL LEE Department: 41 Room: JAMIE Gender: Female Care Manager Cna: : [id number] Requested By: LILIYA SEVERINO Order Number: [id number] Reading MD: Nathanael Muhammad Measurements Intervals [place] Rate: 99 P: 148 NC: 143 QRS: 116 QRSD: 94 T: -31 QT: 338 QTc: 435 Interpretive Statements SINUS RHYTHM WITH OCCASIONAL VENTRICULAR PREMATURE COMPLEXES ARM LEADS REVERSED [INVERTED P AND QRS IN I] Compared to ECG 03/03/2022 09:34:53 Ventricular premature complex(es) now present T-wave abnormality no longer present CH BINDING FOLDER Iris Mejía MD ECG ORDERABLES Final Result [facility] ([facility] RAD * HEPATITIS C ANTIBODY (07/20/2021 8:54 AM FRENCH BINDING FOLDER) HEPATITIS C AB NON-REACTI VE NON-REACT [place] 07/20/2021 7:13 PM FRENCH BINDING FOLDER [facility] Comment: ANTIBODIES TO HCV NOT DETECTED. DOES NOT EXCLUDE THE POSSIBILITY OF EXPOSURE TO HCV. 07/20/2021 8:54 AM FRENCH BINDING FOLDER Jenn Menezes [facility] Final Resul t [facility] [address] [place] [address], [id number] from Last 3 Months or Most Recently Relevant to Health Maintenance Insurance Care Teams Security Agent Relationship Specialty Start Date End Date None, Provider, PCP - General UNKNOWN PHYSICIAN SPECIALTY 09/12/24 Duane Tamez MD [facility] [address] [address] NEUROLOGY 10/08/18 Chapin Talavera DO [address] [address] [place] Rheumatology Nurse CARDIOVASCULAR DISEASE 03/01/22
--- OUTSIDE RECORDS SUMMARY | 2024-09-13 19:55 | XMS_ITS | Encounter Summary ---
Author Organization [facility] Address [facility] [place] [address] Care Team Providers Care External Grinder Name Role Phone Jenn Menezes [facility] Primary Care Provider Duane Barker MD Unavailable [phone] Chapin Talavera DO Unavailable [phone] None, Provider Primary Care Provider Unavaila ble None, Provider Primary Care Provider Unavaila ble Cherelle Lacey MD Primary Care Provider [phone] None, Provider Primary Care Provider Unavaila ble Encounter Details Date Type Department Care Team (Late Contact Info) Description 12/02/2019 MyChart Message Enc [address] [address] Jenn Menezes MECHANICAL TECHNICIANADRIA RE: Medication Questions Social History Tobacco Use [...] Sex Assigned at Female 09/12/2024 6:33 AM MECHANICAL PROJECT ENGINEER Legal Sex Female 7:52 AM MECHANICAL PROJECT ENGINEER Gender Identity Not on file Sexual Orientation Not on file documented as of this encounter Plan of Treatment Upcoming Encounters Date Type Department Care Team (Late Contact Info) Description 03/13/2025 9:00 AM CDT Office [facility] Care - [facility] [address] [place] [address] Armani Duarte MD [address] [place] [address] documented as of this encounter Visit Diagnoses Not on filedocumented in this encounter Care Teams External Grinder Relationship Specialty Start Date End Date Jenn Menezes [facility] PCP - General NURSE PRACTITIONER 06/07/18 03/08/22 None, Provider, PCP - General UNKNOWN PHYSICIAN SPECIALTY 05/04/22 09/19/22 None, Provider, PCP - General UNKNOWN PHYSICIAN SPECIALTY 10/05/22 10/24/23 Cherelle [place] MD [address] [place] [address] [place] [address] PCP - General FAMILY PRACTICE 10/25/23 09/11/24 None, ProviderMD PCP - General UNKNOWN PHYSICIAN SPECIALTY 09/12/24 Duane T[facility]z MD [facility] [address] [address] NEUROLOGY 10/08/18 Chapin Talavera DO [facility] [address] [address] [place] Leg Breaker CARDIOVASCULAR DISEASE 03/01/22 documented as of this encounter
--- OUTSIDE RECORDS SUMMARY | 2024-09-13 19:55 | XMS_ITS | Encounter Summary ---
Author Organization [facility] Address [address] [place] [address] Care Team Providers Care Survey Researcher Name Role Phone Jenn Menezes [facility] Primary Care Provider Duane Barker MD Unavailable [phone] Chapin Talavera DO Unavailable [phone] None, Provider Primary Care Provider Unavaila ble None, Provider Primary Care Provider Unavaila ble Cherelle Lacey MD Primary Care Provider [phone] None, Provider Primary Care Provider Unavaila ble Encounter Details Date Type Department Care Team (Late st Contact Info) Description 04/13/2020 Fabbeot Message Enc [facility] [address] [address] Jenn Menezes MOVIE WRITERADRIA RE: Question Social History Tobacco Use Types [...] Sex Assigned at Female 09/12/2024 6:33 AM SET DECORATOR Legal Sex Female 7:52 AM SET DECORATOR Gender Identity Not on file Sexual Orientation [...] [facility] Multispecialty Care - [facility] [address] [place] [address] Armani Duarte MD [address] [place] [address] documented as of this encounter Visit Diagnoses Not on filedocumented in this encounter Care Teams Survey Researcher Relationship Specialty Start Date End Date Jenn Menezes [facility] PCP - General NURSE PRACTITIONER 06/07/18 03/08/22 None, Provider, PCP - General UNKNOWN PHYSICIAN SPECIALTY 05/04/22 09/19/22 None, Provider, PCP - General UNKNOWN PHYSICIAN SPECIALTY 10/05/22 10/24/23 Cherelle Lacey MD [address] [place] [address] [place] [address] PCP - General FAMILY PRACTICE 10/25/23 09/11/24 None, Provider, PCP - General UNKNOWN PHYSICIAN SPECIALTY 09/12/24 Duane Tamez MD [facility] [employer] [address] [address] NEUROLOGY 10/08/18 Chapin Talavera DO [address] [place], [place] [address] [address] [address] [place] News Gathering Technician CARDIOVASCULAR DISEASE 03/01/22 documented as of this encounter
--- OUTSIDE RECORDS SUMMARY | 2024-09-13 19:55 | XMS_ITS | Encounter Summary ---
Author Organization [facility] Address [facility] [place] [address] Care Team Providers Care Guitar Maker Hand Name Role Phone Jenn Menezes [facility] Primary Care Provider Duane Barker MD Unavailable [phone] Chapin Talavera DO Unavailable [phone] None, Provider Primary Care Provider Unavaila ble None, Provider Primary Care Provider Unavaila ble Cherelle Lacey MD Primary Care Provider [phone] None, Provider Primary Care Provider Unavaila ble Encounter Details Date Type Department Care Team (Late st Contact Info) Description 05/02/2019 EarlySenset Message Enc [facility] [address] [address] Jenn Menezes [facility] RE: RE: Question Social History Tobacco [...] Sex Assigned at Female 09/12/2024 6:33 AM SUPERVISOR ERECTION SHOP Legal Sex Female 7:52 AM SUPERVISOR ERECTION SHOP Gender Identity Not on file Sexual Orientation [...] [facility] Care - [facility] [address] [place] [address] Armani Duarte MD [address] [place] [address] documented as of this encounter Visit Diagnoses Not on filedocumented in this encounter Care Teams Guitar Maker Hand Relationship Specialty Start Date End Date Jenn Menezes [facility] PCP - General NURSE PRACTITIONER 06/07/18 03/08/22 None, ProviderMD PCP - General UNKNOWN PHYSICIAN SPECIALTY 05/04/22 09/19/22 None, ProviderMD PCP - General UNKNOWN PHYSICIAN SPECIALTY 10/05/22 10/24/23 Cherelle Lacey MD [address] [place] [address] [place] [address] PCP - General FAMILY PRACTICE 10/25/23 09/11/24 None, MD Yony PCP - General UNKNOWN PHYSICIAN SPECIALTY 09/12/24 Duane Tamez MD [address] [place] [address] NEUROLOGY 10/08/18 Chapin Talavera DO [address] [place] [address] [place] [employer] Sales Representative CARDIOVASCULAR DISEASE 03/01/22 documented as of this encounter
--- OUTSIDE RECORDS SUMMARY | 2024-09-13 19:55 | XMS_ITS | Encounter Summary ---
Author Organization [facility] Address [facility] [place] [address] Care Team Providers Care Client Analyst Name Role Phone Jenn Menezes [facility] Primary Care Provider Duane Barker MD Unavailable [phone] Chapin Talavera DO Unavailable [phone] None, Provider Primary Care Provider Unavaila ble None, Provider Primary Care Provider Unavaila ble Cherelle Lacey MD Primary Care Provider [phone] None, Provider Primary Care Provider Unavaila ble Encounter Details Date Type Department Care Team (Late Contact Info) Description 09/16/2019 MyChart Message Enc [facility] [address] [address] Jenn Menezes DINING SERVICES MANAGERADRIA RE: Follow Up/Update Social History Tobacco Use [...] Assigned at Female 09/12/2024 6:33 AM DIRECTOR EMBALMER Legal Sex Female 7:52 AM DIRECTOR EMBALMER Gender Identity Not on file Sexual Orientation Not on file documented as of this encounter Plan of Treatment Upcoming Encounters Date Type Department Care Team (Late Contact Info) Description 03/13/2025 9:00 AM CDT Office Visit [facility] Multispecialty Care - [facility] [address] [place] [address] Armani Duarte MD [address] [place] [address] documented as of this encounter Visit Diagnoses Not on filedocumented in this encounter Care Teams Client Analyst Relationship Specialty Start Date End Date Jenn Menezes [facility] PCP - General NURSE PRACTITIONER 06/07/18 03/08/22 None, Provider, PCP - General UNKNOWN PHYSICIAN SPECIALTY 05/04/22 09/19/22 None, Provider, PCP - General UNKNOWN PHYSICIAN SPECIALTY 10/05/22 10/24/23 Cherelle Lacey MD [address] [place] [address] [place] [address] PCP - General FAMILY PRACTICE 10/25/23 09/11/24 None, ProviderMD PCP - General UNKNOWN PHYSICIAN SPECIALTY 09/12/[address] [facility] [employer] [address] [address] NEUROLOGY 10/08/[address] [facility] [employer] [address] [address] [place] Manager Of It CARDIOVASCULAR DISEASE 03/01/22 documented as of this encounter
--- OUTSIDE RECORDS SUMMARY | 2024-09-13 19:55 | XMS_ITS | Encounter Summary ---
Author Organization [facility] Address [address] [place] [address] Care Team Providers Care Knife Finisher Name Role Phone Jenn Menezes [facility] Primary Care Provider Duane Barker MD Unavailable [phone] Chapin Talavera DO Unavailable [phone] None, Provider Primary Care Provider Unavaila ble None, Provider Primary Care Provider Unavaila ble Cherelle Lacey MD Primary Care Provider [phone] None, Provider Primary Care Provider Unavaila ble Encounter Details Date Type Department Care Team (Late st Contact Info) Description 03/01/2020 [employer] Message Enc [facility] Medicine [address] [address] Jenn Menezes FNP-BC RE: Medication [...] Sex Assigned at Female 09/12/2024 6:33 AM MINUTE CLERK Legal Sex Female 7:52 AM MINUTE CLERK Gender Identity Not on file Sexual [...] CARE [place] [facility] Multispecialty Care - [facility] [address] [place] [address] Armani Duarte MD [address] [place] [address] documented as of this encounter Visit Diagnoses Not on filedocumented in this encounter Care Teams Knife Finisher Relationship Specialty Start Date End Date [facility] PCP - General NURSE PRACTITIONER 06/07/18 03/08/22 None, Provider, PCP - General UNKNOWN PHYSICIAN SPECIALTY 05/04/22 09/19/22 None, Provider, PCP - General UNKNOWN PHYSICIAN SPECIALTY 10/05/22 10/24/23 Cherelle Lacey MD [address] [place] [address] [place] [address] PCP - General FAMILY PRACTICE 10/25/23 09/11/24 None, Provider, PCP - General UNKNOWN PHYSICIAN SPECIALTY 09/12/24 Duane Tamez MD [facility] [address] [address] NEUROLOGY 10/08/18 Chapin Talavera DO [address] [place], [place] [address] [address] [address] [place] Tableau Architect CARDIOVASCULAR DISEASE 03/01/22 documented as of this encounter
--- OUTSIDE RECORDS SUMMARY | 2024-09-13 19:55 | XMS_ITS | Encounter Summary ---
Author Organization [facility] Address [facility] [place] [address] Care Team Providers Care Buffing Machine Tender Name Role Phone Duane Tamez MD Unavailable [phone] Chapin Talavera DO Unavailable [phone] None, Provider Primary Care Provider Unavaila ble [...] Sex Assigned at Female 09/12/2024 6:33 AM ELEMENTARY SCHOOL REGISTRAR Legal Sex Female 7:52 AM ELEMENTARY SCHOOL REGISTRAR Gender Identity Not on file Sexual Orientation Not on file documented as of this encounter Plan of Treatment Upcoming Encounters Date Type Department Care Team (Late st Contact Info) Description 03/13/2025 9:00 AM CDT Office Visit [facility] Medical [facility] Multispecialty Care - [address] [place] [address] Armani Duarte MD [address] [facility] [address] [place] [address] documented as of this encounter Visit Diagnoses Not on filedocumented in this encounter Care Teams Buffing Machine Tender Relationship Specialty Start Date End Date None, Provider, PCP - General UNKNOWN PHYSICIAN SPECIALTY 09/12/24 Duane Tamez MD [address] [place] [address] NEUROLOGY 10/08/18 Chapin Talavera DO [address] [place], [place] [address] [address] [address] [place] Repair Order Clerk CARDIOVASCULAR DISEASE 03/01/22 documented as of this encounter
--- OUTSIDE RECORDS SUMMARY | 2024-09-13 19:55 | XMS_ITS | Referral Summary ---
Author Organization [facility] Address [address] [facility] [place] [address] Care Team Providers Care Recreation Supervisor Name Role Phone MakJenn brunson GREG-[employer] ELECTRICIAN Primary Care Provider [phone] Constantino Solis MD Unavailable Source Comments [facility],non-owned Affiliates and Associated Physician Practices is amultiple site organization consisting of ambulatory clinics and hospital sitesin [place], [place], [place] and [place]. This disclosure is being madepursuant to the Care Everywhere program and may not contain all information available regarding this patient. Last updated 18.[facility] Allergies Active Allergy Reactions Criticality Noted Date [...] fluticasone propionate (FLONASE) 50 MCG/ACT nasal spray [place] 1 spray into the nose 04/22/2019 Active [...] Comments Blood Pressure 98/78 05/30/2019 11:26 AM PELT SHEARER Pulse 91 05/30/2019 11:26 AM PELT SHEARER Temperature 36.7 C (98 F) 05/30/2019 11:26 AM PELT SHEARER Respiratory Rate 16 09/21/2017 3:54 PM CDT Oxygen Saturation 96% 05/30/2019 11:26 AM PELT SHEARER Inhaled Oxygen Concentration - - Weight 134.3 kg (296 lb) 05/30/2019 11:26 AM PELT SHEARER Height 169 cm (5' 6.54 ) 05/30/2019 11:26 AM PELT SHEARER Body Mass Index 47.01 05/30/2019 11:26 AM PELT SHEARER Plan of Treatment Not on file Care Teams Recreation Supervisor Relationship Specialty Start Date End Date Jenn Menezes APRN-CHANDRAKANT PCP - General 10/23/18 Constantino Solis MD Family Medicine 07/17/18
--- OUTSIDE RECORDS SUMMARY | 2024-09-13 19:55 | XMS_ITS | Encounter Summary ---
Author Organization [facility] - [facility] Address [facility] [place] [address] Care Team Providers Care Stock Supervisor Name Role Phone Duane Tamez MD Unavailable [phone] Chapin Talavera DO Unavailable [phone] None, Provider Primary Care Provider Unavaila ble Encounter Details Date Type Department Care Team (Late st Contact Info) Description 09/13/2024 MyChart Message Enc [facility] Medical Group Multispecialty Care - [facility] [address] [place] [id number] Armani Duarte MD [address] [place] [address] Bronchitis Social History Tobacco Use Types Packs/Day [...] Sex Assigned at Female 09/12/2024 6:33 AM CLINICAL INTERVIEWER Legal Sex Female 7:52 AM CLINICAL INTERVIEWER Gender Identity Not on file Sexual Orientation Not on file documented as of this encounter Plan of Treatment Upcoming Encounters Date Type Department Care Team (Late st Contact Info) Description 03/13/2025 9:00 AM CDT Office Visit [facility] Medical Group Multispecialty Care - [facility] [address] [place] [address] Armani Duarte MD [address] [place] [address] documented as of this encounter Visit Diagnoses Not on filedocumented in this encounter Care Teams Stock Supervisor Relationship Specialty Start Date End Date None, Provider, PCP - General UNKNOWN PHYSICIAN SPECIALTY 09/12/24 Duane Tamez MD [facility] [employer] [facility] [address] [place] [address] NEUROLOGY 10/08/18 Chapin Talavera DO [address] [employer] [facility] [address] [place] [address] [place] Camouflage Assembler CARDIOVASCULAR DISEASE 03/01/22 documented as of this encounter
--- OUTSIDE RECORDS SUMMARY | 2024-09-13 19:55 | XMS_ITS | Encounter Summary ---
Author Organization [facility] Address [address] [place] [address] Care Team Providers Care Stone Derrickman And Rigger Name Role Phone Jenn Menezes [facility] Primary Care Provider Duane Barker MD Unavailable [phone] Chapin Talavera DO Unavailable [phone] None, Provider Primary Care Provider Unavaila ble None, Provider Primary Care Provider Unavaila ble Cherelle Lacey MD Primary Care Provider [phone] None, Provider Primary Care Provider Unavaila ble Encounter Details Date Type Department Care Team (Late st Contact Info) Description 04/30/[address] [facility] Medicine [address] [address] Jenn Menezes FNP-BC RE: Medication [...] Assigned at Female 09/12/2024 6:33 AM SENIOR JAVA WEB DEVELOPER Legal Sex Female 7:52 AM SENIOR JAVA WEB DEVELOPER Gender Identity Not on file Sexual Orientation [...] 9:00 AM CDT Office Visit [facility] Multispecialty Care - [facility] [address] [place] [address] Armani Duarte MD [address] [place] [address] documented as of this encounter Visit Diagnoses Not on filedocumented in this encounter Care Teams Stone Derrickman And Rigger Relationship Specialty Start Date End Date Jenn [facility] PCP - General NURSE PRACTITIONER 06/07/18 03/08/22 None, Provider, PCP - General UNKNOWN PHYSICIAN SPECIALTY 05/04/22 09/19/22 None, Provider, PCP - General UNKNOWN PHYSICIAN SPECIALTY 10/05/22 10/24/23 Cherelle Lacey MD [address] [place] [address] [place] [address] PCP - General FAMILY PRACTICE 10/25/23 09/11/24 None, Provider, PCP - General UNKNOWN PHYSICIAN SPECIALTY 09/12/24 Duane Tamez MD [address] [place] [address] NEUROLOGY 10/08/18 Chapin Talavera DO [address] [place] [address] [place] Manager Mining CARDIOVASCULAR DISEASE 03/01/22 documented as of this encounter
--- OUTSIDE RECORDS SUMMARY | 2024-09-13 19:55 | XMS_ITS | Encounter Summary ---
Author Organization [facility] Address [facility] [place] [address] Care Team Providers Care Railroader Name Role Phone Jenn Menezes [facility] Primary Care Provider Duane Barker MD Unavailable [phone] Chapin Talavera DO Unavailable [phone] None, Provider Primary Care Provider Unavaila ble None, Provider Primary Care Provider Unavaila ble Cherelle Lacey MD Primary Care Provider [phone] None, Provider Primary Care Provider Unavaila ble Encounter Details Date Type Department Care Team (Late Contact Info) Description 05/30/2019 [employer] Message Enc [address] [address] Jenn Menezes FNP-BC RE: Medication [...] Sex Assigned at Female 09/12/2024 6:33 AM BILLING SUPERVISOR Legal Sex Female 7:52 AM BILLING SUPERVISOR Gender Identity Not on file Sexual Orientation Not on file documented as of this encounter Plan of Treatment Upcoming Encounters Date Type Department Care Team (Late Contact Info) Description 03/13/2025 9:00 AM CDT Office Visit [facility] Multispecialty Care - [facility] [address] [place] [address] Armani Duarte MD [address] [place] [address] documented as of this encounter Visit Diagnoses Not on filedocumented in this encounter Care Teams Railroader Relationship Specialty Start Date End Date [facility] PCP - General NURSE PRACTITIONER 06/07/18 03/08/22 None, Provider, PCP - General UNKNOWN PHYSICIAN SPECIALTY 05/04/22 09/19/22 None, Provider, PCP - General UNKNOWN PHYSICIAN SPECIALTY 10/05/22 10/24/23 Cherelle Lacey MD [address] [place] [address] [place] [address] PCP - General FAMILY PRACTICE 10/25/23 09/11/24 None, ProviderMD PCP - General UNKNOWN PHYSICIAN SPECIALTY 09/12/24 Duane Tamez MD [facility] [employer] [address] [address] NEUROLOGY 10/08/18 Chapin Talavera DO [facility] [employer] [address] [address] [place] Mate First CARDIOVASCULAR DISEASE 03/01/22 documented as of this encounter
[2024-09-13 20:01] LABS: Basophils Percent Auto 0.1 % (0.2-1.2); Eosinophils Percent Auto 0.1 % (0-4.4); Hematocrit 42.1 % (37.0-47.0); Hemoglobin 15.3 g/dL (12.0-15.0); Immature Granulocyte Absolute 0.05 K/mm3 (0.00-0.031); Immature Granulocyte Percent A 0.4 % (0-0.5); Lymphocytes Absolute Auto 2.55 K/mm3 (0.9-3.2); Lymphocytes Percent Auto 18.3 % (18.3-44.2); Mean Corpuscular HGB Conc 36.3 g/dl (32-36); Mean Corpuscular Hemoglobin 31.7 pg (26-34); Mean Corpuscular Volume 87.2 fl (80-100); Mean Platelet Volume 9.2 fl (7.4-10.4); Monocytes Percent Auto 6.8 % (2.6-8.5); Neutrophils Absolute Auto 10.4 K/mm3 (1.3-6.7); Neutrophils Percent Auto 74.3 % (45.5-73.1); Platelet Count Result 310 k/mm3 (150-375); Red Blood Count 4.83 M/mm3 (4.2-5.4); Red Cell Distribution Width 12.2 % (11.5-14.5); White Blood Count 13.9 K/mm3 (4.5-10.0)
[2024-09-13] MEDS: IPRATROPIUM 0.5 MG/ALBUTEROL SULFATE 2.5 MG AMPUL.NEB 3 ML INHALATION (20:01)
[2024-09-13 20:11] LABS: Prothrombin Time 13.7 Seconds (11.1-14.7)
[2024-09-13 20:12] LABS: Partial Thromboplastin Time 32.3 Seconds (22.3-36.8)
[2024-09-13 20:16] LABS: Alanine Aminotransferase 51 U/L (6-35); Albumin Level 4.7 g/dL (3.5-5.1); Alkaline Phosphatase 75 U/L (38-126); Anion Gap 12 mmol/L (4-12); Aspartate Amino Transferase 37 U/L (14-36); Blood Urea Nitrogen 6 mg/dL (7-17); Calcium 9.2 mg/dL (8.4-10.2); Carbon Dioxide 28 mmol/L (22-30); Chloride 98 mmol/L (98-107); Estimated CRCL calculation 163 ml/min; Estimated Glomerular Filt Rate > 60; Glucose 115 mg/dL (65-110); Lipase 49 U/L (23-300); Potassium 2.8 mmol/L (3.4-5.0); Sodium 138 mmol/L (137-145)
[2024-09-13] MEDS: ASPIRIN 81 MG CHEWABLE TABLET 324 MG PO (20:16)
[2024-09-13] MEDS: methylPREDNISolone SOD SUCC 125 MG VIAL IV PUSH (20:17)
[2024-09-13 20:20] LABS: Troponin I < 0.012 ng/mL (0.000-0.034)
[2024-09-13] MEDS: ALBUTEROL SULFATE NEB 2.5 MG/3 ML INH 10 MG INHALATION (21:09)
[2024-09-13] MEDS: POTASSIUM CHLORIDE 20 MEQ PACKET (FOR LIQUID) 40 MEQ PO (21:24)
[2024-09-13] MEDS: POTASSIUM CHLORIDE INJ 40 MEQ in SODIUM CHLORIDE 0.9% IV 500 ML 130 MEQ IVPB (21:25)
[2024-09-13] MEDS: SODIUM CHLORIDE 0.9% IV 500 ML 200 ML (21:26)
[2024-09-13 21:28] LABS: Influenza A QL RT-PCR Negative (Negative); Influenza B QL RT-PCR Negative (Negative); RSV RNA, RT-PCR Negative (Negative); SARS-CoV-2 RNA PCR Negative (Negative)
--- NOTE | 2024-09-13 22:41 | ECG_ITS ---
Test Date: 2024-09-13 22:50:26 Measurements Intervals [place] Rate: 87 P: 70 [place]: 139 QRS: 71 QRSD: 96 T: 29 QT: 380 QTc: 458 Interpretive Statements SINUS RHYTHM NONSPECIFIC ST & T-WAVE ABNORMALITY ABNORMAL ECG Compared to ECG 09/13/2024 19:40:00 No significant changes Electronically Signed On 09-14-2024 07:58:04 CDT by Charli Hester M.D.
[2024-09-13 23:11] LABS: Troponin I < 0.012 ng/mL (0.000-0.034)
[2024-09-13] MEDS: APIXABAN 5 MG TABLET 10 MG PO (23:59)
[2024-09-14] MEDS: AZITHROMYCIN 250 MG TABLET 500 MG PO
[2024-09-14 00:14] VITALS: BP 143/86; PULSE 80; RESP 17; O2SAT 100
[2024-09-14 01:48] VITALS: BP 141/83; PULSE 86; RESP 19; O2SAT 99
== END 2024-09-14 01:51 | disposition home or self-care (01) ==
PROVIDERS: Emergency Provider Preventive Medicine Aerospace Medicine
DX: I26.93 Single subsegmental thrombotic pulmonary embolism without acute cor pulmonale (principal); J44.1 Chronic obstructive pulmonary disease with (acute) exacerbation; R06.00 Dyspnea, unspecified; Z20.822 Contact with and (suspected) exposure to COVID-19; G40.909 Epilepsy, unspecified, not intractable, without status epilepticus; G62.9 Polyneuropathy, unspecified; K21.9 Gastro-esophageal reflux disease without esophagitis; F17.210 Nicotine dependence, cigarettes, uncomplicated; R91.8 Other nonspecific abnormal finding of lung field; R94.31 Abnormal electrocardiogram [ECG] [EKG]
CPT/HCPCS: 36415; 71046; 71275; 80053; 83690; 84484; 85025; 85610; 85730; 87637; 93005; 94640; 96365; 96366; 96375; 99284; A9270; J2919; J3480; J7040; Q9967

== ENCOUNTER 2024-09-15 12:25 | Observation (INO) | payer OTHER, SELFPAY ==
[2024-09-15] VITALS (28 sets, daily range): BP systolic 105–163; BP diastolic 56–104; PULSE 67–100; RESP 13–26; TEMP 36.4–36.7; O2SAT 88–100; BMI 36.1
--- NOTE | ~2024-09-15 | XR_ITS ---
EXAMINATION: XR chest 2V DATE: 09/15/2024 13:12 INDICATION: Shortness of breath. TECHNIQUE: Frontal and lateral views of the chest were obtained. COMPARISON: Chest 2 views 09/13/2024, chest CT 09/13/2024 FINDINGS: There are small nodules in the lower lung zones. No pleural effusion or pneumothorax. The h eart size is normal. IMPRESSION: 1. Stable small nodules in the lower lung zones, consistent with pneumonia. Reviewed, dictated and finalized at location B.
--- NOTE | ~2024-09-15 | CT_ITS ---
EXAMINATION: CTA chest PE protocol DATE: 09/15/2024 16:28 INDICATION: Chest pain and shortness of breath. TECHNIQUE: Computed tomography angiography (CTA) of the chest was performed with 100 mL Omnipaque-350 intravenous contrast timed to evaluate the pulmonary arteries. Coronal maximum intensity projection 3D-reconstructions were created by the technologist. Automated exposure control and iterative reconst ruction technique were employed. The dose-length product was 846.71 mGy-cm. COMPARISON: Chest CT 09/13/2024 FINDINGS: There are tree-in-bud opacities and centrilobular nodules involving all lobes, consistent w ith pneumonia. A calcified right lung nodule and calcified right hilar and mediastinal lymph nodes ar e consistent with old granulomatous disease. No pleural effusion. The heart size is normal. No perica rdial effusion. There is no pulmonary embolus. Calcifications in the spleen are consistent with old g ranulomatous disease. There are changes of cholecystectomy. There is cortical thinning of the kidneys . There is moderate thoracic spondylosis. IMPRESSION: 1. Multifocal pneumonia. 2. No pulmonary embolus. Reviewed, dictated and finalized at location B.
--- NOTE | 2024-09-15 12:45 | ECG_ITS ---
Test Date: 2024-09-15 12:50:42 Measurements Intervals [place] Rate: 78 P: 53 [place]: 124 QRS: 65 QRSD: 105 T: 6 QT: 389 QTc: 445 Interpretive Statements SINUS RHYTHM WITH OCCASIONAL VENTRICULAR PREMATURE COMPLEXES ST DEPRESSION, CONSIDER ISCHEMIA, INF LEADS Compared to ECG 09/13/2024 22:50:26 Ventricular premature complex(es) now present T-wave abnormality still present Inferior ischemia Electronically Signed On 09-15-2024 14:04:11 CDT by Rocael Butt M.D.
[2024-09-15 13:04] LABS: Basophils Percent Auto 0.3 % (0.2-1.2); Eosinophils Percent Auto 0.1 % (0-4.4); Hematocrit 43.9 % (37.0-47.0); Hemoglobin 15.6 g/dL (12.0-15.0); Immature Granulocyte Absolute 0.08 K/mm3 (0.00-0.031); Immature Granulocyte Percent A 0.6 % (0-0.5); Lymphocytes Absolute Auto 3.08 K/mm3 (0.9-3.2); Lymphocytes Percent Auto 22.3 % (18.3-44.2); Mean Corpuscular HGB Conc 35.5 g/dl (32-36); Mean Corpuscular Hemoglobin 31.7 pg (26-34); Mean Corpuscular Volume 89.2 fl (80-100); Mean Platelet Volume 9.1 fl (7.4-10.4); Monocytes Absolute Auto 0.9 K/mm3 (0.1-0.6); Monocytes Percent Auto 6.5 % (2.6-8.5); Neutrophils Absolute Auto 9.7 K/mm3 (1.3-6.7); Neutrophils Percent Auto 70.2 % (45.5-73.1); Platelet Count Result 371 k/mm3 (150-375); Red Blood Count 4.92 M/mm3 (4.2-5.4); Red Cell Distribution Width 12.6 % (11.5-14.5); White Blood Count 13.8 K/mm3 (4.5-10.0)
[2024-09-15 13:15] LABS: Alanine Aminotransferase 40 U/L (6-35); Albumin Level 4.5 g/dL (3.5-5.1); Alkaline Phosphatase 83 U/L (38-126); Anion Gap 10 mmol/L (4-12); Aspartate Amino Transferase 26 U/L (14-36); Bilirubin,Total 0.9 mg/dL (0.2-1.3); Blood Urea Nitrogen 6 mg/dL (7-17); Calcium 9.6 mg/dL (8.4-10.2); Carbon Dioxide 26 mmol/L (22-30); Chloride 105 mmol/L (98-107); Estimated CRCL calculation 131 ml/min; Estimated Glomerular Filt Rate > 60; Glucose 96 mg/dL (65-110); Sodium 141 mmol/L (137-145)
[2024-09-15 13:33] LABS: INR 1.4; Prothrombin Time 17.5 Seconds (11.1-14.7)
[2024-09-15 13:34] LABS: Partial Thromboplastin Time 33.8 Seconds (22.3-36.8)
[2024-09-15 13:42] LABS: Influenza A QL RT-PCR Negative (Negative); Influenza B QL RT-PCR Negative (Negative); RSV RNA, RT-PCR Negative (Negative); SARS-CoV-2 RNA PCR Negative (Negative)
[2024-09-15 13:46] LABS: D Dimer 0.45 ug/mL (<0.48)
[2024-09-15] MEDS: POTASSIUM CHLORIDE 20 MEQ ER TABLET 40 MEQ PO (14:05)
--- OUTSIDE RECORDS SUMMARY | 2024-09-15 14:18 | XMS_ITS | Data Portability ---
Author Organization [facility] [employer], Main Office Address [address] [place] [address] Assessment Encounter Date Assessment Date Assessment LastModified by Organization Details LastModified Time 04/06/2023 04/06/2023 CT and ultrasound performed-hia tyrone hernia [email or web address] Not available 04/06/2023 13:00:07 Plan of Treatment Reminders Order Date Submit Date Provider Last Modified By Organization Details Last Modified Time Details Appointments None recorded. Lab magnesium, serum or plasma [address] (Lab), [address] [place], [address], 4 10:17:32 vitamin B12, serum [address] (Lab), [address] [place], [address], 4 10:17:45 folate, serum [address] (Lab), [address] [place], [address], 4 10:17:59 ferritin, serum or plasma [address] (Lab), [address] [place], [address], 4 10:18:11 iron + total iron-bindin g capacity (TIBC), serum [address] (Lab), [address] [place], [address], 4 10:18:26 CBC w/ auto diff [email or web address] (Lab), [address] [place], [address], 4 10:18:37 TSH, serum or plasma [email or web address] (Lab), [address] [place], [address], 4 10:18:49 lipid panel, serum [email or web address] [place] [address] (Lab), [address] [place], [address], 3 09:18:20 CMP, serum or plasma [email or web address] (Lab), [address] [place], [address], 3 09:17:58 HbA1c (hemoglobin A1c), blood [email or web address] (Lab), [address] [place], [address], 3 09:18:09 Referral gastroenter ologist referral 2022 023 [email or web address] [place], [address] [address], [address], [place], [address], 4 09:55:55 gastroenter ologist referral 2022 023 [email or web address] 3 [place], [address] [address], [address], [place], [address], 3 07:33:57 neurologist referral 2022 023 [email or web address] Marcin Donaldson, [address] [place], [address], 3 18:53:44 Procedures None recorded. Surgeries None recorded. Imaging None recorded. Medication Orders ropinirole 0.5 mg tablet 2023 024 [id number], [address], [place], [address], 4 10:07:36 prednisone 20 mg tablet 2023 024 [id number], [address], [place], [address], 4 10:07:36 Claritin 10 mg tablet 2022 023 [id number], [address], [place], [address], 3 08:46:25 Reglan 10 mg tablet 2022 023 [id number], [address], [place], [address], 3 15:17:44 famotidine 40 mg tablet 2022 023 [facility], [address], [place], [address], 3 15:17:44 ondansetron 8 mg disintegrat ing tablet 2022 023 [facility], [address], [place], [address], 3 08:42:59 gabapentin 600 mg tablet 2022 023 [id number], [address], [place], [address], 3 09:01:10 Valtrex 1 gram tablet 2022 023 [email or web address] 1 [facility] #[id number], [address], [place], [address], 3 09:44:34 omeprazole 40 mg capsule,del ayed release 2022 023 [facility], [address], [place], [address], 3 09:01:09 ondansetron 8 mg disintegrat ing tablet 2022 023 [id number], [address], [place], [address], 3 09:01:09 divalproex ER 500 mg tablet,exte nded release 24 hr 2022 023 [id number], [address], [place], [address], 3 09:01:11 Patient TargetsNo targets recorded. Patient InstructionsNo instructions recorded. Reason for Referral Neurologist Referral for Epi lepsy Referring Physician: [facility], Encounter Date: 11/22/2022 [facility] Referral for Hiatal hernia Referring Physician: [facility] Lopez [facility], Encounter Date: 04/06/2023 [facility] Referral for Hiatal hernia Referring Physician: [facility], Encounter Date: 05/24/2023 Results Created Date Observation Date Name Description Value Unit Range Abnormal Flag Note LastModifiedBy Organization Detail LastModifiedTime 09/19/19 24 09/19/2023 CBC/C OMPLE TE BLD COUNT W/DIF F white blood cells 8.3 x10'3 /uL 4.2-10 .8 Not Available [facility] (Lab) [address] [place], [address], 09/19/2023 19:10:21 09/19/19 24 09/19/2023 CBC/C OMPLE TE BLD COUNT W/DIF F red blood cells 4.55 x10'6 /uL 3.80-5 .20 Not Available [facility] (Lab) [address] [place], [address], 09/19/2023 19:10:21 09/19/19 24 09/19/2023 CBC/C OMPLE TE BLD COUNT W/DIF F hemoglobin 14.9 g/dL 12.0-1 5.6 Not Available [facility] (Lab) [address] [place], [address], 09/19/2023 19:10:21 09/19/19 24 09/19/2023 CBC/C OMPLE TE BLD COUNT W/DIF F hematocrit 43.2 % 35.7-4 5.7 Not Available [facility] (Lab) [address] [place], [address], 09/19/2023 19:10:21 09/19/19 24 09/19/2023 CBC/C OMPLE TE BLD COUNT W/DIF F mean red cell volume 94.9 fL 82.0-9 9.0 Not Available [facility] (Lab) [address] [place], [address], 09/19/2023 19:10:21 09/19/19 24 09/19/2023 CBC/C OMPLE TE BLD COUNT W/DIF F mean red cell hemoglobin 32.7 pg 27.0-3 3.0 Not Available [facility] (Lab) [address] [place], [address], 09/19/2023 19:10:21 09/19/19 24 09/19/2023 CBC/C OMPLE TE BLD COUNT W/DIF F mean RBC HGB concentratio n 34.5 g/dL 31.0-3 6.0 Not Available [facility] (Lab) [address] [place], [address], 09/19/2023 19:10:21 09/19/19 24 09/19/2023 CBC/C OMPLE TE BLD COUNT W/DIF F red cell distribution width 12.1 % 11.8-1 5.5 Not Available [facility] (Lab) [address] [place], [address], 09/19/2023 19:10:21 09/19/19 24 09/19/2023 CBC/C OMPLE TE BLD COUNT W/DIF F platelets 296 x10'3 /uL 150-40 0 Not Available [facility] (Lab) [address] [place], [address], 09/19/2023 19:10:21 09/19/19 24 09/19/2023 CBC/C OMPLE TE BLD COUNT W/DIF F mean platelet volume 10.3 fL 9.0-12 .4 Not Available [facility] (Lab) [address] [place], [address], 09/19/2023 19:10:21 09/19/19 24 09/19/2023 CBC/C OMPLE TE BLD COUNT W/DIF F neutrophils 58.8 % 39.0-7 2.0 Not Available [facility] (Lab) [address] [place], [address], 09/19/2023 19:10:21 09/19/1909/19/2023 CBC/C OMPLE TE BLD COUNT W/DIF F lymphocytes 32.1 % 16.0-4 7.0 Not Available [facility] (Lab) [address] [place], [address], 09/19/2023 19:10:21 09/19/19 24 09/19/2023 CBC/C OMPLE TE BLD COUNT W/DIF F monocytes 7.1 % 5.0-12 .0 Not Available [facility] (Lab) [address] [place], [address], 09/19/2023 19:10:21 09/19/19 24 09/19/2023 CBC/C OMPLE TE BLD COUNT W/DIF F eosinophils 1.2 % 1.0-7. 0 Not Available [facility] (Lab) [address] [place], [address], 09/19/2023 19:10:21 09/19/1909/19/2023 CBC/C OMPLE TE BLD COUNT W/DIF F basophils 0.6 % 0.0-2. 0 Not Available [facility] (Lab) [address] [place], [address], 09/19/2023 19:10:21 09/19/1909/19/2023 CBC/C OMPLE TE BLD COUNT W/DIF F immature granulocytes 0.2 % 0.00-0 .50 Not Available [facility] (Lab) [address] [place], [address], 09/19/2023 19:10:21 09/19/19 24 09/19/2023 CBC/C OMPLE TE BLD COUNT W/DIF F neutrophils, absolute count 4.89 x10'3 /uL 1.5-8. 0 Not Available [facility] (Lab) [address] [place], [address], 09/19/2023 19:10:21 09/19/19 24 09/19/2023 CBC/C OMPLE TE BLD COUNT W/DIF F lymphocytes, absolute count 2.67 x10'3 /uL 1.07-3 .43 Not Available [facility] (Lab) [address] [place], [address], 09/19/2023 19:10:21 09/19/19 24 09/19/2023 CBC/C OMPLE TE BLD COUNT W/DIF F monocytes, absolute count 0.59 x10'3 /uL 0.29-0 .99 Not Available [facility] (Lab) [address] [place], [address], 09/19/2023 19:10:21 09/19/19 24 09/19/2023 CBC/C OMPLE TE BLD COUNT W/DIF F eosinophils, absolute count 0.10 x10'3 /uL 0.02-0 .53 Not Available [facility] (Lab) [address] [place], [address], 09/19/2023 19:10:21 09/19/19 24 09/19/2023 CBC/C OMPLE TE BLD COUNT W/DIF F basophils, absolute count 0.05 x10'3 /uL 0.01-0 .08 Not Available [facility] (Lab) [address] [place], [address], 09/19/2023 19:10:21 09/19/19 24 09/19/2023 CBC/C OMPLE TE BLD COUNT W/DIF F immature granulocytes ,absolute 0.02 x10'3 /uL 0.00-0 .05 Not Available [facility] (Lab) [address] [place], [address], 09/19/2023 19:10:21 09/19/19 24 09/19/2023 CBC/C OMPLE TE BLD COUNT W/DIF F nucleated red blood cells 0.0 % -0 Not Available [facility] (Lab) [address] [place], [address], 09/19/2023 19:10:21 09/19/19 24 09/19/2023 CBC/C OMPLE TE BLD COUNT W/DIF F NRBC# 0.00 x10'3 /uL Not Available [facility] (Lab) [address] [place], [address], 09/19/2023 19:10:21 09/19/19 24 09/19/2023 IRON/ TIBC PANEL total iron binding capacity 332 mcg/d L 265-47 5 Not Available [facility] (Lab) [address] [place], [address], 09/19/2023 19:34:46 09/19/19 24 09/19/2023 IRON/ TIBC PANEL % transferrin saturation 26 % 20-55 Not Available [facility] (Lab) [address] [place], [address], 09/19/2023 19:34:46 09/19/19 24 09/19/2023 IRON/ TIBC PANEL unsaturated iron bind capacity 247 mcg/d L 126-38 2 Not Available [facility] (Lab) [address] [place], [address], 09/19/2023 19:34:46 09/19/19 24 09/19/2023 IRON/ TIBC PANEL iron 85 mcg/d L 42-175 Not Available [facility] (Lab) [address] [place], [address], 09/19/2023 19:34:46 09/19/19 24 09/19/2023 MAGNE SIUM magnesium 1.7 mg/dL 1.6-2. 3 Not Available [facility] (Lab) [address] [place], [address], 09/19/2023 19:34:14 09/19/19 24 09/19/2023 TSH thyroid-stim ulating hormone 2.360 uIU/m L 0.465- 4.680 Not Available [facility] (Lab) [address] [place], [address], 09/19/2023 19:57:17 09/19/19 24 09/19/2023 ROSALIO TIN ferritin 11 NG/mL 6.24-1 37 Not Available [facility] (Lab) [address] [place], [address], 09/19/2023 19:58:37 09/19/19 24 09/19/2023 VITAM IN B12 (ANDRZEJ JENNIFER ) vb12 347 pg/mL 239-93 1 Not Available [facility] (Lab) [address] [place], [address], 09/19/2023 20:23:46 09/19/19 24 09/19/2023 FOLAT E, SERUM /PLAS MA folate 4.80 NG/mL 2.76-2 0.0 Not Available [facility] (Lab) [address] [place], [address], 09/19/2023 20:23:51 11/05/19 24 11/05/2023 XR, finge r(s) No observ ation record ed. [address], [place], [address], 11/24/2023 11:51:05 Result Notes None recorded. Problems Name Problem SNOMED Code Status Onset Date Resolution Date Notes Provider Name and Address Organization Details Recorded Time Chronic obstructiv e pulmonary disease 96645751 Active Not Available [facility] 3 16:30:22 Amenorrhea 32206868 Active Not Available [employer] 3 16:30:22 History of alcoholism 912842945 Active 2018 Not Available [employer] 3 16:30:22 Morbid obesity 148621130 Active Not Available [employer] 3 16:30:22 Hirsutism 300279293 Active Not Available [facility] 3 16:30:22 Intolerant of heat 51695415 Active Not Available [facility] 3 16:30:22 Irregular periods 20507525 Active Not Available [facility] 3 16:30:22 Palpitatio ns 92048821 Active Not Available [facility] 3 16:30:22 Epilepsy 08084375 Active Not Available [employer] 3 16:30:22 Tobacco dependence syndrome 46763076 Active Not Available [facility] 3 16:30:22 Gastroesop hageal reflux disease 208709648 Active 2022 THANH Mackenzie [address], [address], [place], [address] , [employer] 3 08:53:12 Chronic low back pain 136496492 Active 2022 THANH Mackenzie [address], [address], [place], [address] , [employer] 3 08:56:27 Herpes zoster 7338200 Active 2022 THANH Mackenzie [address], [address], [place], [address] , [employer] 3 09:23:11 Asthma 780440852 Active 2022 THANH Mackenzie [address], [address], [place], [address] , [employer] 3 09:46:08 Seasonal allergy 544418609 Active 2022 THANH Mackenzie [address], [address], [place], [address] , [employer] 3 09:59:25 Insomnia 756334307 Active 2022 THANH Mackenzie [address], [address], [place], [address] , [employer] 3 08:36:57 Impacted cerumen in left ear 8070921142227 101 Active 2022 THANH Mackenzie [address], [address], [place], [address] , [employer] 3 08:50:13 Hiatal hernia 35440094 Active 2022 RANJITH Tadeo [address], [address], [place], [address] , [employer] 3 12:39:26 Lateral epicondyli tis of left humerus 5558823665665 00 Active 2023 Cherelle Lacey MD [address] [facility], [place] [address], [place], [address] , [facility] [email or web address] [facility] 4 10:03:57 Restless legs 40711804 Active 2023 Cherelle Lacey MD [address] [facility], [place] [address], [place], [address] , [facility] [email or web address] [facility] 4 10:04:28 Problem Notes None recorded. Procedures Surgical History Date Name Laterality Status Provider Name and Address Organization Details Recorded Time 01/18/20 Ear Irrigation completed THANH Mackenzie [address] [facility], [place] [address], [place], [address], [facility] [email or web address] [facility] 01/17/2023 08:51:34 repair of tendon completed Nathalia Rodriguez RN [facility] [email or web address] [facility] 11/22/2022 08:36:29 Tubal Ligation completed Nathalia Rodriguez RN [facility] [email or web address] [facility] 11/22/2022 08:36:38 Cholecystectomy completed Nathalia Rodriguez RN [facility] [email or web address] [facility] 11/22/2022 08:36:46 tonsilectomy/adenoi ds completed Nathalia Rodriguez RN [facility] [email or web address] [facility] 11/22/2022 08:36:54 Imaging Results Imaging Date Name Status LastModified by Organiz ation Details LastModified Time 11/05/2023 XR, finger(s) completed [address] [place] [address] [address], [place], [address], 11/24/2023 11:51:05 Procedure Notes None recorded. Medical Equipment None Reported. Allergies Allergen ID Allergen Name Allergen Category Reaction Reaction Severity Criticality Documentation Date Start Date Code Code System Note Provider Name and Address Organization Details Recorded Time 81032 Product containin g penicilli n (product) medicatio n anaphylax is severe Not available 09/06/2022 71401 8001 SNOMED Not Available [facility] 16:31:41 96941 naproxen medicatio n other Not available Not available 09/06/2022 7258 RxNorm Not Available [facility] 3 16:31:41 64763 Cipro medicatio n hives moderate Not available 09/06/202221012 3 RxNorm Not Available [facility] 3 16:31:41 91310 Biaxin medicatio n nausea moderate Not available 09/06/202243201 9 RxNorm Not Available [facility] 3 16:31:41 Medications Name Sig Start Date [...] MOUTH ONCE DAILY *MD NOT ENROLLED IN [facility] MEDICAID PROGRAM* active Not Available Not Available No t Available Vitals Date Recorded Body weight Body temperature Oxygen saturation Oxygen saturation in Arterial blood by Pulse oximetry Heart rate Body mass index (BMI) Body height Systolic blood pressure Diastolic blood pressure Provider Name and Address Organization Details Last Updated DateTime 3 970357. 54 g 98.9 [degF] 95 % 95 % 83 /min 37.1 kg/m2 172.72 cm 128 mm[Hg] 74 mm[Hg] Nathalia Rodriguez RN [facility] [employer] 3 08:30:44 Date Recorded Body height Body mass index (BMI) Body weight Body temperature Oxygen saturation Oxygen saturation in Arterial blood by Pulse oximetry Heart rate Systolic blood pressure Diastolic blood pressure Provider Name and Address Organization Details Last Updated DateTime 3 172.72 cm 36 kg/m2 562168. 39 g 97.2 [degF] 98 % 98 % 96 /min 136 mm[Hg] 70 mm[Hg] Joanna Romano CMA [facility] [email or web address] 3 08:31:52 Date Recorded Body height Body mass index (BMI) Body weight Body temperature Heart rate Oxygen saturation Oxygen saturation in Arterial blood by Pulse oximetry Systolic blood pressure Diastolic blood pressure Provider Name and Address Organization Details Last Updated DateTime 3 172.72 cm 35.3 kg/m2 288356. 43 g 99.2 [degF] 74 /min 98 % 98 % 142 mm[Hg] 82 mm[Hg] Shanique Arana RN [facility] [employer] [facility] 3 12:31:17 Date Recorded Body height Body mass index (BMI) Body weight Body temperature Heart rate Oxygen saturation Oxygen saturation in Arterial blood by Pulse oximetry Systolic blood pressure Diastolic blood pressure Provider Name and Address Organization Details Last Updated DateTime 3 172.72 cm 35.3 kg/m2 500418. 43 g 98 [degF] 87 /min 98 % 98 % 126 mm[Hg] 78 mm[Hg] Radha Mcmillan CNA [facility] [employer] [facility] 3 08:29:31 Date Recorded Body height Body mass index (BMI) Body weight Body temperature Heart rate Oxygen saturation Oxygen saturation in Arterial blood by Pulse oximetry Systolic blood pressure Diastolic blood pressure Provider Name and Address Organization Details Last Updated DateTime 4 172.72 cm 35.3 kg/m2 216545. 43 g 98.2 [degF] 82 /min 96 % 96 % 130 mm[Hg] 82 mm[Hg] Leonides Cruz RN [facility] [employer] [facility] 4 09:51:24 Social History Question Answer Notes LastModified by Organizat ion Details LastModified Time Tobacco Smoking Status Current Every Day Smoker Nathalia Rodriguez RN [facility], [facility] [employer] [facility] 11/22/2022 08:35:52 What Is Your Level Of [...] Anxious, Or Unable To Sleep At Night)? [id number] Information not available 11/22/2022 Do You Use [...] SNOMED-CT Code Diagnosis ICD10 Code Diagnosis Note [id number] THANH Mackenzie [facility] [address] [place] [address] 11/22/2022 08:23:21 11/22/2022 09:10:56 Gastroesophageal reflux disease 602870986 K21.9 Endoscopy/ Colonoscop y done approx. 1-2 years ago, states all normal.Dis cussed diet, specifical ly cutting back on excessive amount of soda that is most likely contributi ng to symptoms. Will continue PPI. Epilepsy 87500837 G40.90 9 States she gets epileptic seizures. Has been ongoing problem for years.Will get her establishe d with new neurologis t. Chronic low back pain 27 9307821 M54.50 Gets associated neuropathy in both legs on occasion.C ontinue gabapentin 600mg BID. Herpes zoster 6176149 B0 2.9 Previous outbreak of shingles, spots are popping up in same area.Will start course of valtrex. Asthma 822525284 J45.90 9 Followed by pulmonolog y. [id number] THANH Mackenzie [facility] Primary [facility] [address] [facility] [address] [place] [address] 01/17/2023 08:27:34 01/17/2023 11:22:04 Adult health examination 194469792 Z00.00 Will get routine labs today. Covid vaccines- declinesFl u vaccine- declinesTe tanus vaccine- 2021 Pap- 16-17 years ago; recommende d, declines todayColon oscopy- recommende d age 43Mammogra m- recommende d age 38 Recommende d routine eye exams and dental cleanings (no teeth). Insomnia 237568715 G47.0 9 Discussed good sleep hygiene. She has not tried any otc medication s for sleep. Advised she try natural remedies, work on establishi ng better sleep routine. If no improvemen t, then will consider pharmacolo gic alternativ es. Gastroesop hageal reflux disease 483628438 K21.9 Stable. Continue current medication s. 11/22/22: Endoscopy/ Colonoscop y done approx. 1-2 years ago, states all normal.Dis cussed diet, specifical ly cutting back on excessive amount of soda that is most likely contributi ng to symptoms. Will continue PPI. Diabetes m ellitus screening 634628748 Z13.1 Hyperlipid emia screening 753439246 Z13.220 Impacted c erumen in left ear 2829944070 723654 H61.22 Irrigation completed in office, pt. tolerated well. [id number] RANJITH Tadeo [facility] Primary [facility] [address] [facility] [address] [place] [address] 04/06/2023 12:19:35 04/06/2023 15:43:18 Hiatal hernia 74728236 K44.9 diagnosed with severe GERD in the past(appro x 5 years ago)- was prescribed omeprazole Has noted vomiting spells starting 3 weeks ago-last for multiple hourssecon d episode woke her up out of her sleep-last ed again for multiple hoursF/u with [facility] ER-CT and ultrasound performed- hiatal herniaNote s taking zofran for the last year 1-2 times/dayt elijah has had 4 crackers, half a sandwich-a lready notes feeling full/nause ousencoura ged soup/full liquid diet for the next couple dayswill trial reglan and famotidine for symptoms, discourage d from using zofranWill give referral to gastro [id number] RANJITH Tadeo [facility] Primary [facility] [address] [facility] [address] [place] [address] 05/24/2023 08:17:06 05/24/2023 11:14:16 Impacted cerumen in left ear 4001323300 861818 H61.22 -Pt recently went to the and-dx with cerumen impaction and Otitis-she was given claritin-D and prednisone , meds completed- pt notes full resolution of her symptoms-s cript for claritin given-disc ussed safe use of decongesta nts in the future Hiatal hernia 85297794 K 44.9 -Pt did not get call from referral-r eferral updated, informatio n provided [id number] Cherelle Lacey MD [facility] Primary Care [facility] [address] [facility] [address] [place] [address] 09/19/2023 09:45:30 09/19/2023 11:50:36 Lateral epicondylitis of left humerus 5389985262 44189 M77.12 heat, gentle stretching prednisone 40 mg daily x 5 days with food, avoid other nsaidsorth o referral if no improvemen t in 1 week or sooner if needed Restless legs 08986817 G 25.81 has failed gabapentin trial of [...] Diaz Member ID Guarantor Name 11/22/2022 1 [facility] (MEDICAID HMO) [id number] 0003 Linda Del Rosario [id number] Linda Del Rosario 01/17/2023 1 [facility] (MEDICAID HMO) [id number] 0003 Linda Del Rosario [id number] Linda Del Rosario 04/06/2023 1 [facility] (MEDICAID HMO) [id number] 0003 Linda Del Rosario [id number] Linda Del Rosario 05/24/2023 1 [facility] (MEDICAID HMO) [id number] 0003 Linda Del Rosario [id number] Linda Del Rosario 09/19/2023 1 [facility] (MEDICAID HMO) [id number] 0003 Linda Del Rosario [id number] Linda Del Rosario Notes Date Note Type [...] been diagnosed with asthma. She is seeing control room agent (Dr. Armani Duarte). She is on Trelegy, albuterol/Duonebs, Singulair and flonase.-She struggles with drinking Pepsi, drinks about a 12 pack a day, states it has been a problem for years. Working on cutting back. THANH Mackenzie [address], [place], [address], [employer] 11/22/2022 09:47:17 01/17/2023 text/html Pt. here for annual physical.She states she has has trouble with sleeping. States she has trouble falling and staying asleep. Denies any changes in environment or stress. THANH Mackenzie [address], [place], [address], [employer] 01/17/2023 09:22:01 04/06/2023 text/html Pt was recently in the ERx2 for nausea/vomiting RANJITH Tadeo [address], [place], [address], [employer] 04/06/2023 15:18:35 05/24/2023 text/html Pt is here to f/ u for left ear cerumen impaction RANJITH Tadeo [address], [place], [address], [facility] [employer] [facility] 05/24/2023 08:47:12 09/19/2023 text/html here c/o numbnes [...] has h/o seizures and has neurology in [place]. Cherelle Lacey MD [address] [facility] [facility] [address], [place], [address], [facility] [employer] [facility] [employer] [facility] 10/07/2023 07:32:34 OBGyn Episode No OBEpisode recorded.
--- OUTSIDE RECORDS SUMMARY | 2024-09-15 14:18 | XMS_ITS | Encounter Summary ---
Author Organization [facility] Address [facility] [place] [address] Care Team Providers Care Ambulatory Technologist Name Role Phone Jenn Menezes GIVER- Primary Care Provider Duane Barker MD Unavailable [phone] Chapin Talavera DO Unavailable [phone] None, Provider Primary Care Provider Unavaila ble None, Provider Primary Care Provider Unavaila ble Cherelle Lacey MD Primary Care Provider [phone] None, Provider Primary Care Provider Unavaila ble Encounter Details Date Type Department Care Team (Late st Contact Info) Description 08/29/2021 MyChart Message Enc [facility] Medical Group Family Medicine [address] [address] Jenn Menezes GIVER-BC Left Index Finger laceration Social History Tobacco [...] Sex Assigned at Female 09/12/2024 6:33 AM PSYCHIATRIC CLINICAL NURSE SPECIALIST Legal Sex Female 7:52 AM PSYCHIATRIC CLINICAL NURSE SPECIALIST Gender Identity Not on file Sexual Orientation Not on file documented as of this encounter Plan of Treatment Upcoming Encounters Date Type Department Care Team (Late Contact Info) Description 10/17/2024 1:40 PM CDT [facility] [address] [facility] [place] [address] Armani Duarte MD [address] [facility] [address] [place] [address] 03/13/2025 9:00 AM CDT [facility] [address] [place] [address] Armani Duarte MD 3 [facility] [address] [place] [address] documented as of this encounter Visit Diagnoses Not on filedocumented in this encounter Care Teams Ambulatory Technologist Relationship Specialty Start Date End Date Jenn Menezes [facility] PCP - General NURSE PRACTITIONER 06/07/18 03/08/22 None, ProviderMD PCP - General UNKNOWN PHYSICIAN SPECIALTY 05/04/22 09/19/22 None, ProviderMD PCP - General UNKNOWN PHYSICIAN SPECIALTY 10/05/22 10/24/23 Cherelle Lacey MD [address] [place] [address] [place] [address] PCP - General FAMILY PRACTICE 10/25/23 09/11/24 None, ProviderMD PCP - General UNKNOWN PHYSICIAN SPECIALTY 09/12/24 Duane Tamez MD [address] [place] [address] NEUROLOGY 10/08/18 Chapin Talavera DO [address] [place] [address] [place] Marine Equipment Engineer CARDIOVASCULAR DISEASE 03/01/22 documented as of this encounter
--- OUTSIDE RECORDS SUMMARY | 2024-09-15 14:18 | XMS_ITS | Encounter Summary ---
Author Organization [facility] Address On license of [facility] [place] [address] Care Team Providers Care Masonry Installer Name Role Phone Duane Tamez MD Unavailable [phone] Chapin Talavera DO Unavailable [phone] None, Provider Primary Care Provider Unavaila ble Cherelle Lacey MD Primary Care Provider [phone] None, Provider Primary Care Provider Unavaila ble Encounter Details Date Type Department Care Team (Late st Contact Info) Description 12/06/2022 Channel Mentor IT Message Enc [facility] Medical Group [address] [address] [facility] Provider appointment needed Social History Tobacco Use [...] Sex Assigned at Female 09/12/2024 6:33 AM TUNNEL DRIER OPERATOR Legal Sex Female 7:52 AM TUNNEL DRIER OPERATOR Gender Identity Not on file Sexual Orientation Not on file documented as of this encounter Plan of Treatment Upcoming Encounters Date Type Department Care Team (Late st Contact Info) Description 10/17/2024 1:40 PM CDT [facility] [address] [facility] [place] [address] Armani Duarte MD 3 [facility] [address] [place] [address] 03/13/2025 9:00 AM CDT [facility] [address] [facility] [place] [address] Armani Duarte MD 3 [facility] [address] [place] [address] documented as of this encounter Visit Diagnoses Not on filedocumented in this encounter Care Teams Masonry Installer Relationship Specialty Start Date End Date None, ProviderMD PCP - General UNKNOWN PHYSICIAN SPECIALTY 10/05/22 10/24/23 Cherelle Lacey MD [address] [place] [address] [place] [address] PCP - General FAMILY PRACTICE 10/25/23 09/11/24 None, MD Yony PCP - General UNKNOWN PHYSICIAN SPECIALTY 09/12/24 Duane Tamez MD [facility] [employer] [address] [address] NEUROLOGY 10/08/18 Chapin Talavera DO [address] [place], [place] [address]i[employer]er [address] [address] [employer] CARDIOVASCULAR DISEASE 03/01/22 documented as of this encounter
--- OUTSIDE RECORDS SUMMARY | 2024-09-15 14:18 | XMS_ITS | Encounter Summary ---
Author Organization [facility] Address [address] [place] [address] Care Team Providers Care Greige Goods Marker Name Role Phone MaknannetteJenn [facility] Primary Care Provider Duane Barker MD Unavailable [phone] Chapin Talavera DO Unavailable [phone] None, Provider Primary Care Provider Unavaila ble None, Provider Primary Care Provider Unavaila ble Cherelle Lacey MD Primary Care Provider [phone] None, Provider Primary Care Provider Unavaila ble Encounter Details Date Type Department Care Team (Late st Contact Info) Description 02/25/2021 [employer] USA[employer] Message Enc [facility] Medicine [address] [address] Mychart, [facility] Provider NEED APPOINTMENT AND LABS Social [...] Sex Assigned at Female 09/12/2024 6:33 AM BARBERING INSTRUCTOR Legal Sex Female 7:52 AM BARBERING INSTRUCTOR Gender Identity Not on file Sexual Orientation Not on file documented as of this encounter Plan of Treatment Upcoming Encounters Date Type Department Care Team (Late st Contact Info) Description 10/17/2024 1:40 PM CDT [facility] [address] [facility] [place] [address] Armani Duarte MD [address] [facility] [address] [place] [address] 03/13/2025 9:00 AM CDT [facility] [address] [facility] [place] [address] Armani Duarte MD [address] [facility] [address] [place] [address] documented as of this encounter Visit Diagnoses Not on filedocumented in this encounter Care Teams Greige Goods Marker Relationship Specialty Start Date End Date eJnn Menezes [facility] PCP - General NURSE PRACTITIONER 06/07/18 03/08/22 None, ProviderMD PCP - General UNKNOWN PHYSICIAN SPECIALTY 05/04/22 09/19/22 None, ProviderMD PCP - General UNKNOWN PHYSICIAN SPECIALTY 10/05/22 10/24/23 Cherelle Lacey MD [address] [place] [address] [place] [address] PCP - General FAMILY PRACTICE 10/25/23 09/11/24 None, ProviderMD PCP - General UNKNOWN PHYSICIAN SPECIALTY 09/12/24 Duane Tamez MD [facility] [employer] [address] [address] NEUROLOGY 10/08/18 Chapin Talavera DO [facility] [employer] [address] [address] [place] [employer] X Ray Operator CARDIOVASCULAR DISEASE 03/01/22 documented as of this encounter
--- OUTSIDE RECORDS SUMMARY | 2024-09-15 14:18 | XMS_ITS | Encounter Summary ---
Author Organization [facility] Address [address] [place] [address] Care Team Providers Care Lead Mason Tender Name Role Phone Duane Tamez MD Unavailable [phone] Chapin Talavera DO Unavailable [phone] None, Provider Primary Care Provider Unavaila ble Cherelle Lacey MD Primary Care Provider [phone] None, Provider Primary Care Provider Unavaila ble Encounter Details Date Type Department Care Team (Late st Contact Info) Description 01/03/2023 MyChart Message Enc [facility] Medical [facility] - [facility] [address] [place], [place] [address] [facility], [facility] Provider Air Quality Message Social History Tobacco [...] Assigned at Female 09/12/2024 6:33 AM RADIO MECHANIC Legal Sex Female 7:52 AM RADIO MECHANIC Gender Identity Not on file Sexual Orientation Not on file documented as of this encounter Plan of Treatment Upcoming Encounters Date Type Department Care Team (Late st Contact Info) Description 10/17/2024 1:40 PM CDT [facility] [address] [place] [address] Armani Duarte MD [address] [facility] [address] [place] [address] 03/13/2025 9:00 AM CDT [facility] [address] [place] [address] Armani Duarte MD [address] [facility] [address] [place] [address] documented as of this encounter Visit Diagnoses Not on filedocumented in this encounter Care Teams Lead Mason Tender Relationship Specialty Start Date End Date None, Provider, PCP - General UNKNOWN PHYSICIAN SPECIALTY 10/05/22 10/24/23 Cherelle Lacey MD [address] [place] [address] [place] [address] PCP - General FAMILY PRACTICE 10/25/23 09/11/24 None, MD Yony PCP - General UNKNOWN PHYSICIAN SPECIALTY 09/12/24 Duane Tamez MD [facility] [place] [address] [address] NEUROLOGY 10/08/18 Chapin Talavera DO [address] [place], [place] [address] [address] [place] [facility] CARDIOVASCULAR DISEASE 03/01/22 documented as of this encounter
--- OUTSIDE RECORDS SUMMARY | 2024-09-15 14:18 | XMS_ITS | Encounter Summary ---
Author Organization [facility] Address [address] [place] [address] Care Team Providers Care Gambreler Helper Name Role Phone Carlita Landa MD Primary Care Provider Unavailab Ti Levine MD Primary Care Provider + Jenn Menezes [facility] Primary Care Provider Unav Duane Finch MD Unavailable [phone] Chapin Talavera DO Unavailable [phone] None, Provider Primary Care Provider Unavaila ble None, Provider Primary Care Provider Unavaila ble Cherelle Lacey MD Primary Care Provider [phone] None, Provider Primary Care Provider Unavaila ble Encounter Details Date Type Department Care Team (Late st Contact Info) Description 02/25/2014 Abstract [facility] Conversion , Generic Conversion, Social History Tobacco Use Types Packs/Day Years Used Date Smoking Tobacco: Never Assessed Comments Unknown Sex and Gender Information Value Date Recorded Sex Assigned at Female 09/12/2024 6:33 AM WATER TAXI DRIVER Legal Sex Female 7:52 AM WATER TAXI DRIVER Gender Identity Not on file Sexual Orientation Not on file documented as of this encounter Plan of Treatment Upcoming Encounters Date Type Department Care Team (Late st Contact Info) Description 10/17/2024 1:40 PM CDT Office Visit [facility] Multispecialty Care - [address] [place] [address] Armani Duarte MD [address] [place] [address] [address] [place] [address] 03/13/2025 9:00 AM CDT Office Visit [facility] Multispecialty Care - [facility] [address] [facility] [place] [address] Armani Duarte MD [facility] [address] [place] [address] documented as of this encounter Visit Diagnoses Not on filedocumented in this encounter Care Teams Gambreler Helper Relationship Specialty Start Date End Date Carlita Landa MD PCP - General INTERNAL MEDICINE 08/09/16 06/06/18 Ti Carrillo MD [address] [place] [address] PCP - General 09/24/13 08/08/16 [facility] [address] [facility] [address] [place] [address] PCP - General NURSE PRACTITIONER 06/07/18 03/08/22 None, ProviderMD PCP - General UNKNOWN PHYSICIAN SPECIALTY 05/04/22 09/19/22 None, ProviderMD PCP - General UNKNOWN PHYSICIAN SPECIALTY 10/05/22 10/24/23 Cherelle Lacey MD [address] [place] [address] [place] [address] PCP - General FAMILY PRACTICE 10/25/23 09/11/24 None, ProviderMD PCP - General UNKNOWN PHYSICIAN SPECIALTY 09/12/24 Duane Tamez MD [address] [place] [address] NEUROLOGY 10/08/18 Chapin Talavera DO [address] [place] [address] [place] Hole Digger CARDIOVASCULAR DISEASE 03/01/22 documented as of this encounter
--- OUTSIDE RECORDS SUMMARY | 2024-09-15 14:18 | XMS_ITS | Referral Summary ---
Author Organization [facility] Address [address] [place] [address] Care Team Providers Care Park Worker Supervisor Name Role Phone Crow Maddie Dunaway DPVida Unavailable [phone] Maryjane Hernandez Primary Care Provider [phone] Allergies Active Allergy Reactions Criticality Noted Date [...] on file Legal Sex Female 1:01 AM WATERPROOFING SUPERVISOR Gender Identity Not on file Sexual [...] Treatment Not on file Insurance Care Teams Park Worker Supervisor Relationship Specialty Start Date End Date Maryjane Hernandez PA [address] [place] [address] PCP - General 03/26/24 Maddie Maria DPM [address] [place] [address] Consulting Physician Foot and Ankle Surg 01/12/23
--- OUTSIDE RECORDS SUMMARY | 2024-09-15 14:18 | XMS_ITS | Encounter Summary ---
Author Organization [facility] Address [facility] [place] [address] Care Team Providers Care Medical Administrator Name Role Phone Duane Tamez MD Unavailable [phone] Chapin Talavera DO Unavailable [phone] None, Provider Primary Care Provider Unavaila ble Cherelle Lacey MD Primary Care Provider [phone] None, Provider Primary Care Provider Unavaila ble Encounter Details Date Type Department Care Team (Late st Contact Info) Description 11/22/2022 Ticket Hoy Message Enc [facility] Medical Group [address] [address] [facility] Provider appoinment needed Social History Tobacco Use [...] Sex Assigned at Female 09/12/2024 6:33 AM NEW GRAD RN Legal Sex Female 7:52 AM NEW GRAD RN Gender Identity Not on file Sexual Orientation Not on file documented as of this encounter Plan of Treatment Upcoming Encounters Date Type Department Care Team (Late st Contact Info) Description 10/17/2024 1:40 PM CDT [facility] [address] [facility] [address] [place] [address] Armani Duarte MD 3 [facility] [address] [place] [address] 03/13/2025 9:00 AM CDT [facility] [address] [facility] [place] [address] Armani Duarte MD 3 [facility] [address] [place] [address] documented as of this encounter Visit Diagnoses Not on filedocumented in this encounter Care Teams Medical Administrator Relationship Specialty Start Date End Date None, ProviderMD PCP - General UNKNOWN PHYSICIAN SPECIALTY 10/05/22 10/24/23 Cherelle Lacey MD [address] [place] [address] [place] [address] PCP - General FAMILY PRACTICE 10/25/23 09/11/24 None, ProviderMD PCP - General UNKNOWN PHYSICIAN SPECIALTY 09/12/24 Duane Tamez MD [facility] [employer] [address] [address] NEUROLOGY 10/08/18 Chapin Talavera DO [facility] [employer] [address] [address] [place] Frame Coverer CARDIOVASCULAR DISEASE 03/01/22 documented as of this encounter
--- OUTSIDE RECORDS SUMMARY | 2024-09-15 14:18 | XMS_ITS | Encounter Summary ---
Author Organization [facility] Address [facility] [place] [address] Care Team Providers Care Repair Coil Winder Name Role Phone Duane Tamez MD Unavailable [phone] Chapin Talavera DO Unavailable [phone] Cherelle Lacey MD Primary Care Provider [phone] None, Provider Primary Care Provider Unavaila ble Encounter Details Date Type Department Care Team (Latest Contact Info) Description 11/22/2023 MyChart Message Enc [facility] Medical Group Multispecialty Care - [facility] [address] [facility] [address] [facility] [place] [address] Armani Duarte MD [address] [facility] [address] [place] [address] Trelogy and duoneb please Social [...] Sex Assigned at Female 09/12/2024 6:33 AM RADAR ENGINEERING TEACHER Legal Sex Female 7:52 AM RADAR ENGINEERING TEACHER Gender Identity Not on file Sexual Orientation Not on file documented as of this encounter Plan of Treatment Upcoming Encounters Date Type Department Care Team (Late st Contact Info) Description 10/17/2024 1:40 PM CDT Office Visit [facility] - [address] [place] [address] Armani Duarte MD [address] [place] [address] [address] [place] [address] 03/13/2025 9:00 AM CDT Office Visit [facility] - [address] [place] [address] Armani Duarte MD [address] [place] [address] [address] [place] [address] documented as of this encounter Visit Diagnoses Not on filedocumented in this encounter Care Teams Repair Coil Winder Relationship Specialty Start Date End Date Cherelle Lacey MD [address] [place] [address] PCP - General FAMILY PRACTICE 10/25/23 09/11/24 None, MD Yony PCP - General UNKNOWN PHYSICIAN SPECIALTY 09/12/24 Duane Tamez MD [facility] [employer] [address] [place] [address] NEUROLOGY 10/08/18 Chapin Talavera DO [facility] [employer] [address] [address] [place] [employer] Operators CARDIOVASCULAR DISEASE 03/01/22 documented as of this encounter
--- OUTSIDE RECORDS SUMMARY | 2024-09-15 14:18 | XMS_ITS | Encounter Summary ---
Author Organization [facility] Address [address] [place] [address] Care Team Providers Care Rn Patient Care Name Role Phone Jenn Menezes [facility] Primary Care Provider Duane Barker MD Unavailable [phone] Chapin Talavera DO Unavailable [phone] None, Provider Primary Care Provider Unavaila ble None, Provider Primary Care Provider Unavaila ble Cherelle Lacey MD Primary Care Provider [phone] None, Provider Primary Care Provider Unavaila ble Encounter Details Date Type Department Care Team (Late st Contact Info) Description 08/01/2021 MyChart Message Enc [facility] Medical Group Family Medicine [address] [address] Jenn Menezes [facility] [employer] Social History Tobacco Use Types [...] Sex Assigned at Female 09/12/2024 6:33 AM MGMT ANALYST Legal Sex Female 7:52 AM MGMT ANALYST Gender Identity Not on file Sexual Orientation Not on file COVID-19 Exposure Response Date Recorded In the last month, have you been in contact with someone who was confirmed or suspected to have Coronavirus / COVID-19? No / Unsure 07/20/2021 7:40 AM MGMT ANALYST documented as of this encounter Plan of Treatment Upcoming Encounters Date Type Department Care Team (Late st Contact Info) Description 10/17/2024 1:40 PM CDT [facility] [address] [place] [address] Armani Duarte MD [address] [place] [address] [address] [place] [address] 03/13/2025 9:00 AM CDT Office Visit [facility] - [address] [place] [address] Armani Duarte MD [address] [place] [address] [address] [place] [address] documented as of this encounter Visit Diagnoses Not on filedocumented in this encounter Care Teams Rn Patient Care Relationship Specialty Start Date End Date Jenn Menezes [facility] PCP - General NURSE PRACTITIONER 06/07/18 03/08/22 None, ProviderMD PCP - General UNKNOWN PHYSICIAN SPECIALTY 05/04/22 09/19/22 None, ProviderMD PCP - General UNKNOWN PHYSICIAN SPECIALTY 10/05/22 10/24/23 Cherelle Lacey MD [address] [place] [address] [place] [address] PCP - General FAMILY PRACTICE 10/25/23 09/11/24 None, MD Yony PCP - General UNKNOWN PHYSICIAN SPECIALTY 09/12/24 Duane Tamez MD [address] [place] [address] NEUROLOGY 10/08/18 Chapin Talavera DO [address] [place], [place] [address] [place] [employer] Car Truck Builder CARDIOVASCULAR DISEASE 03/01/22 documented as of this encounter
--- OUTSIDE RECORDS SUMMARY | 2024-09-15 14:18 | XMS_ITS | Encounter Summary ---
Author Organization [facility] Address [address] [place] [address] Care Team Providers Care Supervisor Compressed Yeast Name Role Phone Jenn Menezes [facility] Primary Care Provider Duane Barker MD Unavailable [phone] Chapin Talavera DO Unavailable [phone] None, Provider Primary Care Provider Unavaila ble None, Provider Primary Care Provider Unavaila ble Cherelle Lacey MD Primary Care Provider [phone] None, Provider Primary Care Provider Unavaila ble Encounter Details Date Type Department Care Team (Late st Contact Info) Description 09/16/2021 MyChart Message Enc [facility] Medical Group Family Medicine [address] [address] Jenn Menezes BUSINESS CONTROL MANAGER-BC Hurt knee falling Social History Tobacco Use [...] Sex Assigned at Female 09/12/2024 6:33 AM CITRIX ENGINEER Legal Sex Female 7:52 AM CITRIX ENGINEER Gender Identity Not on file Sexual Orientation Not on file COVID-19 Exposure Response Date Recorded In the last 10 days, have yo u been in contact with someone who was confirmed or suspected to have Coronavirus/COVID-19? No / Unsure 09/07/2021 7:47 AM CITRIX ENGINEER documented as of this encounter Plan of Treatment Upcoming Encounters Date Type Department Care Team (Late st Contact Info) Description 10/17/2024 1:40 PM CDT Office Visit [facility] [address] [facility] [place] [address] Armani Duarte MD [address] [place] [address] [address] [place] [address] 03/13/2025 9:00 AM CDT Office Visit [facility] - [address] [place] [address] Armani Duarte MD [facility] [address] [place] [address] documented as of this encounter Visit Diagnoses Not on filedocumented in this encounter Care Teams Supervisor Compressed Yeast Relationship Specialty Start Date End Date Jenn Menezes [facility] PCP - General NURSE PRACTITIONER 06/07/18 03/08/22 None, ProviderMD PCP - General UNKNOWN PHYSICIAN SPECIALTY 05/04/22 09/19/22 None, ProviderMD PCP - General UNKNOWN PHYSICIAN SPECIALTY 10/05/22 10/24/23 Cherelle Lacey MD [address] [place] [address] [place] [address] PCP - General FAMILY PRACTICE 10/25/23 09/11/24 None, MD Yony PCP - General UNKNOWN PHYSICIAN SPECIALTY 09/12/24 Duane Tamez MD [address] [place] [address] NEUROLOGY 10/08/18 Chapin Talavera DO [address] [place] [address] [place] [employer] Gang Worker CARDIOVASCULAR DISEASE 03/01/22 documented as of this encounter
--- OUTSIDE RECORDS SUMMARY | 2024-09-15 14:18 | XMS_ITS | Encounter Summary ---
Author Organization [facility] Address [address] [place] [address] Care Team Providers Care Thread Checker Name Role Phone Jenn Menezes [facility] Primary Care Provider Duane Barker MD Unavailable [phone] Chapin Talavera DO Unavailable [phone] None, Provider Primary Care Provider Unavaila ble None, Provider Primary Care Provider Unavaila ble Cherelle Lacey MD Primary Care Provider [phone] None, Provider Primary Care Provider Unavaila ble Encounter Details Date Type Department Care Team (Late st Contact Info) Description 09/16/2021 MyChart Message Enc [facility] Medical Group Family Medicine [address] [address] Jenn Menezes REHABILITATION SERVICES AIDE-BC Hurt knee falling Social History Tobacco Use [...] Sex Assigned at Female 09/12/2024 6:33 AM UI LEAD DEVELOPER Legal Sex Female 7:52 AM UI LEAD DEVELOPER Gender Identity Not on file Sexual Orientation Not on file COVID-19 Exposure Response Date Recorded In the last 10 days, have yo u been in contact with someone who was confirmed or suspected to have Coronavirus/COVID-19? No / Unsure 09/07/2021 7:47 AM UI LEAD DEVELOPER documented as of this encounter Plan of Treatment Upcoming Encounters Date Type Department Care Team (Late st Contact Info) Description 10/17/2024 1:40 PM CDT [facility] [address] [facility] [place] [address] Armani Duarte MD [address] [place] [address] [address] [place] [address] 03/13/2025 9:00 AM CDT Office Visit [facility] - [address] [place] [address] Armani Duarte MD [address] [place] [address] documented as of this encounter Visit Diagnoses Not on filedocumented in this encounter Care Teams Thread Checker Relationship Specialty Start Date End Date Jenn Menezes [facility] PCP - General NURSE PRACTITIONER 06/07/18 03/08/22 None, ProviderMD PCP - General UNKNOWN PHYSICIAN SPECIALTY 05/04/22 09/19/22 None, ProviderMD PCP - General UNKNOWN PHYSICIAN SPECIALTY 10/05/22 10/24/23 Cherelle Lacey MD [address] [place] [address] [place] [address] PCP - General FAMILY PRACTICE 10/25/23 09/11/24 None, MD Yony PCP - General UNKNOWN PHYSICIAN SPECIALTY 09/12/24 Duane Tamez MD [address] [place] [address] NEUROLOGY 10/08/18 Chapin Talavera DO [address] [place] [address] [place] Hand Splitter CARDIOVASCULAR DISEASE 03/01/22 documented as of this encounter
--- OUTSIDE RECORDS SUMMARY | 2024-09-15 14:18 | XMS_ITS | Encounter Summary ---
Author Organization [facility] Address [facility] [place] [address] Care Team Providers Care Charger Operator Name Role Phone Jenn Menezes [facility] Primary Care Provider Duane Barker MD Unavailable [phone] Chapin Talavera DO Unavailable [phone] None, Provider Primary Care Provider Unavaila ble None, Provider Primary Care Provider Unavaila ble Cherelle Lacey MD Primary Care Provider [phone] None, Provider Primary Care Provider Unavaila ble Encounter Details Date Type Department Care Team (Late st Contact Info) Description 02/28/2022 Radiancet Message Enc [facility] Medical Group Family Medicine [address] [address] Jenn Menezes [facility] Hi Social History Tobacco Use Types [...] Sex Assigned at Female 09/12/2024 6:33 AM CONCRETE PIPE PLANT SUPERVISOR Legal Sex Female 7:52 AM CONCRETE PIPE PLANT SUPERVISOR Gender Identity Not on file Sexual [...] Description 10/17/2024 1:40 PM CDT Office Visit [facility] - [address] [place] [address] Armani Duarte MD [address] [place] [address] 03/13/2025 9:00 AM CDT Office Visit [facility] - [address] [place] [address] Armani Duarte MD [address] [place] [address] JO[address] [place] [address] documented as of this encounter Visit Diagnoses Not on filedocumented in this encounter Care Teams Charger Operator Relationship Specialty Start Date End Date Jenn Menezes [facility] PCP - General NURSE PRACTITIONER 06/07/18 03/08/22 None, ProviderMD PCP - General UNKNOWN PHYSICIAN SPECIALTY 05/04/22 09/19/22 None, ProviderMD PCP - General UNKNOWN PHYSICIAN SPECIALTY 10/05/22 10/24/23 Cherelle Lacey MD [address] [place] [address] [place] [address] PCP - General FAMILY PRACTICE 10/25/23 09/11/24 None, ProviderMD PCP - General UNKNOWN PHYSICIAN SPECIALTY 09/12/24 Duane Tamez MD [facility] [employer] [address] [address] NEUROLOGY 10/08/18 Chapin Talavera DO [facility] [employer] [address] [address] [place] Director Of Partnerships CARDIOVASCULAR DISEASE 03/01/22 documented as of this encounter
--- OUTSIDE RECORDS SUMMARY | 2024-09-15 14:18 | XMS_ITS | CONTINUITY OF CARE DOCUMENT ---
Author Name carolmartyvivienne dumont Address Unknown Organization [facility] Address [address] [facility] [address] [place] [address] Phone [phone] Care Team Providers Care Clerk Supervisor Name Role Phone Omar JIMENEZ, Luis Unavailable THOMAS JIMENEZ, BRANNON Unavailable Unavailable INSURANCE PROVIDERS Payer name Policy type / Coverage type Shepherd red republican [place] MEDICAID Medicaid [id number]
--- OUTSIDE RECORDS SUMMARY | 2024-09-15 14:18 | XMS_ITS | Clinical Summary ---
Author Organization [facility] Address [address] [place] [address] Care Team Providers Care Sash Finisher Name Role Phone Crow Maddie Dunaway DPVida Unavailable [phone] Maryjane Hernandez Primary Care Provider [phone] Allergies Active Allergy Reactions Criticality Noted Date [...] on file Legal Sex Female 1:01 AM FRAME EXPANDER Gender Identity Not on file Sexual Orientation [...] patient's age to complete this topic Insurance [facility] Care Teams Sash Finisher Relationship Specialty Start Date End Date Maryjane Hernandez PA [address] [place] [address] PCP - General 03/26/24 Maddie Maria DPM [address] [place] [address] Consulting Physician Foot and Ankle Surg 01/12/23
--- OUTSIDE RECORDS SUMMARY | 2024-09-15 14:18 | XMS_ITS | Encounter Summary ---
Author Organization [facility] Address [facility] [place] [address] Care Team Providers Care Hard Candy Spinner Name Role Phone Duane Tamez MD Unavailable [phone] Chapin Talavera DO Unavailable [phone] Cherelle Lacey MD Primary Care Provider [phone] None, Provider Primary Care Provider Unavaila ble Encounter Details Date Type Department Care Team (Late st Contact Info) Description 11/08/2023 MyChart Message Enc [facility] Medical Group Multispecialty Care - [facility] [address] [facility] [place] [address] Armani Duarte MD [facility] [address] [place], [place] [id number] [facility] Social History Tobacco Use Types Packs/Day Years [...] Sex Assigned at Female 09/12/2024 6:33 AM SECURITY NURSE Legal Sex Female 7:52 AM SECURITY NURSE Gender Identity Not on file Sexual Orientation Not on file documented as of this encounter Plan of Treatment Upcoming Encounters Date Type Department Care Team (Late st Contact Info) Description 10/17/2024 1:40 PM CDT Office Visit [facility] - [address] [place] [address] Armani Duarte MD [address] [place] [address] [address] [place] [address] 03/13/2025 9:00 AM CDT Office Visit [facility] - [address] [place] [address] Armani Duarte MD [address] [place] [address] JO[address] [place] [address] documented as of this encounter Visit Diagnoses Not on filedocumented in this encounter Care Teams Hard Candy Spinner Relationship Specialty Start Date End Date Cherelle Lacey MD [address] [place] [address] [place] [address] PCP - General FAMILY PRACTICE 10/25/23 09/11/24 None, MD Yony PCP - General UNKNOWN PHYSICIAN SPECIALTY 09/12/24 [facility] [address] [place] [address] NEUROLOGY 10/08/18 Chapin Talavera DO [facility] [address] [place] [address] [place] Signal Tower Operator CARDIOVASCULAR DISEASE 03/01/22 documented as of this encounter
--- OUTSIDE RECORDS SUMMARY | 2024-09-15 14:18 | XMS_ITS | Encounter Summary ---
Author Organization [facility] Address [facility] [place] [address] Care Team Providers Care Prototype Technician Name Role Phone Jenn Menezes [facility] Primary Care Provider Duane Barker MD Unavailable [phone] Chapin Talavera DO Unavailable [phone] None, Provider Primary Care Provider Unavaila ble None, Provider Primary Care Provider Unavaila ble Cherelle Lacey MD Primary Care Provider [phone] None, Provider Primary Care Provider Unavaila ble Encounter Details Date Type Department Care Team (Late st Contact Info) Description 08/20/2021 MyChart Message Enc [facility] Medical Group [facility] Medicine [address] [address] Jenn Menezes [facility] Lung function test Social History Tobacco [...] Sex Assigned at Female 09/12/2024 6:33 AM ACADEMIC DEAN Legal Sex Female 7:52 AM ACADEMIC DEAN Gender Identity Not on file Sexual Orientation Not on file documented as of this encounter Plan of Treatment Upcoming Encounters Date Type Department Care Team (Late Contact Info) Description 10/17/2024 1:40 PM CDT [facility] [address] [facility] [address] [place] [address] Armani Duarte MD [address] [facility] [address] [place] [address] 03/13/2025 9:00 AM CDT [facility] [address] [facility] [place] [address] Amrani Duarte MD [address] [facility] [address] [place] [address] documented as of this encounter Visit Diagnoses Not on filedocumented in this encounter Care Teams Prototype Technician Relationship Specialty Start Date End Date Jenn Menezes [facility] PCP - General NURSE PRACTITIONER 06/07/18 03/08/22 None, ProviderMD PCP - General UNKNOWN PHYSICIAN SPECIALTY 05/04/22 09/19/22 None, ProviderMD PCP - General UNKNOWN PHYSICIAN SPECIALTY 10/05/22 10/24/23 Cherelle Lacey MD [address] [place] [address] [place] [address] PCP - General FAMILY PRACTICE 10/25/23 09/11/24 None, ProviderMD PCP - General UNKNOWN PHYSICIAN SPECIALTY 09/12/24 Duane Tamez MD [address] [place] [address] NEUROLOGY 10/08/18 Chapin Talavera DO [address] [place] [address] [place] Risk Control Analyst CARDIOVASCULAR DISEASE 03/01/22 documented as of this encounter
--- OUTSIDE RECORDS SUMMARY | 2024-09-15 14:18 | XMS_ITS | Encounter Summary ---
Author Organization [facility] Address [address] [place] [address] Care Team Providers Care Product Finisher Name Role Phone Jenn Menezes [facility] Primary Care Provider Duane Barker MD Unavailable [phone] Chapin Talavera DO Unavailable [phone] None, Provider Primary Care Provider Unavaila ble None, Provider Primary Care Provider Unavaila ble Cherelle Lacey MD Primary Care Provider [phone] None, Provider Primary Care Provider Unavaila ble Encounter Details Date Type Department Care Team (Late st Contact Info) Description 08/02/2021 MyChart Message Enc [facility] Medical Group Family Medicine [address] [address] [facility] incruse Social History Tobacco Use Types Packs/Day [...] Sex Assigned at Female 09/12/2024 6:33 AM CAMPUS INTERVIEWS INTERN Legal Sex Female 7:52 AM CAMPUS INTERVIEWS INTERN Gender Identity Not on file Sexual Orientation Not on file COVID-19 Exposure Response Date Recorded In the last month, have you been in contact with someone who was confirmed or suspected to have Coronavirus / COVID-19? No / Unsure 07/20/2021 7:40 AM CAMPUS INTERVIEWS INTERN documented as of this encounter Plan of Treatment Upcoming Encounters Date Type Department Care Team (Late st Contact Info) Description 10/17/2024 1:40 PM CDT [facility] - [address] [place] [address] Armani Duarte MD [address] [place] [address] JOSE [address] [place] [address] 03/13/2025 9:00 AM CDT Office Visit [facility] - [address] [place] [address] Armani Duarte MD [address] [place] [address] [address] [place] [address] documented as of this encounter Visit Diagnoses Not on filedocumented in this encounter Care Teams Product Finisher Relationship Specialty Start Date End Date Jenn Menezes [facility] PCP - General NURSE PRACTITIONER 06/07/18 03/08/22 None, ProviderMD PCP - General UNKNOWN PHYSICIAN SPECIALTY 05/04/22 09/19/22 None, ProviderMD PCP - General UNKNOWN PHYSICIAN SPECIALTY 10/05/22 10/24/23 Cherelle Lacey MD [address] [place] [address] [place] [address] PCP - General FAMILY PRACTICE 10/25/23 09/11/24 None, MD Yony PCP - General UNKNOWN PHYSICIAN SPECIALTY 09/12/24 Duane Tamez MD [address] [place] [address] NEUROLOGY 10/08/18 Chapin Talavera DO [address] [place], [place] [address] [employer] Incident Response Manager CARDIOVASCULAR DISEASE 03/01/22 documented as of this encounter
--- OUTSIDE RECORDS SUMMARY | 2024-09-15 14:18 | XMS_ITS | Encounter Summary ---
Author Organization [facility] Address [facility] [place] [address] Care Team Providers Care City Weighmaster Name Role Phone Jenn Menezes [facility] Primary Care Provider Duane Barker MD Unavailable [phone] Chapin Talavera DO Unavailable [phone] None, Provider Primary Care Provider Unavaila ble None, Provider Primary Care Provider Unavaila ble Cherelle Lacey MD Primary Care Provider [phone] None, Provider Primary Care Provider Unavaila ble Encounter Details Date Type Department Care Team (Late Contact Info) Description 08/21/2021 MyChart Message Enc [facility] Medical Group [facility] Medicine [address] [address] Jenn Menezes [facility] symbicort Social History Tobacco Use Types [...] Sex Assigned at Female 09/12/2024 6:33 AM ENGINE SPECIALIST Legal Sex Female 7:52 AM ENGINE SPECIALIST Gender Identity Not on file Sexual Orientation Not on file documented as of this encounter Plan of Treatment Upcoming Encounters Date Type Department Care Team (Late Contact Info) Description 10/17/2024 1:40 PM CDT [facility] [address] [place] [address] Armani Duarte MD [address] [facility] JO[address] [place] [address] 03/13/2025 9:00 AM CDT [facility] [address] [facility] [place] [address] Armani Duarte MD [address] [facility] [address] [place] [address] documented as of this encounter Visit Diagnoses Not on filedocumented in this encounter Care Teams City Weighmaster Relationship Specialty Start Date End Date Jenn Menezes [facility] PCP - General NURSE PRACTITIONER 06/07/18 03/08/22 None, ProviderMD PCP - General UNKNOWN PHYSICIAN SPECIALTY 05/04/22 09/19/22 None, ProviderMD PCP - General UNKNOWN PHYSICIAN SPECIALTY 10/05/22 10/24/23 Cherelle Lacey MD [address] [place] [address] [place] [address] PCP - General FAMILY PRACTICE 10/25/23 09/11/24 None, ProviderMD PCP - General UNKNOWN PHYSICIAN SPECIALTY 09/12/24 Duane Tamez MD [address] [place] [address] NEUROLOGY 10/08/18 Chapin Talavera DO [address] [place] [address] [place] Power Plant Operator Apprentice CARDIOVASCULAR DISEASE 03/01/22 documented as of this encounter
--- OUTSIDE RECORDS SUMMARY | 2024-09-15 14:18 | XMS_ITS | Encounter Summary ---
Author Organization [facility] Address [address] [place] [address] Care Team Providers Care Rock Splitter Name Role Phone Carlita Landa MD Primary Care Provider Unavailab Ti Levine MD Primary Care Provider + Jenn Menezes [facility] Primary Care Provider Unav Duane Finch MD Unavailable [phone] Chapin Talavera DO Unavailable [phone] None, Provider Primary Care Provider Unavaila ble None, Provider Primary Care Provider Unavaila ble Cherelle Lacey MD Primary Care Provider [phone] None, Provider Primary Care Provider Unavaila ble Encounter Details Date Type Department Care Team (Late st Contact Info) Description 03/11/2014 Abstract [facility] Conversion , Generic Conversion, Social History Tobacco Use Types Packs/Day Years Used Date Smoking Tobacco: Never Assessed Comments Unknown Sex and Gender Information Value Date Recorded Sex Assigned at Female 09/12/2024 6:33 AM INSPECTOR WIRE ROPE Legal Sex Female 7:52 AM INSPECTOR WIRE ROPE Gender Identity Not on file Sexual Orientation Not on file documented as of this encounter Plan of Treatment Upcoming Encounters Date Type Department Care Team (Late st Contact Info) Description 10/17/2024 1:40 PM CDT Office Visit [facility] Medical Group Multispecialty Care - [address] [place] [address] Armani Duarte MD [address] [place] [address] [address] [place] [address] 03/13/2025 9:00 AM CDT Office Visit [facility] Medical Group Multispecialty Care - [facility] [address] [facility] [place] [address] Armani Duarte MD [address] [facility] [address] [place] [address] documented as of this encounter Visit Diagnoses Not on filedocumented in this encounter Care Teams Rock Splitter Relationship Specialty Start Date End Date Carlita Landa MD PCP - General INTERNAL MEDICINE 08/09/16 06/06/18 Ti Carrillo MD [address] [place] [address] PCP - General 09/24/13 08/08/16 [facility] [address] [facility] [address] [place] [address] PCP - General NURSE PRACTITIONER 06/07/18 03/08/22 None, ProviderMD PCP - General UNKNOWN PHYSICIAN SPECIALTY 05/04/22 09/19/22 None, ProviderMD PCP - General UNKNOWN PHYSICIAN SPECIALTY 10/05/22 10/24/23 Cherelle Lacey MD [address] [place] [address] [place] [address] PCP - General FAMILY PRACTICE 10/25/23 09/11/24 None, ProviderMD PCP - General UNKNOWN PHYSICIAN SPECIALTY 09/12/24 Duane Tamez MD [address] [place] [address] NEUROLOGY 10/08/18 Chapin Talavera DO [address] [place] [address] [employer]vertising Sales Agent CARDIOVASCULAR DISEASE 03/01/22 documented as of this encounter
--- OUTSIDE RECORDS SUMMARY | 2024-09-15 14:18 | XMS_ITS | Encounter Summary ---
Author Organization [facility] Address [facility] [place] [address] Care Team Providers Care Parts Data Writer Name Role Phone Maknannette Jenn [facility] Primary Care Provider Duane Barker MD Unavailable [phone] Chapin Talavera DO Unavailable [phone] None, Provider Primary Care Provider Unavaila ble None, Provider Primary Care Provider Unavaila ble Cherelle Lacey MD Primary Care Provider [phone] None, Provider Primary Care Provider Unavaila ble Encounter Details Date Type Department Care Team (Late st Contact Info) Description 09/22/2021 [employer] Message Enc [facility] Medical Group Family Medicine [address] [address] Compliance Science, [facility] Provider Medication sent Social History [...] Sex Assigned at Female 09/12/2024 6:33 AM SKIP HOIST OPERATOR Legal Sex Female 7:52 AM SKIP HOIST OPERATOR Gender Identity Not on file Sexual Orientation Not on file COVID-19 Exposure Response Date Recorded In the last 10 days, have yo u been in contact with someone who was confirmed or suspected to have Coronavirus/COVID-19? No / Unsure 09/07/2021 7:47 AM SKIP HOIST OPERATOR documented as of this encounter Plan of Treatment Upcoming Encounters Date Type Department Care Team (Late st Contact Info) Description 10/17/2024 1:40 PM CDT Office Visit [facility] - [address] [place] [address] Armani Duarte MD [address] [place] [address] [address] [place] [address] 03/13/2025 9:00 AM CDT Office Visit [facility] - [address] [place] [address] Armani Duarte MD [address] [place] [address] [address] [place] [address] documented as of this encounter Visit Diagnoses Not on filedocumented in this encounter Care Teams Parts Data Writer Relationship Specialty Start Date End Date Jenn Menezes [facility] PCP - General NURSE PRACTITIONER 06/07/18 03/08/22 None, ProviderMD PCP - General UNKNOWN PHYSICIAN SPECIALTY 05/04/22 09/19/22 None, ProviderMD PCP - General UNKNOWN PHYSICIAN SPECIALTY 10/05/22 10/24/23 Cherelle Lacey MD [address] [place] [address] [place] [address] PCP - General FAMILY PRACTICE 10/25/23 09/11/24 None, MD Yony PCP - General UNKNOWN PHYSICIAN SPECIALTY 09/12/24 Duane Tamez MD [address] [place] [address] NEUROLOGY 10/08/18 Chapin Talavera DO [address] [place], [place] [id number] [place] Biological Science Technician Fish CARDIOVASCULAR DISEASE 03/01/22 documented as of this encounter
--- OUTSIDE RECORDS SUMMARY | 2024-09-15 14:19 | XMS_ITS | Encounter Summary ---
Author Organization [facility] - [facility] Address Formerly [facility] [place] [address] Care Team Providers Care Build Automation Engineer Name Role Phone Duane Tamez MD Unavailable [phone] Chapin Talavera DO Unavailable [phone] None, Provider Primary Care Provider Unavaila ble None, Provider Primary Care Provider Unavaila ble Cherelle Lacey MD Primary Care Provider [phone] None, Provider Primary Care Provider Unavaila ble Encounter Details Date Type Department Care Team (Late st Contact Info) Description 07/24/2022 MyChart Message Enc [facility] Medical Group [facility]ispec[facility]ty Care - [facility] [address] [facility] [place] [id number] Armani Duarte MD [address] [facility] [address] [place], [place] [id number] Refills Social History Tobacco Use Types Packs/Day [...] Assigned at Female 09/12/2024 6:33 AM STAFFING CLERK Legal Sex Female 7:52 AM STAFFING CLERK Gender Identity Not on file Sexual Orientation Not on file documented as of this encounter Plan of Treatment Upcoming Encounters Date Type Department Care Team (Late st Contact Info) Description 10/17/2024 1:40 PM CDT [facility] [address] [facility] [place] [address] Armani Duarte MD 3 [facility] [address] [place] [address] 03/13/2025 9:00 AM CDT [facility] [address] [place] [address] Armani Duarte MD [address] [facility] [address] [place] [address] documented as of this encounter Visit Diagnoses Not on filedocumented in this encounter Care Teams Build Automation Engineer Relationship Specialty Start Date End Date None, Provider, PCP - General UNKNOWN PHYSICIAN SPECIALTY 05/04/22 09/19/22 None, ProviderMD PCP - General UNKNOWN PHYSICIAN SPECIALTY 10/05/22 10/24/23 Cherelle Lacey MD [address] [place] [address] [place] [address] PCP - General FAMILY PRACTICE 10/25/23 09/11/24 None, MD Yony PCP - General UNKNOWN PHYSICIAN SPECIALTY 09/12/24 Duane Tamez MD [address] [place] [address] NEUROLOGY 10/08/18 Chapin Talavera DO [address] [place], [place] [id number] [place] Crown And Bridge Technician CARDIOVASCULAR DISEASE 03/01/22 documented as of this encounter
--- OUTSIDE RECORDS SUMMARY | 2024-09-15 14:19 | XMS_ITS | Encounter Summary ---
Author Organization [facility] Address [facility] [place] [address] Care Team Providers Care Rn Outpatient Surgery Name Role Phone Jenn Menezes [facility] Primary Care Provider Duane Barker MD Unavailable [phone] Chapin Talavera DO Unavailable [phone] None, Provider Primary Care Provider Unavaila ble None, Provider Primary Care Provider Unavaila ble Cherelle Lacey MD Primary Care Provider [phone] None, Provider Primary Care Provider Unavaila ble Encounter Details Date Type Department Care Team (Late st Contact Info) Description 05/02/2019 BountyJobst Message Enc [facility] Medical Group [facility] Medicine [address] [address] Jenn Menezes [facility] RE: RE: Question Social History Tobacco Use [...] Sex Assigned at Female 09/12/2024 6:33 AM PAYROLL AUDITOR Legal Sex Female 7:52 AM PAYROLL AUDITOR Gender Identity Not on file Sexual Orientation [...] 1:40 PM CDT [facility] [address] [facility] [address] [place] [address] Armani Duarte MD [address] [place] [address] 03/13/2025 9:00 AM CDT [facility] [address] [place] [address] Armani Duarte MD [address] [facility] [address] [place] [address] documented as of this encounter Visit Diagnoses Not on filedocumented in this encounter Care Teams Rn Outpatient Surgery Relationship Specialty Start Date End Date Jenn Menezes [facility] PCP - General NURSE PRACTITIONER 06/07/18 03/08/22 None, Provider, PCP - General UNKNOWN PHYSICIAN SPECIALTY 05/04/22 09/19/22 None, ProviderMD PCP - General UNKNOWN PHYSICIAN SPECIALTY 10/05/22 10/24/23 Cherelle Lacey MD [address] [place] [address] [place] [address] PCP - General FAMILY PRACTICE 10/25/23 09/11/24 None, ProviderMD PCP - General UNKNOWN PHYSICIAN SPECIALTY 09/12/24 Duane Tamez MD [address] [place] [address] NEUROLOGY 10/08/18 Chapin Talavera DO [address] [address] [place] Patient Placement Coordinator CARDIOVASCULAR DISEASE 03/01/22 documented as of this encounter
--- OUTSIDE RECORDS SUMMARY | 2024-09-15 14:19 | XMS_ITS | Encounter Summary ---
Author Organization [facility] Address [address] [place] [address] Care Team Providers Care Senior Commercial Loan Officer Name Role Phone Jenn Menezes [facility] Primary Care Provider Duane Barker MD Unavailable [phone] Chapin Talavera DO Unavailable [phone] None, Provider Primary Care Provider Unavaila ble None, Provider Primary Care Provider Unavaila ble Cherelle Lacey MD Primary Care Provider [phone] None, Provider Primary Care Provider Unavaila ble Encounter Details Date Type Department Care Team (Late st Contact Info) Description 04/30/2020 ActiveEont Message Enc [facility] Medical Group [facility] Medicine [address] [address] Jenn Menezes FNP-BC RE: Medication [...] Assigned at Female 09/12/2024 6:33 AM SENIOR DATA ANALYST Legal Sex Female 7:52 AM SENIOR DATA ANALYST Gender Identity Not on file Sexual [...] Description 10/17/2024 1:40 PM CDT Office Visit [facility] - [address] [place] [address] Armani Duarte MD [address] [place] [address] [address] [place] [address] 03/13/2025 9:00 AM CDT Office Visit [facility] - [address] [place] [address] Armani Duarte MD [address] [place] [address] [address] [place] [address] documented as of this encounter Visit Diagnoses Not on filedocumented in this encounter Care Teams Senior Commercial Loan Officer Relationship Specialty Start Date End Date Jenn Menezes [facility] PCP - General NURSE PRACTITIONER 06/07/18 03/08/22 None, ProviderMD PCP - General UNKNOWN PHYSICIAN SPECIALTY 05/04/22 09/19/22 None, ProviderMD PCP - General UNKNOWN PHYSICIAN SPECIALTY 10/05/22 10/24/23 Cherelle Lacey MD [address] [place] [address] [place] [address] PCP - General FAMILY PRACTICE 10/25/23 09/11/24 None, ProviderMD PCP - General UNKNOWN PHYSICIAN SPECIALTY 09/12/24 Duane Tamez MD [address] [place] [address] NEUROLOGY 10/08/18 Chapin Talavera DO [address] [place] [address] [place] Quality Assurance Assessor CARDIOVASCULAR DISEASE 03/01/22 documented as of this encounter
--- OUTSIDE RECORDS SUMMARY | 2024-09-15 14:19 | XMS_ITS | Encounter Summary ---
Author Organization [facility] Address [facility] [place] [address] Care Team Providers Care Executive Administrative Asst Name Role Phone Jenn Menezes [facility] Primary Care Provider Duane Barker MD Unavailable [phone] Chapin Talavera DO Unavailable [phone] None, Provider Primary Care Provider Unavaila ble None, Provider Primary Care Provider Unavaila ble Cherelle Lacey MD Primary Care Provider [phone] None, Provider Primary Care Provider Unavaila ble Encounter Details Date Type Department Care Team (Late st Contact Info) Description 12/20/2021 Gratcit Message Enc [facility] Medical Group Family Medicine [address] [address] Jenn Menezes STRATEGIC SOLUTIONS CONSULTANT- Vaccine Social History Tobacco Use Types Packs/Day [...] Sex Assigned at Female 09/12/2024 6:33 AM GAS METER PROVER Legal Sex Female 7:52 AM GAS METER PROVER Gender Identity Not on file Sexual Orientation [...] Description 10/17/2024 1:40 PM CDT Office Visit [facility] - [address] [place] [address] Armani Duarte MD [address] [place] [address] 03/13/2025 9:00 AM CDT Office Visit [facility] - [address] [place] [address] Armani Duarte MD [address] [place] [address] [address] [place] [address] documented as of this encounter Visit Diagnoses Not on filedocumented in this encounter Care Teams Executive Administrative Asst Relationship Specialty Start Date End Date [facility] PCP - General NURSE PRACTITIONER 06/07/18 03/08/22 None, ProviderMD PCP - General UNKNOWN PHYSICIAN SPECIALTY 05/04/22 09/19/22 None, ProviderMD PCP - General UNKNOWN PHYSICIAN SPECIALTY 10/05/22 10/24/23 Cherelle Lacey MD [address] [place] [address] [place] [address] PCP - General FAMILY PRACTICE 10/25/23 09/11/24 None, ProviderMD PCP - General UNKNOWN PHYSICIAN SPECIALTY 09/12/24 Duane Tamez MD [facility] [place] [address] [address] NEUROLOGY 10/08/18 Chapin Talavera DO [facility] [address] [place] Skiver Machine CARDIOVASCULAR DISEASE 03/01/22 documented as of this encounter
--- OUTSIDE RECORDS SUMMARY | 2024-09-15 14:19 | XMS_ITS | Encounter Summary ---
Author Organization [facility] Address [facility] [place] [address] Care Team Providers Care Senior Clinical Data Analyst Name Role Phone Jenn Menezes [facility] Primary Care Provider Duane Barker MD Unavailable [phone] Chapin Talavera DO Unavailable [phone] None, Provider Primary Care Provider Unavaila ble None, Provider Primary Care Provider Unavaila ble Cherelle Lacey MD Primary Care Provider [phone] None, Provider Primary Care Provider Unavaila ble Encounter Details Date Type Department Care Team (Late st Contact Info) Description 03/04/2022 RingCrediblet Message Enc [facility] Medical Group Family Medicine [address] [address] Jenn Menezes [facility] Hey Social History Tobacco Use Types [...] Sex Assigned at Female 09/12/2024 6:33 AM HOLE DIGGER TRUCK DRIVER Legal Sex Female 7:52 AM HOLE DIGGER TRUCK DRIVER Gender Identity Not on file Sexual [...] Description 10/17/2024 1:40 PM CDT [facility] - [address] [place] [address] Armani Duarte MD [address] [place] [address] 03/13/2025 9:00 AM CDT Office Visit [facility] - [address] [place] [address] Armani Duarte MD [address] [place] [address] [address] [place] [address] documented as of this encounter Visit Diagnoses Not on filedocumented in this encounter Care Teams Senior Clinical Data Analyst Relationship Specialty Start Date End Date [facility] PCP - General NURSE PRACTITIONER 06/07/18 03/08/22 None, ProviderMD PCP - General UNKNOWN PHYSICIAN SPECIALTY 05/04/22 09/19/22 None, ProviderMD PCP - General UNKNOWN PHYSICIAN SPECIALTY 10/05/22 10/24/23 Cherelle Lacey MD [address] [place] [address] [place] [address] PCP - General FAMILY PRACTICE 10/25/23 09/11/24 None, ProviderMD PCP - General UNKNOWN PHYSICIAN SPECIALTY 09/12/24 Duane Tamez MD [facility] [address] [address] NEUROLOGY 10/08/18 Chapin Talavera DO [facility] [address] [address] [place] Spectacle Truer CARDIOVASCULAR DISEASE 03/01/22 documented as of this encounter
--- OUTSIDE RECORDS SUMMARY | 2024-09-15 14:19 | XMS_ITS | Encounter Summary ---
Author Organization [facility] Address [facility] [place] [address] Care Team Providers Care Project Development Leader Name Role Phone Maknannette Jenn [facility] Primary Care Provider Duane Barker MD Unavailable [phone] Chapin Talavera DO Unavailable [phone] None, Provider Primary Care Provider Unavaila ble None, Provider Primary Care Provider Unavaila ble Cherelle Lacey MD Primary Care Provider [phone] None, Provider Primary Care Provider Unavaila ble Encounter Details Date Type Department Care Team (Late st Contact Info) Description 03/08/2022 Guesty Message Enc [facility] Medical Group Family Medicine [address] [address] [place], [facility] Provider Appointment Cancellation Social History Tobacco Use [...] Sex Assigned at Female 09/12/2024 6:33 AM WIRER PASSENGER CAR Legal Sex Female 7:52 AM WIRER PASSENGER CAR Gender Identity Not on file Sexual Orientation [...] Description 10/17/2024 1:40 PM CDT Office Visit [facility] - [address] [place] [address] Armani Duarte MD [address] [place] [address] 03/13/2025 9:00 AM CDT Office Visit [facility] - [address] [place] [address] Armani Duarte MD [address] [place] [address] [address] [place] [address] documented as of this encounter Visit Diagnoses Not on filedocumented in this encounter Care Teams Project Development Leader Relationship Specialty Start Date End Date [facility] PCP - General NURSE PRACTITIONER 06/07/18 03/08/22 None, ProviderMD PCP - General UNKNOWN PHYSICIAN SPECIALTY 05/04/22 09/19/22 None, ProviderMD PCP - General UNKNOWN PHYSICIAN SPECIALTY 10/05/22 10/24/23 Cherelle Lacey MD [address] [place] [address] [place] [address] PCP - General FAMILY PRACTICE 10/25/23 09/11/24 None, ProviderMD PCP - General UNKNOWN PHYSICIAN SPECIALTY 09/12/[address] [facility] [place] [address] [address] NEUROLOGY 10/08/[address] [facility] [place] [address] [address] [place] Spinning Frame Fixer CARDIOVASCULAR DISEASE 03/01/22 documented as of this encounter
--- OUTSIDE RECORDS SUMMARY | 2024-09-15 14:19 | XMS_ITS | Clinical Summary ---
Author Organization [facility] Address [address] [facility] [place] [address] Care Team Providers Care Personnel Interviewer Name Role Phone MakJenn brunson GREG-CENTRAL SUPPLY TECHNICIAN Primary Care Provider [phone] Constantino Solis MD Unavailable [phone] Source Comments [facility],non-owned Affiliates and Associated Physician Practices is amultiple site organization consisting of ambulatory clinics and hospital sitesin [place], [place], [place] and [place]. This disclosure is being madepursuant to the Care Everywhere program and may not contain all information available regarding this patient. Last updated 18.[facility] Allergies Active Allergy Reactions Criticality [...] fluticasone propionate (FLONASE) 50 MCG/ACT nasal spray Telephone 1 spray into the nose 04/22/2019 Active [...] Comments Blood Pressure 98/78 05/30/2019 11:26 AM MOBILE HOMES REPAIRER Pulse 91 05/30/2019 11:26 AM MOBILE HOMES REPAIRER Temperature 36.7 C (98 F) 05/30/2019 11:26 AM MOBILE HOMES REPAIRER Respiratory Rate 16 09/21/2017 3:54 PM CDT Oxygen Saturation 96% 05/30/2019 11:26 AM MOBILE HOMES REPAIRER Inhaled Oxygen Concentration - - Weight 134.3 kg (296 lb) 05/30/2019 11:26 AM MOBILE HOMES REPAIRER Height 169 cm (5' 6.54 ) 05/30/2019 11:26 AM MOBILE HOMES REPAIRER Body Mass Index 47.01 05/30/2019 11:26 AM MOBILE HOMES REPAIRER Plan of Treatment Health Maintenance Due Date [...] age to complete this topic Care Teams Personnel Interviewer Relationship Specialty Start Date End Date Jenn Menezes APRN-CENTRAL SUPPLY TECHNICIAN PCP - General 10/23/18 Constantino Solis MD Family Medicine 07/17/18
--- OUTSIDE RECORDS SUMMARY | 2024-09-15 14:19 | XMS_ITS | Clinical Summary ---
Author Organization [facility] Address [address] [place] [address] Care Team Providers Care Communications Station Manager Name Role Phone Duane Tamez MD Unavailable [phone] Chapin Talavera DO Unavailable [phone] None, Provider MD Primary Care Provider Unavaila [...] :Chronic obstructive pulmonary disease, unspecified COPD type ([facility]) Nebulizer tubing, mask and needed supply, change every month 1 kit 6 019 Active sucralfate 1 G tabletIndications :Gastroesophageal reflux disease with esophagitis Take 1 tablet (1 g total) by mouth 4 (four) times daily. 120 tablet 6 020 Active Nebulizer System All-In-One MiscIndications:C hronic obstructive pulmonary disease, unspecified COPD type ([facility]) 1 kit by Does not apply [...] epilepticus, unspecified epilepsy type ([facility]/HCC HHS/HCC) TAKE 1 TABLET BY MOUTH [...] 300 MG/2ML injection (PEN)Indications: Severe persistent asthma ([facility] HHS/[facility]) Inject 4 mLs (600 mg total) into the skin on day 1 for loading dose. Then inject 2 mLs (300 mg) every 14 days, starting on day 15 4 mL 12 025 Active apixaban (ELIQUIS) 5 MG tabletIndications :Pulmonary embolism ([facility] HHS/[facility]) Take 1 tablet (5 mg total) by mouth 2 (two) times daily. 60 tablet 3 025 Active albuterol (PROVENTIL) (2.5 MG/3ML) 0.083% nebulizer solutionIndicatio ns:Chronic obstructive pulmonary disease, unspecified COPD type ([facility]) Take 3 mLs (2.5 mg total) by nebulization every 6 (six) hours as needed for Wheezing. 360 mL 1 023 2024 Discontinued(R eorder) albuterol (PROVENTIL) (2.5 MG/3ML) 0.083% nebulizer solutionIndicatio ns:Moderate persistent asthma without complication ([facility]) Take 3 mLs (2.5 mg total) by nebulization every 6 (six) hours as needed for Wheezing. 360 mL 3 024 2024 Discontinued mepolizumab (NUCALA) 100 MG/ML injectionIndicati ons:Moderate persistent asthma without complication ([facility]) INJECT 1 PEN UNDER THE SKIN EVERY 28 DAYS 1 mL 11 024 2024 Discontinued(D uplicate Med) ipratropium-albut fifi (DUONEB) 0.5-2.5 (3) MG/3ML SolutionIndicatio ns:Moderate persistent asthma without complication ([facility]) INHALE THE CONTENTS OF 1 VIAL EVERY 6 HOURS NEEDED 360 mL 1 024 2024 Discontinued(D uplicate Med) Sharps Container MiscIndications:M oderate persistent asthma without complication ([facility]) Please supply pt with a 3.8 L sharps container 1 each 025 2024 Discontinued(R eorder) albuterol (PROVENTIL) (2.5 MG/3ML) 0.083% nebulizer solutionIndicatio ns:Chronic obstructive pulmonary disease, unspecified COPD type (CMS/HCC HHS/HCC) Take 3 mLs (2.5 mg total) by [...] the patient. Abscess 02/27/2020 History of alcoholism ([facility]) 03/16/20 Epidermal cyst of neck 03/29/2018 Atopic dermatitis 08/02/2017 Abnormal liver function 05/02/2016 Chronic obstructive lung disease ([facility]) 04/26/2016 DJD (degenerative joint disease) 04/26/2016 Epilepsy ([facility]) 04/26/2016 GERD (gastroesophageal reflux disease) 6 [...] Care Team Description 09/13/2024 MyChart Message Enc [facility] Medical [facility] Multispecialty Care - [facility] [address] [facility] [place] [address] Armani Duarte MD Bronchitis 09/12/2024 6:00 AM [employer] - 09/12/2024 9:30 AM [employer] Emergency [facility] [place] [address] Iris Mejía MD Chest Pain; Shortness Of Breath Discharge Disposition: Left Against Medical Advice 09/12/2024 Travel 09/04/2024 9:40 AM [employer] [facility] [address] [facility] [address] [place] [address] Armani Duarte MD Shortness Of Breath 09/04/2024 Scan [place] INFO SRVCS Scanned, [facility] 09/04/2024 [facility]phone [facility] [address] [facility] [place] [phone] Armani Duarte MD Medication 09/04/2024 Travel 07/26/2024 MyChart Message [facility] [address] [facility] [place] [phone] Armani Duarte MD Trelogy from Last 3 [...] 25 1 - 2019 Smokeless Tobacco: Never Tobacco Cessation:Counseling Given: [...] Sex Assigned at Female 09/12/2024 6:33 AM [employer] Legal Sex Female 7:52 AM [employer] Gender Identity Not on file Sexual Orientation Not on file Last Filed Vital Signs Vital Sign Reading Time Taken Comments Blood Pressure 121/92 09/12/2024 6:05 AM [employer] Pulse 94 09/12/2024 6:05 AM [employer] Temperature 37.2 C (99 F) 09/12/2024 6:05 AM [employer] Respiratory Rate 18 09/12/2024 6:05 AM [employer] Oxygen Saturation 97% 09/12/2024 6:05 AM [employer] Inhaled Oxygen Concentration - - Weight 111.1 kg (245 lb) 09/12/2024 6:05 AM [employer] Height 170.2 cm (5' 7 ) 09/12/2024 6:05 AM [employer] Body Mass Index 38.37 09/12/2024 6:05 AM [employer] Plan of Treatment Upcoming Encounters Date Type Department Care Team (Late st Contact Info) Description 10/17/2024 1:40 PM CDT [facility] [address] [place] [phone] Armani Duatre MD [address] [place], [place] [address] [address] [place] [address] 03/13/2025 9:00 AM CDT [facility] [address] [facility] [address] [place] [address] Armani Duarte MD [address] [facility] [address] [place] [address] Health Maintenance Due Date Last Done Comments [...] 12/20/2021, 06/07/2018 Mammogram Screening 2023 COVID-19 Vaccine ( - 2023-2 5 season) 2024 Influenza Adult (#1) 2024 Hepatitis C Completed 07/20/2021 PHQ-2 (Physician [place]) Completed 09/04/2024 HPV Vaccines Aged Out No [...] CHEST PORTABLE STAT 09/12/2024 6:4 2 AM [employer] MAGNESIUM Routine 09/12/2024 6:10 AM [employer] TROPONIN, QUANT STAT 09/12/2024 6:10 AM [employer] COMPREHENSIVE METABOLIC PANEL STAT 09/12/2024 6:10 AM [employer] CBC W/DIFF AUTOMATED STAT 09/12/2024 6:10 AM [employer] ECG 12-LEAD Routine 09/12/2024 6:02 AM [employer] HEPATITIS C ANTIBODY Routine 07/20/2021 8:54 AM [employer] Need for hepatitis C screening test from Last 3 Months or Most Recently Relevant to Health Maintenance Results * XR CHEST PORTABLE (09/12/2024 6:42 AM [employer]) Anatomical Region Laterality Modality Chest Radiographic Astrid ging 09/12/2024 6:43 AM [employer] Impressions 09/12/2024 6:44 AM [employer] IMPRESSION: No radiographic evidence of an acute cardiopulmonary abnormality. Referred By: Interpreted By: Jean Carlos Escobedo MD, 09/12/2024 6:43 AM Narrative 09/12/2024 6:44 AM [employer] [address] [address] EXAMINATION: XR CHEST PORTABLE, 09/12/2024 6:43 AM TECHNIQUE: Upright AP portable radiograph of the chest HISTORY: Chest pain COMPARISON: Chest radiograph 12/06/2021 FINDINGS: Heart size is normal. Pulmonary vascular pattern appears unremarkable. No focal pulmonary consolidation. Linear opacity at the left lung basically seen with atelectasis. No pleural effusion. No pneumothorax. Procedure Note Jean Carlos Escobedo MD - 09/12/[address] [address] EXAMINATION: XR CHEST PORTABLE, 09/12/2024 6:43 AM [...] (ABNORMAL) COMPREHENSIVE METABOLIC PANEL (09/12/2024 6:10 AM [employer]) GLUCOSE 101(H) 70 - 99 MG/DL 09/12/2024 6:54 AM [employer] [facility] BUN 6(L) 7 - 18 MG/DL 09/12/2024 6:54 AM [facility] CREATININE S/P/B 0.57 0.55 - 1.02 MG/DL 09/12/2024 6:54 AM [facility] SODIUM S/P/B 138 136 - 145 MMOL/L 09/12/2024 6:54 AM [facility] POTASSIUM S/P/B 2.8(LL) 3.5 - 5.1 MMOL/L 09/12/2024 6:54 AM [facility] Comment: Critical Result(s) Called at: 06:52:44 on 09/12/2024 by: CLEMENTINA CANDELARIA to and read back by:MATTHEW MORRIS CHLORIDE S/P/B 103 97 - 115 MMOL/L 09/12/2024 6:54 AM [facility] CO2 27.3 21 - 32 MMOL/L 09/12/2024 6:54 AM [facility] CALCIUM S/P/B 9.1 8.5 - 10.1 MG/DL 09/12/2024 6:54 AM [facility] BILIRUBIN TOTAL S/P/B 1.0 0.2 - 1.2 MG/DL 09/12/2024 6:54 AM [facility] Comment: THIS ASSAY IS NOT RECOMMENDED FOR PATIENTS UNDERGOING TREATMENT WITH ELTROMBOPAG DUE TO THE POTENTIAL FOR FALSELY ELEVATED RESULTS. TOTAL PROTEIN S/P/B 7.7 6.4 - 8.2 G/DL 09/12/2024 6:54 AM [facility] ALBUMIN S/P/B 3.7 3.4 - 5.0 G/DL 09/12/2024 6:54 AM [facility] AST 43(H) 15 - 37 U/L 09/12/2024 6:54 AM [facility] ALT 57(H) 14 - 55 U/L 09/12/2024 6:54 AM [facility] ALKALINE PHOSPHATASE S/P/B 65 50 - 136 U/L 09/12/2024 6:54 AM [facility] ANION GAP 7.7 2 - 10 MMOL/L 09/12/2024 6:54 AM [facility] BUN CREATININE RATIO 10.5 6 - 26 09/12/2024 6:54 AM [facility] A/G RATIO 0.9(L) 1.0 - 2.0 RATIO 09/12/2024 6:54 AM [facility] GFR ESTIMATE >90 >90 ML/MIN/1.7 3 M2 09/12/2024 6:54 AM [facility] Comment: NOTE: eGFR is not calculated for patients <18 years of age or gender unknown. This is an estimated GFR calculation using the new CKD EPI creatinine equation without race and so does not require a correction factor for race. This estimated GFR should not be used for calculating drug doses. 09/12/2024 6:10 AM [employer] Iris Mejía MD LABORATORY Final Result [facility] [address] [place] [address], * (ABNORMAL) CBC W/DIFF AUTOMATED (09/12/2024 6:10 AM [employer]) WBC 10.33 4.5 - 11.0 x10'3/uL 09/12/2024 6:23 AM [facility] RBC 5.13 4.20 - 5.40 x10'6/uL 09/12/2024 6:23 AM [facility] HGB 16.1(H) 12.0 - 16.0 G/DL 09/12/2024 6:23 AM [facility] HCT 46.3 38.0 - 48.0 % 09/12/2024 6:23 AM [facility] MCV 90.3 81.0 - 99.0 FL 09/12/2024 6:23 AM [facility] MCH 31.4(H) 27.0 - 31.0 PG 09/12/2024 6:23 AM [facility] MCHC 34.8 32.0 - 36.0 G/DL 09/12/2024 6:23 AM [facility] RDW 12.5 11.5 - 14.5 % 09/12/2024 6:23 AM [facility] PLT 240 130 - 400 x10'3/uL 09/12/2024 6:23 AM [facility] MPV 9.7 9.3 - 12.2 FL 09/12/2024 6:23 AM [facility] DIFFERENTIAL TYPE AUTOMATED DIFFERENTIAL 09/12/2024 6:23 AM [facility] NEUTROPHILS % 65.8 % 09/12/2024 6:23 AM [facility] LYMPHOCYTES % 25.8 % 09/12/2024 6:23 AM [facility] MONOCYTES % 7.7 % 09/12/2024 6:23 AM [facility] EOSINOPHILS 0.1 % 09/12/2024 6:23 AM [facility] BASOPHILS 0.3 % 09/12/2024 6:23 AM [facility] IMMATURE GRANS % 0.3 % 09/13/19 6:23 AM [facility] ABS. NEUTROPHILS 6.80 1.80 - 7.70 x10'3/uL 09/12/2024 6:23 AM [employer] [facility] ABS. LYMPHOCYTES 2.66 1.00 - 4.80 x10'3/uL 09/12/2024 6:23 AM [employer] [facility] ABS. MONOCYTES 0.80 0.24 - 0.86 x10'3/uL 09/12/2024 6:23 AM [employer] [facility] ABS. EOSINOPHILS 0.01(L) 0.04 - 0.36 x10'3/uL 09/12/2024 6:23 AM [employer] [facility] ABS. BASOPHILS 0.03 0.01 - 0.08 x10'3/uL 09/12/2024 6:23 AM [facility] ABS. IMMATURE GRANULOCYTES 0.03 0.00 - 0.49 x10'3/uL 09/12/2024 6:23 AM [employer] [facility] 09/12/2024 6:10 AM [employer] Iris Mejía MD LABORATORY Final Result [address] [address], [place] [phone] * TROPONIN, QUANT (09/12/2024 6:10 AM [employer]) TROPONIN I HIGH SENSITIVITY 4 <54 ng/L 09/12/2024 6:54 AM [employer] [facility] Comment: HIGH DOSES OF BIOTIN, TROPONIN-SPECIFIC AUTOANTIBODIES, AND ANTIBODY THERAPY CONTAINING HAMA MAY INTERFERE WITH THIS TEST RESULT. CORRELATION TO CLINICAL HISTORY AND PRESENTATION RECOMMENDED. 09/12/2024 6:10 AM [employer] Iris Mejía MD LABORATORY Final Result [facility] [address] [place] [address], * MAGNESIUM (09/12/2024 6:10 AM [employer]) MAGNESIUM 1.8 1.8 - 2.4 MG/DL 09/12/2024 8:28 AM [employer] [facility] 09/12/2024 6:10 AM [employer] Iris Mejía MD LABORATORY Final Result [address] [address], * ECG 12 lead (09/12/2024 6:02 AM [employer]) 09/12/2024 6:02 AM [employer] Narrative [facility] ([facility]) RAD - 09/13/2024 8:10 AM [employer] [address] Test Date: 2024-09-12 Pat Name: DARRELL LEE Department: 41 Room: [facility] Gender: Female Accounting Consultant: : 1985 Requested By: LILIYA SEVERINO Order Number: [id number] Reading MD: Nathanael Muhammad Measurements Intervals [place] Rate: 99 P: 148 [place]: 143 QRS: 116 QRSD: 94 T: -31 QT: 338 QTc: 435 Interpretive Statements SINUS RHYTHM WITH OCCASIONAL VENTRICULAR PREMATURE COMPLEXES ARM LEADS REVERSED [INVERTED P AND QRS IN I] Compared to ECG 03/03/2022 09:34:53 Ventricular premature complex(es) now present T-wave abnormality no longer present [facility] Procedure Note Nathanael Muhammad MD - 09/13/[address] Test Date: 2024-09-12 Pat Name: DARRELL LEE Department: 41 Room: JAMIE Gender: Female Accounting Consultant: : 1985 Requested By: LILIYA SEVERINO Order Number: [id number] Reading MD: Nathanael Muhammad Measurements Intervals [place] Rate: 99 P: 148 [place]: 143 QRS: 116 QRSD: 94 T: -31 QT: 338 QTc: 435 Interpretive Statements SINUS RHYTHM WITH OCCASIONAL VENTRICULAR PREMATURE COMPLEXES ARM LEADS REVERSED [INVERTED P AND QRS IN I] Compared to ECG 03/03/2022 09:34:53 Ventricular premature complex(es) now present T-wave abnormality no longer present [employer] Iris Mejía MD ECG ORDERABLES Final Result Performing Organization Address City/[facility] Co de Phone Number [facility] ([facility]) RAD * HEPATITIS C ANTIBODY (07/20/2021 8:54 AM [employer]) HEPATITIS C AB NON-REACTI VE NON-REACT [place] 07/20/2021 7:13 PM [employer] [facility] Comment: ANTIBODIES TO HCV NOT DETECTED. DOES NOT EXCLUDE THE POSSIBILITY OF EXPOSURE TO HCV. 07/20/2021 8:54 AM [employer] [employer] [facility] Final Resul t Performing Organization Address City/[facility] Co de Phone Number [facility] [address] [place] [address], [phone] from Last 3 Months or Most Recently Relevant to Health Maintenance Insurance [employer] Care Teams Communications Station Manager Relationship Specialty Start Date End Date None, Provider, PCP - General UNKNOWN PHYSICIAN SPECIALTY 09/12/24 Duane Tamez MD [address] [place] [address] NEUROLOGY 10/08/18 Chapin Talavera DO [address] [place] [address] [place] In Flight Refueling Manager CARDIOVASCULAR DISEASE 03/01/22
--- OUTSIDE RECORDS SUMMARY | 2024-09-15 14:19 | XMS_ITS | Encounter Summary ---
Author Organization [facility] Address [facility]ly [facility] [place] [address] Care Team Providers Care Case Reviewer Name Role Phone Suryashannon Jenn [facility] Primary Care Provider Duane Barker MD Unavailable [phone] Chapin Talavera DO Unavailable [phone] None, Provider Primary Care Provider Unavaila ble None, Provider Primary Care Provider Unavaila ble Cherelle Lacey MD Primary Care Provider [phone] None, Provider Primary Care Provider Unavaila ble Encounter Details Date Type Department Care Team (Late st Contact Info) Description 01/10/2022 MyChart Message Enc [facility] Medical Group Multispecialty Care - [address], [address] [place] [phone] Armani Duarte MD [address] [place] [address] [address] [place], [place] [phone] Hi Social History Tobacco Use Types Packs/Day [...] Assigned at Female 09/12/2024 6:33 AM JOB SETTER Legal Sex Female 7:52 AM J[employer] SETTER Gender Identity Not on file Sexual Orientation [...] 10/17/2024 1:40 PM CDT [facility] [address] [place] [address] Armani Duarte MD [address] [place] [address] 03/13/2025 9:00 AM CDT [facility] [address] [place] [address] Armani Duarte MD [address] [place] [address] documented as of this encounter Visit Diagnoses Not on filedocumented in this encounter Care Teams Case Reviewer Relationship Specialty Start Date End Date [facility] PCP - General NURSE PRACTITIONER 06/07/18 03/08/22 None, Provider, PCP - General UNKNOWN PHYSICIAN SPECIALTY 05/04/22 09/19/22 None, Provider, PCP - General UNKNOWN PHYSICIAN SPECIALTY 10/05/22 10/24/23 Cherelle Lacey MD [address] [place] [address] [place] [address] PCP - General FAMILY PRACTICE 10/25/23 09/11/24 None, Provider, PCP - General UNKNOWN PHYSICIAN SPECIALTY 09/12/24 Duane Tamez MD [facility] [employer] [address] [place] [address] NEUROLOGY 10/08/18 Chapin Talavera DO [facility] [employer] [address] [place] [address] [place] Certified Travel Counselor CARDIOVASCULAR DISEASE 03/01/22 documented as of this encounter
--- OUTSIDE RECORDS SUMMARY | 2024-09-15 14:19 | XMS_ITS | Encounter Summary ---
Author Organization [facility] Address [address] [place] [address] Care Team Providers Care Satellite Communications Engineer Name Role Phone Jenn Menezes [facility] Primary Care Provider Duane Barker MD Unavailable [phone] Chapin Talavera DO Unavailable [phone] None, Provider Primary Care Provider Unavaila ble None, Provider Primary Care Provider Unavaila ble Cherelle Lacey MD Primary Care Provider [phone] None, Provider Primary Care Provider Unavaila ble Encounter Details Date Type Department Care Team (Late st Contact Info) Description 04/28/2020 Securust Message Enc [facility] Medical Group [address] [address] Jenn Menezes FNP-BC RE: Question Social History Tobacco Use Types [...] Sex Assigned at Female 09/12/2024 6:33 AM EQUIPMENT TECHNICIAN Legal Sex Female 7:52 AM EQUIPMENT TECHNICIAN Gender Identity Not on file Sexual [...] Description 10/17/2024 1:40 PM CDT [facility] [address] [facility] [place] [address] Armani Duarte MD [address] [place] [address] [address] [place] [address] 03/13/2025 9:00 AM CDT [facility] - [address] [place] [address] Armani Duarte MD [address] [place] [address] [address] [place] [address] documented as of this encounter Visit Diagnoses Not on filedocumented in this encounter Care Teams Satellite Communications Engineer Relationship Specialty Start Date End Date Suryashannon Jenn [facility] PCP - General NURSE PRACTITIONER 06/07/18 03/08/22 None, ProviderMD PCP - General UNKNOWN PHYSICIAN SPECIALTY 05/04/22 09/19/22 None, ProviderMD PCP - General UNKNOWN PHYSICIAN SPECIALTY 10/05/22 10/24/23 Cherelle Lacey MD [address] [place] [address] [place] [address] PCP - General FAMILY PRACTICE 10/25/23 09/11/24 None, ProviderMD PCP - General UNKNOWN PHYSICIAN SPECIALTY 09/12/24 Duane Tamez MD [address] [place] [address] NEUROLOGY 10/08/18 Chapin Talavera DO [address] [place] [address] [place] Sterile Process Coordinator CARDIOVASCULAR DISEASE 03/01/22 documented as of this encounter
--- OUTSIDE RECORDS SUMMARY | 2024-09-15 14:19 | XMS_ITS | Encounter Summary ---
Author Organization [facility] Address [facility]ly [facility] [place] [address] Care Team Providers Care Horticultural Manager Name Role Phone Jenn Menezes [facility] Primary Care Provider Duane Barker MD Unavailable [phone] Chapin Talavera DO Unavailable [phone] None, Provider Primary Care Provider Unavaila ble None, Provider Primary Care Provider Unavaila ble Cherelle Lacey MD Primary Care Provider [phone] None, Provider Primary Care Provider Unavaila ble Encounter Details Date Type Department Care Team (Late Contact Info) Description 12/02/2019 MyChart Message Enc [address] [address] Jenn Menezes INVESTIGATIVE RESEARCH SPECIALISTADRIA RE: Medication Questions Social History Tobacco Use [...] Sex Assigned at Female 09/12/2024 6:33 AM ACQUISITION ADVISOR Legal Sex Female 7:52 AM ACQUISITION ADVISOR Gender Identity Not on file Sexual Orientation Not on file documented as of this encounter Plan of Treatment Upcoming Encounters Date Type Department Care Team (Late Contact Info) Description 10/17/2024 1:40 PM CDT [facility] [address] [facility] [place] [address] Armani Duarte MD [address] [facility] [address] [place] [address] 03/13/2025 9:00 AM CDT [facility] [address] [facility] [place] [address] Armani Duarte MD [address] [facility] [address] [place] [address] documented as of this encounter Visit Diagnoses Not on filedocumented in this encounter Care Teams Horticultural Manager Relationship Specialty Start Date End Date Jenn Menezes [facility] PCP - General NURSE PRACTITIONER 06/07/18 03/08/22 None, Provider, PCP - General UNKNOWN PHYSICIAN SPECIALTY 05/04/22 09/19/22 None, ProviderMD PCP - General UNKNOWN PHYSICIAN SPECIALTY 10/05/22 10/24/23 Cherelle Lacey MD [address] [place] [address] [place] [address] PCP - General FAMILY PRACTICE 10/25/23 09/11/24 None, Provider, PCP - General UNKNOWN PHYSICIAN SPECIALTY 09/12/24 Duane Tamez MD [facility] [employer] [address] [address] NEUROLOGY 10/08/18 Chapin Talavera DO [facility] [employer] [address] [address] [place] Sleep Technician CARDIOVASCULAR DISEASE 03/01/22 documented as of this encounter
--- OUTSIDE RECORDS SUMMARY | 2024-09-15 14:19 | XMS_ITS | Encounter Summary ---
Author Organization [facility] Address [address] [place] [address] Care Team Providers Care Training Program Developer Name Role Phone Jenn Menezes [facility] Primary Care Provider Duane Barker MD Unavailable [phone] Chapin Talavera DO Unavailable [phone] None, Provider Primary Care Provider Unavaila ble None, Provider Primary Care Provider Unavaila ble Cherelle Lacey MD Primary Care Provider [phone] None, Provider Primary Care Provider Unavaila ble Encounter Details Date Type Department Care Team (Late st Contact Info) Description 04/13/2020 AkesoGenXt Message Enc [facility] Medical Group [address] [address] Jenn Menezes ED CASE MANAGERADRIA RE: Question Social History Tobacco Use Types [...] Assigned at Female 09/12/2024 6:33 AM EXECUTIVE CYBER LEADER Legal Sex Female 7:52 AM EXECUTIVE CYBER LEADER Gender Identity Not on file Sexual Orientation [...] Description 10/17/2024 1:40 PM CDT [facility] [address] [facility] [place] [address] Armani Duarte MD [address] [facility] [address] [place] [address] 03/13/2025 9:00 AM CDT [facility] - [address] [place] [address] Armani Duarte MD [address] [place] [address] [address] [place] [address] documented as of this encounter Visit Diagnoses Not on filedocumented in this encounter Care Teams Training Program Developer Relationship Specialty Start Date End Date Jenn Menezes [facility] PCP - General NURSE PRACTITIONER 06/07/18 03/08/22 None, ProviderMD PCP - General UNKNOWN PHYSICIAN SPECIALTY 05/04/22 09/19/22 None, ProviderMD PCP - General UNKNOWN PHYSICIAN SPECIALTY 10/05/22 10/24/23 Cherelle Lacey MD [address] [place] [address] [place] [address] PCP - General FAMILY PRACTICE 10/25/23 09/11/24 None, ProviderMD PCP - General UNKNOWN PHYSICIAN SPECIALTY 09/12/24 Duane Tamez MD [address] [place] [address] NEUROLOGY 10/08/18 Chapin Talavera DO [address] [place] [address] [place] Automated Equipment Engineer Technician CARDIOVASCULAR DISEASE 03/01/22 documented as of this encounter
--- OUTSIDE RECORDS SUMMARY | 2024-09-15 14:19 | XMS_ITS | Encounter Summary ---
Author Organization [facility] Address [facility] [place] [address] Care Team Providers Care Head Of Marketing Name Role Phone Jenn Menezes [facility] Primary Care Provider Duane Barker MD Unavailable [phone] Chapin Talavera DO Unavailable [phone] None, Provider Primary Care Provider Unavaila ble None, Provider Primary Care Provider Unavaila ble Cherelle Lacey MD Primary Care Provider [phone] None, Provider Primary Care Provider Unavaila ble Encounter Details Date Type Department Care Team (Late st Contact Info) Description 10/14/2020 Breezeworkst Message Enc [facility] Family Medicine [address] [address] Mychart, [facility] Provider your appointment today Social History Tobacco [...] Assigned at Female 09/12/2024 6:33 AM REHABILITATION PROGRAM MANAGER Legal Sex Female 7:52 AM REHABILITATION PROGRAM MANAGER Gender Identity Not on file Sexual Orientation Not on file documented as of this encounter Plan of Treatment Upcoming Encounters Date Type Department Care Team (Late Contact Info) Description 10/17/2024 1:40 PM CDT [facility] [address] [facility] [place] [address] Armani Duarte MD [address] [facility] [address] [place] [address] 03/13/2025 9:00 AM CDT [facility] [address] [facility] [place] [address] Armani Duarte MD [address] [facility] [address] [place] [address] documented as of this encounter Visit Diagnoses Not on filedocumented in this encounter Care Teams Head Of Marketing Relationship Specialty Start Date End Date Jenn Menezes [facility] PCP - General NURSE PRACTITIONER 06/07/18 03/08/22 None, ProviderMD PCP - General UNKNOWN PHYSICIAN SPECIALTY 05/04/22 09/19/22 None, ProviderMD PCP - General UNKNOWN PHYSICIAN SPECIALTY 10/05/22 10/24/23 Cherelle Lacey MD [address] [place] [address] [place] [address] PCP - General FAMILY PRACTICE 10/25/23 09/11/24 None, ProviderMD PCP - General UNKNOWN PHYSICIAN SPECIALTY 09/12/24 Duane Tamez MD [facility] [employer] [address] [place] [address] NEUROLOGY 10/08/18 Chapin Talavera DO [facility] [employer] [address] [place] [address] [place] Safety Manager CARDIOVASCULAR DISEASE 03/01/22 documented as of this encounter
--- OUTSIDE RECORDS SUMMARY | 2024-09-15 14:19 | XMS_ITS | Encounter Summary ---
Author Organization [facility] Address [facility] [place] [address] Care Team Providers Care Burling And Joining Supervisor Name Role Phone Jenn Menezes [facility] Primary Care Provider Duane Barker MD Unavailable [phone] Chapin Talavera DO Unavailable [phone] None, Provider Primary Care Provider Unavaila ble None, Provider Primary Care Provider Unavaila ble Cherelle Lacey MD Primary Care Provider [phone] None, Provider Primary Care Provider Unavaila ble Encounter Details Date Type Department Care Team (Late st Contact Info) Description 02/21/[address] In[address] Message Enc [facility] Medical Group Family Medicine [address] [address] Jenn Menezes [facility] cardiology referrral Social History Tobacco Use Types [...] Sex Assigned at Female 09/12/2024 6:33 AM RADIATION ONCOLOGY MANAGER Legal Sex Female 7:52 AM RADIATION ONCOLOGY MANAGER Gender Identity Not on file Sexual Orientation Not on file documented as of this encounter Plan of Treatment Upcoming Encounters Date Type Department Care Team (Late st Contact Info) Description 10/17/2024 1:40 PM CDT [facility] [address] [facility] [place] [address] Armani Duarte MD [address] [place] [address] [address] [place] [address] 03/13/2025 9:00 AM CDT Office Visit [facility] - [address] [place] [address] Armani Duarte MD [address] [place] [address] [address] [place] [address] documented as of this encounter Visit Diagnoses Not on filedocumented in this encounter Care Teams Burling And Joining Supervisor Relationship Specialty Start Date End Date Jenn Menezes [facility] PCP - General NURSE PRACTITIONER 06/07/18 03/08/22 None, ProviderMD PCP - General UNKNOWN PHYSICIAN SPECIALTY 05/04/22 09/19/22 None, ProviderMD PCP - General UNKNOWN PHYSICIAN SPECIALTY 10/05/22 10/24/23 Cherelle Lacey MD [address] [place] [address] [place] [address] PCP - General FAMILY PRACTICE 10/25/23 09/11/24 None, ProviderMD PCP - General UNKNOWN PHYSICIAN SPECIALTY 09/12/24 Duane Tamez MD [address] [place] [address] NEUROLOGY 10/08/18 Chapin Talavera DO [address] [place], [place] [address] [place] Wire Rope Sling Maker CARDIOVASCULAR DISEASE 03/01/22 documented as of this encounter
--- OUTSIDE RECORDS SUMMARY | 2024-09-15 14:19 | XMS_ITS | Patient Health Summary ---
Author Organization [facility] Address [address] [facility] [place] [address] Care Team Providers Care Soil Conservation Teacher Name Role Phone Jenn Menezes APRN-MISSILE TRACKING TECHNICIAN Primary Care Provider [phone] Constantino Solis MD Unavailable [phone] Note from [facility],non-owned Affiliates and Associated Physician Practices is amultiple site organization consisting of ambulatory clinics and hospital sitesin [place], [place], [place] and [place]. This disclosure is being madepursuant to the Care Everywhere program and may not contain all information available regarding this patient. Last updated 18.[facility] Allergies * Amoxicillin * Clarithromycin * Ciprofloxacin [...] propionate (FLONASE) 50 MCG/ACT nasal spray(Started 04/22/2019) [place] 1 spray into the nose * umeclidinium [...] Comments Blood Pressure 98/78 05/30/2019 11:26 AM MECHANICAL PLANNER Pulse 91 05/30/2019 11:26 AM MECHANICAL PLANNER Temperature 36.7 C (98 F) 05/30/2019 11:26 AM MECHANICAL PLANNER Respiratory Rate 16 09/21/2017 3:54 PM CDT Oxygen Saturation 96% 05/30/2019 11:26 AM MECHANICAL PLANNER Inhaled Oxygen Concentration - - Weight 134.3 kg (296 lb) 05/30/2019 11:26 AM MECHANICAL PLANNER Height 169 cm (5' 6.54 ) 05/30/2019 11:26 AM MECHANICAL PLANNER Body Mass Index 47.01 05/30/2019 11:26 AM MECHANICAL PLANNER Care Teams Soil Conservation Teacher Relationship Specialty Start Date End Date Jenn Menezes APRN-MISSILE TRACKING TECHNICIAN PCP - General 10/23/18 Constantino Solis MD Family Medicine 07/17/18
--- OUTSIDE RECORDS SUMMARY | 2024-09-15 14:19 | XMS_ITS | Encounter Summary ---
Author Organization [facility] Address [address] [place] [address] Care Team Providers Care Electrical Repairer Name Role Phone Jenn Menezes [facility] Primary Care Provider Duane Barker MD Unavailable [phone] Chapin Talavera DO Unavailable [phone] None, Provider Primary Care Provider Unavaila ble None, Provider Primary Care Provider Unavaila ble Cherelle Lacey MD Primary Care Provider [phone] None, Provider Primary Care Provider Unavaila ble Encounter Details Date Type Department Care Team (Late st Contact Info) Description 03/01/2020 Nora Therapeuticst Message Enc [facility] Medical Group [facility] Medicine [address] [address] Jenn Menezes FNP-BC RE: Medication [...] Sex Assigned at Female 09/12/2024 6:33 AM CAR REFINISHER Legal Sex Female 7:52 AM CAR REFINISHER Gender Identity Not on file Sexual Orientation [...] Description 10/17/2024 1:40 PM CDT [facility] [address] [facility] [place] [address] Armani Duarte MD [address] [place] [address] [address] [place] [address] 03/13/2025 9:00 AM CDT [facility] - [address] [place] [address] Armani Duarte MD [address] [place] [address] [address] [place] [address] documented as of this encounter Visit Diagnoses Not on filedocumented in this encounter Care Teams Electrical Repairer Relationship Specialty Start Date End Date [place] Jenn [facility] PCP - General NURSE PRACTITIONER 06/07/18 03/08/22 None, ProviderMD PCP - General UNKNOWN PHYSICIAN SPECIALTY 05/04/22 09/19/22 None, ProviderMD PCP - General UNKNOWN PHYSICIAN SPECIALTY 10/05/22 10/24/23 Cherelle Lacey MD [address] [place] [address] [place] [address] PCP - General FAMILY PRACTICE 10/25/23 09/11/24 None, ProviderMD PCP - General UNKNOWN PHYSICIAN SPECIALTY 09/12/24 Duane Tamez MD [address] [place] [address] NEUROLOGY 10/08/18 Chapin Talavera DO [address] [place] [address] [place] Fuel Truck Driver CARDIOVASCULAR DISEASE 03/01/22 documented as of this encounter
--- OUTSIDE RECORDS SUMMARY | 2024-09-15 14:19 | XMS_ITS | Referral Summary ---
Author Organization [facility] Address [address] [facility] [place] [address] Care Team Providers Care Skiver Blockers Name Role Phone MakJenn brunson GREG-STOVE INSTALLER Primary Care Provider [phone] Constantino Solis MD Unavailable [phone] Source Comments [facility],non-owned Affiliates and Associated Physician Practices is amultiple site organization consisting of ambulatory clinics and hospital sitesin [place], [place], [place] and [place]. This disclosure is being madepursuant to the Care Everywhere program and may not contain all information available regarding this patient. Last updated 18.[facility] Allergies Active Allergy Reactions Criticality Noted Date [...] fluticasone propionate (FLONASE) 50 MCG/ACT nasal spray [place] 1 spray into the nose 04/22/2019 Active [...] Comments Blood Pressure 98/78 05/30/2019 11:26 AM TOYS AND GAMES HAND FINISHER Pulse 91 05/30/2019 11:26 AM TOYS AND GAMES HAND FINISHER Temperature 36.7 C (98 F) 05/30/2019 11:26 AM TOYS AND GAMES HAND FINISHER Respiratory Rate 16 09/21/2017 3:54 PM CDT Oxygen Saturation 96% 05/30/2019 11:26 AM TOYS AND GAMES HAND FINISHER Inhaled Oxygen Concentration - - Weight 134.3 kg (296 lb) 05/30/2019 11:26 AM TOYS AND GAMES HAND FINISHER Height 169 cm (5' 6.54 ) 05/30/2019 11:26 AM TOYS AND GAMES HAND FINISHER Body Mass Index 47.01 05/30/2019 11:26 AM TOYS AND GAMES HAND FINISHER Plan of Treatment Not on file Care Teams Skiver Blockers Relationship Specialty Start Date End Date Jenn Menezes APRN-CHANDRAKANT PCP - General 10/23/18 Constantino Solis MD Family Medicine 07/17/18
--- OUTSIDE RECORDS SUMMARY | 2024-09-15 14:19 | XMS_ITS | Encounter Summary ---
Author Organization [facility] Address [address] [place] [address] Care Team Providers Care Fabric Stretcher Name Role Phone Duane Tamez MD Unavailable [phone] Chapin Talavera DO Unavailable [phone] None, Provider Primary Care Provider Unavaila ble None, Provider Primary Care Provider Unavaila ble Cherelle Lacey MD Primary Care Provider [phone] None, Provider Primary Care Provider Unavaila ble Encounter Details Date Type Department Care Team (Late st Contact Info) Description 03/17/2022 EnterMedia Message Enc [facility] [place] [facility] [address] [place] [address] Chapin Talavera, DO [address] [place] [address] schedule testing Social History Tobacco Use Types [...] Sex Assigned at Female 09/12/2024 6:33 AM FASHION ARTIST Legal Sex Female 7:52 AM FASHION ARTIST Gender Identity Not on file Sexual Orientation [...] Description 10/17/2024 1:40 PM CDT [facility] - [address] [place] [address] Armani Duarte MD [address] [place] [address] [address] [place] [address] 03/13/2025 9:00 AM CDT Office Visit [facility] - [address] [place] [address] Armani Duarte MD [address] [place] [address] [address] [place] [address] documented as of this encounter Visit Diagnoses Not on filedocumented in this encounter Care Teams Fabric Stretcher Relationship Specialty Start Date End Date None, Provider, PCP - General UNKNOWN PHYSICIAN SPECIALTY 05/04/22 09/19/22 None, ProviderMD PCP - General UNKNOWN PHYSICIAN SPECIALTY 10/05/22 10/24/23 Cherelle Lacey MD [address] [place] [address] [place] [address] PCP - General FAMILY PRACTICE 10/25/23 09/11/24 None, MD Yony PCP - General UNKNOWN PHYSICIAN SPECIALTY 09/12/24 Duane Tamez MD [address] [address] NEUROLOGY 10/08/18 Chapin Talavera DO [facility] [address] [address] [place] Technical Sales Director CARDIOVASCULAR DISEASE 03/01/22 documented as of this encounter
--- OUTSIDE RECORDS SUMMARY | 2024-09-15 14:19 | XMS_ITS | Encounter Summary ---
Author Organization [facility] Address [facility] [place] [address] Care Team Providers Care Director Education Name Role Phone Jenn Menezes [facility] Primary Care Provider Duane Barker MD Unavailable [phone] Chapin Talavera DO Unavailable [phone] None, Provider Primary Care Provider Unavaila ble None, Provider Primary Care Provider Unavaila ble Cherelle Lacey MD Primary Care Provider [phone] None, Provider Primary Care Provider Unavaila ble Encounter Details Date Type Department Care Team (Late st Contact Info) Description 12/22/2021 SolarPrintt Message Enc [facility] Medical Group Family Medicine [address] [address] Jenn Menezes D[facility] Hi Social History Tobacco Use Types [...] Assigned at Female 09/12/2024 6:33 AM MEDICAL ORDERLY Legal Sex Female 7:52 AM MEDICAL ORDERLY Gender Identity Not on file Sexual Orientation [...] PM CDT Office Visit [facility] - [address] [place] [address] Armani Duarte MD [address] [place] [address] 03/13/2025 9:00 AM CDT Office Visit [facility] - [address] [place] [address] Armani Duarte MD [address] [place] [address] [address] [place] [address] documented as of this encounter Visit Diagnoses Not on filedocumented in this encounter Care Teams Director Education Relationship Specialty Start Date End Date Jenn Menezes [facility] PCP - General NURSE PRACTITIONER 06/07/18 03/08/22 None, ProviderMD PCP - General UNKNOWN PHYSICIAN SPECIALTY 05/04/22 09/19/22 None, ProviderMD PCP - General UNKNOWN PHYSICIAN SPECIALTY 10/05/22 10/24/23 Cherelle Lacey MD [address] [place] [address] [place] [address] PCP - General FAMILY PRACTICE 10/25/23 09/11/24 None, ProviderMD PCP - General UNKNOWN PHYSICIAN SPECIALTY 09/12/24 Duane Tamez MD [facility] [address] NEUROLOGY 10/08/18 Chapin Talavera DO [facility] [address] [address] [place] Wind Turbine Mechanic CARDIOVASCULAR DISEASE 03/01/22 documented as of this encounter
--- OUTSIDE RECORDS SUMMARY | 2024-09-15 14:19 | XMS_ITS | Encounter Summary ---
Author Organization [facility] Address [facility] [place] [address] Care Team Providers Care Short Goods Drier Name Role Phone Jenn Menezes [facility] Primary Care Provider Duane Barker MD Unavailable [phone] Chapin Talavera DO Unavailable [phone] None, Provider Primary Care Provider Unavaila ble None, Provider Primary Care Provider Unavaila ble Cherelle Lacey MD Primary Care Provider [phone] None, Provider Primary Care Provider Unavaila ble Encounter Details Date Type Department Care Team (Late Contact Info) Description 09/16/2019 MyChart Message Enc [facility] Medical Group [address] [address] Jenn Menezes CARAMEL COLORING OPERATORADRIA RE: Follow Up/Update Social History Tobacco Use [...] Sex Assigned at Female 09/12/2024 6:33 AM SANITATION TECHNICIAN Legal Sex Female 7:52 AM SANITATION TECHNICIAN Gender Identity Not on file Sexual Orientation Not on file documented as of this encounter Plan of Treatment Upcoming Encounters Date Type Department Care Team (Late Contact Info) Description 10/17/2024 1:40 PM CDT [facility] [address] [facility] [place] [address] Armani Duarte MD [address] [facility] [address] [place] [address] 03/13/2025 9:00 AM CDT [facility] [address] [facility] [place] [address] Armani Duarte MD [address] [facility] [address] [place] [address] documented as of this encounter Visit Diagnoses Not on filedocumented in this encounter Care Teams Short Goods Drier Relationship Specialty Start Date End Date Jenn Menezes [facility] PCP - General NURSE PRACTITIONER 06/07/18 03/08/22 None, Provider, PCP - General UNKNOWN PHYSICIAN SPECIALTY 05/04/22 09/19/22 None, ProviderMD PCP - General UNKNOWN PHYSICIAN SPECIALTY 10/05/22 10/24/23 Cherelle Lacey MD [address] [place] [address] [place] [address] PCP - General FAMILY PRACTICE 10/25/23 09/11/24 None, ProviderMD PCP - General UNKNOWN PHYSICIAN SPECIALTY 09/12/24 Duane Tamez MD [facility] [employer] [address] [address] NEUROLOGY 10/08/18 Chapin Talavera DO [facility] [employer] [address] [address] [place] Firefighter CARDIOVASCULAR DISEASE 03/01/22 documented as of this encounter
--- OUTSIDE RECORDS SUMMARY | 2024-09-15 14:19 | XMS_ITS | Encounter Summary ---
Author Organization [facility] Address [address] [place] [address] Care Team Providers Care Content Checker Name Role Phone Jenn Menezes [facility] Primary Care Provider Duane Barker MD Unavailable [phone] Chapin Talavera DO Unavailable [phone] None, Provider Primary Care Provider Unavaila ble None, Provider Primary Care Provider Unavaila ble Cherelle Lacey MD Primary Care Provider [phone] None, Provider Primary Care Provider Unavaila ble Encounter Details Date Type Department Care Team (Late st Contact Info) Description 06/02/2019 EDANhart Message Enc [address] [address] Jenn Menezes PREPARATION PLANT REPAIRER- RE: Question Social History Tobacco Use Types [...] Sex Assigned at Female 09/12/2024 6:33 AM SHREDDER TENDER PEAT Legal Sex Female 7:52 AM SHREDDER TENDER PEAT Gender Identity Not on file Sexual Orientation Not on file documented as of this encounter Plan of Treatment Upcoming Encounters Date Type Department Care Team (Late Contact Info) Description 10/17/2024 1:40 PM CDT [facility] [address] [facility] [place] [address] Armani Duarte MD [address] [facility] [address] [place] [address] 03/13/2025 9:00 AM CDT [facility] [address] [facility] [place] [address] Armani Duarte MD [address] [facility] [address] [place] [address] documented as of this encounter Visit Diagnoses Not on filedocumented in this encounter Care Teams Content Checker Relationship Specialty Start Date End Date Jenn Menezes [facility] PCP - General NURSE PRACTITIONER 06/07/18 03/08/22 None, ProviderMD PCP - General UNKNOWN PHYSICIAN SPECIALTY 05/04/22 09/19/22 None, ProviderMD PCP - General UNKNOWN PHYSICIAN SPECIALTY 10/05/22 10/24/23 Cherelle Lacey MD [address] [place] [address] [place] [address] PCP - General FAMILY PRACTICE 10/25/23 09/11/24 None, Provider, PCP - General UNKNOWN PHYSICIAN SPECIALTY 09/12/24 Duane Tamez MD [facility] [employer] [address] [place] [address] NEUROLOGY 10/08/18 Chapin Talavera DO [facility] [employer] [address] [place] [phone] (work) [place] Web Architect CARDIOVASCULAR DISEASE 03/01/22 documented as of this encounter
--- OUTSIDE RECORDS SUMMARY | 2024-09-15 14:19 | XMS_ITS | Encounter Summary ---
Author Organization [facility] - [facility] Address [facility] [place] [address] Care Team Providers Care Chronic Manager Name Role Phone Duane Tamez MD Unavailable [phone] Chapin Talavera DO Unavailable [phone] None, Provider Primary Care Provider Unavaila ble Reason for Referral * Medication Prior Authorization - Pending Review Specialty Diagnoses / Procedures Referred By Contac t Referred To Contact Diagnoses Pulmonary embolism ([facility]/HCC [facility]) Armani Duarte MD [address] [facility] [address] [place] [address] Phone: tel: fax: Referral ID Status Reason Start Date Expiration Date V isits Requested Visits Authorized [id number] Pending Review 1 1 Encounter Details Date Type Department Care Team (Late st Contact Info) Description 09/13/2024 MyChart Message Enc [facility] Medical Group Multispecialty Care - [facility] [address] [facility] [place] [phone] Armani Duarte MD [address] [facility] [address] [place], [place] [id number] Bronchitis Social History Tobacco Use Types Packs/Day [...] Sex Assigned at Female 09/12/2024 6:33 AM REGISTERED REPRESENTATIVE Legal Sex Female 7:52 AM REGISTERED REPRESENTATIVE Gender Identity Not on file Sexual Orientation Not on file documented as of this encounter Progress Notes * Armani Duarte MD - 09/15/2024 11:24 AM CDT I cannot directly admit her but if she is hypoxic I agree she should go to the ER. I suggest she go to the ER at [facility] so that she can be seen by us. Armani Duarte MD * Darrell Dan CRT - 09/15/2024 11:01 AM CDT Need ER notes with imaging reports to be able to submit PA. Records request sent to [facility] * Darrell Dan CRT - 09/15/2024 10:12 AM CDTAddended by: DARRELL DAN on: 09/15/2024 10:12 AM Modules accepted: Orders * Armani Duarte MD - 09/15/2024 10:00 AM CDT Yes, she needs to stay on Eliquis. Okay to prescribe and prior Auth. Send 5 mg twice daily. 1 monthsupply with 3 refills. Armani Duarte MD * Darrell Dan CRT - 09/15/2024 9:17 AM CDT Images from the original note were not included. Request sent to [facility] for imaging push over * Armnai Duarte MD - 09/15/2024 7:43 AM CDT Obtain records including imaging pushed over or on a disk. Move her up to the next 3-4 weeks. Armani Duarte MD documented in this encounter Plan of Treatment Upcoming Encounters Date Type Department Care Team (Late st Contact Info) Description 10/17/2024 1:40 PM CDT [facility] [address] [place] [phone] Armani Duarte MD [address] [facility] [address] [place] [address] 03/13/2025 9:00 AM CDT [facility] [address] [facility] [address] [place] [phone] Armani Duarte MD [address] [facility] [address] [place] [address] documented as of this encounter Visit Diagnoses Diagnosis Pulmonary embolism (CMS/HCC HHS/HCC)- Primary Other pulmonary embolism and infarction documented in this encounter Care Teams Chronic Manager Relationship Specialty Start Date End Date None, Provider, PCP - General UNKNOWN PHYSICIAN SPECIALTY 09/12/24 Duane Tamez MD [address] [place] [address] NEUROLOGY 10/08/18 Chapin Talavera DO [address] [place] [address] [employer] International Trade Analyst CARDIOVASCULAR DISEASE 03/01/22 documented as of this encounter
--- OUTSIDE RECORDS SUMMARY | 2024-09-15 14:19 | XMS_ITS | Encounter Summary ---
Author Organization [facility] Address [address] [place] [address] Care Team Providers Care State Game Protector Name Role Phone Jenn Menezes [facility] Primary Care Provider Duane Barker MD Unavailable [phone] Chapin Talavera DO Unavailable [phone] None, Provider Primary Care Provider Unavaila ble None, Provider Primary Care Provider Unavaila ble Cherelle Lacey MD Primary Care Provider [phone] None, Provider Primary Care Provider Unavaila ble Encounter Details Date Type Department Care Team (Late st Contact Info) Description 02/25/2020 MyChart Message Enc [facility] Medical Group [address] [address] Jenn Menezes [employer]- RE: FW: Medication Questions Social History Tobacco [...] Sex Assigned at Female 09/12/2024 6:33 AM ACTUARY Legal Sex Female 7:52 AM ACTUARY Gender Identity Not on file Sexual Orientation [...] 10/17/2024 1:40 PM CDT Office Visit [facility] [address] [facility] [place] [address] Armani Duarte MD [address] [place] [address] [address] [place] [address] 03/13/2025 9:00 AM CDT Office Visit [facility] - [address] [place] [address] Armani Duarte MD [address] [place] [address] [address] [place] [address] documented as of this encounter Visit Diagnoses Not on filedocumented in this encounter Care Teams State Game Protector Relationship Specialty Start Date End Date Jenn Menezes [facility] PCP - General NURSE PRACTITIONER 06/07/18 03/08/22 None, ProviderMD PCP - General UNKNOWN PHYSICIAN SPECIALTY 05/04/22 09/19/22 None, ProviderMD PCP - General UNKNOWN PHYSICIAN SPECIALTY 10/05/22 10/24/23 Cherelle Lacey MD [address] [place] [address] [place] [address] PCP - General FAMILY PRACTICE 10/25/23 09/11/24 None, ProviderMD PCP - General UNKNOWN PHYSICIAN SPECIALTY 09/12/24 Duane Tamez MD [address] [place] [address] NEUROLOGY 10/08/18 Chapin Talavera DO [address] [place] [address] [employer] Crystal[employer] CARDIOVASCULAR DISEASE 03/01/22 documented as of this encounter
--- OUTSIDE RECORDS SUMMARY | 2024-09-15 14:19 | XMS_ITS | Encounter Summary ---
Author Organization [facility] Address [facility] [place] [address] Care Team Providers Care Needle Loom Setter Name Role Phone Jenn Menezes [facility] Primary Care Provider Duane Barker MD Unavailable [phone] Chapin Talavera DO Unavailable [phone] None, Provider Primary Care Provider Unavaila ble None, Provider Primary Care Provider Unavaila ble Cherelle Lacey MD Primary Care Provider [phone] None, Provider Primary Care Provider Unavaila ble Encounter Details Date Type Department Care Team (Late Contact Info) Description 04/22/2019 [employer] Message Enc [address] [address] Jenn Menezes [facility] RE: Referral Request Social History Tobacco Use [...] Sex Assigned at Female 09/12/2024 6:33 AM BASKETBALL REFEREE Legal Sex Female 7:52 AM BASKETBALL REFEREE Gender Identity Not on file Sexual Orientation Not on file documented as of this encounter Plan of Treatment Upcoming Encounters Date Type Department Care Team (Late Contact Info) Description 10/17/2024 1:40 PM CDT [facility] [place] [facility] [address] [facility] [place] [address] Armani Duarte MD [address] [facility] [address] [place] [address] 03/13/2025 9:00 AM CDT [facility] [place] [facility] - [facility] [address] [facility] [place] [address] Armani Duarte MD [address] [facility] [address] [place] [address] documented as of this encounter Visit Diagnoses Not on filedocumented in this encounter Care Teams Needle Loom Setter Relationship Specialty Start Date End Date Jenn Menezes [facility] PCP - General NURSE PRACTITIONER 06/07/18 03/08/22 None, Provider, PCP - General UNKNOWN PHYSICIAN SPECIALTY 05/04/22 09/19/22 None, ProviderMD PCP - General UNKNOWN PHYSICIAN SPECIALTY 10/05/22 10/24/23 Cherelle Lacey MD [address] [place] [address] [place] [address] PCP - General FAMILY PRACTICE 10/25/23 09/11/24 None, Provider, PCP - General UNKNOWN PHYSICIAN SPECIALTY 09/12/24 Duane Tamez MD [facility] [employer] [address] [address] NEUROLOGY 10/08/18 Chapin Talavera DO [facility] [employer] [address] [address] [place] Trainman CARDIOVASCULAR DISEASE 03/01/22 documented as of this encounter
--- OUTSIDE RECORDS SUMMARY | 2024-09-15 14:19 | XMS_ITS | Encounter Summary ---
Author Organization [facility] - [facility] Address [facility] [place] [address] Care Team Providers Care Telecommunications Manager Name Role Phone Suryashannon Jenn [facility] Primary Care Provider Duane Barker MD Unavailable [phone] Chapin Talavera DO Unavailable [phone] None, Provider Primary Care Provider Unavaila ble None, Provider Primary Care Provider Unavaila ble Cherelle Lacey MD Primary Care Provider [phone] None, Provider Primary Care Provider Unavaila ble Encounter Details Date Type Department Care Team (Late st Contact Info) Description 01/05/2022 MyChart Message Enc [facility] Medical Group Multispecialty Care - [address] [place] [address] Armani Duarte MD [address] [place] [address] [address] [place] [address] Test results. Social History Tobacco [...] Assigned at Female 09/12/2024 6:33 AM WATER METER INSTALLER Legal Sex Female 7:52 AM WATER METER INSTALLER Gender Identity Not on file Sexual Orientation [...] 10/17/2024 1:40 PM CDT [facility] - [address] [place] [address] Armani Duarte MD [address] [place] [address] 03/13/2025 9:00 AM CDT Office Visit [facility] - [address] [place] [address] Armani Duarte MD [address] [place] [address] documented as of this encounter Visit Diagnoses Not on filedocumented in this encounter Care Teams Telecommunications Manager Relationship Specialty Start Date End Date [facility] PCP - General NURSE PRACTITIONER 06/07/18 03/08/22 None, Provider, PCP - General UNKNOWN PHYSICIAN SPECIALTY 05/04/22 09/19/22 None, Provider, PCP - General UNKNOWN PHYSICIAN SPECIALTY 10/05/22 10/24/23 Cherelle Lacey MD [address] [place] [address] [place] [address] PCP - General FAMILY PRACTICE 10/25/23 09/11/24 None, Provider, PCP - General UNKNOWN PHYSICIAN SPECIALTY 09/12/24 Duane Tamez MD [facility] [address] [place] [address] NEUROLOGY 10/08/18 Chapin Talavera DO [facility] [address] [place] [address] [employer] Career Guidance Technician CARDIOVASCULAR DISEASE 03/01/22 documented as of this encounter
--- OUTSIDE RECORDS SUMMARY | 2024-09-15 14:19 | XMS_ITS | Encounter Summary ---
Author Organization [facility] Address [facility] [place] [address] Care Team Providers Care Lasting Machine Operator Name Role Phone Jenn Menezes [facility] Primary Care Provider Duane Barker MD Unavailable [phone] Chapin Talavera DO Unavailable [phone] None, Provider Primary Care Provider Unavaila ble None, Provider Primary Care Provider Unavaila ble Cherelle Lacey MD Primary Care Provider [phone] None, Provider Primary Care Provider Unavaila ble Encounter Details Date Type Department Care Team (Late Contact Info) Description 05/30/2019 [employer] Message Enc [address] [address] Jenn Menezes FNP-BC RE: Medication [...] Sex Assigned at Female 09/12/2024 6:33 AM WEB METHODS DEVELOPER Legal Sex Female 7:52 AM WEB METHODS DEVELOPER Gender Identity Not on file Sexual Orientation Not on file documented as of this encounter Plan of Treatment Upcoming Encounters Date Type Department Care Team (Late Contact Info) Description 10/17/2024 1:40 PM CDT [facility] - [facility] [address] [facility] [place] [address] Armani Duarte MD [address] [facility] [address] [place] [address] 03/13/2025 9:00 AM CDT [facility] [address] [facility] [place] [address] Armani Duarte MD [address] [facility] [address] [place] [address] documented as of this encounter Visit Diagnoses Not on filedocumented in this encounter Care Teams Lasting Machine Operator Relationship Specialty Start Date End Date Jenn Menezes [facility] PCP - General NURSE PRACTITIONER 06/07/18 03/08/22 None, Provider, PCP - General UNKNOWN PHYSICIAN SPECIALTY 05/04/22 09/19/22 None, ProviderMD PCP - General UNKNOWN PHYSICIAN SPECIALTY 10/05/22 10/24/23 Cherelle Lacey MD [address] [place] [address] [place] [address] PCP - General FAMILY PRACTICE 10/25/23 09/11/24 None, Provider, PCP - General UNKNOWN PHYSICIAN SPECIALTY 09/12/24 Duane Tamez MD [facility] [employer] [address] [address] NEUROLOGY 10/08/18 Chapin Talavera DO [facility] [employer] [address] [address] [place] [employer] Merchant CARDIOVASCULAR DISEASE 03/01/22 documented as of this encounter
--- OUTSIDE RECORDS SUMMARY | 2024-09-15 14:19 | XMS_ITS | Encounter Summary ---
Author Organization [facility] Address [facility] [place] [address] Care Team Providers Care Middle School Music Teacher Name Role Phone Jenn Menezes [facility] Primary Care Provider Duane Barker MD Unavailable [phone] Chapin Talavera DO Unavailable [phone] None, Provider Primary Care Provider Unavaila ble None, Provider Primary Care Provider Unavaila ble Cherelle Lacey MD Primary Care Provider [phone] None, Provider Primary Care Provider Unavaila ble Encounter Details Date Type Department Care Team (Late Contact Info) Description 01/02/2020 MyChart Message Enc [facility] Medical Group [address] [address] Jenn Menezes [facility] RE: RE: Question Social History Tobacco [...] Sex Assigned at Female 09/12/2024 6:33 AM HOLISTIC PULSER Legal Sex Female 7:52 AM HOLISTIC PULSER Gender Identity Not on file Sexual Orientation Not on file documented as of this encounter Plan of Treatment Upcoming Encounters Date Type Department Care Team (Late Contact Info) Description 10/17/2024 1:40 PM CDT [facility] [address] [facility] [place] [address] Armani Duarte MD 3 [facility] [address] [place] [address] 03/13/2025 9:00 AM CDT [facility] [address] [facility] [place] [address] Armani Duarte MD 3 [facility] [address] [place] [address] documented as of this encounter Visit Diagnoses Not on filedocumented in this encounter Care Teams Middle School Music Teacher Relationship Specialty Start Date End Date Jenn Menezes [facility] PCP - General NURSE PRACTITIONER 06/07/18 03/08/22 None, Provider, PCP - General UNKNOWN PHYSICIAN SPECIALTY 05/04/22 09/19/22 None, ProviderMD PCP - General UNKNOWN PHYSICIAN SPECIALTY 10/05/22 10/24/23 Cherelle Lacey MD [address] [place] [address] [place] [address] PCP - General FAMILY PRACTICE 10/25/23 09/11/24 None, Provider, PCP - General UNKNOWN PHYSICIAN SPECIALTY 09/12/24 Duane Tamez MD [facility] [employer] [address] [address] NEUROLOGY 10/08/18 Chapin Talavera DO [facility] [employer] [address] [address] [place] Strategic Debriefing Officer CARDIOVASCULAR DISEASE 03/01/22 documented as of this encounter
[2024-09-15 14:32] LABS: Magnesium 1.7 mg/dL (1.6-2.3)
--- NOTE | 2024-09-15 14:38 | ED_ITS ---
HPI - SOB/Dyspnea General Chief Complaint: Shortness of Breath/Dyspnea Stated Complaint: Shortness of breath Time Seen by Provider: 09/15/24 13:13 Source: patient Mode of arrival: ambulatory Limitations: no limitations History of Present Illness HPI Narrative: This is a 39 year old female that presents to the ER for shortness of breath. Reports she was recently diagnosed with a PE. Also recently had influenza A. Has had worsening shortness of breath since yesterday. She has been taking Eliquis as prescribed. Reports a cough. Also reports chest pain. Related Data Home Medications ?Medication ?Instructions ?Recorded ?Confirmed ?Last Taken ?Type budesonide-formoterol HFA 160 160 inh inhalation DIRECTED 11/05/20 07/03/23 Unknown History mcg-4.5 mcg/actuation aerosol inhaler (Symbicort) divalproex 500 mg tablet,extended 500 mg PO DIRECTED 11/05/20 05/13/23 Unknown History release 24 hr fluticasone propionate 50 50 mcg intranasal DIRECTED 11/05/20 05/13/23 Unknown History mcg/actuation nasal spray,suspension ipratropium 0.5 mg-albuterol 3 mg 3 ml inhalation DIRECTED 11/05/20 05/13/23 Unknown History (2.5 mg base)/3 mL nebulization soln omeprazole 40 mg capsule,delayed 40 mg DIRECTED 11/05/20 05/13/23 Unknown History release ondansetron 8 mg disintegrating 8 mg DIRECTED 11/05/20 05/13/23 Unknown History tablet umeclidinium 62.5 mcg/actuation 62.5 mcg inhalation DIRECTED 11/05/20 05/13/23 Unknown History blister powder for inhalation (Incruse Ellipta) montelukast 10 mg tablet 10 mg DIRECTED 09/16/21 05/13/23 Unknown History albuterol sulfate 2.5 mg/3 mL mg 11/04/23 Unknown History (0.083 %) solution for nebulization cefadroxil 500 mg capsule mg 11/04/23 Unknown History famotidine 40 mg tablet mg 11/04/23 Unknown History fluticasone fur. 200 mcg-umeclid inhalation 11/04/23 Unknown History 62.5 mcg-vilant 25 mcg inhalat.powder (Trelegy Ellipta) ipratropium 0.5 mg-albuterol 3 mg ml inhalation 11/04/23 Unknown History (2.5 mg base)/3 mL nebulization soln mepolizumab 100 mg/mL subcutaneous mg subcut 11/04/23 Unknown History auto-injector (Nucala) metoclopramide HCl 10 mg tablet mg 11/04/23 Unknown History ropinirole 0.5 mg tablet mg 11/04/23 Unknown History Allergies Allergy/AdvReac Type Severity Reaction Status Date / Time amoxicillin Allergy Unknown Stopped Verified 09/15/24 12:53 Breathing ciprofloxacin Allergy Unknown rash Verified 09/15/24 12:53 clarithromycin Allergy Unknown jittery Verified 09/15/24 12:53 naproxen Allergy Unknown rash Verified 09/15/24 12:53 oxycodone Allergy Unknown Unknown Verified 09/15/24 12:53 Penicillins AdvReac Anaphylaxis Verified 09/15/24 12:53 Review of Systems 2 Review of Systems: CONSTITUTIONAL: Reports fever ENT: Reports congestion CARDIOVASCULAR: Reports chest pain RESPIRATORY: Reports cough and dyspnea. All systems reviewed & are unremarkable except as noted in HPI and below PMFSH Past Medical History Medical History (Updated 09/15/24 @ 17:50 by Iona Peng PA-C) Seasonal allergies Allergies GERD (gastroesophageal reflux disease) Neuropathy Seizure disorder Family History Family History (Updated 09/13/24 @ 21:19 by Pk Alarcon MD) Mother Depression Sibling Family history of heart disease in male family member before age 55 Family history of diabetes mellitus in first degree relative Factor 5 Leiden mutation, heterozygous Father Family history of heart disease in male family member before age 55 Other Diabetes mellitus Social History Social History Smoking packs per day: 0.5 Smoking cigarettes per day: 10.0 Smoking status: Current some day smoker Smoking end date: 07/09/14 Additional smoking assessment comments: Has cut down from 2 packs a day to half pack Exam 2 Narrative: GENERAL: Well-appearing, well-nourished, and in no acute distress. HEAD: Normocephalic, atraumatic. EYES: EOMI. CHEST: Clear to auscultation. No respiratory distress. No wheezes rales or rhonchi HEART: Regular rate and rhythm. No murmur heard. Normal peripheral pulses. EXTREMITIES: Normal range of motion. No edema. SKIN: Warm, dry, no rash. NEURO: No focal deficits. Alert and oriented x3. PSYCH: Normal mood and affect Course Course Emergency Course: patient updated on her workup and recommendation for admission Consultations Consultation #1: Spoke with hospitalist about patient and workup who accepts admission Date: 09/15/24 Vital Signs Vital signs: Vital Signs Pulse Rate 87 09/15/24 12:37 Respiratory Rate 20 09/15/24 12:37 Blood Pressure 148/93 H 09/15/24 12:37 Pulse Oximetry 88 L 09/15/24 12:37 Oxygen Delivery Room Air 09/15/24 12:37 Temperature 98.0 F 09/15/24 17:53 Pulse Rate 73 09/15/24 16:52 Respiratory Rate 18 09/15/24 16:52 Blood Pressure 123/90 09/15/24 15:21 Pulse Oximetry 95 09/15/24 16:52 Oxygen Delivery Nasal Cannula 09/15/24 12:55 Oxygen Flow Rate 2 09/15/24 12:55 MDM - SOB/Dyspnea MDM Narrative Medical decision making narrative: Patient presents to the emergency department for worsening shortness of breath. Oxygen saturation in the upper 80s on room air. Placed on 2 L nasal cannula. Patient recently diagnosed with a possible PE. She also reports recent influenza. CBC with leukocytosis to 13.8. Also shows hemoconcentration. Patient hydrated with IV fluids. Potassium mildly low, this was replaced. Magnesium is normal. Influenza, RSV and COVID screens are negative. Reviewing her previous image from Sunday there was a possibility of PE due to possibly timed contrast. Repeat CTA today does not show evidence of pulmonary embolism. Does show multifocal pneumonia. Patient started on IV antibiotics. Blood cultures drawn. Will be admitted for further management Differential Diagnosis Differential diagnosis: Likely acute exacerbation of chronic obstructive airways disease, community acquired pneumonia and pulmonary embolism Lab Data Attestation: I reviewed the patient's lab results. 09/15/24 12:58 09/15/24 12:58 Labs: Lab Results 09/15/24 09/15/24 09/15/24 Range/Units 12:58 14:28 17:07 WBC 13.8 H (4.5-10.0) K/mm3 RBC 4.92 (4.2-5.4) M/mm3 Hgb 15.6 H (12.0-15.0) g/dL Hct 43.9 (37.0-47.0) % MCV 89.2 (80-100) fl MCH 31.7 (26-34) pg MCHC 35.5 (32-36) g/dl RDW 12.6 (11.5-14.5) % Plt Count 371 (150-375) k/mm3 MPV 9.1 (7.4-10.4) fl Immature Gran % (Auto) 0.6 H (0-0.5) % Neut % (Auto) 70.2 (45.5-73.1) % Lymph % (Auto) 22.3 (18.3-44.2) % Crook % (Auto) 6.5 (2.6-8.5) % Eos % (Auto) 0.1 (0-4.4) % Baso % (Auto) 0.3 (0.2-1.2) % Lymph # (Auto) 3.08 (0.9-3.2) K/mm3 Crook # (Auto) 0.9 H (0.1-0.6) K/mm3 Eos # (Auto) 0.0 (0-0.3) K/mm3 Baso # (Auto) 0.0 (0.0-0.1) K/mm3 Abs Immat Gran (auto) 0.08 H (0.00-0.031) K/mm3 Absolute Neuts (auto) 9.7 H (1.3-6.7) K/mm3 Absolute Nucleated RBC 0.000 (0.0-0.012) K/mm3 Nucleated RBC % 0.0 (0.0-0.2) % PT 17.5 H D (11.1-14.7) Seconds INR 1.4 APTT 33.8 (22.3-36.8) Seconds D-Dimer 0.45 (<0.48) ug/mL Sodium 141 (137-145) mmol/L Potassium 3.0 L (3.4-5.0) mmol/L Chloride 105 (98-107) mmol/L Carbon Dioxide 26 (22-30) mmol/L Anion Gap 10 (4-12) mmol/L BUN 6 L (7-17) mg/dL Creatinine 0.60 L (0.7-1.0) mg/dL Estim Creat Clear Calc 131 ml/min Estimated GFR > 60 (59 - ) Glucose 96 (65-110) mg/dL Lactic Acid 1.3 (0.7-2.0) mmol/L Calcium 9.6 (8.4-10.2) mg/dL Magnesium 1.7 (1.6-2.3) mg/dL Total Bilirubin 0.9 (0.2-1.3) mg/dL AST 26 (14-36) U/L ALT 40 H (6-35) U/L Alkaline Phosphatase 83 (38-126) U/L Troponin I < 0.012 (0.000-0.034) ng/mL Total Protein 8.0 (6.3-8.2) g/dL Albumin 4.5 (3.5-5.1) g/dL Influenza A (RT-PCR) Negative (Negative) Influenza B (RT-PCR) Negative (Negative) RSV (RT-PCR) Negative (Negative) SARS-CoV-2 RNA (RT-PCR) Negative (Negative) Imaging Data Radiologist's impression: ITS Impressions Chest X-Ray 09/15/24 13:18 IMPRESSION: 1. Stable small nodules in the lower lung zones, consistent with pneumonia. Chest CTA 09/15/24 16:30 IMPRESSION: 1. Multifocal pneumonia. 2. No pulmonary embolus. Critical Care Time Critical Care Time Critical Care Time: Yes Total Critical Care Time: 35 Discharge Plan Discharge Clinical Impression: Acute hypoxemic respiratory failure, Multifocal pneumonia Patient Disposition: Still a Patient Condition: Improved Patient Language: Norwegian Prescriptions: No Action ipratropium-albuterol 0.5 mg-3 mg(2.5 mg base)/3 mL solution for nebulization 3 ml INHALATION DIRECTED omeprazole 40 mg capsule,delayed release(DR/EC) 40 mg DIRECTED divalproex 500 mg tablet extended release 24 hr 500 mg PO DIRECTED fluticasone propionate 50 mcg/actuation spray,suspension 50 mcg INTRANASAL DIRECTED budesonide-formoterol [Symbicort] 160-4.5 mcg/actuation HFA aerosol inhaler 160 inh INHALATION DIRECTED Incruse Ellipta 62.5 mcg/actuation blister with device 62.5 mcg INHALATION DIRECTED ondansetron 8 mg tablet,disintegrating 8 mg DIRECTED montelukast 10 mg tablet 10 mg DIRECTED albuterol sulfate 2.5 mg /3 mL (0.083 %) solution for nebulization cefadroxil 500 mg capsule metoclopramide HCl 10 mg tablet ipratropium-albuterol 0.5 mg-3 mg(2.5 mg base)/3 mL solution for nebulization INHALATION famotidine 40 mg tablet ropinirole 0.5 mg tablet Nucala 100 mg/mL auto-injector SUBCUT Trelegy Ellipta 200-62.5-25 mcg blister with device INHALATION doxycycline hyclate 100 mg tablet 100 mg PO BID 7 Days Qty: 14 0RF sulfamethoxazole-trimethoprim [Bactrim DS] 800-160 mg tablet 1 tablet PO Q12H Qty: 7 0RF hydrocodone-acetaminophen 5-325 mg tablet 1 tablet PO Q8H PRN (Reason: pain) Qty: 10 0RF azithromycin 250 mg tablet 250 mg PO DAILY 4 Days Qty: 4 0RF Rx Instructions: start on day 2 of therapy apixaban 5 mg tablet 5 mg PO BID Qty: 74 0RF Rx Instructions: Take 2 tablets by mouth twice a day for one week. Then 1 tablet by mouth twice a day. Follow-up/Referrals: UNKNOWN,DOCTOR [Non-Staff] -
[2024-09-15 14:48] LABS: Lactic Acid Reflex 1.3 mmol/L (0.7-2.0)
[2024-09-15] MEDS: IPRATROPIUM 0.5 MG/ALBUTEROL SULFATE 2.5 MG AMPUL.NEB 3 ML INHALATION ×2 (14:51→20:58)
[2024-09-15] MEDS: DOXYCYCLINE HYCLATE 100 MG TABLET PO ×2 (14:53→22:03)
[2024-09-15] MEDS: methylPREDNISolone SOD SUCC 125 MG VIAL IV PUSH (14:53)
[2024-09-15] MEDS: ONDANSETRON INJ 4 MG/2 ML VIAL IV PUSH (15:42)
--- NOTE | 2024-09-15 15:58 | PM.IMHP ---
H&P: HPI History of Present Illness Date/Time: 09/15/24 15:58 Chief Complaint: Shortness of breath Narrative: 39-year-old female with history of seizures, and COPD presents the hospital shortness of breath. Patient was read as family at the hospital on September 13 for shortness of breath and was found to have a subsegmental pulmonary embolism and pneumonitis she was started on anticoagulation and antibiotics and was sent home. Today she presents the hospital with increased shortness of breath. Patient's lab work shows leukocytosis at 13.8, potassium of 3.0, influenza A/B, RSV, COVID negative. Today's chest x-ray shows small stable nodules in the left lower lung consistent with pneumonia. In the ED patient was started on Rocephin and doxycycline given steroids. Review of Systems Review of Systems: 12 systems were reviewed and are negative except for as per HPI. [facility] Past Medical History Medical History (Updated 09/15/24 @ 17:50 by Iona Peng PA-C) Seasonal allergies Allergies GERD (gastroesophageal reflux disease) Neuropathy Seizure disorder Family History Family History (Updated 09/13/24 @ 21:19 by Pk Alarcon MD) Mother Depression Sibling Family history of heart disease in male family member before age 55 Family history of diabetes mellitus in first degree relative Factor 5 Leiden mutation, heterozygous Father Family history of heart disease in male family member before age 55 Other Diabetes mellitus Social History Social History (Updated 09/15/24 @ 21:58 by Tello Myers RN) Smoking packs per day: 0.5 Smoking cigarettes per day: 10.0 Smoking status: Never smoker Second hand tobacco smoke exposure: No Smoking end date: 07/09/14 Additional smoking assessment comments: Has cut down from 2 packs a day to half pack Alcohol intake: former Substance use: current Substance use type: marijuana Do You Feel Safe in your Home?: Yes Lack of Transportation: No Lack of Food: Never True Current Housing: I Have Housing Concerned About Future Housing: No Difficulty Paying Gas/Electric Bills: No Difficulty Paying for Meds: No Currently Unemployed: No Education: High School Diploma/GED Difficulty w/ Childcare or Family Care: No Living arrangements: with family Occupation/Education: occupation Gender identity (if verbalized by the patient): Female Spiritual care concerns: No Agree to blood products: Yes Meds Home Medications and Allergies Home Medications ?Medication ?Instructions ?Recorded ?Confirmed ?Type divalproex 500 mg tablet,extended 500 mg PO DIRECTED 11/05/20 09/15/24 History release 24 hr fluticasone propionate 50 50 mcg intranasal DIRECTED 11/05/20 09/15/24 History mcg/actuation nasal spray,suspension ipratropium 0.5 mg-albuterol 3 mg 3 ml inhalation DIRECTED 11/05/20 09/15/24 History (2.5 mg base)/3 mL nebulization soln omeprazole 40 mg capsule,delayed 40 mg PO DAILY 11/05/20 09/15/24 History release ondansetron 8 mg disintegrating 8 mg PO PRN Nausea 11/05/20 09/15/24 History tablet montelukast 10 mg tablet 10 mg PO DAILY 09/16/21 09/15/24 History fluticasone fur. 200 mcg-umeclid 2 inh inhalation DAILY 11/04/23 09/15/24 History 62.5 mcg-vilant 25 mcg inhalat.powder (Trelegy Ellipta) azithromycin 250 mg tablet 250 mg PO DAILY 4 days #4 tabs 09/13/24 09/15/24 Rx apixaban 5 mg tablet 5 mg PO BID #74 tabs 09/14/24 09/15/24 Rx dupilumab 300 mg/2 mL subcutaneous 300 mg subcut [id number] 09/15/24 09/15/24 History pen injector (Dupixent) gabapentin 600 mg tablet 600 mg PO PRN 09/15/24 09/15/24 History Allergies Allergy/AdvReac Type Severity Reaction Status Date / Time amoxicillin Allergy Unknown Stopped Verified 09/15/24 12:53 Breathing ciprofloxacin Allergy Unknown rash Verified 09/15/24 12:53 clarithromycin Allergy Unknown jittery Verified 09/15/24 12:53 naproxen Allergy Unknown rash Verified 09/15/24 12:53 oxycodone Allergy Unknown Unknown Verified 09/15/24 12:53 Penicillins AdvReac Anaphylaxis Verified 09/15/24 12:53 Vital Signs Vital Signs - 24 hr 09/15/24 12:37 09/15/24 12:39 09/15/24 12:46 Pulse Rate 87 87 Respiratory Rate 20 21 H Blood Pressure 148/93 H 131/86 Pulse Oximetry 88 L 96 93 Oxygen Delivery Room Air Nasal Cannula Oxygen Flow Rate 2 09/15/24 12:54 09/15/24 12:55 09/15/24 13:01 Pulse Rate 83 Respiratory Rate 24 H Blood Pressure 135/88 Pulse Oximetry 94 93 94 Oxygen Delivery Nasal Cannula Nasal Cannula Oxygen Flow Rate 2 2 09/15/24 13:18 09/15/24 13:45 09/15/24 14:02 Pulse Rate 100 81 76 Respiratory Rate 25 H 25 H 20 Blood Pressure 140/90 119/78 Pulse Oximetry 96 96 94 Oxygen Delivery Oxygen Flow Rate 09/15/24 14:55 Pulse Rate 78 Respiratory Rate 20 Blood Pressure 163/89 H Pulse Oximetry 95 Oxygen Delivery Oxygen Flow Rate Exam Narrative: General: well appearing, appears stated age. HEENT: normocephalic, atraumatic. Mucous membranes moist. EOMI, PERRLA, bilateral sclera anicteric, no conjunctival injection. Neck supple without JVD, lymphadenopathy, or bruit. Respiratory: Coarse with wheezing Cardiovascular: Regular rate and rhythm, normal S1-S2 upon ascultation. No murmurs, rubs, or clicks. PMI is nondisplaced, capillary refill less than 3 second. Abdomen: Soft, round, no pulsatile masses, nondistended and nontender. No rebound, no guarding. No CVA tenderness, no hepatosplenomegaly. Bowel sounds present to all four quadrants. No high pitch or tinkling sounds, resonant to percussion. Extremities: No cyanosis, clubbing, or edema present. Pulses are palpable 2/2. Active ROM to all four extremities. Neuro: Alert and orientated x 4. PERRLA. Cranial nerves 2-12 intact without focal deficit. Skin: Warm, dry, and intact, without rash, erythema, or lesion. Psych: pleasant, cooperative, normal speech, normal affect, no hallucinations, no dysarthia H&P: Results Labs Labs: Short CBC 09/15/24 Range/Units 12:58 WBC 13.8 H (4.5-10.0) K/mm3 Hgb 15.6 H (12.0-15.0) g/dL Hct 43.9 (37.0-47.0) % Plt Count 371 (150-375) k/mm3 [facility] 09/15/24 12:58 Sodium 141 Potassium 3.0 L Chloride 105 Carbon Dioxide 26 BUN 6 L Creatinine 0.60 L Glucose 96 Calcium 9.6 Liver Function 09/15/24 Range/Units 12:58 Total Bilirubin 0.9 (0.2-1.3) mg/dL AST 26 (14-36) U/L ALT 40 H (6-35) U/L Alkaline Phosphatase 83 (38-126) U/L Albumin 4.5 (3.5-5.1) g/dL Assessment and Plan Assessment and plan (1) Pneumonia: Code(s): J18.9 - Pneumonia, unspecified organism Status: Acute Assessment and Plan: With likely COPD exacerbation Rocephin, doxycycline Methylprednisone Daily prednisone Continue home inhalers DuoNebs Q 4 Wean oxygen as able (2) Pulmonary embolism: Qualifiers: Pulmonary embolism type: single subsegmental (without acute cor pulmonale) Qualified Code(s): I26.93 - Single subsegmental thrombotic pulmonary embolism without acute cor pulmonale Code(s): I26.99 - Other pulmonary embolism without acute cor pulmonale Status: Inactive Assessment and Plan: Continue Apixaban Repeat CT does not see pulmonary embolism due to patient's high risk of having a PE will keep her on Eliquis at this time (3) Seizure disorder: Code(s): G40.909 - Epilepsy, unspecified, not intractable, without status epilepticus Status: Acute Assessment and Plan: Continue home medication Quality VTE Prophylaxis VTE prophylaxis: mechanical ordered and pharmacologic ordered Hospitalist MIPS Advance Care Plan I have confirmed that the patient's Advanced Care Plan is present, code status is documented, or surrogate decision maker is listed in patient medical record.: Yes Medication Reconciliation I have utilized all available resources to obtain, update and review the patients current medications (includes all prescriptions, OTC, herbals, cannabis, and nutritional supplements).: Yes
--- NOTE | 2024-09-15 17:08 | ECG_ITS ---
Test Date: 2024-09-15 17:19:33 Measurements Intervals [place] Rate: 77 P: 64 W[place]: 150 QRS: 61 QRSD: 98 T: 24 QT: 388 QTc: 442 Interpretive Statements SINUS RHYTHM NONSPECIFIC ST AND T-WAVE ABNORMALITY Compared to ECG 09/15/2024 12:50:42 NO SIGNIFICANT CHANGES Electronically Signed On 09-16-2024 14:33:46 CDT by Sandra Cosby M.D.
--- OUTSIDE RECORDS SUMMARY | 2024-09-15 17:09 | XMS_ITS | Encounter Summary ---
Author Organization [facility] Address Count includes the [facility] [place] [address] Care Team Providers Care Electrical And Radio Mock Up Mechanic Name Role Phone Jenn Menezes [facility] Primary Care Provider Duane Barker MD Unavailable [phone] Chapin Talavera DO Unavailable [phone] None, Provider Primary Care Provider Unavaila ble None, Provider Primary Care Provider Unavaila ble Cherelle Lacey MD Primary Care Provider [phone] None, Provider Primary Care Provider Unavaila ble Encounter Details Date Type Department Care Team (Late st Contact Info) Description 08/20/2021 MyChart Message Enc [facility] Medicine [address] [address] Jenn Menezes [facility] Lung function test Social History Tobacco [...] Sex Assigned at Female 09/12/2024 6:33 AM ENVIRONMENTAL QUALITY ANALYST Legal Sex Female 7:52 AM ENVIRONMENTAL QUALITY ANALYST Gender Identity Not on file Sexual Orientation Not on file documented as of this encounter Plan of Treatment Upcoming Encounters Date Type Department Care Team (Late Contact Info) Description 10/17/2024 1:40 PM CDT [facility] [address] [place] [phone] Armani Duarte MD [address] [facility] [address] [place] [address] 03/13/2025 9:00 AM CDT [facility] [address] [place] [phone] Armani Duarte MD [address] [facility] [facility] [facility] [address] [address] [place] [address] documented as of this encounter Visit Diagnoses Not on filedocumented in this encounter Care Teams Electrical And Radio Mock Up Mechanic Relationship Specialty Start Date End Date Jenn Menezes [facility] PCP - General NURSE PRACTITIONER 06/07/18 03/08/22 None, ProviderMD PCP - General UNKNOWN PHYSICIAN SPECIALTY 05/04/22 09/19/22 None, ProviderMD PCP - General UNKNOWN PHYSICIAN SPECIALTY 10/05/22 10/24/23 Cherelle Lacey MD [address] [place] [address] [place] [address] PCP - General FAMILY PRACTICE 10/25/23 09/11/24 None, ProviderMD PCP - General UNKNOWN PHYSICIAN SPECIALTY 09/12/24 Duane Tamez MD [address] [place] [address] NEUROLOGY 10/08/18 Chapin Talavera DO [address] [place] [address] [place] Lay Out Machine Operator CARDIOVASCULAR DISEASE 03/01/22 documented as of this encounter
--- OUTSIDE RECORDS SUMMARY | 2024-09-15 17:09 | XMS_ITS | Encounter Summary ---
Author Organization [facility] Address [address] [place] [address] Care Team Providers Care Home Health Speech Therapist Name Role Phone Jenn Menezes [facility] Primary Care Provider Duane Barker MD Unavailable [phone] Chapin Talavera DO Unavailable [phone] None, Provider Primary Care Provider Unavaila ble None, Provider Primary Care Provider Unavaila ble Cherelle Lacey MD Primary Care Provider [phone] None, Provider Primary Care Provider Unavaila ble Encounter Details Date Type Department Care Team (Late st Contact Info) Description 08/02/2021 MyChart Message Enc [facility] Family Medicine [address] [address] Jenn Menezes [facility] incruse Social History Tobacco Use Types [...] Sex Assigned at Female 09/12/2024 6:33 AM GLOVE TURNER AND FORMER AUTOMATIC Legal Sex Female 7:52 AM GLOVE TURNER AND FORMER AUTOMATIC Gender Identity Not on file Sexual Orientation Not on file COVID-19 Exposure Response Date Recorded In the last month, have you been in contact with someone who was confirmed or suspected to have Coronavirus / COVID-19? No / Unsure 07/20/2021 7:40 AM GLOVE TURNER AND FORMER AUTOMATIC documented as of this encounter Plan of Treatment Upcoming Encounters Date Type Department Care Team (Late st Contact Info) Description 10/17/2024 1:40 PM CDT [facility] - [address] [place] [address] Armani Duarte MD [address] [place] [address] [address] [place] [address] 03/13/2025 9:00 AM CDT Office Visit [facility] - [address] [place] [phone] Armani Duarte MD [address] [place] [address] [address] [place] [address] documented as of this encounter Visit Diagnoses Not on filedocumented in this encounter Care Teams Home Health Speech Therapist Relationship Specialty Start Date End Date Jenn Menezes [facility] PCP - General NURSE PRACTITIONER 06/07/18 03/08/22 None, ProviderMD PCP - General UNKNOWN PHYSICIAN SPECIALTY 05/04/22 09/19/22 None, ProviderMD PCP - General UNKNOWN PHYSICIAN SPECIALTY 10/05/22 10/24/23 Cherelle Lacey MD [address] [place] [address] [place] [address] PCP - General FAMILY PRACTICE 10/25/23 09/11/24 None, MD Yony PCP - General UNKNOWN PHYSICIAN SPECIALTY 09/12/24 Duane Tamez MD [address] [place] [id number] NEUROLOGY 10/08/18 Chapin Talavera DO [address] [place], [place] [id number] [place] Senior Talent Acquisition Specialist CARDIOVASCULAR DISEASE 03/01/22 documented as of this encounter
--- OUTSIDE RECORDS SUMMARY | 2024-09-15 17:09 | XMS_ITS | Encounter Summary ---
Author Organization [facility] Address [address] [place] [address] Care Team Providers Care Knit Goods Press Hand Name Role Phone Jenn Menezes [facility] Primary Care Provider Duane Barker MD Unavailable [phone] Chapin Talavera DO Unavailable [phone] None, Provider Primary Care Provider Unavaila ble None, Provider Primary Care Provider Unavaila ble Cherelle Lacey MD Primary Care Provider [phone] None, Provider Primary Care Provider Unavaila ble Encounter Details Date Type Department Care Team (Late st Contact Info) Description 09/16/2021 MyChart Message Enc [facility] Medical Group Family Medicine [address] [address] Jenn Menezes PAN SHAKER-BC Hurt knee falling Social History Tobacco Use [...] Sex Assigned at Female 09/12/2024 6:33 AM CHEF Legal Sex Female 7:52 AM CHEF Gender Identity Not on file Sexual Orientation Not on file COVID-19 Exposure Response Date Recorded In the last 10 days, have yo u been in contact with someone who was confirmed or suspected to have Coronavirus/COVID-19? No / Unsure 09/07/2021 7:47 AM CHEF documented as of this encounter Plan of Treatment Upcoming Encounters Date Type Department Care Team (Late st Contact Info) Description 10/17/2024 1:40 PM CDT [facility] [address] [facility] [place] [address] Armani Duarte MD [address] [place] [address] [address] [place] [address] 03/13/2025 9:00 AM CDT Office Visit [facility] - [address] [place] [address] Armani Duarte MD [facility] [address] [place] [address] documented as of this encounter Visit Diagnoses Not on filedocumented in this encounter Care Teams Knit Goods Press Hand Relationship Specialty Start Date End Date Jenn Menezes [facility] PCP - General NURSE PRACTITIONER 06/07/18 03/08/22 None, ProviderMD PCP - General UNKNOWN PHYSICIAN SPECIALTY 05/04/22 09/19/22 None, ProviderMD PCP - General UNKNOWN PHYSICIAN SPECIALTY 10/05/22 10/24/23 Cherelle Lacey MD [address] [place] [address] [place] [address] PCP - General FAMILY PRACTICE 10/25/23 09/11/24 None, MD Yony PCP - General UNKNOWN PHYSICIAN SPECIALTY 09/12/24 Duane Tamez MD [address] [place] [address] NEUROLOGY 10/08/18 Chapin Talavera DO [address] [place] [address] [place] Architectural Technician CARDIOVASCULAR DISEASE 03/01/22 documented as of this encounter
--- OUTSIDE RECORDS SUMMARY | 2024-09-15 17:09 | XMS_ITS | Encounter Summary ---
Author Organization [facility] Address [address] [place] [address] Care Team Providers Care Commission Agent Livestock Name Role Phone Carlita Landa MD Primary Care Provider Unavailab Ti Levine MD Primary Care Provider + Jenn Menezes [facility] Primary Care Provider Unav Duane Finch MD Unavailable [phone] Chapin Talavera DO Unavailable [phone] None, Provider Primary Care Provider Unavaila ble None, Provider Primary Care Provider Unavaila ble Cherelle Lacey MD Primary Care Provider [phone] None, Provider Primary Care Provider Unavaila ble Encounter Details Date Type Department Care Team (Late st Contact Info) Description 02/25/2014 Abstract [facility] Conversion , Generic Conversion, Social History Tobacco Use Types Packs/Day Years Used Date Smoking Tobacco: Never Assessed Comments Unknown Sex and Gender Information Value Date Recorded Sex Assigned at Female 09/12/2024 6:33 AM REINFORCING IRON WORKER HELPER Legal Sex Female 7:52 AM REINFORCING IRON WORKER HELPER Gender Identity Not on file Sexual Orientation Not on file documented as of this encounter Plan of Treatment Upcoming Encounters Date Type Department Care Team (Late st Contact Info) Description 10/17/2024 1:40 PM CDT Office Visit [facility] Medical Group Multispecialty Care - [address] [place] [address] Armani Duarte MD [address] [place] [address] JO[address] [place] [address] 03/13/2025 9:00 AM CDT Office Visit [facility] Medical Group Mult[facility]ialty Care - [facility] [address] [facility] [place] [address] Armani Duarte MD [address] [facility] [address] [place] [address] documented as of this encounter Visit Diagnoses Not on filedocumented in this encounter Care Teams Commission Agent Livestock Relationship Specialty Start Date End Date Carlita Landa MD PCP - General INTERNAL MEDICINE 08/09/16 06/06/18 Ti Carrillo MD [address] [place] [address] PCP - General 09/24/13 08/08/16 Jenn Menezes [facility] [address] [facility] [address] [place] [address] PCP - General NURSE PRACTITIONER 06/07/18 03/08/22 None, ProviderMD PCP - General UNKNOWN PHYSICIAN SPECIALTY 05/04/22 09/19/22 None, ProviderMD PCP - General UNKNOWN PHYSICIAN SPECIALTY 10/05/22 10/24/23 Cherelle Lacey MD [address] [place] [address] [place] [address] PCP - General FAMILY PRACTICE 10/25/23 09/11/24 None, ProviderMD PCP - General UNKNOWN PHYSICIAN SPECIALTY 09/12/24 Duane Tamez MD [address] [place] [address] NEUROLOGY 10/08/18 Chapin Talavera DO [address] [place] [address] [employer] Principal CARDIOVASCULAR DISEASE 03/01/22 documented as of this encounter
--- OUTSIDE RECORDS SUMMARY | 2024-09-15 17:09 | XMS_ITS | CONTINUITY OF CARE DOCUMENT ---
Author Name carolmartyvivienne dumont Address Unknown Organization [facility] Address [address] [facility] [address] [place] [address] Phone [phone] Care Team Providers Care Inventory Accountant Name Role Phone Omar JIMENEZ, Luis Unavailable [phone] THOMAS JIMENEZ, BRANNON Unavailable Unavailable INSURANCE PROVIDERS Payer name Policy type / Coverage type [place] red green party ID [place] MED[place] Medicaid [id number]
--- OUTSIDE RECORDS SUMMARY | 2024-09-15 17:09 | XMS_ITS | Encounter Summary ---
Author Organization [facility] Address [facility] [place] [address] Care Team Providers Care Knitting Supervisor Name Role Phone Jenn Menezes [facility] Primary Care Provider Duane Barker MD Unavailable [phone] Chapin Talavera DO Unavailable [phone] None, Provider Primary Care Provider Unavaila ble None, Provider Primary Care Provider Unavaila ble Cherelle Lacey MD Primary Care Provider [phone] None, Provider Primary Care Provider Unavaila ble Encounter Details Date Type Department Care Team (Late Contact Info) Description 08/21/2021 MyChart Message Enc [facility] Medical Group [facility] Medicine [address] [address] Jenn Menezes [facility] symbicort Social History Tobacco Use Types Packs/Day [...] Sex Assigned at Female 09/12/2024 6:33 AM BROOM HANDLE DIPPER Legal Sex Female 7:52 AM BROOM HANDLE DIPPER Gender Identity Not on file Sexual Orientation Not on file documented as of this encounter Plan of Treatment Upcoming Encounters Date Type Department Care Team (Late Contact Info) Description 10/17/2024 1:40 PM CDT [facility] [address] [facility] [address] [place] [address] Armani Duarte MD 3 [facility] [address] [place] [address] 03/13/2025 9:00 AM CDT [facility] [address] [place] [address] Armani Duarte MD [address] [facility] [address] [place] [address] documented as of this encounter Visit Diagnoses Not on filedocumented in this encounter Care Teams Knitting Supervisor Relationship Specialty Start Date End Date Jenn Menezes [facility] PCP - General NURSE PRACTITIONER 06/07/18 03/08/22 None, ProviderMD PCP - General UNKNOWN PHYSICIAN SPECIALTY 05/04/22 09/19/22 None, ProviderMD PCP - General UNKNOWN PHYSICIAN SPECIALTY 10/05/22 10/24/23 Cherelle Lacey MD [address] [place] [address] [place] [address] PCP - General FAMILY PRACTICE 10/25/23 09/11/24 None, ProviderMD PCP - General UNKNOWN PHYSICIAN SPECIALTY 09/12/24 Duane Tamez MD [address] [place] [address] NEUROLOGY 10/08/18 Chapin Talavera DO [address] [place] [address] [place] Prosthetic Technician CARDIOVASCULAR DISEASE 03/01/22 documented as of this encounter
--- OUTSIDE RECORDS SUMMARY | 2024-09-15 17:09 | XMS_ITS | Encounter Summary ---
Author Organization [facility] Address [facility] [place] [address] Care Team Providers Care Building Carpenter Name Role Phone Jenn Menezes DIRECTOR CONSUMER- Primary Care Provider Duane Barker MD Unavailable [phone] Chapin Talavera DO Unavailable [phone] None, Provider Primary Care Provider Unavaila ble None, Provider Primary Care Provider Unavaila ble Cherelle Lacey MD Primary Care Provider [phone] None, Provider Primary Care Provider Unavaila ble Encounter Details Date Type Department Care Team (Late st Contact Info) Description 08/29/2021 MyChart Message Enc [facility] Medical Group Family Medicine [address] [address] Jenn Menezes DIRECTOR CONSUMER-BC Left Index Finger laceration Social History Tobacco [...] Sex Assigned at Female 09/12/2024 6:33 AM CARD TENDER Legal Sex Female 7:52 AM CARD TENDER Gender Identity Not on file Sexual Orientation Not on file documented as of this encounter Plan of Treatment Upcoming Encounters Date Type Department Care Team (Late Contact Info) Description 10/17/2024 1:40 PM CDT [facility] [address] [facility] [place] [address] Armani Duarte MD [address] [facility] [address] [place] [address] 03/13/2025 9:00 AM CDT [facility] [address] [facility] [address] [place] [address] Armani Duarte MD [address] [facility] [address] [place] [address] documented as of this encounter Visit Diagnoses Not on filedocumented in this encounter Care Teams Building Carpenter Relationship Specialty Start Date End Date Jenn Menezes [facility] PCP - General NURSE PRACTITIONER 06/07/18 03/08/22 None, ProviderMD PCP - General UNKNOWN PHYSICIAN SPECIALTY 05/04/22 09/19/22 None, ProviderMD PCP - General UNKNOWN PHYSICIAN SPECIALTY 10/05/22 10/24/23 Cherelle Lacey MD [address] [place] [address] [place] [address] PCP - General FAMILY PRACTICE 10/25/23 09/11/24 None, ProviderMD PCP - General UNKNOWN PHYSICIAN SPECIALTY 09/12/24 Duane Tamez MD [address] [place] [address] NEUROLOGY 10/08/18 Chapin Talavera DO [address] [place] [address] [place] Family Protection Specialist CARDIOVASCULAR DISEASE 03/01/22 documented as of this encounter
--- OUTSIDE RECORDS SUMMARY | 2024-09-15 17:09 | XMS_ITS | Encounter Summary ---
Author Organization [facility] Address [address] [place] [address] Care Team Providers Care Audio Specialist Name Role Phone Carlita Landa MD Primary Care Provider Unavailab Ti Levine MD Primary Care Provider + Jenn Menezes [facility] Primary Care Provider Unav Duane Finch MD Unavailable [phone] Chapin Talavera DO Unavailable [phone] None, Provider Primary Care Provider Unavaila ble None, Provider Primary Care Provider Unavaila ble Cherelle Lacey MD Primary Care Provider [phone] None, Provider Primary Care Provider Unavaila ble Encounter Details Date Type Department Care Team (Late st Contact Info) Description 03/11/2014 Abstract [facility] Conversion , Generic Conversion, Social History Tobacco Use Types Packs/Day Years Used Date Smoking Tobacco: Never Assessed Comments Unknown Sex and Gender Information Value Date Recorded Sex Assigned at Female 09/12/2024 6:33 AM ROUTE SALESPERSON Legal Sex Female 7:52 AM ROUTE SALESPERSON Gender Identity Not on file Sexual Orientation Not on file documented as of this encounter Plan of Treatment Upcoming Encounters Date Type Department Care Team (Late st Contact Info) Description 10/17/2024 1:40 PM CDT [facility] Multispecialty Care - [address] [place] [address] Armani Duarte MD [address] [place] [address] [address] [place] [address] 03/13/2025 9:00 AM CDT [facility] - [facility] [address] [facility] [address] [place] [address] Armani Duarte MD [facility] [address] [place] [address] documented as of this encounter Visit Diagnoses Not on filedocumented in this encounter Care Teams Audio Specialist Relationship Specialty Start Date End Date Carlita Landa MD PCP - General INTERNAL MEDICINE 08/09/16 06/06/18 Ti Carrillo MD [address] [place] [address] PCP - General 09/24/13 08/08/16 Jenn [facility] [address] [facility] [address] [place] [address] PCP - General NURSE PRACTITIONER 06/07/18 03/08/22 None, ProviderMD PCP - General UNKNOWN PHYSICIAN SPECIALTY 05/04/22 09/19/22 None, ProviderMD PCP - General UNKNOWN PHYSICIAN SPECIALTY 10/05/22 10/24/23 Cherelle Lacey MD [address] [place] [address] [place] [address] PCP - General FAMILY PRACTICE 10/25/23 09/11/24 None, ProviderMD PCP - General UNKNOWN PHYSICIAN SPECIALTY 09/12/24 Duane Tamez MD [address] [place] [address] NEUROLOGY 10/08/18 Chapin Talavera DO [address] [place] [address] [place] Luster Applicator CARDIOVASCULAR DISEASE 03/01/22 documented as of this encounter
--- OUTSIDE RECORDS SUMMARY | 2024-09-15 17:09 | XMS_ITS | Encounter Summary ---
Author Organization [facility] Address [address] [place] [address] Care Team Providers Care Applied Researcher Name Role Phone Jenn Menezes [facility] Primary Care Provider Duane Barker MD Unavailable [phone] Chapin Talavera DO Unavailable [phone] None, Provider Primary Care Provider Unavaila ble None, Provider Primary Care Provider Unavaila ble Cherelle Lacey MD Primary Care Provider [phone] None, Provider Primary Care Provider Unavaila ble Encounter Details Date Type Department Care Team (Late st Contact Info) Description 09/16/2021 MyChart Message Enc [facility] Medical Group Family Medicine [address] [address] Jenn Menezes COVERING MACHINE TENDER-BC Hurt knee falling Social History Tobacco Use [...] Sex Assigned at Female 09/12/2024 6:33 AM MACHINE CLOTH MEASURER Legal Sex Female 7:52 AM MACHINE CLOTH MEASURER Gender Identity Not on file Sexual Orientation Not on file COVID-19 Exposure Response Date Recorded In the last 10 days, have yo u been in contact with someone who was confirmed or suspected to have Coronavirus/COVID-19? No / Unsure 09/07/2021 7:47 AM MACHINE CLOTH MEASURER documented as of this encounter Plan of Treatment Upcoming Encounters Date Type Department Care Team (Late st Contact Info) Description 10/17/2024 1:40 PM CDT [facility] [address] [facility] [place] [address] Armani Duarte MD [address] [place] [address] [address] [place] [address] 03/13/2025 9:00 AM CDT Office Visit [facility] - [address] [place] [address] Armani Duarte MD [address] [facility] [address] [place] [address] documented as of this encounter Visit Diagnoses Not on filedocumented in this encounter Care Teams Applied Researcher Relationship Specialty Start Date End Date Jenn Menezes [facility] PCP - General NURSE PRACTITIONER 06/07/18 03/08/22 None, ProviderMD PCP - General UNKNOWN PHYSICIAN SPECIALTY 05/04/22 09/19/22 None, ProviderMD PCP - General UNKNOWN PHYSICIAN SPECIALTY 10/05/22 10/24/23 Cherelle Lacey MD [address] [place] [address] [place] [address] PCP - General FAMILY PRACTICE 10/25/23 09/11/24 None, MD Yony PCP - General UNKNOWN PHYSICIAN SPECIALTY 09/12/24 Duane Tamez MD [address] [place] [address] NEUROLOGY 10/08/18 Chapin Talavera DO [address] [place] [address] [place] Waste Water Operator CARDIOVASCULAR DISEASE 03/01/22 documented as of this encounter
--- OUTSIDE RECORDS SUMMARY | 2024-09-15 17:09 | XMS_ITS | Encounter Summary ---
Author Organization [facility] Address [address] [place] [address] Care Team Providers Care Day Light Relief Operator Name Role Phone Jenn Menezes [facility] Primary Care Provider Duane Barker MD Unavailable [phone] Chapin Talavera DO Unavailable [phone] None, Provider Primary Care Provider Unavaila ble None, Provider Primary Care Provider Unavaila ble Cherelle Lacey MD Primary Care Provider [phone] None, Provider Primary Care Provider Unavaila ble Encounter Details Date Type Department Care Team (Late st Contact Info) Description 08/01/2021 MyChart Message Enc [facility] Medical Group Family Medicine [address] [address] Jenn Menezes [facility] [employer] Social History Tobacco Use Types [...] Assigned at Female 09/12/2024 6:33 AM BAG SEWER Legal Sex Female 7:52 AM BAG SEWER Gender Identity Not on file Sexual Orientation Not on file COVID-19 Exposure Response Date Recorded In the last month, have you been in contact with someone who was confirmed or suspected to have Coronavirus / COVID-19? No / Unsure 07/20/2021 7:40 AM BAG SEWER documented as of this encounter Plan of Treatment Upcoming Encounters Date Type Department Care Team (Late st Contact Info) Description 10/17/2024 1:40 PM CDT [facility] - [address] [place] [address] Armani Duarte MD [address] [place] [address] [address] [place] [address] 03/13/2025 9:00 AM CDT Office Visit [facility] - [address] [place] [address] Armani Duarte MD [address] [place] [address] [address] [place] [address] documented as of this encounter Visit Diagnoses Not on filedocumented in this encounter Care Teams Day Light Relief Operator Relationship Specialty Start Date End Date Jenn Menezes [facility] PCP - General NURSE PRACTITIONER 06/07/18 03/08/22 None, ProviderMD PCP - General UNKNOWN PHYSICIAN SPECIALTY 05/04/22 09/19/22 None, ProviderMD PCP - General UNKNOWN PHYSICIAN SPECIALTY 10/05/22 10/24/23 Cherelle Lacey MD [address] [place] [address] [place] [address] PCP - General FAMILY PRACTICE 10/25/23 09/11/24 None, MD Yony PCP - General UNKNOWN PHYSICIAN SPECIALTY 09/12/24 Duane Tamez MD [address] [place] [address] NEUROLOGY 10/08/18 Chapin Talavera DO [address] [place], [place] [address] [place] Video Systems Engineer CARDIOVASCULAR DISEASE 03/01/22 documented as of this encounter
--- OUTSIDE RECORDS SUMMARY | 2024-09-15 17:09 | XMS_ITS | Encounter Summary ---
Author Organization [facility] Address [facility], [address] [place] [address] Care Team Providers Care Restaurant Maintenance Technician Name Role Phone Maknannette Jenn [facility] Primary Care Provider Duane Barker MD Unavailable [phone] Chapin Talavera DO Unavailable [phone] None, Provider Primary Care Provider Unavaila ble None, Provider Primary Care Provider Unavaila ble Cherelle Lacey MD Primary Care Provider [phone] None, Provider Primary Care Provider Unavaila ble Encounter Details Date Type Department Care Team (Late st Contact Info) Description 09/22/2021 [place] Message Enc [facility] Medical Group Family Medicine [address] [address] [email or web address] Provider Medication sent Social History Tobacco Use [...] Sex Assigned at Female 09/12/2024 6:33 AM HELP AID Legal Sex Female 7:52 AM HELP AID Gender Identity Not on file Sexual Orientation Not on file COVID-19 Exposure Response Date Recorded In the last 10 days, have yo u been in contact with someone who was confirmed or suspected to have Coronavirus/COVID-19? No / Unsure 09/07/2021 7:47 AM HELP AID documented as of this encounter Plan of Treatment Upcoming Encounters Date Type Department Care Team (Late st Contact Info) Description 10/17/2024 1:40 PM CDT Office Visit [facility] - [address] [place] [address] Armani Duarte MD [address] [place] [address] [address] [place] [address] 03/13/2025 9:00 AM CDT Office Visit [facility] - [address] [place] [address] Armani Duarte MD [address] [place] [address] [address] [place] [address] documented as of this encounter Visit Diagnoses Not on filedocumented in this encounter Care Teams Restaurant Maintenance Technician Relationship Specialty Start Date End Date Jenn Menezes [facility] PCP - General NURSE PRACTITIONER 06/07/18 03/08/22 None, ProviderMD PCP - General UNKNOWN PHYSICIAN SPECIALTY 05/04/22 09/19/22 None, ProviderMD PCP - General UNKNOWN PHYSICIAN SPECIALTY 10/05/22 10/24/23 Cherelle Lacey MD [address] [place] [address] [place] [address] PCP - General FAMILY PRACTICE 10/25/23 09/11/24 None, MD Yony PCP - General UNKNOWN PHYSICIAN SPECIALTY 09/12/24 Duane Tamez MD [address] [place] [address] NEUROLOGY 10/08/18 Chapin Talavera DO [address] [place], [place] [address] [place] Trade Show Coordinator CARDIOVASCULAR DISEASE 03/01/22 documented as of this encounter
--- OUTSIDE RECORDS SUMMARY | 2024-09-15 17:09 | XMS_ITS | Encounter Summary ---
Author Organization [facility] Address [address] [place] [address] Care Team Providers Care Lease Out Worker Name Role Phone [facility] Primary Care Provider Duane Barker MD Unavailable [phone] Chapin Talavera DO Unavailable [phone] None, Provider Primary Care Provider Unavaila ble None, Provider Primary Care Provider Unavaila ble Cherelle Lacey MD Primary Care Provider [phone] None, Provider Primary Care Provider Unavaila ble Encounter Details Date Type Department Care Team (Late st Contact Info) Description 02/25/2021 Moxsiehart Message Enc [facility] Medicine [address] [address] Mychart, [facility] Provider NEED APPOINTMENT AND LABS Social [...] Sex Assigned at Female 09/12/2024 6:33 AM DATA INTEGRATION ARCHITECT Legal Sex Female 7:52 AM DATA INTEGRATION ARCHITECT Gender Identity Not on file Sexual Orientation Not on file documented as of this encounter Plan of Treatment Upcoming Encounters Date Type Department Care Team (Late st Contact Info) Description 10/17/2024 1:40 PM CDT [facility] [address] [facility] [place] [address] Armani Duarte MD [address] [facility] [address] [place] [address] 03/13/2025 9:00 AM CDT [facility] [address] [facility] [place] [address] Armani Duarte MD [address] [facility] [address] [place] [address] documented as of this encounter Visit Diagnoses Not on filedocumented in this encounter Care Teams Lease Out Worker Relationship Specialty Start Date End Date Jenn Menezes [facility] PCP - General NURSE PRACTITIONER 06/07/18 03/08/22 None, ProviderMD PCP - General UNKNOWN PHYSICIAN SPECIALTY 05/04/22 09/19/22 None, ProviderMD PCP - General UNKNOWN PHYSICIAN SPECIALTY 10/05/22 10/24/23 Cherelle Lacey MD [address] [place] [address] [place] [address] PCP - General FAMILY PRACTICE 10/25/23 09/11/24 None, ProviderMD PCP - General UNKNOWN PHYSICIAN SPECIALTY 09/12/24 Duane Tamez MD [facility] [address] [address] NEUROLOGY 10/08/18 Chapin Talavera DO [facility] [address] [address] [place] [employer] Pool Salesperson CARDIOVASCULAR DISEASE 03/01/22 documented as of this encounter
--- OUTSIDE RECORDS SUMMARY | 2024-09-15 17:10 | XMS_ITS | Encounter Summary ---
Author Organization [facility] Address [address] [place] [address] Care Team Providers Care Rn Angiography Name Role Phone Duane Tamez MD Unavailable [phone] Chapin Talavera DO Unavailable [phone] None, Provider Primary Care Provider Unavaila ble Cherelle Lacey MD Primary Care Provider [phone] None, Provider Primary Care Provider Unavaila ble Encounter Details Date Type Department Care Team (Late st Contact Info) Description 01/03/2023 MyChart Message Enc [facility] [address] [place], [place] [address] [facility], [facility] Provider Air Quality Message Social [...] at Female 09/12/2024 6:33 AM DIRECTOR OF GRADUATE ADMISSIONS Legal Sex Female 7:52 AM DIRECTOR OF GRADUATE ADMISSIONS Gender Identity Not on file Sexual Orientation Not on file documented as of this encounter Plan of Treatment Upcoming Encounters Date Type Department Care Team (Late st Contact Info) Description 10/17/2024 1:40 PM CDT [facility] [address] [place] [address] Armani Duarte MD [address] [facility] [address] [place] [address] 03/13/2025 9:00 AM CDT [facility] [address] [place] [address] Armani Duarte MD [address] [facility] [address] [place] [address] documented as of this encounter Visit Diagnoses Not on filedocumented in this encounter Care Teams Rn Angiography Relationship Specialty Start Date End Date None, Provider, PCP - General UNKNOWN PHYSICIAN SPECIALTY 10/05/22 10/24/23 Cherelle Lacey MD [address] [place] [address] [place] [address] PCP - General FAMILY PRACTICE 10/25/23 09/11/24 None, MD Yony PCP - General UNKNOWN PHYSICIAN SPECIALTY 09/12/24 Duane Tamez MD [facility] [address] [address] NEUROLOGY 10/08/18 Chapin Talavera DO [address] [place], [place] [address] [address] [address] [place] [employer] Representative CARDIOVASCULAR DISEASE 03/01/22 documented as of this encounter
--- OUTSIDE RECORDS SUMMARY | 2024-09-15 17:10 | XMS_ITS | Encounter Summary ---
Author Organization [facility] Address [facility] [place] [address] Care Team Providers Care Brinell Tester Name Role Phone Duane Tamez MD Unavailable [phone] Chapin Talavera DO Unavailable [phone] None, Provider Primary Care Provider Unavaila ble None, Provider Primary Care Provider Unavaila ble Cherelle Lacey MD Primary Care Provider [phone] None, Provider Primary Care Provider Unavaila ble Encounter Details Date Type Department Care Team (Late st Contact Info) Description 07/24/2022 MyChart Message Enc [facility] Medical Group Multispecialty Care - [facility] [address] [facility] [place] [address] Armani Duarte MD [address] [facility] [address] [place], [place] [id number] Refills Social History Tobacco Use Types Packs/Day [...] Sex Assigned at Female 09/12/2024 6:33 AM TRAFFIC AGENT Legal Sex Female 7:52 AM TRAFFIC AGENT Gender Identity Not on file Sexual Orientation Not on file documented as of this encounter Plan of Treatment Upcoming Encounters Date Type Department Care Team (Late st Contact Info) Description 10/17/2024 1:40 PM CDT [facility] [address] [facility] [place] [address] Armani Duarte MD [address] [facility] [address] [place] [address] 03/13/2025 9:00 AM CDT [facility] [address] [facility] [address] [place] [address] Armani Duarte MD [facility] [address] [place] [address] documented as of this encounter Visit Diagnoses Not on filedocumented in this encounter Care Teams Brinell Tester Relationship Specialty Start Date End Date None, Provider, PCP - General UNKNOWN PHYSICIAN SPECIALTY 05/04/22 09/19/22 None, ProviderMD PCP - General UNKNOWN PHYSICIAN SPECIALTY 10/05/22 10/24/23 Cherelle Lacey MD [address] [place] [address] [place] [address] PCP - General FAMILY PRACTICE 10/25/23 09/11/24 None, MD Yony PCP - General UNKNOWN PHYSICIAN SPECIALTY 09/12/24 Duane Tamez MD [address] [place] [address] NEUROLOGY 10/08/18 Chapin Talavera DO [address] [place], [place] [address] [place] Flight Test Data Acquisition Technician CARDIOVASCULAR DISEASE 03/01/22 documented as of this encounter
--- OUTSIDE RECORDS SUMMARY | 2024-09-15 17:10 | XMS_ITS | Encounter Summary ---
Author Organization [facility] Address [facility] [place] [address] Care Team Providers Care Radiologist Name Role Phone Jenn Menezes [facility] Primary Care Provider Duane Barker MD Unavailable [phone] Chapin Talavera DO Unavailable [phone] None, Provider Primary Care Provider Unavaila ble None, Provider Primary Care Provider Unavaila ble Cherelle Lacey MD Primary Care Provider [phone] None, Provider Primary Care Provider Unavaila ble Encounter Details Date Type Department Care Team (Late Contact Info) Description 04/22/2019 RedShelft Message Enc [address] [address] [address] [facility] RE: Referral Request Social History Tobacco [...] Sex Assigned at Female 09/12/2024 6:33 AM PROBATION OFFICER Legal Sex Female 7:52 AM PROBATION OFFICER Gender Identity Not on file Sexual Orientation Not on file documented as of this encounter Plan of Treatment Upcoming Encounters Date Type Department Care Team (Late Contact Info) Description 10/17/2024 1:40 PM CDT [facility] [address] [facility] [place] [address] Armani Duarte MD [address] [facility] [address] [place] [address] 03/13/2025 9:00 AM CDT [facility] [address] [facility] [place] [address] Armani Duarte MD [address] [facility] [address] [place] [address] documented as of this encounter Visit Diagnoses Not on filedocumented in this encounter Care Teams Radiologist Relationship Specialty Start Date End Date Jenn Menezes [facility] PCP - General NURSE PRACTITIONER 06/07/18 03/08/22 None, Provider, PCP - General UNKNOWN PHYSICIAN SPECIALTY 05/04/22 09/19/22 None, ProviderMD PCP - General UNKNOWN PHYSICIAN SPECIALTY 10/05/22 10/24/23 Cherelle Lacey MD [address] [place] [address] [place] [address] PCP - General FAMILY PRACTICE 10/25/23 09/11/24 None, Provider, PCP - General UNKNOWN PHYSICIAN SPECIALTY 09/12/24 Duane Tamez MD [facility] [employer] [address] [address] NEUROLOGY 10/08/18 Chapin Talavera DO [facility] [employer] [address] [address] Mcewen Stem Cutter CARDIOVASCULAR DISEASE 03/01/22 documented as of this encounter
--- OUTSIDE RECORDS SUMMARY | 2024-09-15 17:10 | XMS_ITS | Encounter Summary ---
Author Organization [facility] Address [facility] [place] [address] Care Team Providers Care Light Cleaner Name Role Phone Duane Tamez MD Unavailable [phone] Chapin Talavera DO Unavailable [phone] Cherelle Lacey MD Primary Care Provider [phone] None, Provider Primary Care Provider Unavaila ble Encounter Details Date Type Department Care Team (Late st Contact Info) Description 11/08/2023 MyChart Message Enc [facility] Multispecialty Care - [facility] [address] [facility] [place] [address] Armani Duarte MD [address] [facility] [address] [place], [place] [id number] [facility] Social History Tobacco Use Types Packs/Day Years [...] Sex Assigned at Female 09/12/2024 6:33 AM INTERMEDIATE MANAGER Legal Sex Female 7:52 AM INTERMEDIATE MANAGER Gender Identity Not on file Sexual Orientation Not on file documented as of this encounter Plan of Treatment Upcoming Encounters Date Type Department Care Team (Late st Contact Info) Description 10/17/2024 1:40 PM CDT Office Visit [facility] - [address] [place] [address] Aramni Duarte MD [address] [place] [address] [address] [place] [address] 03/13/2025 9:00 AM CDT Office Visit [facility] - [address] [place] [address] Armani Duarte MD [address] [place] [address] [address] [place] [address] documented as of this encounter Visit Diagnoses Not on filedocumented in this encounter Care Teams Light Cleaner Relationship Specialty Start Date End Date Cherelle Lacey MD [address] [place] [address] [place] [address] PCP - General FAMILY PRACTICE 10/25/23 09/11/24 None, MD Yony PCP - General UNKNOWN PHYSICIAN SPECIALTY 09/12/24 Duane Tamez MD [facility] [employer] [address] [place] [address] NEUROLOGY 10/08/18 Chapin Talavera DO [facility] [employer] [address] [place] [address] [place] Clothes Separator CARDIOVASCULAR DISEASE 03/01/22 documented as of this encounter
--- OUTSIDE RECORDS SUMMARY | 2024-09-15 17:10 | XMS_ITS | Encounter Summary ---
Author Organization [facility] Address [facility] [place] [address] Care Team Providers Care Packager Head Name Role Phone Duane Tamez MD Unavailable [phone] Chapin Talavera DO Unavailable [phone] None, Provider Primary Care Provider Unavaila ble Cherelle Lacey MD Primary Care Provider [phone] None, Provider Primary Care Provider Unavaila ble Encounter Details Date Type Department Care Team (Late st Contact Info) Description 12/06/2022 [employer] Message Enc [facility] Medical Group [address] [address] [facility] Provider appointment needed Social History Tobacco [...] Sex Assigned at Female 09/12/2024 6:33 AM TRUCK SERVICE TECHNICIAN Legal Sex Female 7:52 AM TRUCK SERVICE TECHNICIAN Gender Identity Not on file Sexual Orientation Not on file documented as of this encounter Plan of Treatment Upcoming Encounters Date Type Department Care Team (Late st Contact Info) Description 10/17/2024 1:40 PM CDT [facility] [address] [facility] [place] [address] Armani Duarte MD 3 [facility] [address] [place] [address] 03/13/2025 9:00 AM CDT [facility] [address] [facility] [address] [place] [address] Armani Duarte MD 3 [facility] [address] [place] [address] documented as of this encounter Visit Diagnoses Not on filedocumented in this encounter Care Teams Packager Head Relationship Specialty Start Date End Date None, ProviderMD PCP - General UNKNOWN PHYSICIAN SPECIALTY 10/05/22 10/24/23 Cherelle Lacey MD [address] [place] [address] [place] [address] PCP - General FAMILY PRACTICE 10/25/23 09/11/24 None, MD Yony PCP - General UNKNOWN PHYSICIAN SPECIALTY 09/12/24 Duane Tamez MD [facility] [employer] [address] [address] NEUROLOGY 10/08/18 Chapin Talavera DO [address] [place], [place] [address] [address] [address] [place] Legal Contracts Specialist CARDIOVASCULAR DISEASE 03/01/22 documented as of this encounter
--- OUTSIDE RECORDS SUMMARY | 2024-09-15 17:10 | XMS_ITS | Encounter Summary ---
Author Organization [facility] Address [facility] [place] [address] Care Team Providers Care Greenhouse Florist Name Role Phone Duane Tamez MD Unavailable [phone] Chapin Talavera DO Unavailable [phone] Cherelle Lacey MD Primary Care Provider [phone] None, Provider Primary Care Provider Unavaila ble Encounter Details Date Type Department Care Team (Latest Contact Info) Description 11/22/2023 MyChart Message Enc [facility] Medical [facility] Multispecialty Care - [facility] [address] [facility] [place] [address] Armani Duarte MD [address] [facility] [address] [place] [address] Trelogy and duoneb please Social [...] Sex Assigned at Female 09/12/2024 6:33 AM ROLLER INSPECTOR Legal Sex Female 7:52 AM ROLLER INSPECTOR Gender Identity Not on file Sexual Orientation Not on file documented as of this encounter Plan of Treatment Upcoming Encounters Date Type Department Care Team (Late st Contact Info) Description 10/17/2024 1:40 PM CDT Office Visit [facility] - [address] [place] [address] Armani Duarte MD [address] [place] [address] [address] [place] [address] 03/13/2025 9:00 AM CDT Office Visit [facility] - [address] [place] [address] Armani Duarte MD [address] [place] [address] [address] [place] [address] documented as of this encounter Visit Diagnoses Not on filedocumented in this encounter Care Teams Greenhouse Florist Relationship Specialty Start Date End Date Cherelle Lacey MD [address] [place] [address] PCP - General FAMILY PRACTICE 10/25/23 09/11/24 None, MD Yony PCP - General UNKNOWN PHYSICIAN SPECIALTY 09/12/24 Duane Tamez MD [facility] [employer] [address] [place] [address] NEUROLOGY 10/08/18 Chapin Talavera DO [facility] [employer] [address] [address] [place] Cold Strip Feeder CARDIOVASCULAR DISEASE 03/01/22 documented as of this encounter
--- OUTSIDE RECORDS SUMMARY | 2024-09-15 17:10 | XMS_ITS | Encounter Summary ---
Author Organization [facility] Address [facility] [place] [address] Care Team Providers Care Hyperion Analyst Name Role Phone Jenn Menezes [facility] Primary Care Provider Duane Barker MD Unavailable [phone] Chapin Talavera DO Unavailable [phone] None, Provider Primary Care Provider Unavaila ble None, Provider Primary Care Provider Unavaila ble Cherelle Lacey MD Primary Care Provider [phone] None, Provider Primary Care Provider Unavaila ble Encounter Details Date Type Department Care Team (Late Contact Info) Description 01/02/2020 MyChart Message Enc [facility] Medical Group [address] [address] Jenn Menezes [facility] RE: RE: Question Social History Tobacco Use [...] Sex Assigned at Female 09/12/2024 6:33 AM BUSINESS RECORDS MANAGER Legal Sex Female 7:52 AM BUSINESS RECORDS MANAGER Gender Identity Not on file Sexual Orientation Not on file documented as of this encounter Plan of Treatment Upcoming Encounters Date Type Department Care Team (Late Contact Info) Description 10/17/2024 1:40 PM CDT [facility] [address] [facility] [place] [address] Armani Duarte MD [address] [facility] [address] [place] [address] 03/13/2025 9:00 AM CDT [facility] [address] [facility] [place] [address] Armani Duarte MD [address] [facility] [address] [place] [address] documented as of this encounter Visit Diagnoses Not on filedocumented in this encounter Care Teams Hyperion Analyst Relationship Specialty Start Date End Date Jenn Menezes [facility] PCP - General NURSE PRACTITIONER 06/07/18 03/08/22 None, Provider, PCP - General UNKNOWN PHYSICIAN SPECIALTY 05/04/22 09/19/22 None, ProviderMD PCP - General UNKNOWN PHYSICIAN SPECIALTY 10/05/22 10/24/23 Cherelle Lacey MD [address] [place] [address] [place] [address] PCP - General FAMILY PRACTICE 10/25/23 09/11/24 None, Provider, PCP - General UNKNOWN PHYSICIAN SPECIALTY 09/12/24 Duane Tamez MD [facility] [address] [address] NEUROLOGY 10/08/18 Chapin Talavera DO [facility] [address] [address] [place] Developmental Mathematics Professor CARDIOVASCULAR DISEASE 03/01/22 documented as of this encounter
--- OUTSIDE RECORDS SUMMARY | 2024-09-15 17:10 | XMS_ITS | Encounter Summary ---
Author Organization [facility] Address [facility] [place] [address] Care Team Providers Care Display Manager Name Role Phone Jenn Menezes [facility] Primary Care Provider Duane Barker MD Unavailable [phone] Chapin Talavera DO Unavailable [phone] None, Provider Primary Care Provider Unavaila ble None, Provider Primary Care Provider Unavaila ble Cherelle Lacey MD Primary Care Provider [phone] None, Provider Primary Care Provider Unavaila ble Encounter Details Date Type Department Care Team (Late st Contact Info) Description 02/28/2022 PhoneFusiont Message Enc [facility] Medical Group Family Medicine [address] [address] Jenn Menezes STRAIGHT SLICING MACHINE [facility] Social History Tobacco Use Types Packs/Day [...] Sex Assigned at Female 09/12/2024 6:33 AM ACCOUNT EXECUTIVE KEY ACCOUNTS Legal Sex Female 7:52 AM ACCOUNT EXECUTIVE KEY ACCOUNTS Gender Identity Not on file Sexual Orientation [...] Description 10/17/2024 1:40 PM CDT Office Visit [facility] - [address] [place] [address] Armani Duarte MD [address] [place] [address] 03/13/2025 9:00 AM CDT Office Visit [facility] - [address] [place] [address] Armani Duarte MD [address] [place] [address] [address] [place] [address] documented as of this encounter Visit Diagnoses Not on filedocumented in this encounter Care Teams Display Manager Relationship Specialty Start Date End Date [facility] PCP - General NURSE PRACTITIONER 06/07/18 03/08/22 None, ProviderMD PCP - General UNKNOWN PHYSICIAN SPECIALTY 05/04/22 09/19/22 None, ProviderMD PCP - General UNKNOWN PHYSICIAN SPECIALTY 10/05/22 10/24/23 Cherelle Lacey MD [address] [place] [address] [place] [address] PCP - General FAMILY PRACTICE 10/25/23 09/11/24 None, ProviderMD PCP - General UNKNOWN PHYSICIAN SPECIALTY 09/12/24 Duane Tamez MD [facility] [employer] [address] [address] NEUROLOGY 10/08/18 Chapin Talavera DO [facility] [employer] [address] [address] [place] Remnants Cutter CARDIOVASCULAR DISEASE 03/01/22 documented as of this encounter
--- OUTSIDE RECORDS SUMMARY | 2024-09-15 17:10 | XMS_ITS | Patient Health Summary ---
Author Organization [facility] Address [address] [facility] [place] [address] Care Team Providers Care Miller Wood Flour Name Role Phone Jenn Menezes APRN-BRICK KILN WORKER Primary Care Provider [phone] Constantino Solis MD Unavailable [phone] [facility],non-owned Affiliates and Associated Physician Practices is amultiple site organization consisting of ambulatory clinics and hospital sitesin [place], [place], [place] and [place]. This disclosure is being madepursuant to the [...] propionate (FLONASE) 50 MCG/ACT nasal spray(Started 04/22/2019) [place] 1 spray into the nose * umeclidinium [...] Comments Blood Pressure 98/78 05/30/2019 11:26 AM REFERENCE LIBRARY ASSISTANT Pulse 91 05/30/2019 11:26 AM REFERENCE LIBRARY ASSISTANT Temperature 36.7 C (98 F) 05/30/2019 11:26 AM REFERENCE LIBRARY ASSISTANT Respiratory Rate 16 09/21/2017 3:54 PM CDT Oxygen Saturation 96% 05/30/2019 11:26 AM REFERENCE LIBRARY ASSISTANT Inhaled Oxygen Concentration - - Weight 134.3 kg (296 lb) 05/30/2019 11:26 AM REFERENCE LIBRARY ASSISTANT Height 169 cm (5' 6.54 ) 05/30/2019 11:26 AM REFERENCE LIBRARY ASSISTANT Body Mass Index 47.01 05/30/2019 11:26 AM REFERENCE LIBRARY ASSISTANT Care Teams Miller Wood Flour Relationship Specialty Start Date End Date Jenn Menezes APRN-BRICK KILN WORKER PCP - General 10/23/18 Constantino Solis MD Family Medicine 07/17/18
--- OUTSIDE RECORDS SUMMARY | 2024-09-15 17:10 | XMS_ITS | Referral Summary ---
Author Organization [facility] Address [address] [facility] [place] [address] Care Team Providers Care Salesperson Wigs Name Role Phone MakJenn brunson GREG-ROTARY SHEAR CUTTER Primary Care Provider [phone] Constantino Solis MD Unavailable [phone] Source Comments [facility],non-owned Affiliates and Associated Physician Practices is amultiple site organization consisting of ambulatory clinics and hospital sitesin [place], [place], [place] and [place]. This disclosure is being madepursuant to the Care Everywhere program and may not contain all information available regarding this patient. Last updated 18.[facility] Allergies Active Allergy Reactions Criticality [...] fluticasone propionate (FLONASE) 50 MCG/ACT nasal spray Williams 1 spray into the nose 04/22/2019 Active [...] Comments Blood Pressure 98/78 05/30/2019 11:26 AM FLAT LOCK MACHINE OPERATOR Pulse 91 05/30/2019 11:26 AM FLAT LOCK MACHINE OPERATOR Temperature 36.7 C (98 F) 05/30/2019 11:26 AM FLAT LOCK MACHINE OPERATOR Respiratory Rate 16 09/21/2017 3:54 PM CDT Oxygen Saturation 96% 05/30/2019 11:26 AM FLAT LOCK MACHINE OPERATOR Inhaled Oxygen Concentration - - Weight 134.3 kg (296 lb) 05/30/2019 11:26 AM FLAT LOCK MACHINE OPERATOR Height 169 cm (5' 6.54 ) 05/30/2019 11:26 AM FLAT LOCK MACHINE OPERATOR Body Mass Index 47.01 05/30/2019 11:26 AM FLAT LOCK MACHINE OPERATOR Plan of Treatment Not on file Care Teams Salesperson Wigs Relationship Specialty Start Date End Date Jenn Menezes APRN-CHANDRAKANT PCP - General 10/23/18 Constantino Solis MD Family Medicine 07/17/18
--- OUTSIDE RECORDS SUMMARY | 2024-09-15 17:10 | XMS_ITS | Encounter Summary ---
Author Organization [facility] Address [address] [place] [address] Care Team Providers Care Clinical Safety Specialist Name Role Phone Jenn Menezes [facility] Primary Care Provider Duane Barker MD Unavailable [phone] Chapin Talavera DO Unavailable [phone] None, Provider Primary Care Provider Unavaila ble None, Provider Primary Care Provider Unavaila ble Cheerlle Lacey MD Primary Care Provider [phone] None, Provider Primary Care Provider Unavaila ble Encounter Details Date Type Department Care Team (Late st Contact Info) Description 04/13/2020 ActionRunt Message Enc [facility] Medical Group [address] [address] Jenn Menezes ACCOUNTS PAYABLE REPRESENTATIVEADRIA RE: Question Social History Tobacco Use Types [...] Sex Assigned at Female 09/12/2024 6:33 AM COMMUNITY RECREATION COORDINATOR Legal Sex Female 7:52 AM COMMUNITY RECREATION COORDINATOR Gender Identity Not on file Sexual [...] CDT [facility] - [facility] [address] [facility] [place] [address] Armani Duarte MD 3 [facility] [address] [place] [address] 03/13/2025 9:00 AM CDT [facility] Emergency Department - [address] [place] [address] Armani Duarte MD [address] [place] [address] [address] [place] [address] documented as of this encounter Visit Diagnoses Not on filedocumented in this encounter Care Teams Clinical Safety Specialist Relationship Specialty Start Date End Date Jenn Menezes [facility] PCP - General NURSE PRACTITIONER 06/07/18 03/08/22 None, ProviderMD PCP - General UNKNOWN PHYSICIAN SPECIALTY 05/04/22 09/19/22 None, ProviderMD PCP - General UNKNOWN PHYSICIAN SPECIALTY 10/05/22 10/24/23 Cherelle Lacey MD [address] [place] [address] [place] [address] PCP - General FAMILY PRACTICE 10/25/23 09/11/24 None, ProviderMD PCP - General UNKNOWN PHYSICIAN SPECIALTY 09/12/24 Duane Tamez MD [address] [place] [address] NEUROLOGY 10/08/18 Chapin Talavera DO [address] [place] [address] Carmi Shell Press Operator CARDIOVASCULAR DISEASE 03/01/22 documented as of this encounter
--- OUTSIDE RECORDS SUMMARY | 2024-09-15 17:10 | XMS_ITS | Clinical Summary ---
Author Organization [facility] Address [address] [place] [address] Care Team Providers Care Nylon Winder Name Role Phone MakJenn brunson GREG-WHITEWATER RAFTING GUIDE Primary Care Provider [phone] Constantino Solis MD Unavailable [phone] Source Comments [facility],non-owned Affiliates and Associated Physician Practices is amultiple site organization consisting of ambulatory clinics and hospital sitesin [place], [place], [place] and [place]. This disclosure is being madepursuant to the Care Everywhere program and may not contain all information available regarding this patient. Last updated 18.[facility] Allergies Active Allergy Reactions Criticality Noted [...] fluticasone propionate (FLONASE) 50 MCG/ACT nasal spray Bandana 1 spray into the nose 04/22/2019 Active [...] Comments Blood Pressure 98/78 05/30/2019 11:26 AM NUTRIENT MANAGEMENT SPECIALIST Pulse 91 05/30/2019 11:26 AM NUTRIENT MANAGEMENT SPECIALIST Temperature 36.7 C (98 F) 05/30/2019 11:26 AM NUTRIENT MANAGEMENT SPECIALIST Respiratory Rate 16 09/21/2017 3:54 PM CDT Oxygen Saturation 96% 05/30/2019 11:26 AM NUTRIENT MANAGEMENT SPECIALIST Inhaled Oxygen Concentration - - Weight 134.3 kg (296 lb) 05/30/2019 11:26 AM NUTRIENT MANAGEMENT SPECIALIST Height 169 cm (5' 6.54 ) 05/30/2019 11:26 AM NUTRIENT MANAGEMENT SPECIALIST Body Mass Index 47.01 05/30/2019 11:26 AM NUTRIENT MANAGEMENT SPECIALIST Plan of Treatment Health Maintenance Due Date [...] age to complete this topic Care Teams Nylon Winder Relationship Specialty Start Date End Date Jenn Menezes APRN-WHITEWATER RAFTING GUIDE PCP - General 10/23/18 Constantino Solis MD Family Medicine 07/17/18
--- OUTSIDE RECORDS SUMMARY | 2024-09-15 17:10 | XMS_ITS | Clinical Summary ---
Author Organization [facility] Address [address] [place] [address] Care Team Providers Care Chaplain Name Role Phone Crow Maddie Dunaway DPVida Unavailable [phone] Maryjane Hernandez Primary Care Provider [phone] Allergies Active Allergy Reactions Criticality Noted Date [...] on file Legal Sex Female 1:01 AM WATERSHED TENDER Gender Identity Not on file Sexual [...] patient's age to complete this topic Insurance [facility] Care Teams Chaplain Relationship Specialty Start Date End Date Maryjane Hernandez PA [address] [place] [address] PCP - General 03/26/24 Maddie Maria DPM [address] [place] [address] Consulting Physician Foot and Ankle Surg 01/12/23
--- OUTSIDE RECORDS SUMMARY | 2024-09-15 17:10 | XMS_ITS | Encounter Summary ---
Author Organization [facility] Address [facility] [place] [address] Care Team Providers Care Physician Executive Name Role Phone Jenn Menezes [facility] Primary Care Provider Duane Barker MD Unavailable [phone] Chapin Talavera DO Unavailable [phone] None, Provider Primary Care Provider Unavaila ble None, Provider Primary Care Provider Unavaila ble Cherelle Lacey MD Primary Care Provider [phone] None, Provider Primary Care Provider Unavaila ble Encounter Details Date Type Department Care Team (Late st Contact Info) Description 02/21/2022 Clickabilityt Message Enc [facility] Medical Group Family Medicine [address] [address] Jenn Menezes [facility] cardiology referrral Social History Tobacco [...] Sex Assigned at Female 09/12/2024 6:33 AM RESEARCH AND DEVELOPMENT TECHNICIAN Legal Sex Female 7:52 AM RESEARCH AND DEVELOPMENT TECHNICIAN Gender Identity Not on file Sexual Orientation Not on file documented as of this encounter Plan of Treatment Upcoming Encounters Date Type Department Care Team (Late st Contact Info) Description 10/17/2024 1:40 PM CDT [facility] [address] [facility] [place] [address] Armani Duarte MD [address] [place] [address] [address] [place] [address] 03/13/2025 9:00 AM CDT Office Visit [facility] - [address] [place] [address] Armani Duarte MD [address] [place] [address] [address] [place] [address] documented as of this encounter Visit Diagnoses Not on filedocumented in this encounter Care Teams Physician Executive Relationship Specialty Start Date End Date Jenn Menezes [facility] PCP - General NURSE PRACTITIONER 06/07/18 03/08/22 None, ProviderMD PCP - General UNKNOWN PHYSICIAN SPECIALTY 05/04/22 09/19/22 None, ProviderMD PCP - General UNKNOWN PHYSICIAN SPECIALTY 10/05/22 10/24/23 Cherelle Lacey MD [address] [place] [address] [place] [address] PCP - General FAMILY PRACTICE 10/25/23 09/11/24 None, ProviderMD PCP - General UNKNOWN PHYSICIAN SPECIALTY 09/12/24 Duane Tamez MD [address] [place] [address] NEUROLOGY 10/08/18 Chapin Talavera DO [address] [place], [place] [address] Lorena Environmental Assistant CARDIOVASCULAR DISEASE 03/01/22 documented as of this encounter
--- OUTSIDE RECORDS SUMMARY | 2024-09-15 17:10 | XMS_ITS | Encounter Summary ---
Author Organization [facility] Address [facility] [place] [address] Care Team Providers Care Animal Control Specialist Name Role Phone Jenn Menezes [facility] Primary Care Provider Duane Barker MD Unavailable [phone] Chapin Tlaavera DO Unavailable [phone] None, Provider Primary Care Provider Unavaila ble None, Provider Primary Care Provider Unavaila ble Cherelle Lacey MD Primary Care Provider [phone] None, Provider Primary Care Provider Unavaila ble Encounter Details Date Type Department Care Team (Late st Contact Info) Description 10/14/2020 enMarkitt Message Enc [facility] Family Medicine [address] [address] Mychart, [facility] Provider your appointment today Social History [...] Sex Assigned at Female 09/12/2024 6:33 AM WARDROBE SUPERVISOR Legal Sex Female 7:52 AM WARDROBE SUPERVISOR Gender Identity Not on file Sexual Orientation Not on file documented as of this encounter Plan of Treatment Upcoming Encounters Date Type Department Care Team (Late Contact Info) Description 10/17/2024 1:40 PM CDT [facility] [address] [facility] [place] [address] Armani Duarte MD [address] [facility] [address] [place] [address] 03/13/2025 9:00 AM CDT [facility] [address] [facility] [place] [address] Armani Duarte MD [address] [facility] [address] [place] [address] documented as of this encounter Visit Diagnoses Not on filedocumented in this encounter Care Teams Animal Control Specialist Relationship Specialty Start Date End Date Jenn Menezes [facility] PCP - General NURSE PRACTITIONER 06/07/18 03/08/22 None, ProviderMD PCP - General UNKNOWN PHYSICIAN SPECIALTY 05/04/22 09/19/22 None, ProviderMD PCP - General UNKNOWN PHYSICIAN SPECIALTY 10/05/22 10/24/23 Cherelle Lacey MD [address] [place] [address] [place] [address] PCP - General FAMILY PRACTICE 10/25/23 09/11/24 None, ProviderMD PCP - General UNKNOWN PHYSICIAN SPECIALTY 09/12/24 Duane Tamez MD [facility] [address] [place] [address] NEUROLOGY 10/08/18 Chapin Talavera DO [facility] [address] [place] [address] [employer] Universal Banker CARDIOVASCULAR DISEASE 03/01/22 documented as of this encounter
--- OUTSIDE RECORDS SUMMARY | 2024-09-15 17:10 | XMS_ITS | Encounter Summary ---
Author Organization [facility] Address [address] [place] [address] Care Team Providers Care Senior Reservoir Engineer Name Role Phone Jenn Menezes [facility] Primary Care Provider Duane Barker MD Unavailable [phone] Chapin Talavera DO Unavailable [phone] None, Provider Primary Care Provider Unavaila ble None, Provider Primary Care Provider Unavaila ble Cherelle Lacey MD Primary Care Provider [phone] None, Provider Primary Care Provider Unavaila ble Encounter Details Date Type Department Care Team (Late st Contact Info) Description 03/01/2020 [place] Message Enc [facility] Medical [facility] Medicine [address] [address] Jenn Menezes FNP-BC RE: Medication [...] Sex Assigned at Female 09/12/2024 6:33 AM TAX ASSOCIATE Legal Sex Female 7:52 AM TAX ASSOCIATE Gender Identity Not on file Sexual Orientation [...] 10/17/2024 1:40 PM CDT Office Visit [facility] [address] [facility] [place] [address] Armani Duarte MD [address] [place] [address] [address] [place] [address] 03/13/2025 9:00 AM CDT Office Visit [facility] - [address] [place] [address] Armani Duarte MD [address] [place] [address] [address] [place] [address] documented as of this encounter Visit Diagnoses Not on filedocumented in this encounter Care Teams Senior Reservoir Engineer Relationship Specialty Start Date End Date Suryashannon Jenn [facility] PCP - General NURSE PRACTITIONER 06/07/18 03/08/22 None, ProviderMD PCP - General UNKNOWN PHYSICIAN SPECIALTY 05/04/22 09/19/22 None, ProviderMD PCP - General UNKNOWN PHYSICIAN SPECIALTY 10/05/22 10/24/23 Cherelle Lacey MD [address] [place] [address] [place] [address] PCP - General FAMILY PRACTICE 10/25/23 09/11/24 None, ProviderMD PCP - General UNKNOWN PHYSICIAN SPECIALTY 09/12/24 Duane Tamez MD [address] [place] [address] NEUROLOGY 10/08/18 Chapin Talavera DO [address] [place] [address] [place] Engineering Scientist CARDIOVASCULAR DISEASE 03/01/22 documented as of this encounter
--- OUTSIDE RECORDS SUMMARY | 2024-09-15 17:10 | XMS_ITS | Referral Summary ---
Author Organization [facility] Address [address] [place] [address] Care Team Providers Care Critical Care Nurse Practitioner Name Role Phone Crow Maddie Dunaway DPVdia Unavailable [phone] Maryjane Hernandez Primary Care Provider [phone] Allergies Active Allergy Reactions Criticality Noted Date [...] on file Legal Sex Female 1:01 AM FUR BUYER Gender Identity Not on file Sexual Orientation [...] Treatment Not on file Insurance Care Teams Critical Care Nurse Practitioner Relationship Specialty Start Date End Date Maryjane Hernandez PA [address] [place] [address] PCP - General 03/26/24 Maddie Maria DPM [address] [place] [address] Consulting Physician Foot and Ankle Surg 01/12/23
--- OUTSIDE RECORDS SUMMARY | 2024-09-15 17:10 | XMS_ITS | Encounter Summary ---
Author Organization [facility] Address [facility] [place] [address] Care Team Providers Care Supply Chain Development Manager Name Role Phone Duane Tamez MD Unavailable [phone] Chapin Talavera DO Unavailable [phone] None, Provider Primary Care Provider Unavaila ble Reason for Referral * Medication Prior Authorization - Pending Review Specialty Diagnoses / Procedures Referred By Contac t Referred To Contact Diagnoses Pulmonary embolism ([facility]HCC [facility]) Armani Duarte MD 3 [facility] [address] [place] [address] Phone: tel: fax: Referral ID Status Reason Start Date Expiration Date V isits Requested Visits Authorized [id number] Pending Review 1 1 Encounter Details Date Type Department Care Team (Late st Contact Info) Description 09/13/2024 MyChart Message Enc [facility] Medical [facility] [address] [facility] [place] [address] Armani Duarte MD 3 [facility] [address] [place], [place] [address] Bronchitis Social History Tobacco Use Types Packs/Day [...] Sex Assigned at Female 09/12/2024 6:33 AM PUBLIC POLICY ASSOCIATE Legal Sex Female 7:52 AM PUBLIC POLICY ASSOCIATE Gender Identity Not on file Sexual Orientation Not on file documented as of this encounter Progress Notes * Armani Duarte MD - 09/15/2024 11:24 AM CDT I cannot directly admit her but if she is hypoxic I agree she should go to the ER. I suggest she go to the ER at [facility] so that she can be seen by [...] note were not included. Request sent to [facility] for imaging push over * Armani Duarte MD - 09/15/2024 7:43 AM CDT Obtain records including imaging pushed over or on a disk. Move her up to the next 3-4 weeks. Armani Duarte MD documented in this encounter Plan of Treatment Upcoming Encounters Date Type Department Care Team (Late st Contact Info) Description 10/17/2024 1:40 PM CDT [facility] [address] [place] [address] Armani Duarte MD [address] [facility] [address] JO[address] [place] [address] 03/13/2025 9:00 AM CDT [facility] [address] [facility] [address] [place] [address] Armani Duarte MD [address] [facility] [address] JOSE ALFR[address]O [address] [place] [address] documented as of this encounter Visit Diagnoses Diagnosis Pulmonary embolism (CMS/HCC HHS/HCC)- Primary Other pulmonary embolism and infarction documented in this encounter Care Teams Supply Chain Development Manager Relationship Specialty Start Date End Date None, Provider, PCP - General UNKNOWN PHYSICIAN SPECIALTY 09/12/24 Duane Tamez MD [address] [place] [address] NEUROLOGY 10/08/18 Chapin Talavera DO [address] [place] [address] [place] Wind Operations Manager CARDIOVASCULAR DISEASE 03/01/22 documented as of this encounter
--- OUTSIDE RECORDS SUMMARY | 2024-09-15 17:10 | XMS_ITS | Encounter Summary ---
Author Organization [facility] Address [address] [place] [address] Care Team Providers Care Armored Car Driver Name Role Phone Jenn Menezes [facility] Primary Care Provider Duane Barker MD Unavailable [phone] Chapin Talavera DO Unavailable [phone] None, Provider Primary Care Provider Unavaila ble None, Provider Primary Care Provider Unavaila ble Cherelle Lacey MD Primary Care Provider [phone] None, Provider Primary Care Provider Unavaila ble Encounter Details Date Type Department Care Team (Late st Contact Info) Description 02/25/2020 MyChart Message Enc [facility] Medical Group [address] [address] Jenn Menezes RECEIVER SETTER- RE: FW: Medication Questions Social History Tobacco [...] Sex Assigned at Female 09/12/2024 6:33 AM CORPORATE ASSOCIATE Legal Sex Female 7:52 AM CORPORATE ASSOCIATE Gender Identity Not on file Sexual [...] Description 10/17/2024 1:40 PM CDT Office Visit [facility] [address] [facility] [place] [address] Armani Duarte MD [address] [place] [address] [address] [place] [address] 03/13/2025 9:00 AM CDT Office Visit [facility] - [address] [place] [address] Armani Duarte MD [address] [place] [address] [address] [place] [address] documented as of this encounter Visit Diagnoses Not on filedocumented in this encounter Care Teams Armored Car Driver Relationship Specialty Start Date End Date Jenn Menezes [facility] PCP - General NURSE PRACTITIONER 06/07/18 03/08/22 None, ProviderMD PCP - General UNKNOWN PHYSICIAN SPECIALTY 05/04/22 09/19/22 None, ProviderMD PCP - General UNKNOWN PHYSICIAN SPECIALTY 10/05/22 10/24/23 Cherelle Lacey MD [address] [place] [address] [place] [address] PCP - General FAMILY PRACTICE 10/25/23 09/11/24 None, ProviderMD PCP - General UNKNOWN PHYSICIAN SPECIALTY 09/12/24 Duane Tamez MD [address] [place] [address] NEUROLOGY 10/08/18 Chapin Talavera DO [address] [place] [address] [place] Molasses Preparer CARDIOVASCULAR DISEASE 03/01/22 documented as of this encounter
--- OUTSIDE RECORDS SUMMARY | 2024-09-15 17:10 | XMS_ITS | Encounter Summary ---
Author Organization [facility] Address [facility] [place] [address] Care Team Providers Care Hand Scraper Name Role Phone Jenn Menezes [facility] Primary Care Provider Duane Barker MD Unavailable [phone] Chapin Talavera DO Unavailable [phone] None, Provider Primary Care Provider Unavaila ble None, Provider Primary Care Provider Unavaila ble Cherelle Lacey MD Primary Care Provider [phone] None, Provider Primary Care Provider Unavaila ble Encounter Details Date Type Department Care Team (Late Contact Info) Description 12/02/2019 MyChart Message Enc [address] [address] Jenn Menezes SYSTEM CONTROLLERADRIA RE: Medication Questions Social History Tobacco Use [...] Sex Assigned at Female 09/12/2024 6:33 AM CONFERENCE CENTER MANAGER Legal Sex Female 7:52 AM CONFERENCE CENTER MANAGER Gender Identity Not on file Sexual Orientation Not on file documented as of this encounter Plan of Treatment Upcoming Encounters Date Type Department Care Team (Late Contact Info) Description 10/17/2024 1:40 PM CDT [facility] [address] [facility] [place] [address] Armani Duarte MD [facility] [address] [place] [address] 03/13/2025 9:00 AM CDT [facility] [address] [facility] [place] [address] Armani Duarte MD 3 [facility] [address] [place] [address] documented as of this encounter Visit Diagnoses Not on filedocumented in this encounter Care Teams Hand Scraper Relationship Specialty Start Date End Date Jenn Menezes [facility] PCP - General NURSE PRACTITIONER 06/07/18 03/08/22 None, Provider, PCP - General UNKNOWN PHYSICIAN SPECIALTY 05/04/22 09/19/22 None, ProviderMD PCP - General UNKNOWN PHYSICIAN SPECIALTY 10/05/22 10/24/23 Cherelle Lacey MD [address] [place] [address] [place] [address] PCP - General FAMILY PRACTICE 10/25/23 09/11/24 None, Provider, PCP - General UNKNOWN PHYSICIAN SPECIALTY 09/12/24 Duane Tamez MD [facility] [address] [address] NEUROLOGY 10/08/18 Chapin Talavera DO [facility] [address] [address] [place] Gas Combustion Engineer CARDIOVASCULAR DISEASE 03/01/22 documented as of this encounter
--- OUTSIDE RECORDS SUMMARY | 2024-09-15 17:10 | XMS_ITS | Encounter Summary ---
Author Organization [facility] Address [facility] [place] [address] Care Team Providers Care Clergy Member Name Role Phone Jenn Menezes [facility] Primary Care Provider Duane Barker MD Unavailable [phone] Chapin Talavera DO Unavailable [phone] None, Provider Primary Care Provider Unavaila ble None, Provider Primary Care Provider Unavaila ble Cherelle Lacey MD Primary Care Provider [phone] None, Provider Primary Care Provider Unavaila ble Encounter Details Date Type Department Care Team (Late Contact Info) Description 09/16/[address] [facility] [address] [address] Jenn Menezes BATTER[employer] CONTAINER TESTERADRIA RE: Follow Up/Update Social History Tobacco Use [...] Sex Assigned at Female 09/12/2024 6:33 AM SOFTWARE APPLICATIONS DEVELOPER Legal Sex Female 7:52 AM SOFTWARE APPLICATIONS DEVELOPER Gender Identity Not on file Sexual Orientation Not on file documented as of this encounter Plan of Treatment Upcoming Encounters Date Type Department Care Team (Late Contact Info) Description 10/17/2024 1:40 PM CDT [facility] [address] [place] [address] Armani Duarte MD [address] [place] [address] 03/13/2025 9:00 AM CDT [facility] [address] [place] [address] Armani Duarte MD [address] [place] [address] documented as of this encounter Visit Diagnoses Not on filedocumented in this encounter Care Teams Clergy Member Relationship Specialty Start Date End Date Jenn Menezes [facility] PCP - General NURSE PRACTITIONER 06/07/18 03/08/22 None, Provider, PCP - General UNKNOWN PHYSICIAN SPECIALTY 05/04/22 09/19/22 None, ProviderMD PCP - General UNKNOWN PHYSICIAN SPECIALTY 10/05/22 10/24/23 Cherelle Lacey MD [address] [place] [address] [place] [address] PCP - General FAMILY PRACTICE 10/25/23 09/11/24 None, ProviderMD PCP - General UNKNOWN PHYSICIAN SPECIALTY 09/12/24 Duane Tamez MD [facility] [address] [address] NEUROLOGY 10/08/18 Chapin Talavera DO [facility] [address] [address] [place] [employer] CARDIOVASCULAR DISEASE 03/01/22 documented as of this encounter
--- OUTSIDE RECORDS SUMMARY | 2024-09-15 17:10 | XMS_ITS | Clinical Summary ---
Author Organization [facility] Address [address] [place] [address] Care Team Providers Care Vehicle Washer Name Role Phone Duane Tamez MD Unavailable [phone] Chapin Talavera DO Unavailable [phone] None, Provider MD Primary Care Provider Unavaila [...] :Chronic obstructive pulmonary disease, unspecified COPD type ([facility]) Nebulizer tubing, mask and needed supply, change every month 1 kit 6 019 Active sucralfate 1 G tabletIndications :Gastroesophageal reflux disease with esophagitis Take 1 tablet (1 g total) by mouth 4 (four) times daily. 120 tablet 6 020 Active Nebulizer System All-In-One MiscIndications:C hronic obstructive pulmonary disease, unspecified COPD type ([facility]) 1 kit by Does not apply [...] epilepsy without status epilepticus, unspecified epilepsy type ([facility] HHS/HCC) TAKE 1 TABLET BY MOUTH TWICE [...] 300 MG/2ML injection (PEN)Indications: Severe persistent asthma ([facility] HHS/[facility]) Inject 4 mLs (600 mg total) into the skin on day 1 for loading dose. Then inject 2 mLs (300 mg) every 14 days, starting on day 15 4 mL 12 025 Active apixaban (ELIQUIS) 5 MG tabletIndications :Pulmonary embolism ([facility] HHS/[facility]) Take 1 tablet (5 mg total) by mouth 2 (two) times daily. 60 tablet 3 025 Active albuterol (PROVENTIL) (2.5 MG/3ML) 0.083% nebulizer solutionIndicatio ns:Chronic obstructive pulmonary disease, unspecified COPD type ([facility]) Take 3 mLs (2.5 mg total) by nebulization every 6 (six) hours as needed for Wheezing. 360 mL 1 023 2024 Discontinued(R eorder) albuterol (PROVENTIL) (2.5 MG/3ML) 0.083% nebulizer solutionIndicatio ns:Moderate persistent asthma without complication ([facility]) Take 3 mLs (2.5 mg total) by nebulization every 6 (six) hours as needed for Wheezing. 360 mL 3 024 2024 Discontinued mepolizumab (NUCALA) 100 MG/ML injectionIndicati ons:Moderate persistent asthma without complication ([facility]) INJECT 1 PEN UNDER THE SKIN EVERY 28 DAYS 1 mL 11 024 2024 Discontinued(D uplicate Med) ipratropium-albut fifi (DUONEB) 0.5-2.5 (3) MG/3ML SolutionIndicatio ns:Moderate persistent asthma without complication ([facility]) INHALE THE CONTENTS OF 1 VIAL EVERY 6 HOURS NEEDED 360 mL 1 024 2024 Discontinued(D uplicate Med) Sharps Container MiscIndications:M oderate persistent asthma without complication ([facility]) Please supply pt with a 3.8 [...] the patient. Abscess 02/27/2020 History of alcoholism ([facility]) 03/16/20 Epidermal cyst of neck 03/29/2018 Atopic dermatitis 08/02/2017 Abnormal liver function 05/02/2016 Chronic obstructive lung disease ([facility] C) 04/26/2016 DJD (degenerative joint disease) 04/26/2016 Epilepsy ([facility]) 04/26/2016 GERD (gastroesophageal reflux disease) 6 [...] Care Team Description 09/13/[address] [facility] Medical [facility] [address] [place] [address] Armani Duarte MD Bronchitis 09/12/2024 6:00 AM CROP AND SOIL SCIENTIST - 09/12/2024 9:30 AM CROP AND SOIL SCIENTIST Emergency [facility] [place] [address] Iris Mejía MD Chest Pain; Shortness Of Breath Discharge Disposition: Left Against Medical Advice 09/12/2024 Travel 09/04/2024 9:40 AM CROP AND SOIL SCIENTIST [facility] [address] [facility] [address] [place] [address] Armani Duarte MD Shortness Of Breath 09/04/2024 Scan [employer] INFO SRVCS Scanned, [facility] 09/04/2024 [facility]phone [facility] [address] [place] [phone] Armani Duarte MD Medication 09/04/2024 Travel 07/26/2024 MyChart Message [facility] [address] [place] [phone] Armani Duarte MD Trelogy from Last 3 [...] Sex Assigned at Female 09/12/2024 6:33 AM CROP AND SOIL SCIENTIST Legal Sex Female 7:52 AM CROP AND SOIL SCIENTIST Gender Identity Not on file Sexual Orientation Not on file Last Filed Vital Signs Vital Sign Reading Time Taken Comments Blood Pressure 121/92 09/12/2024 6:05 AM CROP AND SOIL SCIENTIST Pulse 94 09/12/2024 6:05 AM CROP AND SOIL SCIENTIST Temperature 37.2 C (99 F) 09/12/2024 6:05 AM CROP AND SOIL SCIENTIST Respiratory Rate 18 09/12/2024 6:05 AM CROP AND SOIL SCIENTIST Oxygen Saturation 97% 09/12/2024 6:05 AM CROP AND SOIL SCIENTIST Inhaled Oxygen Concentration - - Weight 111.1 kg (245 lb) 09/12/2024 6:05 AM CROP AND SOIL SCIENTIST Height 170.2 cm (5' 7 ) 09/12/2024 6:05 AM CROP AND SOIL SCIENTIST Body Mass Index 38.37 09/12/2024 6:05 AM CROP AND SOIL SCIENTIST Plan of Treatment Upcoming Encounters Date Type Department Care Team (Late st Contact Info) Description 10/17/2024 1:40 PM CDT [facility] [address] [place] [phone] Armani Duarte MD [address] [place], [place] [address] JOSE [address]EDO [address] [place] [address] 03/13/2025 9:00 AM CDT [facility] [address] [facility] [address] [facility] [address] [facility] [place] [address] Armani Duarte MD [address] [facility] [address] [facility] [address] [place] [address] Health Maintenance Due Date Last Done Comments [...] 2024 Hepatitis C Completed 07/20/2021 PHQ-2 (Physician [place]) Completed 09/04/2024 HPV Vaccines Aged Out No [...] CHEST PORTABLE STAT 09/12/2024 6:4 2 AM CROP AND SOIL SCIENTIST MAGNESIUM Routine 09/12/2024 6:10 AM CROP AND SOIL SCIENTIST TROPONIN, QUANT STAT 09/12/2024 6:10 AM CROP AND SOIL SCIENTIST COMPREHENSIVE METABOLIC PANEL STAT 09/12/2024 6:10 AM CROP AND SOIL SCIENTIST CBC W/DIFF AUTOMATED STAT 09/12/2024 6:10 AM CROP AND SOIL SCIENTIST ECG 12-LEAD Routine 09/12/2024 6:02 AM CROP AND SOIL SCIENTIST HEPATITIS C ANTIBODY Routine 07/20/2021 8:54 AM CROP AND SOIL SCIENTIST Need for hepatitis C screening test from Last 3 Months or Most Recently Relevant to Health Maintenance Results * XR CHEST PORTABLE (09/12/2024 6:42 AM CROP AND SOIL SCIENTIST) Anatomical Region Laterality Modality Chest Radiographic Astrid ging 09/12/2024 6:43 AM CROP AND SOIL SCIENTIST Impressions 09/12/2024 6:44 AM CROP AND SOIL SCIENTIST IMPRESSION: No radiographic evidence of an acute cardiopulmonary abnormality. Referred By: Interpreted By: Jean Carlos Escobedo MD, 09/12/2024 6:43 AM Narrative 09/12/2024 6:44 AM CROP AND SOIL SCIENTIST [address] [address] EXAMINATION: XR CHEST PORTABLE, 09/12/2024 6:43 AM TECHNIQUE: Upright AP portable radiograph of the chest HISTORY: Chest pain COMPARISON: Chest radiograph 12/06/2021 FINDINGS: Heart size is normal. Pulmonary vascular pattern appears unremarkable. No focal pulmonary consolidation. Linear opacity at the left lung basically seen with atelectasis. No pleural effusion. No pneumothorax. Procedure Note Jean Carlos Escobedo MD - 09/12/[address] [address] EXAMINATION: XR CHEST PORTABLE, 09/12/2024 6:43 AM [...] (ABNORMAL) COMPREHENSIVE METABOLIC PANEL (09/12/2024 6:10 AM CROP AND SOIL SCIENTIST) GLUCOSE 101(H) 70 - 99 MG/DL 09/12/2024 6:54 AM CROP AND SOIL SCIENTIST [facility] BUN 6(L) 7 - 18 MG/DL 09/12/2024 6:54 AM [facility] CREATININE S/P/B 0.57 0.55 - 1.02 MG/DL 09/12/2024 6:54 AM [facility] SODIUM S/P/B 138 136 - 145 MMOL/L 09/12/2024 6:54 AM [facility] POTASSIUM S/P/B 2.8(LL) 3.5 - 5.1 MMOL/L 09/12/2024 6:54 AM [facility] Comment: Critical Result(s) Called at: 06:52:44 on 09/12/2024 by: CLEMENTINA CANDELARIA to and read back by:MATTHEW MORRIS CHLORIDE S/P/B 103 97 - 115 MMOL/L 09/12/2024 6:54 AM [facility] CO2 27.3 21 - 32 MMOL/L 09/12/2024 6:54 AM [facility] CALCIUM S/P/B 9.1 8.5 - 10.1 MG/DL 09/12/2024 6:54 AM [facility] BILIRUBIN TOTAL S/P/B 1.0 0.2 - 1.2 MG/DL 09/12/2024 6:54 AM [facility] Comment: THIS ASSAY IS NOT RECOMMENDED FOR PATIENTS UNDERGOING TREATMENT WITH ELTROMBOPAG DUE TO THE POTENTIAL FOR FALSELY ELEVATED RESULTS. TOTAL PROTEIN S/P/B 7.7 6.4 - 8.2 G/DL 09/12/2024 6:54 AM [facility] ALBUMIN S/P/B 3.7 3.4 - 5.0 G/DL 09/12/2024 6:54 AM [facility] AST 43(H) 15 - 37 U/L 09/12/2024 6:54 AM [facility] ALT 57(H) 14 - 55 U/L 09/12/2024 6:54 AM [facility] ALKALINE PHOSPHATASE S/P/B 65 50 - 136 U/L 09/12/2024 6:54 AM [facility] ANION GAP 7.7 2 - 10 MMOL/L 09/12/2024 6:54 AM [facility] BUN CREATININE RATIO 10.5 6 - 26 09/12/2024 6:54 AM [facility] A/G RATIO 0.9(L) 1.0 - 2.0 RATIO 09/12/2024 6:54 AM [facility] GFR ESTIMATE >90 >90 ML/MIN/1.7 3 M2 09/12/2024 6:54 AM [facility] Comment: NOTE: eGFR is not calculated for patients <18 years of age or gender unknown. This is an estimated GFR calculation using the new CKD EPI creatinine equation without race and so does not require a correction factor for race. This estimated GFR should not be used for calculating drug doses. 09/12/2024 6:10 AM CROP AND SOIL SCIENTIST Iris Mejía MD LABORATORY Final Result [facility] [address] [place] [address], * (ABNORMAL) CBC W/DIFF AUTOMATED (09/12/2024 6:10 AM CROP AND SOIL SCIENTIST) WBC 10.33 4.5 - 11.0 x10'3/uL 09/12/2024 6:23 AM [facility] RBC 5.13 4.20 - 5.40 x10'6/uL 09/12/2024 6:23 AM [facility] HGB 16.1(H) 12.0 - 16.0 G/DL 09/12/2024 6:23 AM [facility] HCT 46.3 38.0 - 48.0 % 09/12/2024 6:23 AM [facility] MCV 90.3 81.0 - 99.0 FL 09/12/2024 6:23 AM [facility] MCH 31.4(H) 27.0 - 31.0 PG 09/12/2024 6:23 AM [facility] MCHC 34.8 32.0 - 36.0 G/DL 09/12/2024 6:23 AM [facility] RDW 12.5 11.5 - 14.5 % 09/12/2024 6:23 AM [facility] PLT 240 130 - 400 x10'3/uL 09/12/2024 6:23 AM [facility] MPV 9.7 9.3 - 12.2 FL 09/12/2024 6:23 AM [facility] DIFFERENTIAL TYPE AUTOMATED DIFFERENTIAL 09/12/2024 6:23 AM [facility] NEUTROPHILS % 65.8 % 09/12/2024 6:23 AM [facility] LYMPHOCYTES % 25.8 % 09/12/2024 6:23 AM [facility] MONOCYTES % 7.7 % 09/12/2024 6:23 AM [facility] EOSINOPHILS 0.1 % 09/12/2024 6:23 AM [facility] BASOPHILS 0.3 % 09/12/2024 6:23 AM [facility] IMMATURE GRANS % 0.3 % 09/13/19 6:23 AM [facility] ABS. NEUTROPHILS 6.80 1.80 - 7.70 x10'3/uL 09/12/2024 6:23 AM CROP AND SOIL SCIENTIST [facility] ABS. LYMPHOCYTES 2.66 1.00 - 4.80 x10'3/uL 09/12/2024 6:23 AM CROP AND SOIL SCIENTIST [facility] ABS. MONOCYTES 0.80 0.24 - 0.86 x10'3/uL 09/12/2024 6:23 AM CROP AND SOIL SCIENTIST [facility] ABS. EOSINOPHILS 0.01(L) 0.04 - 0.36 x10'3/uL 09/12/2024 6:23 AM CROP AND SOIL SCIENTIST [facility] ABS. BASOPHILS 0.03 0.01 - 0.08 x10'3/uL 09/12/2024 6:23 AM [facility] ABS. IMMATURE GRANULOCYTES 0.03 0.00 - 0.49 x10'3/uL 09/12/2024 6:23 AM CROP AND SOIL SCIENTIST [facility] 09/12/2024 6:10 AM CROP AND SOIL SCIENTIST Iris Mejía MD LABORATORY Final Result [address] [address], [place] [phone] * TROPONIN, QUANT (09/12/2024 6:10 AM CROP AND SOIL SCIENTIST) TROPONIN I HIGH SENSITIVITY 4 <54 ng/L 09/12/2024 6:54 AM CROP AND SOIL SCIENTIST [facility] Comment: HIGH DOSES OF BIOTIN, TROPONIN-SPECIFIC AUTOANTIBODIES, AND ANTIBODY THERAPY CONTAINING HAMA MAY INTERFERE WITH THIS TEST RESULT. CORRELATION TO CLINICAL HISTORY AND PRESENTATION RECOMMENDED. 09/12/2024 6:10 AM CROP AND SOIL SCIENTIST Iris Mejía MD LABORATORY Final Result [facility] [address] [place] [address], * MAGNESIUM (09/12/2024 6:10 AM CROP AND SOIL SCIENTIST) MAGNESIUM 1.8 1.8 - 2.4 MG/DL 09/12/2024 8:28 AM CROP AND SOIL SCIENTIST [facility] 09/12/2024 6:10 AM CROP AND SOIL SCIENTIST Iris Mejía MD LABORATORY Final Result [address] [address], * ECG 12 lead (09/12/2024 6:02 AM CROP AND SOIL SCIENTIST) 09/12/2024 6:02 AM CROP AND SOIL SCIENTIST Narrative [facility] ([facility] - 09/13/2024 8:10 AM CROP AND SOIL SCIENTIST [address] Test Date: 2024-09-12 Pat Name: DARRELL LEE Department: 41 Room: [facility] Gender: Female Outpatient Admitting Clerk: : 1985 Requested By: LILIYA SEVERINO Order Number: [id number] Reading MD: Nathanael Muhammad Measurements Intervals [place] Rate: 99 P: 148 NJ: 143 QRS: 116 QRSD: 94 T: -31 QT: 338 QTc: 435 Interpretive Statements SINUS RHYTHM WITH OCCASIONAL VENTRICULAR PREMATURE COMPLEXES ARM LEADS REVERSED [INVERTED P AND QRS IN I] Compared to ECG 03/03/2022 09:34:53 Ventricular premature complex(es) now present T-wave abnormality no longer present AND SOIL SCIENTIST Procedure Note Nathanael Muhammad MD - 09/13/[address] [employer] Test Date: 2024-09-12 Pat Name: DARRELL LEE Department: 41 Room: [facility] Gender: Female Outpatient Admitting Clerk: : 1985 Requested By: LILIYA SEVERINO Order Number: [id number] Reading MD: Nathanael Muhammad Measurements Intervals [place] Rate: 99 P: 148 NJ: 143 QRS: 116 QRSD: 94 T: -31 QT: 338 QTc: 435 Interpretive Statements SINUS RHYTHM WITH OCCASIONAL VENTRICULAR PREMATURE COMPLEXES ARM LEADS REVERSED [INVERTED P AND QRS IN I] Compared to ECG 03/03/2022 09:34:53 Ventricular premature complex(es) now present T-wave abnormality no longer present AND SOIL SCIENTIST Iris Mejía MD ECG ORDERABLES Final Result Performing Organization Address City/[facility] Co de Phone Number [facility] ([facility]) RAD * HEPATITIS C ANTIBODY (07/20/2021 8:54 AM CROP AND SOIL SCIENTIST) HEPATITIS C AB NON-REACTI VE NON-REACT [place] 07/20/2021 7:13 PM CROP AND SOIL SCIENTIST [facility] Comment: ANTIBODIES TO HCV NOT DETECTED. DOES NOT EXCLUDE THE POSSIBILITY OF EXPOSURE TO HCV. 07/20/2021 8:54 AM CROP AND SOIL SCIENTIST Jenn Menezes [facility]ORAT[facility] Final Resul t Performing Organization Address City/[facility] Co de Phone Number [facility] [address] [place] [address], [id number] from Last 3 Months or Most Recently Relevant to Health Maintenance Insurance [employer] Care Teams Vehicle Washer Relationship Specialty Start Date End Date None, Provider, PCP - General UNKNOWN PHYSICIAN SPECIALTY 09/12/24 Duane Tamez MD [address] [place] [address] NEUROLOGY 10/08/18 Chapin Talavera DO [address] [place] [address] [place] Skin Installer CARDIOVASCULAR DISEASE 03/01/22
--- OUTSIDE RECORDS SUMMARY | 2024-09-15 17:10 | XMS_ITS | Encounter Summary ---
Author Organization [facility] Address [address] [place] [address] Care Team Providers Care Corrugator Name Role Phone Duane Tamez MD Unavailable [phone] Chapin Talavera DO Unavailable None, Provider Primary Care Provider Unavaila ble None, Provider Primary Care Provider Unavaila ble Cherelle Lacey MD Primary Care Provider [phone] None, Provider Primary Care Provider Unavaila ble Encounter Details Date Type Department Care Team (Late st Contact Info) Description 03/17/2022 [employer] Message Enc [facility] [address] [place] [address] Chapin Talavera, DO [address] [place] [address] schedule testing Social History Tobacco Use Types [...] Sex Assigned at Female 09/12/2024 6:33 AM COOK DINNER Legal Sex Female 7:52 AM COOK DINNER Gender Identity Not on file Sexual Orientation [...] 1:40 PM CDT [facility] - [address] [place] [address] Armani Duarte MD [address] [place] [address] [address] [place] [address] 03/13/2025 9:00 AM CDT Office Visit [facility] - [address] [place] [address] Armani Duarte MD [address] [place] [address] JOSE ALFREDO [address] [place] [address] documented as of this encounter Visit Diagnoses Not on filedocumented in this encounter Care Teams Corrugator Relationship Specialty Start Date End Date None, Provider, PCP - General UNKNOWN PHYSICIAN SPECIALTY 05/04/22 09/19/22 None, ProviderMD PCP - General UNKNOWN PHYSICIAN SPECIALTY 10/05/22 10/24/23 Cherelle Lacey MD [address] [place] [address] [place] [address] PCP - General FAMILY PRACTICE 10/25/23 09/11/24 None, MD Yony PCP - General UNKNOWN PHYSICIAN SPECIALTY 09/12/24 Duane Tamez MD [address] [address] NEUROLOGY 10/08/18 Chapin Talavera DO [facility] [address] [facility] Receptionist CARDIOVASCULAR DISEASE 03/01/22 documented as of this encounter
--- OUTSIDE RECORDS SUMMARY | 2024-09-15 17:10 | XMS_ITS | Encounter Summary ---
Author Organization [facility] Address [facility] [place] [address] Care Team Providers Care Toy Painter Name Role Phone Suryashannon Jenn [facility] Primary Care Provider Duane Barker MD Unavailable [phone] Chapin Talavera DO Unavailable [phone] None, Provider Primary Care Provider Unavaila ble None, Provider Primary Care Provider Unavaila ble Cherelle Lacey MD Primary Care Provider [phone] None, Provider Primary Care Provider Unavaila ble Encounter Details Date Type Department Care Team (Late st Contact Info) Description 01/05/2022 MyChart Message Enc [facility] Multispecialty Care - [address] [place] [phone] Armani Duarte MD [address] [place] [address] JOSE [address] [place] [address] Test results. Social History Tobacco [...] Sex Assigned at Female 09/12/2024 6:33 AM BANQUET KITCHEN SUPERVISOR Legal Sex Female 7:52 AM BANQUET KITCHEN SUPERVISOR Gender Identity Not on file Sexual [...] 1:40 PM CDT [facility] [address] [place] [address] Armani Duarte MD [address] [place] [address] 03/13/2025 9:00 AM CDT Office Visit [facility] - [address] [place] [address] Armani Duarte MD [address] [place] [address] documented as of this encounter Visit Diagnoses Not on filedocumented in this encounter Care Teams Toy Painter Relationship Specialty Start Date End Date Jenn [facility] PCP - General NURSE PRACTITIONER 06/07/18 03/08/22 None, Provider, PCP - General UNKNOWN PHYSICIAN SPECIALTY 05/04/22 09/19/22 None, Provider, PCP - General UNKNOWN PHYSICIAN SPECIALTY 10/05/22 10/24/23 Cherelle Lacey MD [address] [place] [address] [place] [address] PCP - General FAMILY PRACTICE 10/25/23 09/11/24 None, Provider, PCP - General UNKNOWN PHYSICIAN SPECIALTY 09/12/24 Duane Tamez MD [facility] [address] [place] [address] NEUROLOGY 10/08/18 Chapin Talavera DO [facility] [address] [place] [address] [place] [employer] Paper Tester CARDIOVASCULAR DISEASE 03/01/22 documented as of this encounter
--- OUTSIDE RECORDS SUMMARY | 2024-09-15 17:10 | XMS_ITS | Encounter Summary ---
Author Organization [facility] Address [facility] [place] [address] Care Team Providers Care Vortex Operator Name Role Phone Jenn Menezes [facility] Primary Care Provider Duane Barker MD Unavailable [phone] Chapin Talavera DO Unavailable [phone] None, Provider Primary Care Provider Unavaila ble None, Provider Primary Care Provider Unavaila ble Cherelle Lacey MD Primary Care Provider [phone] None, Provider Primary Care Provider Unavaila ble Encounter Details Date Type Department Care Team (Late Contact Info) Description 05/30/2019 Padle[employer]art Message Enc [address] [address] Jenn Menezes FNP-BC RE: Medication [...] Assigned at Female 09/12/2024 6:33 AM MANAGER BIOSTATISTICS Legal Sex Female 7:52 AM MANAGER BIOSTATISTICS Gender Identity Not on file Sexual Orientation Not on file documented as of this encounter Plan of Treatment Upcoming Encounters Date Type Department Care Team (Late Contact Info) Description 10/17/2024 1:40 PM CDT [facility] [address] [facility] [place] [address] Armani Duarte MD [address] [facility] [address] [place] [address] 03/13/2025 9:00 AM CDT [facility] [address] [facility] [place] [address] Armani Duarte MD [address] [facility] [address] [place] [address] documented as of this encounter Visit Diagnoses Not on filedocumented in this encounter Care Teams Vortex Operator Relationship Specialty Start Date End Date Jenn Menezes [facility] PCP - General NURSE PRACTITIONER 06/07/18 03/08/22 None, Provider, PCP - General UNKNOWN PHYSICIAN SPECIALTY 05/04/22 09/19/22 None, ProviderMD PCP - General UNKNOWN PHYSICIAN SPECIALTY 10/05/22 10/24/23 Cherelle Lacey MD [address] [place] [address] [place] [address] PCP - General FAMILY PRACTICE 10/25/23 09/11/24 None, Provider, PCP - General UNKNOWN PHYSICIAN SPECIALTY 09/12/24 Duane Tamez MD [facility] [employer] [address] [address] NEUROLOGY 10/08/18 Chapin Talavera DO [facility] [employer] [address] [address] [place] Screen Tender Helper CARDIOVASCULAR DISEASE 03/01/22 documented as of this encounter
--- OUTSIDE RECORDS SUMMARY | 2024-09-15 17:10 | XMS_ITS | Encounter Summary ---
Author Organization [facility] Address [address] [place] [address] Care Team Providers Care Paver Operator Name Role Phone Jenn Menezes [facility] Primary Care Provider Duane Barker MD Unavailable [phone] Chapin Talavera DO Unavailable [phone] None, Provider Primary Care Provider Unavaila ble None, Provider Primary Care Provider Unavaila ble Cherelle Lacey MD Primary Care Provider [phone] None, Provider Primary Care Provider Unavaila ble Encounter Details Date Type Department Care Team (Late st Contact Info) Description 04/30/2020 Insight Ecosystem[employer] Message Enc [facility] Medical [facility] Medicine [address] [address] Jenn Menezes FNP-BC RE: Medication [...] Sex Assigned at Female 09/12/2024 6:33 AM WELDING MACHINE TENDER Legal Sex Female 7:52 AM WELDING MACHINE TENDER Gender Identity Not on file Sexual [...] PM CDT Office Visit [facility] - [address] [place] [address] Armani Duarte MD [address] [place] [address] [address] [place] [address] 03/13/2025 9:00 AM CDT Office Visit [facility] - [address] [place] [address] Amrani Duarte MD [address] [place] [address] [address] [place] [address] documented as of this encounter Visit Diagnoses Not on filedocumented in this encounter Care Teams Paver Operator Relationship Specialty Start Date End Date Jenn Menezes [facility] PCP - General NURSE PRACTITIONER 06/07/18 03/08/22 None, ProviderMD PCP - General UNKNOWN PHYSICIAN SPECIALTY 05/04/22 09/19/22 None, ProviderMD PCP - General UNKNOWN PHYSICIAN SPECIALTY 10/05/22 10/24/23 Cherelle Lacey MD [address] [place] [address] [place] [address] PCP - General FAMILY PRACTICE 10/25/23 09/11/24 None, ProviderMD PCP - General UNKNOWN PHYSICIAN SPECIALTY 09/12/24 Duane Tamez MD [address] [place] [address] NEUROLOGY 10/08/18 Chapin Talavera DO [address] [place] [address] [place] Fighting Vehicle Infantryman CARDIOVASCULAR DISEASE 03/01/22 documented as of this encounter
--- OUTSIDE RECORDS SUMMARY | 2024-09-15 17:10 | XMS_ITS | Encounter Summary ---
Author Organization [facility] Address [facility] [place] [address] Care Team Providers Care Family Welfare Social Work Professor Name Role Phone Suryashannon Jenn [facility] Primary Care Provider Duane Barker MD Unavailable [phone] Chapin Talavera DO Unavailable [phone] None, Provider Primary Care Provider Unavaila ble None, Provider Primary Care Provider Unavaila ble Cherelle Lacey MD Primary Care Provider [phone] None, Provider Primary Care Provider Unavaila ble Encounter Details Date Type Department Care Team (Late st Contact Info) Description 01/10/2022 MyChart Message Enc [facility] Medical Group [facility] - [address] [place] [address] Armani Duarte MD [address] [place] [address] [address] [place], [place] [id number] Hi Social History Tobacco Use Types Packs/Day [...] Assigned at Female 09/12/2024 6:33 AM TREE MARKER Legal Sex Female 7:52 AM TREE MARKER Gender Identity Not on file Sexual Orientation [...] Description 10/17/2024 1:40 PM CDT [facility] [address] [place] [address] Armani Duarte MD [address] [place] [address] 03/13/2025 9:00 AM CDT [facility] [address] [place] [address] Armani Duarte MD [address] [place] [address] documented as of this encounter Visit Diagnoses Not on filedocumented in this encounter Care Teams Family Welfare Social Work Professor Relationship Specialty Start Date End Date Jenn Menezes [facility] PCP - General NURSE PRACTITIONER 06/07/18 03/08/22 None, Provider, PCP - General UNKNOWN PHYSICIAN SPECIALTY 05/04/22 09/19/22 None, Provider, PCP - General UNKNOWN PHYSICIAN SPECIALTY 10/05/22 10/24/23 Cherelle Lacey MD [address] [place] [address] [place] [address] PCP - General FAMILY PRACTICE 10/25/23 09/11/24 None, Provider, PCP - General UNKNOWN PHYSICIAN SPECIALTY 09/12/24 Duane Tamez MD [facility] Reviews & Information [address] [place] [address] NEUROLOGY 10/08/18 Chapin Talavera DO [facility] Reviews & Information [address] [place] [address] [place] Physical Security Engineer CARDIOVASCULAR DISEASE 03/01/22 documented as of this encounter
--- OUTSIDE RECORDS SUMMARY | 2024-09-15 17:10 | XMS_ITS | Encounter Summary ---
Author Organization [facility] Address [facility] [place] [address] Care Team Providers Care Veneer Sander Name Role Phone Jenn Menezes [facility] Primary Care Provider Duane Barker MD Unavailable [phone] Chapin Talavera DO Unavailable [phone] None, Provider Primary Care Provider Unavaila ble None, Provider Primary Care Provider Unavaila ble Cherelle Lacey MD Primary Care Provider [phone] None, Provider Primary Care Provider Unavaila ble Encounter Details Date Type Department Care Team (Late st Contact Info) Description 12/22/2021 AdsWizzt Message Enc [facility] Medical Group Family Medicine [address] [address] Jenn Menezes [facility] Hi Social History Tobacco Use Types Packs/Day [...] Sex Assigned at Female 09/12/2024 6:33 AM VEHICLE OPERATOR TECHNICIAN Legal Sex Female 7:52 AM VEHICLE OPERATOR TECHNICIAN Gender Identity Not on file Sexual [...] Description 10/17/2024 1:40 PM CDT Office Visit [facility] - [address] [place] [address] Armani Duarte MD [address] [place] [address] 03/13/2025 9:00 AM CDT Office Visit [facility] - [address] [place] [address] Armani Duarte MD [address] [place] [address] [address] [place] [address] documented as of this encounter Visit Diagnoses Not on filedocumented in this encounter Care Teams Veneer Sander Relationship Specialty Start Date End Date Jenn [facility] PCP - General NURSE PRACTITIONER 06/07/18 03/08/22 None, ProviderMD PCP - General UNKNOWN PHYSICIAN SPECIALTY 05/04/22 09/19/22 None, ProviderMD PCP - General UNKNOWN PHYSICIAN SPECIALTY 10/05/22 10/24/23 Cherelle Lacey MD [address] [place] [address] [place] [address] PCP - General FAMILY PRACTICE 10/25/23 09/11/24 None, ProviderMD PCP - General UNKNOWN PHYSICIAN SPECIALTY 09/12/24 Duane Tamez MD [facility] [employer] [address] [address] NEUROLOGY 10/08/18 Chapin Talavera DO [facility] [employer] [address] [address] [place] Director Of Operations For Therapy CARDIOVASCULAR DISEASE 03/01/22 documented as of this encounter
--- OUTSIDE RECORDS SUMMARY | 2024-09-15 17:10 | XMS_ITS | Encounter Summary ---
Author Organization [facility] Address [facility] [place] [address] Care Team Providers Care Sales And Operations Trainee Name Role Phone Duane Tamez MD Unavailable [phone] Chapin Talavera DO Unavailable [phone] None, Provider Primary Care Provider Unavaila ble Cherelle Lacey MD Primary Care Provider [phone] None, Provider Primary Care Provider Unavaila ble Encounter Details Date Type Department Care Team (Late st Contact Info) Description 11/22/2022 [employer]Shark Poker Products Message Enc [facility] Medical Group [address] [address] [facility] Provider appoinment needed Social History Tobacco Use [...] Sex Assigned at Female 09/12/2024 6:33 AM MARINE CARGO SPECIALIST Legal Sex Female 7:52 AM MARINE CARGO SPECIALIST Gender Identity Not on file Sexual Orientation Not on file documented as of this encounter Plan of Treatment Upcoming Encounters Date Type Department Care Team (Late st Contact Info) Description 10/17/2024 1:40 PM CDT [facility] [address] [facility] [place] [address] Armani Duarte MD [address] [facility] [address] [place] [address] 03/13/2025 9:00 AM CDT [facility] [address] [facility] [place] [address] Armani Duarte MD [facility] [address] [place] [address] documented as of this encounter Visit Diagnoses Not on filedocumented in this encounter Care Teams Sales And Operations Trainee Relationship Specialty Start Date End Date None, ProviderMD PCP - General UNKNOWN PHYSICIAN SPECIALTY 10/05/22 10/24/23 Cherelle Lacey MD [address] [place] [address] [place] [address] PCP - General FAMILY PRACTICE 10/25/23 09/11/24 None, ProviderMD PCP - General UNKNOWN PHYSICIAN SPECIALTY 09/12/24 Duane Tamez MD [facility] [employer] [address] [address] NEUROLOGY 10/08/18 Chapin Talavera DO [facility] [employer] [address] [address] [place] Weir Fisherman CARDIOVASCULAR DISEASE 03/01/22 documented as of this encounter
--- OUTSIDE RECORDS SUMMARY | 2024-09-15 17:10 | XMS_ITS | Encounter Summary ---
Author Organization [facility] Address [facility] [place] [address] Care Team Providers Care Camp Advisor Name Role Phone Jenn Menezes [facility] Primary Care Provider Duane Barker MD Unavailable [phone] Chapin Talavera DO Unavailable [phone] None, Provider Primary Care Provider Unavaila ble None, Provider Primary Care Provider Unavaila ble Cherelle Lacey MD Primary Care Provider [phone] None, Provider Primary Care Provider Unavaila ble Encounter Details Date Type Department Care Team (Late st Contact Info) Description 03/04/2022 ReelGeniet Message Enc [facility] Medical Group Family Medicine [address] [address] Jenn Menezes [facility] Hey Social History Tobacco Use Types [...] Sex Assigned at Female 09/12/2024 6:33 AM BREAKFAST ATTENDANT Legal Sex Female 7:52 AM BREAKFAST ATTENDANT Gender Identity Not on file Sexual [...] CDT [facility] - [address] [place] [address] Armani Duarte MD [address] [place] [address] 03/13/2025 9:00 AM CDT Office Visit [facility] - [address] [place] [address] Armani Duarte MD [address] [place] [address] [address] [place] [address] documented as of this encounter Visit Diagnoses Not on filedocumented in this encounter Care Teams Camp Advisor Relationship Specialty Start Date End Date Jenn [facility] PCP - General NURSE PRACTITIONER 06/07/18 03/08/22 None, ProviderMD PCP - General UNKNOWN PHYSICIAN SPECIALTY 05/04/22 09/19/22 None, ProviderMD PCP - General UNKNOWN PHYSICIAN SPECIALTY 10/05/22 10/24/23 Cherelle Lacey MD [address] [place] [address] [place] [address] PCP - General FAMILY PRACTICE 10/25/23 09/11/24 None, ProviderMD PCP - General UNKNOWN PHYSICIAN SPECIALTY 09/12/24 Duane Tamez MD [facility] [address] NEUROLOGY 10/08/18 Chapin Talavera DO [facility] [address] [address] [place] Instructor Wastewater Treatment Plant CARDIOVASCULAR DISEASE 03/01/22 documented as of this encounter
--- OUTSIDE RECORDS SUMMARY | 2024-09-15 17:10 | XMS_ITS | Encounter Summary ---
Author Organization [facility] Address [facility] [place] [address] Care Team Providers Care Product Marketing Consultant Name Role Phone Maknannette Jenn [facility] Primary Care Provider Duane Barker MD Unavailable [phone] Chapin Talavera DO Unavailable [phone] None, Provider Primary Care Provider Unavaila ble None, Provider Primary Care Provider Unavaila ble Cherelle Lacey MD Primary Care Provider [phone] None, Provider Primary Care Provider Unavaila ble Encounter Details Date Type Department Care Team (Late st Contact Info) Description 03/08/2022 SoLatina Message Enc [facility] Medical Group Family Medicine [address] [address] [facility] Provider Appointment Cancellation Social History [...] Sex Assigned at Female 09/12/2024 6:33 AM EVENT COORDINATOR Legal Sex Female 7:52 AM EVENT COORDINATOR Gender Identity Not on file Sexual [...] Description 10/17/2024 1:40 PM CDT Office Visit [facility] - [address] [place] [address] Armani Duarte MD [address] [place] [address] 03/13/2025 9:00 AM CDT Office Visit [facility] - [address] [place] [address] Armani Duarte MD [address] [place] [address] [address] [place] [address] documented as of this encounter Visit Diagnoses Not on filedocumented in this encounter Care Teams Product Marketing Consultant Relationship Specialty Start Date End Date Jenn [facility] PCP - General NURSE PRACTITIONER 06/07/18 03/08/22 None, ProviderMD PCP - General UNKNOWN PHYSICIAN SPECIALTY 05/04/22 09/19/22 None, ProviderMD PCP - General UNKNOWN PHYSICIAN SPECIALTY 10/05/22 10/24/23 Cherelle Lacey MD [address] [place] [address] [place] [address] PCP - General FAMILY PRACTICE 10/25/23 09/11/24 None, ProviderMD PCP - General UNKNOWN PHYSICIAN SPECIALTY 09/12/24 Duane Tamez MD [facility] [place] [address] [address] [address] NEUROLOGY 10/08/18 Chapin Talavera DO [facility] [place] [address] [address] [place] Comb Capper CARDIOVASCULAR DISEASE 03/01/22 documented as of this encounter
--- OUTSIDE RECORDS SUMMARY | 2024-09-15 17:10 | XMS_ITS | Encounter Summary ---
Author Organization [facility] Address [facility] [place] [address] Care Team Providers Care Gang Hemstitching Machine Operator Name Role Phone Jenn Menezes [facility] Primary Care Provider Duane Barker MD Unavailable [phone] Chapin Talavera DO Unavailable [phone] None, Provider Primary Care Provider Unavaila ble None, Provider Primary Care Provider Unavaila ble Cherelle Lacey MD Primary Care Provider [phone] None, Provider Primary Care Provider Unavaila ble Encounter Details Date Type Department Care Team (Late st Contact Info) Description 12/20/2021 BLADE Network Technologiest Message Enc [facility] Medical Group Family Medicine [address] [address] Jenn Menezes RISK INVESTIGATOR- Vaccine Social History Tobacco Use Types Packs/Day [...] Sex Assigned at Female 09/12/2024 6:33 AM ENGINEER TECHNICIAN Legal Sex Female 7:52 AM ENGINEER TECHNICIAN Gender Identity Not on file Sexual [...] Description 10/17/2024 1:40 PM CDT Office Visit [facility] - [address] [place] [address] Armani Duarte MD [address] [place] [address] 03/13/2025 9:00 AM CDT Office Visit [facility] - [address] [place] [address] Armani Duarte MD [address] [place] [address] [address] [place] [address] documented as of this encounter Visit Diagnoses Not on filedocumented in this encounter Care Teams Gang Hemstitching Machine Operator Relationship Specialty Start Date End Date Jenn Mene[facility] PCP - General NURSE PRACTITIONER 06/07/18 03/08/22 None, ProviderMD PCP - General UNKNOWN PHYSICIAN SPECIALTY 05/04/22 09/19/22 None, ProviderMD PCP - General UNKNOWN PHYSICIAN SPECIALTY 10/05/22 10/24/23 Cherelle Lacey MD [address] [place] [address] [place] [address] PCP - General FAMILY PRACTICE 10/25/23 09/11/24 None, ProviderMD PCP - General UNKNOWN PHYSICIAN SPECIALTY 09/12/24 Duane Tamez MD [facility] [address] [address] NEUROLOGY 10/08/18 Chapin Talavera DO [facility] [address] [address] [place] Flat Bed Operator CARDIOVASCULAR DISEASE 03/01/22 documented as of this encounter
--- OUTSIDE RECORDS SUMMARY | 2024-09-15 17:10 | XMS_ITS | Encounter Summary ---
Author Organization [facility] Address [address] [place] [address] Care Team Providers Care Gear Shaper Set Up Operator Name Role Phone Jenn Menezes [facility] Primary Care Provider Duane Barker MD Unavailable [phone] Chapin Talavera DO Unavailable [phone] None, Provider Primary Care Provider Unavaila ble None, Provider Primary Care Provider Unavaila ble Cherelle Lacey MD Primary Care Provider [phone] None, Provider Primary Care Provider Unavaila ble Encounter Details Date Type Department Care Team (Late st Contact Info) Description 06/02/2019 ReelBighart Message Enc [address] [address] Jenn Menezes GAS DISTRIBUTION PLANT OPERATOR- RE: Question Social History Tobacco Use Types [...] Assigned at Female 09/12/2024 6:33 AM WEB PRESS JOGGER Legal Sex Female 7:52 AM WEB PRESS JOGGER Gender Identity Not on file Sexual Orientation Not on file documented as of this encounter Plan of Treatment Upcoming Encounters Date Type Department Care Team (Late Contact Info) Description 10/17/2024 1:40 PM CDT [facility] [address] [facility] [place] [address] Aramni Duarte MD [address] [facility] [address] [place] [address] 03/13/2025 9:00 AM CDT [facility] [address] [facility] [place] [address] Armani Duarte MD 3 [facility] [address] [place] [address] documented as of this encounter Visit Diagnoses Not on filedocumented in this encounter Care Teams Gear Shaper Set Up Operator Relationship Specialty Start Date End Date Jenn Menezes [facility] PCP - General NURSE PRACTITIONER 06/07/18 03/08/22 None, ProviderMD PCP - General UNKNOWN PHYSICIAN SPECIALTY 05/04/22 09/19/22 None, ProviderMD PCP - General UNKNOWN PHYSICIAN SPECIALTY 10/05/22 10/24/23 Cherelle Lacey MD [address] [place] [address] [place] [address] PCP - General FAMILY PRACTICE 10/25/23 09/11/24 None, Provider, PCP - General UNKNOWN PHYSICIAN SPECIALTY 09/12/24 Duane Tamez MD [facility] [employer] [address] [place] [address] NEUROLOGY 10/08/18 Chapin Talavera DO [facility] [employer] [address] [place] [address] (work) [place] [employer] Product Consultant CARDIOVASCULAR DISEASE 03/01/22 documented as of this encounter
--- OUTSIDE RECORDS SUMMARY | 2024-09-15 17:10 | XMS_ITS | Encounter Summary ---
Author Organization [facility] Address [address] [place] [address] Care Team Providers Care Pie Dough Roller Name Role Phone Jenn Menezes [facility] Primary Care Provider Duane Barker MD Unavailable [phone] Chapin Talavera DO Unavailable [phone] None, Provider Primary Care Provider Unavaila ble None, Provider Primary Care Provider Unavaila ble Cherelle Lacey MD Primary Care Provider [phone] None, Provider Primary Care Provider Unavaila ble Encounter Details Date Type Department Care Team (Late st Contact Info) Description 04/28/2020 Gocell[employer] Message Enc [facility] [address] [address] Jenn Menezes FNP-BC RE: Question [...] Sex Assigned at Female 09/12/2024 6:33 AM AREA MECHANIC Legal Sex Female 7:52 AM AREA MECHANIC Gender Identity Not on file Sexual [...] Description 10/17/2024 1:40 PM CDT [facility] [address] [place] [address] Armani Duarte MD [address] [place] [address] [address] [place] [address] 03/13/2025 9:00 AM CDT [facility] - [address] [place] [address] Armani Duarte MD [address] [place] [address] [address] [place] [address] documented as of this encounter Visit Diagnoses Not on filedocumented in this encounter Care Teams Pie Dough Roller Relationship Specialty Start Date End Date S[place]ashannon Jenn [facility] PCP - General NURSE PRACTITIONER 06/07/18 03/08/22 None, ProviderMD PCP - General UNKNOWN PHYSICIAN SPECIALTY 05/04/22 09/19/22 None, ProviderMD PCP - General UNKNOWN PHYSICIAN SPECIALTY 10/05/22 10/24/23 Cherelle Lacey MD [address] [place] [address] [place] [address] PCP - General FAMILY PRACTICE 10/25/23 09/11/24 None, ProviderMD PCP - General UNKNOWN PHYSICIAN SPECIALTY 09/12/24 Duane Tamez MD [address] [place] [id number] NEUROLOGY 10/08/18 Chapin Talavera DO [address] [place] [address] [place] Email Marketing Coordinator CARDIOVASCULAR DISEASE 03/01/22 documented as of this encounter
--- OUTSIDE RECORDS SUMMARY | 2024-09-15 17:10 | XMS_ITS | Encounter Summary ---
Author Organization [facility] Address [facility] [place] [address] Care Team Providers Care Tool Dresser Name Role Phone Jenn Menezes [facility] Primary Care Provider Duane Barker MD Unavailable [phone] Chapin Talavera DO Unavailable [phone] None, Provider Primary Care Provider Unavaila ble None, Provider Primary Care Provider Unavaila ble Cherelle Lacey MD Primary Care Provider [phone] None, Provider Primary Care Provider Unavaila ble Encounter Details Date Type Department Care Team (Late st Contact Info) Description 05/02/2019 [employer] Message Enc [facility] Medicine [address] [address] Jenn Menezes [facility] RE: RE: Question Social History Tobacco Use [...] Sex Assigned at Female 09/12/2024 6:33 AM COMMERCIAL CREDIT LEAD Legal Sex Female 7:52 AM COMMERCIAL CREDIT LEAD Gender Identity Not on file Sexual Orientation [...] CDT Office Visit [facility] [address] [place] [id number] Armani Duarte MD [address] [place] [address] 03/13/2025 9:00 AM CDT Office Visit [facility] [address] [place] [phone] Armani Duarte MD [address] [place] [address] documented as of this encounter Visit Diagnoses Not on filedocumented in this encounter Care Teams Tool Dresser Relationship Specialty Start Date End Date Jenn Menezes [facility] PCP - General NURSE PRACTITIONER 06/07/18 03/08/22 None, Provider, PCP - General UNKNOWN PHYSICIAN SPECIALTY 05/04/22 09/19/22 None, ProviderMD PCP - General UNKNOWN PHYSICIAN SPECIALTY 10/05/22 10/24/23 Cherelle Lacey MD [address] [place] [address] [place] [address] PCP - General FAMILY PRACTICE 10/25/23 09/11/24 None, ProviderMD PCP - General UNKNOWN PHYSICIAN SPECIALTY 09/12/24 Duane Tamez MD [address] [place] [id number] NEUROLOGY 10/08/18 Chapin Talavera DO [address] [address] [place] [employer] Communications Manager CARDIOVASCULAR DISEASE 03/01/22 documented as of this encounter
[2024-09-15 17:36] LABS: Troponin I < 0.012 ng/mL (0.000-0.034)
[2024-09-15] MEDS: BENZONATATE 100 MG CAPSULE 200 MG PO (20:40)
[2024-09-16] VITALS (9 sets, daily range): BP systolic 124–142; BP diastolic 64–79; PULSE 74–122; RESP 18–20; TEMP 37.1–37.3; O2SAT 90–96
[2024-09-16] MEDS: IPRATROPIUM 0.5 MG/ALBUTEROL SULFATE 2.5 MG AMPUL.NEB 3 ML INHALATION (01:47)
--- NOTE | 2024-09-16 02:42 | ADMGEN ---
This patient, Linda Del Rosario, was admitted to 3 [facility] Surg Room 320-01. Patient/family oriented to hospital policies and general routines including ID bracelet, bed and alarms, visiting hours, pain management, procedures, bathroom and other care routines, personal items, smoking policy, room service/diet, and visiting hours. Information on how to activate the Rapid Response Team has been discussed. Patient/Family are encouraged to report perceived risks to care and to ask questions if they do not understand what they are told or what they should do.
--- NOTE | 2024-09-16 02:42 | PC.NURSE ---
Patient was informed next Ipratropium Albuterol Sulfate treatment would be at 2am. Respiratory came into room at 0145 to initiate treatment. Pt stated she already took her Trelegy medication from home treatment, and was not going to be air hungry for no one. Very anxious, argumentative and stated she has left two hospitals AMA and wont have a problem doing it again. She is not compliant with 2L oxygen ordered for comfort, I reminded her the 2L oxygen will help her breath easier. baseline is RA. Walks around room and bathroom without oxygen on. She also stated when she is a home and have SOB, she uses her son's CPAP machine he does not use anymore. Educated pt on risk of using CPAP machine not prescribed by doctor and settings are different for each individual. And if she needs to would call her daughter to bring up her Nebulizer machine to do her own treatments. I pointed out now anxious she seems and asked has she has any sleep today. Lacie Lynn PARKING OFFICER, notified of patient concerns. Ipratropium Albuterol treatment were increased to Q4H and will review medical record. Patient stable, will continue to monitor at progress.
[2024-09-16] MEDS: ALPRAZolam (*CRX) 0.25 MG TABLET PO (03:13)
[2024-09-16] MEDS: guaiFENesin/DEXTROMETHORPHAN 10 ML UDC PO ×3 (05:13→12:28)
--- NOTE | 2024-09-16 09:06 | PC.NURSE ---
pt refused breathing tx with respiratory therapist this am. pt family brought patient's home nebulizer in and is currently taking home tx after being told by that she wasn't able to do that. was reported she was taking other home meds when no staff was in there. pt refused am meds from nurse because nurse would not leave them at bedside. Pt states she will just leave AMA after her IV antibiotic. aware and has spoken to pt as noted in previous sentence.
[2024-09-16] MEDS: FLUTICASONE PROPIONATE 0.05% NA SPR 16 GM BTL (*BKC) 1 SPRAY NASAL (10:23)
[2024-09-16] MEDS: predniSONE 20 MG TABLET 40 MG PO (10:25)
[2024-09-16] MEDS: DOXYCYCLINE HYCLATE 100 MG TABLET PO (10:25)
[2024-09-16] MEDS: BENZONATATE 100 MG CAPSULE 200 MG PO ×2 (10:25→12:27)
[2024-09-16] MEDS: PANTOPRAZOLE 40 MG TABLET PO (10:25)
--- NOTE | 2024-09-16 11:34 | P.PNIM_ITS ---
Progress Note: A&P Assessment and Plan (1) Pneumonia: Code(s): J18.9 - Pneumonia, unspecified organism Status: Acute (2) Pulmonary embolism: Qualifiers: Pulmonary embolism type: single subsegmental (without acute cor pulmonale) Qualified Code(s): I26.93 - Single subsegmental thrombotic pulmonary embolism without acute cor pulmonale Code(s): I26.99 - Other pulmonary embolism without acute cor pulmonale Status: Inactive (3) Seizure disorder: Code(s): G40.909 - Epilepsy, unspecified, not intractable, without status epilepticus Status: Acute Plan This is a 39-year-old female who presents to the ER with shortness of breath. That has been an ongoing issue over the past few days. There is associated wheezing and cough. She was here in the ER on 09/13/2024. With similar symptoms. She has underlying history of COPD. She was diagnosed with flu recently but was negative for COVID and RSV. She has underlying history of seizure disorder neuropathy GERD. CT chest 09/13/2024 showed left lower lobe subsegmental PE. Family history of factor 5 Leiden mutation. She was started on Eliquis and was discharged home. Repeat influenza A/B RSV and COVID swab was negative. Troponin was negative. In the ED she was hypoxic to 88% on room air and was placed on oxygen supplementation. Laboratory workup revealed WBC of 13.8 hemoglobin of 15.6 platelet of 371. Hypokalemia 3.0 sodium 141 creatinine was 0.6 blood sugar 96. Troponin was negative less than 0.012. Influenza RSV and COVID swab was negative. Lactic acid was normal at 1.3. D-dimer was normal. Chest x-ray showed stable small nodules in the lower lung zones consistent with pneumonia. Chest CT was performed which showed multifocal pneumonia but no signs of PE. EKG with sinus rhythm and nonspecific ST-T changes. She was admitted in the setting for acute hypoxic respiratory failure pneumonia and COPD exacerbation She has been placed on prednisone for COPD exacerbation along with ceftriaxone and doxycycline for multifocal pneumonia. Bronchodilators as ordered. Continue antibiotics as ordered. Recently diagnosed PE will continue apixaban. Seizure disorder home medication Code status full code DVT prophylaxis on Eliquis Subjective Date/time seen: 09/16/24 11:34 Interval history: Patient refusing treatment this a.m. refused her DuoNeb treatment. She reports ongoing shortness of breath since past few days. Was recently at another facility. Review of Systems Review of Systems: All systems reviewed & are unremarkable except as noted in HPI and below Exam Narrative: General: well appearing, appears stated age. HEENT: normocephalic, atraumatic. Mucous membranes moist. Respiratory: Coarse with wheezing bilaterally end expiratory Cardiovascular: Regular rate and rhythm, normal S1-S2 upon ascultation. No murmurs, rubs, or clicks. PMI is nondisplaced, capillary refill less than 3 second. Abdomen: Soft, round, no pulsatile masses, nondistended and nontender. No rebound, no guarding. No CVA tenderness, no hepatosplenomegaly. Bowel sounds present to all four quadrants. No high pitch or tinkling sounds, resonant to percussion. Extremities: No cyanosis, clubbing, or edema present. Pulses are palpable 2/2. Active ROM to all four extremities. Neuro: Alert and orientated x 4. PERRLA. Cranial nerves 2-12 intact without focal deficit. Skin: Warm, dry, and intact, without rash, erythema, or lesion. Psych: pleasant, cooperative, normal speech, normal affect, no hallucinations, no dysarthia Objective Data Vital Signs Vital Signs: Vital Signs - 24 hr 09/15/24 12:37 09/15/24 12:39 09/15/24 12:46 Temperature Pulse Rate 87 87 Respiratory Rate 20 21 H Blood Pressure 148/93 H 131/86 Pulse Oximetry 88 L 96 93 Oxygen Delivery Room Air Nasal Cannula Oxygen Flow Rate 2 Fraction of Inspired Oxygen 09/15/24 12:54 09/15/24 12:55 09/15/24 13:01 Temperature Pulse Rate 83 Respiratory Rate 24 H Blood Pressure 135/88 Pulse Oximetry 94 93 94 Oxygen Delivery Nasal Cannula Nasal Cannula Oxygen Flow Rate 2 2 Fraction of Inspired Oxygen 09/15/24 13:18 09/15/24 13:45 09/15/24 14:02 Temperature Pulse Rate 100 81 76 Respiratory Rate 25 H 25 H 20 Blood Pressure 140/90 119/78 Pulse Oximetry 96 96 94 Oxygen Delivery Oxygen Flow Rate Fraction of Inspired Oxygen 09/15/24 14:15 09/15/24 14:55 09/15/24 15:00 Temperature Pulse Rate 85 78 78 Respiratory Rate 24 H 20 26 H Blood Pressure 163/89 H Pulse Oximetry 97 95 98 Oxygen Delivery Oxygen Flow Rate Fraction of Inspired Oxygen 09/15/24 15:02 09/15/24 15:21 09/15/24 15:45 Temperature Pulse Rate 77 80 85 Respiratory Rate 17 18 22 H Blood Pressure 105/81 123/90 Pulse Oximetry 100 96 95 Oxygen Delivery Oxygen Flow Rate Fraction of Inspired Oxygen 09/15/24 16:52 09/15/24 17:15 09/15/24 17:53 Temperature 98.0 F Pulse Rate 73 80 Respiratory Rate 18 21 H Blood Pressure Pulse Oximetry 95 93 Oxygen Delivery Oxygen Flow Rate Fraction of Inspired Oxygen 09/15/24 18:33 09/15/24 19:02 09/15/24 19:20 Temperature Pulse Rate 81 Respiratory Rate 13 Blood Pressure 118/87 Pulse Oximetry 99 94 Oxygen Delivery Oxygen Flow Rate Fraction of Inspired Oxygen 09/15/24 19:41 09/15/24 20:09 09/15/24 20:22 Temperature Pulse Rate 68 86 67 Respiratory Rate 23 H 15 14 Blood Pressure 126/83 107/56 L Pulse Oximetry 95 93 95 Oxygen Delivery Oxygen Flow Rate Fraction of Inspired Oxygen 09/15/24 20:41 09/15/24 20:59 09/15/24 22:00 Temperature 97.6 F Pulse Rate 80 76 80 Respiratory Rate 24 H 14 18 Blood Pressure 119/104 H 134/82 Pulse Oximetry 93 93 Oxygen Delivery Oxygen Flow Rate Fraction of Inspired Oxygen 09/15/24 23:46 09/16/24 01:47 09/16/24 01:47 Temperature Pulse Rate 74 Respiratory Rate 20 Blood Pressure Pulse Oximetry 93 93 Oxygen Delivery Nasal Cannula Nasal Cannula Oxygen Flow Rate 2 2 Fraction of Inspired Oxygen 28 09/16/24 02:00 09/16/24 02:20 09/16/24 04:00 Temperature 98.8 F Pulse Rate 78 76 79 Respiratory Rate 20 20 18 Blood Pressure 124/64 Pulse Oximetry 94 Oxygen Delivery Oxygen Flow Rate Fraction of Inspired Oxygen Intake/Output Intake/Output: Intake & Output 09/13/24 09/15/24 09/15/24 09/16/24 23:59 00:59 23:59 23:59 Intake Total 50 Balance 50 Meds/Results Medications: Active Medications Generic Name Dose Route Start Last Admin Trade Name Freq PRN Reason Stop Dose Admin Acetaminophen 650 mg 09/15/24 20:07 Acetaminophen 325 Mg Tablet PO Q4H PRN Mild Pain (1-3) or Fever Albuterol/Ipratropium 3 ml 09/16/24 04:00 09/16/24 07:58 Ipratropium 0.5 Mg/Albuterol Sulfate 2.5 Mg Ampul.Neb 3 Ml INHALATION Not Given Q4HRT RUDDY Benzonatate 200 mg 09/15/24 20:20 09/16/24 10:25 Benzonatate 100 Mg Capsule PO 200 mg TID RUDDY Administration Divalproex Sodium 500 mg 09/16/24 08:00 Divalproex Sodium Er 500 Mg Tab.24h PO DAILY@0800 RUDDY Doxycycline Hyclate 100 mg 09/15/24 21:00 09/16/24 10:25 Doxycycline Hyclate 100 Mg Tablet PO 100 mg Q12HR RUDDY Administration Fluticasone Propionate 1 spray 09/16/24 09:00 09/16/24 10:23 Fluticasone Propionate 0.05% Na Spr 16 Gm Btl (*Bkc) NASAL 1 spray DAILY [facility] Administration Fluticasone/Umeclidinium/Vilanterol 2 puff 09/16/24 09:00 Fluticasone/Umeclidin/Vilanter 200-62.5-25 Mcg Ellipta INHALATION DAILY RUDDY Guaifenesin/Dextromethorphan 10 ml 09/16/24 05:00 09/16/24 10:24 Guaifenesin/Dextromethorphan 10 Ml Udc PO 10 ml Q4HR RUDDY Administration Guaifenesin/Dextromethorphan 2 tab 09/16/24 09:00 Guaifenesin 600 Mg/Dextromethorphan 30 Mg Sr Tab 12 Hr PO Q12HR [facility] Ceftriaxone Sodium 1 gm in 50 mls @ 100 mls/hr 09/16/24 15:00 Rocephin 1 Gm/Ns 50 Ml IVPB Q24H RUDDY Miscellaneous Information 1 each 09/16/24 00:01 Pt Has Scheduled Mucinex Dm And Scheduled Tessalon Perles. D/C One? XX 10/16/24 00:00 CLARIFY RUDDY Miscellaneous Information 0 each 09/15/24 00:01 Divalproex Clarify Directions External Med Record Shows Pt Takes Bid? XX 10/15/24 00:00 CLARIFY RUDDY Miscellaneous Information 0 each 09/15/24 00:01 This Is Not Nasal [place] Please Clarify External Med Record Shows Pt Inhales One [place] By M XX 10/15/24 00:00 CLARIFY [facility] Pantoprazole Sodium 40 mg 09/16/24 09:00 09/16/24 10:25 Pantoprazole 40 Mg Tablet PO 40 mg Q12HR RUDDY Administration Prednisone 40 mg 09/16/24 08:00 09/16/24 10:25 Prednisone 20 Mg Tablet PO 40 mg DAILY@0800 [facility] Administration Radiology Results: ITS Impressions Chest X-Ray 09/15/24 13:18 IMPRESSION: 1. Stable small nodules in the lower lung zones, consistent with pneumonia. Chest CTA 09/15/24 16:30 IMPRESSION: 1. Multifocal pneumonia. 2. No pulmonary embolus. Labs Labs: Laboratory Results - last 24 hr 09/15/24 09/15/24 09/15/24 12:58 14:28 17:07 WBC 13.8 H RBC 4.92 Hgb 15.6 H Hct 43.9 MCV 89.2 MCH 31.7 MCHC 35.5 RDW 12.6 Plt Count 371 MPV 9.1 Immature Gran % (Auto) 0.6 H Neut % (Auto) 70.2 Lymph % (Auto) 22.3 [place] % (Auto) 6.5 Eos % (Auto) 0.1 Baso % (Auto) 0.3 Lymph # (Auto) 3.08 [place] # (Auto) 0.9 H Eos # (Auto) 0.0 Baso # (Auto) 0.0 Abs Immat Gran (auto) 0.08 H Absolute Neuts (auto) 9.7 H Absolute Nucleated RBC 0.000 Nucleated RBC % 0.0 PT 17.5 H D INR 1.4 APTT 33.8 D-Dimer 0.45 Sodium 141 Potassium 3.0 L Chloride 105 Carbon Dioxide 26 Anion Gap 10 BUN 6 L Creatinine 0.60 L Estim Creat Clear Calc 131 Estimated GFR > 60 Glucose 96 Lactic Acid 1.3 Calcium 9.6 Magnesium 1.7 Total Bilirubin 0.9 AST 26 ALT 40 H Alkaline Phosphatase 83 Troponin I < 0.012 Total Protein 8.0 Albumin 4.5 Influenza A (RT-PCR) Negative Influenza B (RT-PCR) Negative RSV (RT-PCR) Negative SARS-CoV-2 RNA (RT-PCR) Negative
[2024-09-16] MEDS: MONTELUKAST SODIUM 10 MG TABLET PO (12:27)
[2024-09-16] MEDS: POTASSIUM CHLORIDE 20 MEQ ER TABLET 40 MEQ PO (13:09)
--- NOTE | 2024-09-16 13:56 | PCRCNOTE ---
Home O2 eval done, no home O2 needed
--- NOTE | 2024-09-16 14:08 | PM.DS ---
DS: Admitting Diagnosis Discharge Date 09/16/2024 Admitting Diagnosis Shortness of breath DS: Discharge Diagnosis Discharge Diagnosis (1) Pneumonia: Code(s): J18.9 - Pneumonia, unspecified organism Status: Acute (2) Pulmonary embolism: Qualifiers: Pulmonary embolism type: single subsegmental (without acute cor pulmonale) Qualified Code(s): I26.93 - Single subsegmental thrombotic pulmonary embolism without acute cor pulmonale Code(s): I26.99 - Other pulmonary embolism without acute cor pulmonale Status: Inactive (3) Seizure disorder: Code(s): G40.909 - Epilepsy, unspecified, not intractable, without status epilepticus Status: Acute DS: Summary Hospital Course Hospital Course: This is a 39-year-old female who presents to the ER with shortness of breath. That has been an ongoing issue over the past few days. There is associated wheezing and cough. She was here in the ER on 09/13/2024. With similar symptoms. She has underlying history of COPD. She was diagnosed with flu recently but was negative for COVID and RSV. She has underlying history of seizure disorder neuropathy GERD. CT chest 09/13/2024 showed left lower lobe subsegmental PE. Family history of factor 5 Leiden mutation. She was started on Eliquis and was discharged home. Repeat influenza A/B RSV and COVID swab was negative. Troponin was negative. In the ED she was hypoxic to 88% on room air and was placed on oxygen supplementation. Laboratory workup revealed WBC of 13.8 hemoglobin of 15.6 platelet of 371. Hypokalemia 3.0 sodium 141 creatinine was 0.6 blood sugar 96. Troponin was negative less than 0.012. Influenza RSV and COVID swab was negative. Lactic acid was normal at 1.3. D-dimer was normal. Chest x-ray showed stable small nodules in the lower lung zones consistent with pneumonia. Chest CT was performed which showed multifocal pneumonia but no signs of PE. EKG with sinus rhythm and nonspecific ST-T changes. She was admitted in the setting for acute hypoxic respiratory failure pneumonia and COPD exacerbation She has been placed on prednisone for COPD exacerbation along with ceftriaxone and doxycycline for multifocal pneumonia. Bronchodilators as ordered. Since admissions he has improved. Home oxygen evaluation was performed and required no oxygen. She will be continued on steroid for 5 total days along with antibiotics as ordered. Continue antibiotics as ordered. Recently diagnosed PE will continue apixaban. Seizure disorder home medication Code status full code DVT prophylaxis on Eliquis Time Spent with Patient Time attestation: Total time spent providing and/or coordinating discharge services: 35 minutes Exam Narrative: General: well appearing, appears stated age. HEENT: normocephalic, atraumatic. Mucous membranes moist. Respiratory: Coarse with wheezing bilaterally end expiratory Cardiovascular: Regular rate and rhythm, normal S1-S2 upon ascultation. No murmurs, rubs, or clicks. PMI is nondisplaced, capillary refill less than 3 second. Abdomen: Soft, round, no pulsatile masses, nondistended and nontender. No rebound, no guarding. No CVA tenderness, no hepatosplenomegaly. Bowel sounds present to all four quadrants. No high pitch or tinkling sounds, resonant to percussion. Extremities: No cyanosis, clubbing, or edema present. Pulses are palpable 2/2. Active ROM to all four extremities. Neuro: Alert and orientated x 4. PERRLA. Cranial nerves 2-12 intact without focal deficit. Skin: Warm, dry, and intact, without rash, erythema, or lesion. Psych: pleasant, cooperative, normal speech, normal affect, no hallucinations, no dysarthia DS: Data Data Completed and Pending Labs on day of discharge: Labs from last 24 hours 09/15/24 09/15/24 09/15/24 17:07 14:28 12:58 Lactic Acid 1.3 Magnesium 1.7 Troponin I < 0.012 Preliminary micro results at discharge 09/15/24 14:28 Blood Culture - Preliminary Blood 09/15/24 14:32 Blood Culture - Preliminary Blood Imaging Radiologist's impression: ITS Impressions Chest X-Ray 09/15/24 13:18 IMPRESSION: 1. Stable small nodules in the lower lung zones, consistent with pneumonia. Chest CTA 09/15/24 16:30 IMPRESSION: 1. Multifocal pneumonia. 2. No pulmonary embolus. Discharge Plan Discharge Attending physician on discharge: Rhys Napier Consulting providers: Mary Chen Discharging Clinician: Rhys Napier Anticipated Discharge Date/Time: 09/16/24 14:23 Patient Disposition: Home, Self-Care Activity: as tolerated Diet: heart healthy Patient Instructions: Antibiotic Form, Apixaban (By mouth) Patient Language: Kazakh Stand Alone Forms: General Discharge Information Follow-up/Referrals: PHYSICIAN,CHASSIS MECHANIC [Primary Care Provider] - 1 Week Discharge Medications: New benzonatate 100 mg Capsule 200 mg PO TID Qty: 30 0RF prednisone 20 mg Tablet 40 mg PO DAILY@0800 Qty: 8 0RF doxycycline hyclate 100 mg Tablet 100 mg PO Q12HR Qty: 12 0RF dextromethorphan-guaifenesin 10-100 mg/5 mL Syrup 10 ml PO Q4HR PRN (Reason: cough) Qty: 200 0RF Continued ipratropium-albuterol 0.5 mg-3 mg(2.5 mg base)/3 mL solution for nebulization 3 ml INHALATION DIRECTED omeprazole 40 mg capsule,delayed release(DR/EC) 40 mg PO DAILY divalproex 500 mg tablet extended release 24 hr 500 mg PO BID fluticasone propionate 50 mcg/actuation spray,suspension 50 mcg INTRANASAL DIRECTED ondansetron 8 mg tablet,disintegrating 8 mg PO PRN montelukast 10 mg tablet 10 mg PO DAILY Trelegy Ellipta 200-62.5-25 mcg blister with device 1 inh inhalation DAILY apixaban 5 mg tablet 5 mg PO BID Qty: 74 0RF Rx Instructions: Take 2 tablets by mouth twice a day for one week. Then 1 tablet by mouth twice a day. Dupixent Pen 300 mg/2 mL pen injector 300 mg SUBCUT [id number] gabapentin 600 mg tablet 600 mg PO PRN Discontinued azithromycin 250 mg tablet 250 mg PO DAILY 4 Days Qty: 4 0RF Rx Instructions: start on day 2 of therapy Date of admission: 09/15/24 16:47 Primary Care Provider: PHYSICIAN,CHASSIS MECHANIC Admitting Provider: Rhys Napier Attending physician on admission: Rhys Napier Condition: Improved
== END 2024-09-16 14:50 | disposition home or self-care (01) ==
LOC: ANHED 17:50 → ANH3MEDSUR 18:24
PROVIDERS: Emergency Medicine; Admitting Provider Internal Medicine; Emergency Provider Physician Assistant; Visit Provider Internal Medicine
DX: J18.9 Pneumonia, unspecified organism (principal); J96.01 Acute respiratory failure with hypoxia; J44.0 Chronic obstructive pulmonary disease with (acute) lower respiratory infection; J44.1 Chronic obstructive pulmonary disease with (acute) exacerbation; I26.93 Single subsegmental thrombotic pulmonary embolism without acute cor pulmonale; E87.6 Hypokalemia; F17.210 Nicotine dependence, cigarettes, uncomplicated; K21.9 Gastro-esophageal reflux disease without esophagitis; G62.9 Polyneuropathy, unspecified; G40.909 Epilepsy, unspecified, not intractable, without status epilepticus; J30.2 Other seasonal allergic rhinitis; Z20.822 Contact with and (suspected) exposure to COVID-19; Z83.2 Family history of diseases of the blood and blood-forming organs and certain disorders involving the immune mechanism; Z79.01 Long term (current) use of anticoagulants; Z79.51 Long term (current) use of inhaled steroids; Z79.899 Other long term (current) drug therapy
CPT/HCPCS: 36415; 71046; 71275; 80053; 83605; 83735; 84484; 85025; 85380; 85610; 85730; 87040; 87637; 93005; 94640; 96365; 96375; 99291; A9270; G0378; G0379; J0696; J2405; J2919; J7512; Q9967

== ENCOUNTER 2024-09-20 08:13 | Emergency (ER) | payer OTHER, SELFPAY ==
[2024-09-20 08:22] VITALS: BP 144/101; PULSE 106; RESP 19; TEMP 36.1; O2SAT 95
--- NOTE | 2024-09-20 08:43 | ED.FEMALEGU ---
HPI - Female Genitourinary General Chief complaint: Urogenital-Female Stated complaint: Vaginal Problems Time Seen by Provider: 09/20/24 08:30 Source: patient Mode of arrival: ambulatory Limitations: no limitations History of Present Illness HPI Narrative: 39-year-old female presents with complaint vaginal itching, irritation, redness and white clumpy discharge for 1 day. Patient reports recently in hospital for pneumonia. Was given IV antibiotics. All systems reviewed and negative except as noted above. Related Data Home Medications ?Medication ?Instructions ?Recorded ?Confirmed ?Last Taken ?Type divalproex 500 mg tablet,extended 500 mg PO BID 11/05/20 09/16/24 09/15/24 History release 24 hr fluticasone propionate 50 50 mcg intranasal DIRECTED 11/05/20 09/15/24 09/15/24 History mcg/actuation nasal spray,suspension ipratropium 0.5 mg-albuterol 3 mg 3 ml inhalation DIRECTED 11/05/20 09/15/24 09/15/24 History (2.5 mg base)/3 mL nebulization soln omeprazole 40 mg capsule,delayed 40 mg PO DAILY 11/05/20 09/15/24 09/15/24 History release ondansetron 8 mg disintegrating 8 mg PO PRN Nausea 11/05/20 09/15/24 09/15/24 History tablet montelukast 10 mg tablet 10 mg PO DAILY 09/16/21 09/15/24 09/15/24 History fluticasone fur. 200 mcg-umeclid 1 inh inhalation DAILY 11/04/23 09/16/24 09/15/24 History 62.5 mcg-vilant 25 mcg inhalat.powder (Trelegy Ellipta) dupilumab 300 mg/2 mL subcutaneous 300 mg subcut [id number] 09/15/24 09/15/24 Unknown History pen injector (Dupixent) gabapentin 600 mg tablet 600 mg PO PRN 09/15/24 09/15/24 Unknown History benzonatate 100 mg capsule mg PO 09/20/24 Unknown History budesonide 160 mcg-glycopyr 9 inh inhalation 09/20/24 Unknown History mcg-formot 4.8 mcg/actuation HFA inhaler (Breztri Aerosphere) doxycycline hyclate 100 mg tablet mg 09/20/24 Unknown History Allergies Allergy/AdvReac Type Severity Reaction Status Date / Time amoxicillin Allergy Severe Stopped Verified 09/20/24 08:21 Breathing Penicillins Allergy Severe Anaphylaxis Verified 09/16/24 14:42 ciprofloxacin Allergy Unknown rash Verified 09/15/24 12:53 clarithromycin Allergy Unknown jittery Verified 09/15/24 12:53 naproxen Allergy Unknown rash Verified 09/15/24 12:53 oxycodone Allergy Unknown Unknown Verified 09/15/24 12:53 Review of Systems Review of Systems: CONSTITUTIONAL: Denies fever, chills, or sweats. EYES: Denies visual changes, redness, or discharge. ENT: Denies rhinorrhea, congestion, sore throat, or otalgia. CARDIOVASCULAR: Denies chest pain, palpitations, or edema. RESPIRATORY: Denies cough or dyspnea. GASTROINTESTINAL: Denies abdominal pain, nausea, vomiting, or diarrhea. GENITOURINARY: Denies dysuria or hematuria. Reports itching, irritation, white discharge SKIN: Denies rash or itching. MUSCULOSKELETAL: Denies back pain, joint pain, or myalgia. NEUROLOGIC: Denies headache, numbness, or weakness. PSYCHIATRIC: Denies anxiety or depression. All other systems reviewed are negative, except as documented in HPI. [facility] Past Medical History Medical History (Updated 09/20/24 @ 08:39 by Linda Haq NP) Seasonal allergies Allergies GERD (gastroesophageal reflux disease) Neuropathy Seizure disorder Family History Family History (Updated 09/13/24 @ 21:19 by Pk Alarcon MD) Mother Depression Sibling Family history of heart disease in male family member before age 55 Family history of diabetes mellitus in first degree relative Factor 5 Leiden mutation, heterozygous Father Family history of heart disease in male family member before age 55 Other Diabetes mellitus Social History Social History (Updated 09/15/24 @ 21:58 by Tello Myers RN) Smoking packs per day: 0.5 Smoking cigarettes per day: 10.0 Smoking status: Never smoker Second hand tobacco smoke exposure: No Smoking end date: 07/09/14 Additional smoking assessment comments: Has cut down from 2 packs a day to half pack Alcohol intake: former Substance use: current Substance use type: marijuana Do You Feel Safe in your Home?: Yes Lack of Transportation: No Lack of Food: Never True Current Housing: I Have Housing Concerned About Future Housing: No Difficulty Paying Gas/Electric Bills: No Difficulty Paying for Meds: No Currently Unemployed: No Education: High School Diploma/GED Difficulty w/ Childcare or Family Care: No Living arrangements: with family Occupation/Education: occupation Gender identity (if verbalized by the patient): Female Spiritual care concerns: No Agree to blood products: Yes Comments At time of signature, agree with nursing past medical, surgical, social and family history. There is no relevant family history pertinent to the presenting complaint. Exam Narrative: GENERAL: This is a well-nourished, well-developed patient, in no apparent distress. HEAD: normocephalic, atraumatic. EYES: PERRL. Sclera clear/white. Vision is grossly intact. EARS: External ears normal NOSE: External nose normal NECK: Neck supple, non-tender without lymphadenopathy, masses or thyromegaly. CARDIOVASCULAR: Regular rate and rhythm without murmurs, gallops, or rubs. RESPIRATORY: Clear to auscultation. Breath sounds equal bilaterally. No wheezes, rales, or rhonchi. SKIN: warm, Dry, intact with no suspicious lesions or rash, good texture and turgor. NEURO: awake, alert, and oriented to person, place and time. There were no obvious focal neurologic abnormalities. EXTREMITIES: No joint tenderness, effusion, or edema noted. UROGENITAL: deferred Course Course Level of Care: Express Care Visit Vital Signs Vital signs: Vital Signs Temperature 36.1 C L 09/20/24 08:22 Pulse Rate 106 H 09/20/24 08:22 Respiratory Rate 19 09/20/24 08:22 Blood Pressure 144/101 H 09/20/24 08:22 Pulse Oximetry 95 09/20/24 08:22 Oxygen Delivery Room Air 09/20/24 08:22 Temperature 36.1 C L 09/20/24 08:22 Pulse Rate 106 H 09/20/24 08:22 Respiratory Rate 19 09/20/24 08:22 Blood Pressure 144/101 H 09/20/24 08:22 Pulse Oximetry 95 09/20/24 08:22 Oxygen Delivery Room Air 09/20/24 08:22 reviewed MDM - Female Genitourinary MDM Narrative Medical decision making narrative: genital culture ordered. Will treat patient with Diflucan due to patient's symptoms and recent use of antibiotics. Patient agrees with plan of care. No concern for STI. Please be advised this is a medical document. It is intended for glto-uv-oyep communication. It is written in medical language and may contain unfamiliar abbreviations or verbiage. Medical documents are intended to carry relevant information, facts as evident, and the clinical opinion of the practitioner at the time of the encounter. This report may have been done utilizing a voice recognition system. Attempts have been made to correct errors. However, there may be uncorrected grammatical, spelling, and recognition errors present. The file time of this note does not necessarily represent the time of service. Discharge Plan Discharge Clinical Impression: Vaginal yeast infection Patient Disposition: Home, Self-Care Condition: Stable Instructions: Yeast Infection (ED) Additional Instructions: take medications as prescribed. Avoid taking baths until all symptoms have resolved. Follow up with your occupational health nurse manager if not improving. Patient Language: Micronesian Prescriptions: New fluconazole 150 mg tablet 150 mg PO .q 72 hours Qty: 3 0RF No Action ipratropium-albuterol 0.5 mg-3 mg(2.5 mg base)/3 mL solution for nebulization 3 ml INHALATION DIRECTED omeprazole 40 mg capsule,delayed release(DR/EC) 40 mg PO DAILY divalproex 500 mg tablet extended release 24 hr 500 mg PO BID fluticasone propionate 50 mcg/actuation spray,suspension 50 mcg INTRANASAL DIRECTED ondansetron 8 mg tablet,disintegrating 8 mg PO PRN montelukast 10 mg tablet 10 mg PO DAILY benzonatate 100 mg capsule PO doxycycline hyclate 100 mg tablet Breztri Aerosphere 160-9-4.8 mcg/actuation HFA aerosol inhaler INHALATION Trelegy Ellipta 200-62.5-25 mcg blister with device 1 inh inhalation DAILY apixaban 5 mg tablet 5 mg PO BID Qty: 74 0RF Rx Instructions: Take 2 tablets by mouth twice a day for one week. Then 1 tablet by mouth twice a day. Dupixent Pen 300 mg/2 mL pen injector 300 mg SUBCUT [id number] gabapentin 600 mg tablet 600 mg PO PRN prednisone 20 mg Tablet 40 mg PO DAILY@0800 Qty: 8 0RF Follow-up/Referrals: PHYSICIAN,SUPERVISOR COOK ROOM [Primary Care Provider] - Time of Disposition: 08:40
== END 2024-09-20 08:45 | disposition home or self-care (01) ==
PROVIDERS: Emergency Provider Nurse Practitioner Family
DX: B37.31 Acute candidiasis of vulva and vagina (principal); K21.9 Gastro-esophageal reflux disease without esophagitis; G62.9 Polyneuropathy, unspecified; G40.909 Epilepsy, unspecified, not intractable, without status epilepticus; Z87.891 Personal history of nicotine dependence
CPT/HCPCS: 87070; 99213; G0463

== ENCOUNTER 2025-05-06 09:59 | Outpatient (CLI) | payer OTHER, SELFPAY ==
--- NOTE | ~2025-05-06 | XR_ITS ---
EXAMINATION: XR hand RT 2V, 05/06/2025 10:05 CDT HISTORY: R60.0 - Localized edema COMPARISON: No comparisons available. Findings: No acute fracture or malalignment. No significant degenerative changes. Soft tissues unremarkable. Impression: No acute fracture or malalignment. Reviewed, dictated and finalized at location P. Impression: No acute fracture or malalignment.
--- OUTSIDE RECORDS SUMMARY | 2025-05-06 11:08 | XMS_ITS | Clinical Summary ---
Author Organization [facility] Address [address] [place] [address] Care Team Providers Care Chief Of Hospital Medicine Name Role Phone Jenn Menezes Primary Care Provider [phone] Constantino Solis MD Unavailable [phone] Source Comments [facility],non-owned Affiliates and Associated Physician Practices is amultiple site organization consisting of ambulatory clinics and hospital sitesin [place], [place] and [place]. This disclosure is being madepursuant to the Care Everywhere program and may not contain all information available regarding this patient. Last updated 18.[facility] Allergies Active Allergy Reactions Criticality Noted Date Comments Amoxicillin 07/18/2017 Clarithromycin 07/18/2017 Ciprofloxacin 07/18/2017 Medications * Be aware that medications may not be up to date on this document. Alwaysverify current medications with the patient. Divalproex Sodium (DEPAKOTE PO) Active Ondansetron HCl (ZOFRAN PO) Active GABAPENTIN, ONCE-DAILY, PO Activ e OMEPRAZOLE PO Active albuterol (5 MG/ML) 0.5% 2.5 mg in sodium chloride 0.9 % 3 mL Inhale 2.5 mg by mouth Active fluticasone propionate (FLONASE) 50 MCG/ACT nasal spray [place] 1 spray into the nose 04/22/2019 Active umeclidinium (INCRUSE ELLIPTA) 62.5 MCG/INH inhaler Inhale 1 puff by mouth 04/23/2019 Active fluticasone-salm eterol (ADVAIR/WIXELA) 250-50 MCG/DOSE inhaler Inhale 1 puff [...] of Binge Drinking Not on file 05/10 Comments No Sex and Gender Information Value Date Recorded Sex Assigned at Not on file Legal Sex Female 3:33 PM [employer] Gender Identity Not on file Sexual Orientation Not on file Last Filed Vital Signs Vital Sign Reading Time Taken Comments Blood Pressure 98/78 05/30/2019 11:26 AM [employer] Pulse 91 05/30/2019 11:26 AM [employer] Temperature 36.7 C (98 F) 05/30/2019 11:26 AM [employer] Respiratory Rate 16 09/21/2017 3:54 PM CDT Oxygen Saturation 96% 05/30/2019 11:26 AM [employer] Inhaled Oxygen Concentration - - Weight 134.3 kg (296 lb) 05/30/2019 11:26 AM [employer] Height 169 cm (5' 6.54) 05/30/2019 11:26 AM [employer] Body Mass Index 47.01 05/30/2019 11:26 AM [employer] Plan of Treatment Health Maintenance Due Date Last Done Comments LIPID TESTING 1983 MAMMOGRAM 1983 HIV SCREENING 1998 HEPATITIS C SCREENING 03/31/2001 DTAP/TDAP/TD VACCINES (1 - Tdap) 2002 HEPATITIS B VACCINE (1 of 3 - 19+ 3-dose series) 2002 HPV VACCINE (1 - 3-dose SCDM series) 2010 DEPRESSION SCREENING 07/09/2024 COVID-19 VACCINE (1 - 2023-2 5 season) 2025 INFLUENZA VACCINE (#1) 2025 ZOSTER VACCINE (1 of 2) 2033 HIB VACCINE Aged Out No longer eligi ble based on patient's age to complete this topic MENINGOCOCCAL (Group B) VACC INE SHARED DECISION-MAKING Aged Out No longer eligibl e based on patient's age to complete this topic MENINGOCOCCAL GROUPS A/C/Y/W VACCINE Aged Out No longer eligible b ased on patient's age to complete this topic PNEUMOCOCCAL VACCINE Aged Out No long er eligible based on patient's age to complete this topic Insurance [id number] [place] [address] Care Teams Chief Of Hospital Medicine Relationship Specialty Start Date End Date Jenn Menezes APRN-CHANDRAKANT PCP - General 10/23/18 Constantino Solis MD Family Medicine 07/17/18
--- OUTSIDE RECORDS SUMMARY | 2025-05-06 11:08 | XMS_ITS | Clinical Summary ---
Author Organization [facility] Address [address] [place] [address] Care Team Providers Care Fuel Injection Servicer Name Role Phone Maddie Maria DPM Unavailable [phone] Maryjane Hernandez Primary Care Provider [phone] Allergies Active Allergy Reactions Criticality Noted Date [...] nasal spray fluticasone propionate 50 mcg/actuation nasal spray,suspensi on 019 Active gabapentin (NEURONTIN) 600 mg tablet Take 1 tablet (600 mg total) by mouth as needed 020 Active divalproex ER (DEPAKOTE ER) 500 mg 24 hr tablet TK 1 T PO BID 020 Active ipratropium-albut Simon (DUO-NEB) 0.5-2.5 mg/3 mL nebulizer solution INHALE THE CONTENTS OF 1 VIAL VIA NEBULIZER EVERY 6 HOURS NEEDED Active UNABLE TO FIND 1 each daily Med Name: Immune Defense Active fluticasone-umecl idin-vilanter (Trelegy Ellipta) 200-62.5-25 mcg inhaler Inhale 1 puff daily Active montelukast (SINGULAIR) 10 mg tablet Take 1 tablet (10 mg total) by mouth daily Active Nucala 100 mg/mL auto-injector Active loratadine-pseudo ephedrine (CLARITIN-D 12-hour) 5-120 mg tablet extended release 12 hr TAKE 1 TABLET BY MOUTH EVERY 12 HOURS FOR 30 DAYS.NOT COVERED Active rOPINIRole (REQUIP) 0.5 mg tablet Take 1 tablet (0.5 mg total) by mouth nightly Active linaCLOtide (Linzess) 145 mcg capsuleIndication s:chronic idiopathic constipation Take 1 capsule (145 mcg total) by mouth daily 30 capsule 11 Active omeprazole (PriLOSEC) 40 mg capsule Take 1 capsule (40 mg total) by mouth daily 90 capsule 1 Active ondansetron ODT (ZOFRAN-ODT) 8 mg disintegrating tablet Take 1 tablet (8 mg total) by mouth every 8 (eight) hours as needed for nausea or vomiting 30 tablet 3 Active metoclopramide (REGLAN) 10 mg tablet TAKE 1 TABLET BY MOUTH THREE TIMES A DAY NEEDED 30 tablet 3 025 Active metoclopramide (REGLAN) 10 mg tablet Take 1 tablet (10 mg total) by mouth 3 (three) times a day as needed (n/v) 30 tablet 3 024 2024 Discontinued ondansetron ODT (ZOFRAN-ODT) 8 mg disintegrating tablet Take 1 tablet (8 mg total) by mouth every 8 (eight) hours as needed for nausea or vomiting 30 tablet 3 025 2024 Discontinued(R eorder) Active Problems Problem Noted Date Diagnosed Date Gastroesophageal reflux disease 03/24/2024 Nausea and vomiting 03/24/2024 Irritable bowel syndrome with constipation 03/24 Verruca plantaris 12/28/2022 Dermatofibroma of left lower leg 12/28/2022 Climacteric arthritis involving ankle and foot, 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 Atypical chest pain 04/23/2020 Morbid obesity 04/23/2020 Family history of coronary artery disease 2019 Tobacco abuse 04/23/2020 Palpitations 04/23/2020 Encounters Date Type Department Care Team Description 04/10/2025 Orders Only [facility] GI Hospitalists at [address] [address] Caty Akbar PA 02/23/2025 Results Follow-Up [facility] Gastroenterology at [address] [address] Samira Tracey MD Hepatitis C antibody Blood, Hepatitis A antibody, total Blood, JAVIER ab ql w/rflx to JAVIER qn, Additional followed-up results: 10 from Last 3 Months Surgical History Surgery Date Site/Laterality Comments CHOLECYSTECTOMY [...] on file 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 Gender Identity Not on file Sexual Orientation [...] 11:34 AM CDT Height 172.7 cm (5' 8) 03/24/2024 11:3 4 AM CDT Body Mass Index 36.46 03/24/2024 11:34 AM CDT Plan of Treatment Health Maintenance Due Date Last Done Comments Breast Cancer Screening-Mammogram 1983 Cervical Cancer Screening 1983 Depression Screening 1983 Varicella Vaccines (1 of 2 - 13+ 2-dose series) 1996 Regular Well Visit/Exam 18-64 2001 HPV Vaccines (1 - 3-dose SCDM series) 2010 DTaP/Tdap/Td Vaccine (1 - Tdap) 04/27/2011 1, 11/20/2007 Pneumococcal vaccine <65 (2 of 2 - PCV) 12/20/2022 0 12/20/2021, 06/07/2018 Influenza Vaccine (#1) 2025 Hepatitis B Screening Completed 02/19/2025 Hepatitis C Screening Completed 02/19/2025 Procedures Procedure Name Priority Date/Time Associated Diagnosis Comments HEPATITIS C ANTIBODY Routine 02/19/2025 10:41 AM CDT Elevated LFTs HEPATITIS A ANTIBODY, TOTAL Routine 02/19/2025 10:40 AM CDT Elevated LFTs JAVIER QUALITATIVE WITH REFLEX TO JAVIER QUANTITATIVE Routine 02/19/2025 10:39 AM CDT Elevated LFTs HEPATITIS B CORE ANTIBODY, TOTAL Routine 02/19/2025 10:38 AM CDT Elevated LFTs HEPATITIS B SURFACE ANTIBODY (IMMUNE STATUS) Routine 02/19/2025 10:37 AM CDT Elevated LFTs HEPATITIS B SURFACE ANTIGEN Routine 02/19/2025 10:36 AM CDT Elevated LFTs FERRITIN Routine 02/19/2025 10:35 AM CDT Elevated LFTs CBC WITH AUTO DIFFERENTIAL Routine 02/19/2025 10:34 AM CDT Irritable bowel syndrome with constipation COMPREHENSIVE METABOLIC PANEL Routine 02/19/2025 10:33 AM CDT Irritable bowel syndrome with constipation CRP (ACUTE PHASE) Routine 02/19/2025 10: 32 AM CDT Irritable bowel syndrome with constipation TISSUE TRANSGLUTAMINASE, IGA Routine 02/19/2025 10:31 AM CDT Irritable bowel syndrome with constipation IGA Routine 02/19/2025 10:30 AM CDT Irritable bowel syndrome with constipation THYROID FUNCTION CASCADE Routine 02/19/2025 10:28 AM CDT Irritable bowel syndrome with constipation from Last 3 Months Results * Hepatitis C antibody Blood (02/19/2025 10:41 AM CDT) Hep C Ab NON-REACTI VE NON-REACT [facility] Comment: HCV antibody was non-reactive. There is no laboratory evidence of HCV infection. In most cases, no further action is required. However, if recent HCV exposure is suspected, a test for HCV RNA (test code 19293) is suggested. For additional information please refer to http://education.CoreFlow.Companion Canine/faq/LPD37z0 (This link is being provided for informational/ educational purposes only.) Blood 02/19/2025 10:4 1 AM CDT 02/19/2025 10:42 AM CDT Narrative [facility] - 02/20/2025 6:31 AM CDT FASTING:YES FASTING: YES us Samira Tracey MD LAB MICROBIOLOGY - GENERAL ORDERABLES Final Result [facility] [address] [place] [address] * Hepatitis A antibody, total Blood (02/19/2025 10:40 AM CDT) Hep A total NON-REACTI VE NON-REACTI VE [facility] Comment: For additional information, please refer to http://Varsity News Network.Innovative Mobile Technologies/faq/YZR415 (This link is being provided for informational/ educational purposes only.) Blood 02/19/2025 10:4 0 AM CDT 02/19/2025 10:41 AM CDT Narrative [facility] - 02/20/2025 6:15 AM CDT FASTING:YES FASTING: YES Samira Tracey MD LAB MICROBIOLOGY - GENERAL ORDERABLES Final Result [facility] [address] [place] [address] * JAVIER ab ql w/rflx to JAVIER qn (02/19/2025 10:39 AM CDT) Pathologist [facility] JAVIER, qual NEGATIVE NEGATIVE [facility] Comment: JAVIER IFA is a first line screen for detecting the presence of up to approximately 150 autoantibodies in various autoimmune diseases. A negative JAVIER IFA result suggests an JAVIER-associated autoimmune disease is not present at this time, but is not definitive. If there is high clinical suspicion for Sjogren's syndrome, testing for anti-SS-A/Ro antibody should be considered. Anti-Julee-1 antibody should be considered for clinically suspected inflammatory myopathies. AC-0: Negative International Consensus on JAVIER Patterns (https://doi.org/10.1515/szsk-3562-9198) For additional information, please refer to http://Varsity News Network.Aquiris.Companion Canine/faq/RSF152 (This link is being provided for informational/ educational purposes only.) Blood 02/19/2025 10:3 9 AM CDT 02/19/2025 10:40 AM CDT Narrative [facility] - 02/20/2025 3:27 PM CDT FASTING:YES FASTING: YES us Samira Tracey MD LAB BLOOD ORDERABLES Final Result Performing Organization Address [facility] de Phone Number [facility] [address] [place] [address] * Hepatitis B core antibody, total Blood (02/19/2025 10:38 AM CDT) Pathologist [facility] Hep B core IgG/IgM NON-REACTI VE NON-REACTI VE [facility] Comment: For additional information, please refer to http://education.Innovative Mobile Technologies/faq/GTG196 (This link is being provided for informational/ educational purposes only.) Blood 02/19/2025 10:3 8 AM CDT 02/19/2025 10:39 AM CDT Narrative [facility] - 02/20/2025 5:25 AM CDT FASTING:YES FASTING: YES Samira Tracey MD LAB MICROBIOLOGY - GENERAL ORDERABLES Final Result Performing Organization Address [facility] de Phone Number [facility] [address] [place] [address] * (ABNORMAL) Hepatitis B surface antibody (immune status) Blood (02/19/2025 10:37 AM CDT) [facility] HBsAb (immune status) REACTIVE(A ) NON-REACTI VE [facility] Blood 02/19/2025 10:3 7 AM CDT 02/19/2025 10:38 AM CDT Narrative [facility] - 02/20/2025 6:45 AM CDT FASTING:YES FASTING: YES Samira Tracey MD LAB MICROBIOLOGY - GENERAL ORDERABLES Final Result Performing Organization Address [facility] de Phone Number [facility] [address] [place] [address] * Hepatitis B Surface Antigen Blood (02/19/2025 10:36 AM CDT) Pathologist [facility] HepBsAg NON-REACTI VE NON-REACTI VE [facility] Comment: For additional information, please refer to http://education.Innovative Mobile Technologies/faq/YKS423 (This link is being provided for informational/ educational purposes only.) Blood 02/19/2025 10:3 6 AM CDT 02/19/2025 10:37 AM CDT Narrative [facility] - 02/20/2025 5:25 AM CDT FASTING:YES FASTING: YES Samira Tracey MD LAB MICROBIOLOGY - GENERAL ORDERABLES Final Result Performing Organization Address [facility] Co de Phone Number [facility] [address] [place] [address] * (ABNORMAL) Ferritin (02/19/2025 10:35 AM CDT) [facility] Ferritin 15(L) 16 - 232 ng/mL [facility] Blood 02/19/2025 10:3 5 AM CDT 02/19/2025 10:36 AM CDT Narrative [facility] - 02/20/2025 5:25 AM CDT FASTING:YES FASTING: YES Samira Tracey MD LAB BLOOD ORDERABLES Final Result Performing Organization Address [facility] de Phone Number [facility] [address] [place] [address] * (ABNORMAL) CBC with auto differential (02/19/2025 10:34 AM CDT) [facility] WBC 7.9 3.8 - 10.8 Thousand/u L [facility] RBC, POC 4.90 3.80 - 5.10 Million/uL [facility] Hgb 15.3 11.7 - 15.5 g/dL [facility] Hct 46.8(H) 35.0 - 45.0 % [facility] MCV 95.5 80.0 - 100.0 fL [facility] MCH 31.2 27.0 - 33.0 pg [facility] MCHC 32.7 32.0 - 36.0 g/dL [facility] Comment: For adults, a slight decrease in the calculated MCHC value (in the range of 30 to 32 g/dL) is most likely not clinically significant; however, it should be interpreted with caution in correlation with other red cell parameters and the patient's clinical condition. Rdw 13.4 11.0 - 15.0 % [facility] Platelets 267 140 - 400 Thousand/u L [facility] MPV 10.2 7.5 - 12.5 fL [facility] Neutrophils, abs 4,084 1,500 - 7,800 cells/uL [facility] Lymphocytes, abs 3,018 850 - 3,900 cells/uL [facility] Monocyte abs 490 200 - 950 cells/uL [facility] Eosinophils, abs 237 15 - 500 cells/uL [facility] Basophils, abs 71 0 - 200 cells/uL [facility] Neutrophils 51.7 % [facility] Lymphocyte pct 38.2 % [facility] Monocytes 6.2 % [facility] Eosinophils 3.0 % [facility] Basophils 0.9 % [facility] Blood 02/19/2025 10:3 4 AM CDT 02/19/2025 10:34 AM CDT Narrative [facility] - 02/19/2025 4:58 PM CDT FASTING:YES FASTING: YES us Samira Tracey MD LAB BLOOD ORDERABLES Final Result [facility] [address] [place] [address] * Comprehensive metabolic panel (02/19/2025 10:33 AM CDT) [facility] Glucose 96 65 - 99 mg/dL [facility] Comment: Fasting reference interval BUN 12 7 - 25 mg/dL [facility] Creatinine 0.70 0.50 - 0.99 mg/dL [facility] eGFR 111 > OR = 60 mL/min/1.7 3m2 [facility] BUN/creat ratio SEE NOTE: (calc) [facility] Comment: Not Reported: BUN and Creatinine are within reference range. Sodium 136 135 - 146 mmol/L [facility] Potassium, pl 4.2 3.5 - 5.3 mmol/L [facility] Chloride 104 98 - 110 mmol/L [facility] CO2 23 20 - 32 mmol/L [facility] Calcium 9.4 8.6 - 10.2 mg/dL [facility] Protein, sr 6.7 6.1 - 8.1 g/dL [facility] Albumin 4.4 3.6 - 5.1 g/dL [facility] GLOBULIN 2.3 1.9 - 3.7 g/dL (calc) [facility] Alb/glob ratio 1.9 1.0 - 2.5 (calc) [facility] Bilirubin, total 0.5 0.2 - 1.2 mg/dL [facility] Alk phos 61 31 - 125 U/L [facility] AST 19 10 - 30 U/L [facility] ALT (SGPT) 15 6 - 29 U/L [facility] Blood 02/19/2025 10:3 3 AM CDT 02/19/2025 10:33 AM CDT Narrative [facility] - 02/20/2025 2:05 AM CDT FASTING:YES FASTING: YES Samira Tracey MD LAB BLOOD ORDERABLES Final Result Performing Organization Address City/[facility]/ZIP Co de Phone Number [facility] [address] [place] [address] * CRP (acute phase) (02/19/2025 10:32 AM CDT) C-RP <5.0 <8.0 mg/L [facility] Blood 02/19/2025 10:3 2 AM CDT 02/19/2025 10:32 AM CDT Narrative [facility] - 02/20/2025 1:57 AM CDT FASTING:YES FASTING: YES us Samira Tracey MD LAB BLOOD ORDERABLES Final Result [facility] [address] [place] [address] * Tissue transglutaminase IgA (TGG-IgA Ab) (02/19/2025 10:31 AM CDT) Pathologist [facility] Tissue transglutaminase ab, IgA <1.0 U/mL [facility] Comment: Value Interpretation ----- <15.0 Antibody not detected > or = 15.0 Antibody detected Blood 02/19/2025 10:3 1 AM CDT 02/19/2025 10:31 AM CDT Narrative [facility] - 02/21/2025 2:39 AM CDT FASTING:YES FASTING: YES us Samira Tracey MD LAB BLOOD ORDERABLES Final Result Performing Organization Address [facility] Co de Phone Number [facility] [address] [place] [address] * IgA (02/19/2025 10:30 AM CDT) [facility] Immunoglobulin A 156 47 - 310 mg/dL [facility] Blood 02/19/2025 10:3 0 AM CDT 02/19/2025 10:30 AM CDT Narrative [facility] - 02/20/2025 7:31 AM CDT FASTING:YES FASTING: YES us Samira Tracey MD LAB BLOOD ORDERABLES Final Result Performing Organization Address [facility] Co de Phone Number [facility] [address] [place] [address] * Thyroid Function Ed[place]ds (02/19/2025 10:28 AM CDT) [facility] TSH 1.25 mIU/L [facility] Comment: Reference Range > or = 20 Years 0.40-4.50 Ranges First trimester 0.26-2.66 Second trimester 0.55-2.73 Third trimester 0.43-2.91 Blood 02/19/2025 10:2 8 AM CDT 02/19/2025 10:29 AM CDT Narrative [facility] - 02/20/2025 12:23 AM CDT FASTING:YES FASTING: YES us Samira Tracey MD LAB BLOOD ORDERABLES Final Result Performing Organization Address City/State/[facility] Co de Phone Number [facility] [address] [place] [address] from Last 3 Months Insurance Care Teams Fuel Injection Servicer Relationship Specialty Start Date End Date Maryjane Hernandez PA [address] [place] [address] PCP - General 03/26/24 Maddie Maria, JELANI [address] [place] [address] Consulting Physician Foot and Ankle Surg 01/12/23
--- OUTSIDE RECORDS SUMMARY | 2025-05-06 11:08 | XMS_ITS | Clinical Summary ---
Author Organization [facility] Address [address], [facility] [address] [place] [address] Phone Care Team Providers Care Slot Technician Name Role Phone DavidAinsleymaria a TRENT Primary Care Provider [phone] Ubaldo Yang MD Unavailable [phone] Allergies Active Allergy Reactions Criticality Noted Date Comments Amoxicillin Anaphylaxis 11/20/2024 Clarithromycin Rash 11/20/2024 Ciprofloxacin Rash 11/20/2024 Oxycodone Rash 11/20/2024 Medications ondansetron (ZOFRAN) 8 MG Tablet Take 8 mg by mouth every 8 hours as needed for Nausea - 1st line. Active apixaban (Eliquis) 5 MG Tablet Take 5 mg by mouth daily. Active metoclopramide (REGLAN) 10 MG Tablet Take 10 mg by mouth 4 times daily. Active fluticasone (FLONASE) 50 MCG/ACT Suspension 1 [place] by Nasal route daily. Use in each nostril as directed. Active omeprazole (PriLOSEC) 40 MG CAPSULE DELAYED RELEASE Take 40 mg by mouth daily. Active gabapentin (NEURONTIN) 600 MG Tablet Take 600 mg by mouth 2 times daily. Active Fluticasone-Ume clidin-Vilant (Trelegy Ellipta) 200-62.5-25 MCG/ACT AEROSOL POWDER, BREATH ACTIVATED take 1 Puff by inhalation 2 times daily. Active montelukast (Singulair) 10 MG Tablet Take 10 mg by mouth every evening. Active albuterol (PROVENTIL, VENTOLIN) (2.5 MG/3ML) 0.083% Nebulizer Soln INHALE 3 MLS BY NEBULIZATION EVERY 6 (SIX) HOURS NEEDED FOR WHEEZING Active divalproex (DEPAKOTE ER) 500 MG TABLET SR 24 HR Take 500 mg by mouth 2 times daily. 0 Active famotidine (PEPCID) 40 MG Tablet TAKE 1 TABLET BY MOUTH TWICE A DAY NEEDED Active ipratropium-alb uterol (DUO-NEB) 0.5-2.5 (3) MG/3ML Solution INHALE 3 ML BY NEBULIZER EVERY 6 HOURS NEEDED Active Dupixent 300 MG/2ML Solution Auto-injector Active Active Problems Problem Noted Date Diagnosed Date Acute pulmonary embolism without acute cor pulmo nale 11/20/2024 Family History Medical History Relation Name Comments factor v Brother Congestive Heart Failure Father Diabetes Sister Relation Name Status Comments Brother Father Mother Sister Alive Social History Tobacco Use Types Packs/Day Years Used Date Smoking Tobacco: Former Cigarettes 0 Q uit: 2014 Smokeless Tobacco: Never Alcohol Use Standard Drinks/Week Comments Never 0 (1 standard drink = 0.6 oz pur e alcohol) PHQ-2 Answer Date Recorded Total Score - Questions 1-9 0 11/06 Comments Unknown Sex and Gender Information Value Date Recorded Sex Assigned at Not on file Legal Sex Female 11:31 AM CDT Gender Identity Not on file Sexual Orientation Not on file Last Filed Vital Signs Vital Sign Reading Time Taken Comments Blood Pressure 114/70 01/01/2025 8:26 AM CDT Pulse 75 01/01/2025 8:26 AM CDT Temperature 36.9 C (98.4 F) 01/01/2025 8:26 AM CDT Respiratory Rate 18 01/01/2025 8:26 AM CDT Oxygen Saturation 97% 01/01/2025 8:26 AM CDT Inhaled Oxygen Concentration - - Weight 116.9 kg (257 lb 11.2 oz) 01/01/2025 8:26 AM CDT Height 170.2 cm (5' 7) 01/01/2025 8:26 AM CDT Body Mass Index 40.36 01/01/2025 8:26 AM CDT Plan of Treatment Health Maintenance Due Date Last Done Comments Mammogram 1983 TdaP Immunization 1983 Hepatitis B Immunization (1 of 3 - 19+ 3-dose series) 2002 Pap Smear 2004 Human Papillomavirus (HPV) Immunization (1 - 3-dose SCDM series) 2010 Cervical Cancer Screening (CCS) 2013 HPV/Cotest 2013 Discussion re Starting/Frequency of Mammograms 2023 Influenza Immunization (#1) 2025 SARS-COV-2 Immunization ( - 2024- season) 2025 Respiratory Syncytial Virus (RSV) Immunization (Adult) (1 - 1-dose 75+ series) 2058 Hepatitis C Virus (HCV) Screening Completed 07/20/2021 Pneumococcal Immunization Combined Aged Out 12/20/2021, 06/07/2018 No longer eligible based on patient's age to complete this topic Meningococcal Immunization (ACWY) Aged Out No longer eligible b ased on patient's age to complete this topic Rotavirus Immunization Aged Out No lo nger eligible based on patient's age to complete this topic Insurance MEDICAID [place] Care Teams Slot Technician Relationship Specialty Start Date End Date Maryjane Hernandez PAC [address] [place] [id number] PCP - General Physician Boiler Blower 10/22/24 Ubaldo Yang MD [address] [place] [address] Consulting Physician Oncology 10/22/24
== END 2025-05-06 10:00 | disposition home or self-care (01) ==
PROVIDERS: PCP Family Medicine; Visit Provider Nurse Practitioner Adult Health
DX: R60.0 Localized edema (principal); M79.644 Pain in right finger(s)
CPT/HCPCS: 73120